=== PATIENT | female | born 1945 | race Caucasian/White ===

== ENCOUNTER 2019-09-05 14:03 | Outpatient (CLI) | payer MEDICARE, SELFPAY ==
--- NOTE | ~2019-09-05 | US_ITS ---
EXAMINATION: US arterial ankle brachial ind DATE: 09/05/2019 14:42 INDICATION: Peripheral vascular disease, unspecified. TECHNIQUE: Segmental pressures and plethysmographic and Doppler waveforms of the brachial and lower e xtremity arteries were obtained. COMPARISON: None. FINDINGS: Right and left brachial artery pressures of 113 mm Hg and 112 mm Hg, respectively, are concordant (no rmal difference <= 30 mmHg). The right ankle-brachial index (ZUHAIR) is 1.28 (normal >= 0.9-1.0). The right great toe-brachial index (TBI) is 0.96 (normal >= 0.65). Arterial Doppler waveforms are biphasic in posterior tibial artery an d at least triphasic in dorsalis pedis. The left ZUHAIR is 1.32. The left TBI is 1.03. Arterial Doppler waveforms are biphasic in posterior tibi al artery and triphasic in dorsalis pedis. IMPRESSION: 1. No significant arterial occlusive disease. Reviewed, dictated and finalized at location A. H MACHINE OPERATOR
== END 2019-09-05 14:04 | disposition home or self-care (01) ==
PROVIDERS: PCP Family Medicine; Visit Provider Physician Assistant
DX: I73.9 Peripheral vascular disease, unspecified (principal); M79.604 Pain in right leg; M79.605 Pain in left leg
CPT/HCPCS: 93922

== ENCOUNTER → 2020-02-15 15:14 | Outpatient (CLI) | payer MEDICARE, SELFPAY ==
--- NOTE | ~2020-02-15 | MM_ITS ---
EXAMINATION: MM screening eliza BI w conrad HISTORY: Screening TECHNIQUE: Craniocaudal and mediolateral oblique 3-D tomosynthesis images were obtained and synthetic 2-D images were generated. CAD analysis was submitted and interpreted. COMPARISON: Comparison to multiple prior studies sequentially, with oldest reviewed study dated 07/2015. BREAST PARENCHYMAL COMPOSITION: There are scattered areas of fibroglandular density. FINDINGS: There are enlarging masses in the medial aspect of the left breast, best seen on CC view. T he right breast is stable without evidence for malignancy. IMPRESSION: 1. Enlarging left breast masses medially, best seen on CC view. 2. Additional mammographic views and possible breast ultrasound are recommended. BI-RADS Category 0: Incomplete: Needs additional imaging evaluation. Reviewed, dictated and finalized at location A. IMPRESSION: 1. Enlarging left breast masses medially, best seen on CC view. 2. Additional mammographic views and possible breast ultrasound are recommended . BI-RADS Category 0: Incomplete: Needs additional imaging evaluation.
== END ==
PROVIDERS: PCP Family Medicine; Visit Provider Family Medicine
DX: Z12.31 Encounter for screening mammogram for malignant neoplasm of breast (principal); R92.8 Other abnormal and inconclusive findings on diagnostic imaging of breast
CPT/HCPCS: 77063; 77067

== ENCOUNTER → 2020-02-29 08:30 | Outpatient (CLI) | payer MEDICARE, SELFPAY ==
--- NOTE | ~2020-02-29 | MMUS_ITS ---
EXAMINATION: MM diagnostic mammo unilat LT, US breast LT limited HISTORY: Left breast masses on screening mammogram TECHNIQUE: Additional 3-D tomosynthesis images of the left breast were performed and synthetic 2-D im ages were generated. CAD analysis was submitted and interpreted. High resolution limited left breast ultrasound was performed. COMPARISON: 02/15/2020, 11/05/2018, 10/01/2017, 09/14/2016 FINDINGS: MAMMOGRAPHIC FINDINGS: There is a 5 mm oval, obscured, equal density mass in the middle third of the upper inner breast at t he 10:00 location 5 cm from the nipple. A 5 mm mass with similar mammographic features is seen in the anterior third of the breast at the 10:00 location 2 cm deep to the nipple. With spot compression im ages, and compared to prior examinations, these masses appear to have a somewhat waxing and waning ap pearance. No suspicious architectural distortion or calcification are identified. ULTRASOUND: There is a 4 mm x 2 mm oval, circumscribed, parallel, hypoechoic mass with no posterior features or i nternal vascularity at the 10:00 location 3 cm from the nipple. There is a 5 mm oval cyst at the 11:0 0 location 4 cm from the 18 mm round cyst is seen at the 12:00 location 1 cm from the nipple. IMPRESSION: 1. Probably benign left breast masses. 2. Recommend 6 month follow-up left diagnostic mammogram and ultrasound. BI-RADS category 3, probably benign findings. Reviewed, dictated and finalized at location A. IMPRESSION: 1. Probably benign left breast masses. 2. Recommend 6 month follow-up left diagnostic mammogram and ultrasound. BI-RADS category 3, probably benign findings.
== END ==
PROVIDERS: PCP Family Medicine; Visit Provider Physician Assistant
DX: R92.8 Other abnormal and inconclusive findings on diagnostic imaging of breast (principal)
CPT/HCPCS: 76642; 77065

== ENCOUNTER 2020-03-20 11:01 | Outpatient (CLI) | payer MEDICARE, SELFPAY ==
--- NOTE | ~2020-03-20 | XR_ITS ---
XR shoulder RT min 2V 03/20/2020 11:36 Indication: Right shoulder pain Procedure: 5 views right shoulder Comparison: No prior studies for comparison. 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 Osteopenia. No acute frac ture or traumatic malalignment. No significant soft tissue abnormality. No foreign bodies. Impression: 1: Mild polyarticular osteoarthritis. Reviewed, dictated and finalized at location B. Impression: 1: Mild polyarticular osteoarthritis.
== END 2020-03-20 11:02 | disposition home or self-care (01) ==
LOC: ANHIMG 11:05
PROVIDERS: PCP Family Medicine; Visit Provider Physician Assistant
DX: M19.011 Primary osteoarthritis, right shoulder (principal)
CPT/HCPCS: 73030

== ENCOUNTER 2020-06-21 01:48 | Outpatient (CLI) | payer MEDICARE, SELFPAY ==
[2020-06-21 20:00] LABS: SARS-CoV-2 RNA PCR Negative
== END 2020-06-21 01:49 | disposition home or self-care (01) ==
LOC: ANHCOVIDDT 01:48
PROVIDERS: PCP Family Medicine; Visit Provider Internal Medicine Gastroenterology
DX: Z01.818 Encounter for other preprocedural examination (principal); Z20.828 Contact with and (suspected) exposure to other viral communicable diseases
CPT/HCPCS: 87635; C9803; U0003

== ENCOUNTER 2020-06-24 02:14 | Day surgery (SDC) | payer MEDICARE, SELFPAY ==
[2020-06-17 15:24] VITALS: BMI 21.9
--- NOTE | 2020-06-24 08:51 | WPDANESEPPF ---
Anes - Initial Pre Proc Eval Procedure: Operation Date: 06/24/20 11:00 Proposed Procedures p Screening Colonoscopy - Tico Jamil MD Date/Time: 06/24/20 08:51 Surgeon: Tico Jamil MD Pre Op Diagnosis: neoplasm screening Patient Data Age: 75 Gender: F Height: 1.52 m Weight: 51 kg Allergies Allergy/AdvReac Type Severity Reaction Status Date / Time No Known Allergies Allergy Verified 06/24/20 10:04 Home Medications Medication Instructions Recorded Confirmed Type aspirin 81 mg tablet,delayed 81 mg PO DAILY 07/10/19 06/17/20 History release cyclobenzaprine 5 mg tablet See Rx Instructions PO ONCE PRN 07/10/19 06/17/20 History tablet furosemide 80 mg tablet 240 mg PO BID tablet 07/10/19 06/17/20 History gentamicin 0.1 % topical cream 1 applic TOPICAL ONCE gm 07/10/19 05/08/20 History lisinopril 5 mg tablet 5 mg PO DAILY 07/10/19 06/17/20 History sevelamer carbonate 800 mg tablet 1,600 mg PO TID tablet 07/10/19 06/17/20 History atorvastatin 40 mg tablet 40 mg PO DAILY #90 tablet 07/11/19 05/08/20 Rx levothyroxine 50 mcg tablet 50 mcg PO DAILY #90 tablet 07/11/19 06/17/20 Rx epoetin krystle 2,000 unit/mL 1,000 unit SUB-Q .every 2 weeks ml 08/23/19 06/17/20 History injection solution ropinirole 0.25 mg tablet 0.5 mg PO DAILY tablet 08/23/19 06/17/20 History propranolol 10 mg tablet 10 mg PO Q12H #180 tablet 04/16/20 06/17/20 Rx amlodipine 2.5 mg tablet 2.5 mg PO DAILY #90 tablet 05/23/20 06/17/20 Rx sodium,potassium,mag sulfates 17.5 See Rx Instructions PO .COMPLEX 05/24/20 Rx gram-3.13 gram-1.6 gram oral soln #354 ml azithromycin 500 mg PO 3XW 06/17/20 06/17/20 History citalopram 20 mg tablet 20 mg PO DAILY #90 tablet 06/17/20 Rx ethambutol 400 mg PO 3XW 06/17/20 06/17/20 History rifampin 300 mg PO 3XW 06/17/20 06/17/20 History tramadol 37.5 mg-acetaminophen 325 1 tablet PO Q6H PRN #90 tablet 06/17/20 06/17/20 Rx mg tablet lorazepam 1 mg tablet 1 mg PO TID PRN #60 tablet 06/18/20 Rx Patient hx anesthesia problems: none Family hx anesthesia problems: none PMFSH Past Medical History Medical History (Updated 06/24/20 @ 08:52 by Cesar Jiménez MD) Acquired hypothyroidism Anemia in chronic kidney disease Anxiety Chronic kidney disease, stage IV (severe) Dialysis patient peritoneal ESRD (end stage renal disease) HLD (hyperlipidemia) PAD (peripheral artery disease) Primary osteoarthritis, unspecified site Secondary hyperparathyroidism (of renal origin) Family History Family History Mother Diabetes mellitus Cerebrovascular accident Father Family history of cardiovascular disease Social History Social History Social History: Smoking status: Never smoker Second hand tobacco smoke exposure: No Alcohol intake: never Substance use: never Substance use type: does not use Living arrangements: with family Gender identity (if verbalized by the patient): Female Spiritual care concerns: No Anes - Eval Final PreProcedure Day of Procedure 06/24/20 08:51 Patient weight: normal Heart: regular rate and rhythm Lungs: clear to auscultation and normal air movement Airway: Mallampati scale class II Neurological: alert and oriented Last oral intake: >/= 8 hours ASA classification: IV Emergent: no Anesthetic plan: proceed Anesthesia type and monitoring: general GIVS Informed Consent: The patient's anesthetic plan and its attendant risks and benefits were discussed with the patient/family/POA. Questions were solicited and answers provided to the satisfaction of the patient/family/POA.
[2020-06-24 10:08] VITALS: BP 153/84; PULSE 89; RESP 16; TEMP 36.6; O2SAT 98; BMI 21.5
[2020-06-24] MEDS: SODIUM CHLORIDE 0.9% IV 500 ML 10 ML IV CONT (10:48)
[2020-06-24 10:58] LABS: Potassium 4.2 mmol/L (3.4-5.0)
--- NOTE | 2020-06-24 11:12 | PM.HPGS ---
History of Present Illness History of Present Illness Consent: Risks, benefits, and alternatives have been discussed and questions answered. Patient agrees to proceed with procedure. Chief complaint: neoplasm screening Narrative: Jacquie Cano is a 75 year old female with last colonoscopy 8 years ago, recent positive FIT Review of Systems Constitutional: Constitutional: Denies headache(s) and Denies weakness Eyes: Eyes: Denies blurry vision ENT: Reports Normal hearing present, Denies headache(s) and Denies neck pain Cardiovascular: Cardiovascular: Denies chest pain and Denies dyspnea Respiratory: Respiratory: Denies dyspnea Gastrointestinal: Gastrointestinal: Reports no additional gastrointestinal complaints Genitourinary: Genitourinary: Denies dysuria Musculoskeletal: Musculoskeletal: Denies neck pain Integumentary/Breasts: Skin/Breast: Denies dry skin Neurologic: Reports Normal hearing present, Denies headache(s) and Denies weakness Psychiatric: Psychiatric: Denies anxiety Endocrine: Endocrine: Denies change in body appearance Hematologic/Lymphatic: Hematologic/Lymphatic: Denies easy bleeding Allergic/Immunologic: Allergic/Immunologic: Denies urticaria PMFSH Past Medical History Medical History (Updated 06/24/20 @ 11:13 by Tico Jamil MD) Acquired hypothyroidism Anemia in chronic kidney disease Anxiety Chronic kidney disease, stage IV (severe) Dialysis patient peritoneal ESRD (end stage renal disease) Fecal occult blood test positive HLD (hyperlipidemia) PAD (peripheral artery disease) Primary osteoarthritis, unspecified site Secondary hyperparathyroidism (of renal origin) Family History Family History Mother Diabetes mellitus Cerebrovascular accident Father Family history of cardiovascular disease Social History Social History Social History: Smoking status: Never smoker Second hand tobacco smoke exposure: No Alcohol intake: never Substance use: never Substance use type: does not use Living arrangements: with family Gender identity (if verbalized by the patient): Female Spiritual care concerns: No Meds Home Medications and Allergies Home Medications Medication Instructions Recorded Confirmed Type aspirin 81 mg tablet,delayed 81 mg PO DAILY 07/10/19 06/17/20 History release cyclobenzaprine 5 mg tablet See Rx Instructions PO ONCE PRN 07/10/19 06/17/20 History tablet furosemide 80 mg tablet 240 mg PO BID tablet 07/10/19 06/17/20 History gentamicin 0.1 % topical cream 1 applic TOPICAL ONCE gm 07/10/19 05/08/20 History lisinopril 5 mg tablet 5 mg PO DAILY 07/10/19 06/17/20 History sevelamer carbonate 800 mg tablet 1,600 mg PO TID tablet 07/10/19 06/17/20 History atorvastatin 40 mg tablet 40 mg PO DAILY #90 tablet 07/11/19 05/08/20 Rx levothyroxine 50 mcg tablet 50 mcg PO DAILY #90 tablet 07/11/19 06/17/20 Rx epoetin krystle 2,000 unit/mL 1,000 unit SUB-Q .every 2 weeks ml 08/23/19 06/17/20 History injection solution ropinirole 0.25 mg tablet 0.5 mg PO DAILY tablet 08/23/19 06/17/20 History propranolol 10 mg tablet 10 mg PO Q12H #180 tablet 04/16/20 06/17/20 Rx amlodipine 2.5 mg tablet 2.5 mg PO DAILY #90 tablet 05/23/20 06/17/20 Rx sodium,potassium,mag sulfates 17.5 See Rx Instructions PO .COMPLEX 05/24/20 Rx gram-3.13 gram-1.6 gram oral soln #354 ml azithromycin 500 mg PO 3XW 06/17/20 06/17/20 History citalopram 20 mg tablet 20 mg PO DAILY #90 tablet 06/17/20 Rx ethambutol 400 mg PO 3XW 06/17/20 06/17/20 History rifampin 300 mg PO 3XW 06/17/20 06/17/20 History tramadol 37.5 mg-acetaminophen 325 1 tablet PO Q6H PRN #90 tablet 06/17/20 06/17/20 Rx mg tablet lorazepam 1 mg tablet 1 mg PO TID PRN #60 tablet 06/18/20 Rx Allergies Allergy/AdvReac Type Severity Reaction Status Date / Time No Known Allergies All
[2020-06-24 11:47] VITALS: BP 114/66; PULSE 88; RESP 20; O2SAT 93
[2020-06-24 11:57] VITALS: BP 139/69; PULSE 83; RESP 20; O2SAT 98
[2020-06-24 12:07] VITALS: BP 132/82; PULSE 81; RESP 20; O2SAT 98
== END 2020-06-24 12:16 | disposition home or self-care (01) ==
PROVIDERS: Anesthesiology; PCP Family Medicine; Visit Provider Internal Medicine Gastroenterology
PROC: 0DJD8ZZ Inspection of Lower Intestinal Tract, Via Natural or Artificial Opening Endoscopic (ICD-10-PCS; CPT 45378; principal; 2020-06-24 11:00)
DX: Z12.11 Encounter for screening for malignant neoplasm of colon (principal); K57.30 Diverticulosis of large intestine without perforation or abscess without bleeding; K64.8 Other hemorrhoids; R19.5 Other fecal abnormalities; Z79.82 Long term (current) use of aspirin; E03.9 Hypothyroidism, unspecified; F41.9 Anxiety disorder, unspecified; D63.1 Anemia in chronic kidney disease; N18.6 End stage renal disease; Z99.2 Dependence on renal dialysis; E78.5 Hyperlipidemia, unspecified; I73.9 Peripheral vascular disease, unspecified; M19.90 Unspecified osteoarthritis, unspecified site; E21.3 Hyperparathyroidism, unspecified
CPT/HCPCS: G0121; 36415; 84132; J2704; J7040

== ENCOUNTER → 2020-10-18 08:03 | Outpatient (CLI) | payer MEDICARE, SELFPAY ==
--- NOTE | ~2020-10-18 | MMUS_ITS ---
EXAMINATION: MM diagnostic eliza BI w conrad, US breast LT limited HISTORY: Follow-up left breast masses TECHNIQUE: Additional 3-D tomosynthesis images of the breasts were performed and synthetic 2-D images were generated. CAD analysis was submitted and interpreted. High resolution Limited left breast ultr asound was performed. COMPARISON: Comparison to multiple prior studies sequentially, with oldest reviewed study dated 10/01/2017. BREAST PARENCHYMAL COMPOSITION: Breast composed of scattered areas of fibroglandular density. FINDINGS: MAMMOGRAPHIC FINDINGS: There are no new masses, calcifications or architectural distortion in either breast to suggest malingrid sorensen. ULTRASOUND: Limited left breast ultrasound: At 10:00, 3 cm from the nipple there is a stable 4 mm oval circumscri bed hypoechoic mass with parallel orientation, no posterior features. At 12:00, 3 cm from the nipple there is a 3 mm cyst. IMPRESSION: 1. No evidence for malignancy in either breast. Benign findings. 2. Routine yearly screening mammogram and regular clinical breast examination are recommended. BI-RADS Category 2: Benign finding(s). Reviewed, dictated and finalized at location A. IMPRESSION: 1. No evidence for malignancy in either breast. Benign findings. 2. Routine yearly screening mammogram and regular clinical breast examination a re recommended. BI-RADS Category 2: Benign finding(s).
== END ==
PROVIDERS: PCP Family Medicine; Visit Provider Physician Assistant
DX: R92.8 Other abnormal and inconclusive findings on diagnostic imaging of breast (principal)
CPT/HCPCS: 76642; 77062; 77066; G0279

== ENCOUNTER → 2020-10-31 10:42 | Outpatient (CLI) | payer MEDICARE, SELFPAY ==
--- NOTE | ~2020-10-31 | XR_ITS ---
XR lumbar spine 2-3V 10/31/2020 11:07 Indication: Low back pain Procedure: 3 views lumbar spine Comparison: No prior studies for comparison. Findings: There is dextroscoliosis of the lumbar spine centered at L3. There is severe multilevel lum bar spondylosis characterized by disc narrowing, endplate hypertrophy as well as facet hypertrophy. N o acute fractures identified. Pedicles intact. There is a peritoneal dialysis catheter overlying the pelvis. There is atherosclerosis of the aorta. Impression: 1: Severe lumbar spondylosis with dextroscoliosis. Reviewed, dictated and finalized at location B. Impression: 1: Severe lumbar spondylosis with dextroscoliosis.
== END ==
PROVIDERS: PCP Family Medicine; Visit Provider Physician Assistant
DX: M54.42 Lumbago with sciatica, left side (principal); G89.29 Other chronic pain; M47.896 Other spondylosis, lumbar region
CPT/HCPCS: 72100

== ENCOUNTER 2020-12-13 09:32 | Outpatient (RCR) | payer MEDICARE, SELFPAY ==
[2020-12-13] VITALS (10 sets, daily range): BP systolic 119–161; BP diastolic 60–88; PULSE 70–76; RESP 14–17; TEMP 36.1–36.3; O2SAT 97–100
[2020-12-13] MEDS: ACETAMINOPHEN 325 MG TABLET 650 MG PO (11:00)
[2020-12-13] MEDS: diphenhydrAMINE HCl CAP 25 MG CAPSULE PO (11:00)
[2020-12-13] MEDS: SODIUM CHLORIDE 0.9% IV 250 ML 30 ML IV CONT (11:45)
[2020-12-13] MEDS: FUROSEMIDE INJ 40 MG/4 ML VIAL 20 MG IV PUSH (14:30)
--- NOTE | 2020-12-13 17:51 | PC.NURSE ---
Infusion complete. RENÉ Slaughter went through discharge instructions. Patient verbalized understanding.
--- NOTE | 2020-12-13 18:06 | PC.NURSE ---
Kasandra MERRITT went through patient's discharge paperwork. Patient verbalized understanding. Patient escorted off the unit by wheelchair and by Jenn MERRITT.
== END 2021-03-12 23:59 | disposition home or self-care (01) ==
LOC: ANHCPCTRAN 09:32
PROVIDERS: PCP Family Medicine; Visit Provider Internal Medicine Nephrology
DX: N18.6 End stage renal disease (principal); D63.1 Anemia in chronic kidney disease
CPT/HCPCS: 36415; 36430; 85014; 85018; 86850; 86900; 86901; 86920; A9270; J1940; J7050; P9016

== ENCOUNTER 2021-01-27 14:26 | Outpatient (CLI) | payer MEDICARE, SELFPAY ==
[2021-01-27 15:30] LABS: Basophils Percent Auto 0.7 % (0.2-1.2); Eosinophils Absolute Auto 0.1 K/mm3 (0-0.3); Eosinophils Percent Auto 2.2 % (0-4.4); Hematocrit 38.4 % (37.0-47.0); Hemoglobin 12.5 g/dL (12.0-15.0); Immature Granulocyte Absolute 0.01 K/mm3 (0.00-0.031); Immature Granulocyte Percent A 0.2 % (0-0.5); Lymphocytes Absolute Auto 0.96 K/mm3 (0.9-3.2); Lymphocytes Percent Auto 20.9 % (18.3-44.2); Mean Corpuscular HGB Conc 32.6 g/dl (32-36); Mean Corpuscular Hemoglobin 36.3 pg (26-34); Mean Corpuscular Volume 111.6 fl (80-100); Mean Platelet Volume 9.6 fl (7.4-10.4); Monocytes Absolute Auto 0.5 K/mm3 (0.1-0.6); Monocytes Percent Auto 9.8 % (2.6-8.5); Neutrophils Absolute Auto 3.1 K/mm3 (1.3-6.7); Neutrophils Percent Auto 66.2 % (45.5-73.1); Nucleated Red Blood Cells Perc 0.7 % (0.0-0.2); Platelet Count Result 209 k/mm3 (150-375); Red Blood Count 3.44 M/mm3 (4.2-5.4); White Blood Count 4.6 K/mm3 (4.5-10.0)
[2021-01-27 16:04] LABS: Alanine Aminotransferase 24 U/L (4-35); Alkaline Phosphatase 74 U/L (38-126); Anion Gap 12 mmol/L (8-16); Aspartate Amino Transferase 35 U/L (14-36); Bilirubin,Total 0.6 mg/dL (0.2-1.3); Blood Urea Nitrogen 51 mg/dL (7-17); Calcium 9.2 mg/dL (8.4-10.2); Carbon Dioxide 25 mmol/L (22-30); Chloride 99 mmol/L (98-107); Estimated Glomerular Filt Rate 5; Glucose 83 mg/dL (65-110); Lactate Dehydrogenase 770 U/L (313-618); Potassium 4.4 mmol/L (3.4-5.0); Sodium 136 mmol/L (137-145)
[2021-01-27 17:09] LABS: Folic Acid > 20.0 ng/mL (2.76->20)
[2021-01-27 18:01] LABS: Iron 70 ug/dL (37-170)
[2021-01-27 18:11] LABS: Percent Iron Saturation 34 % (20-50)
[2021-01-30 11:46] LABS: Methylmalonic Acid 622 nmol/L (87-318)
[2021-01-30 17:36] LABS: Erythropoietin (EPO) 31.8 mIU/mL (2.6-18.5)
== END 2021-01-27 14:27 | disposition home or self-care (01) ==
LOC: ANHLAB 14:29
PROVIDERS: PCP Family Medicine; Visit Provider Internal Medicine Hematology & Oncology
DX: D64.9 Anemia, unspecified (principal)
CPT/HCPCS: 36415; 80053; 82607; 82668; 82728; 82746; 83540; 83550; 83615; 83921; 84443; 85025

== ENCOUNTER 2021-01-30 09:03 | Inpatient (IN) | payer MEDICARE, SELFPAY ==
[2021-01-30] VITALS (38 sets, daily range): BP systolic 163–213; BP diastolic 80–117; PULSE 73–94; RESP 15–28; TEMP 36–37.3; O2SAT 98–100; BMI 20.3
--- NOTE | ~2021-01-30 | XR_ITS ---
XR chest 1V portable 01/30/2021 09:41 Indication: Hypertension Procedure: AP portable chest Comparison: 10/11/2018 Findings: Large hiatal hernia. Heart size normal for technique. There is atherosclerosis of the aorta . No focal air space disease, pulmonary edema, pleural effusion or suspected pneumothorax. Impression: 1: Large hiatal hernia. Reviewed, dictated and finalized at location A. Impression: 1: Large hiatal hernia.
--- NOTE | ~2021-01-30 | CT_ITS ---
EXAMINATION: CT brain wo con DATE: 01/30/2021 10:02 INDICATION: Headache. Hypertension. TECHNIQUE: Computed tomography (CT) of the head was performed without intravenous contrast. Sagittal and coronal reconstructions were performed. The mA was adjusted according to patient size. Iterative reconstruction technique was employed. The dose-length product was 605.33 mGy-cm. COMPARISON: head CT dated 10/11/2018 and brain MR dated 10/12/2018 FINDINGS: No acute intracranial hemorrhage, acute infarction or abnormal extra axial fluid collection. There is mild scattered white matter hypoattenuation consistent with chronic small vessel ischemic disease. S ymmetric prominence of the sulci and subarachnoid spaces overlying the convexities consistent with mi ld age-appropriate diffuse cerebral volume loss. Ventricles are normal and symmetric. No mass/mass ef fect. Changes of bilateral intraocular lens replacement. The orbits, paranasal sinuses and mastoid ai r cells are normal. Intracranial calcified cerebral atherosclerosis is noted. IMPRESSION: 1. No acute intracranial process. 2. Age-related changes including mild diffuse volume loss and mild scattered white matter hypoattenua tion consistent with chronic small vessel ischemic disease. Reviewed, dictated and finalized at location A. IMPRESSION: 1. No acute intracranial process. 2. Age-related changes including mild diffuse volume loss and mild scattered wh ite matter hypoattenuation consistent with chronic small vessel ischemic diseas e.
--- NOTE | 2021-01-30 09:31 | ECG_ITS ---
Measurements Intervals [place] Rate: 85 P: 52 [place]: 159 QRS: 19 QRSD: 82 T: 67 QT: 374 QTc: 447 Interpretive Statements SINUS RHYTHM POSSIBLE LEFT ATRIAL ENLARGEMENT BASELINE ARTIFACT- I, II, AVR, AVL, V1-V2 BORDERLINE ECG Electronically Signed On 01-30-2021 11:59:31 CDT by Mason Mendez D.O.
--- NOTE | 2021-01-30 09:37 | ED.HA ---
HPI - Headache General Chief Complaint: Headache <Luiza Chopra PA-C - Last Filed: 01/30/21 13:13> Stated Complaint: MORGAN <SUE Velazquez Last Filed: 01/30/21 13:13> Time Seen by Provider: 01/30/21 09:18 <SUE Velazquez Last Filed: 01/30/21 13:13> Source: patient <SUE Velazquez Last Filed: 01/30/21 13:13> Mode of arrival: ambulatory <SUE Velazquez Last Filed: 01/30/21 13:13> Limitations: no limitations <SUE Velazquez Last Filed: 01/30/21 13:13> History of Present Illness HPI Narrative: This is a 75-year-old female that presents to the emergency department for headaches x2 weeks. Associated with nausea. Reports the headaches are pounding. She does have history of migraines. She has been taking tramadol with little relief. Reports she saw her kidney doctor who recently increased her blood pressure medicine. She has been taking these as prescribed. Her blood pressure has consistently been running in the 200s systolic. She does peritoneal dialysis nightly. Denies fever, stiff neck, chest pain, shortness of breath, vision changes, vomiting, numbness, weakness, or lower extremity edema. <Luiza Chopra PA-C - Last Filed: 01/30/21 13:13> Related Data Home Medications: Home Medications Medication Instructions Recorded Confirmed aspirin 81 mg tablet,delayed 81 mg PO DAILY 07/10/19 12/19/20 release furosemide 80 mg tablet 240 mg PO BID tablet 07/10/19 12/19/20 gentamicin 0.1 % topical cream 1 applic TOPICAL ONCE gm 07/10/19 12/19/20 sevelamer carbonate 800 mg tablet 1,600 mg PO TID tablet 07/10/19 12/19/20 epoetin krystle 2,000 unit/mL 1,000 unit SUB-Q .every 2 weeks ml 08/23/19 12/19/20 injection solution ropinirole 0.25 mg tablet 0.5 mg PO DAILY tablet 08/23/19 12/19/20 ethambutol 400 mg PO 3XW 06/17/20 12/19/20 rifampin 300 mg PO 3XW 06/17/20 12/19/20 <Luiza Chopra PA-C - Last Filed: 01/30/21 13:13> Allergies/Adverse Reactions: Allergies Allergy/AdvReac Type Severity Reaction Status Date / Time No Known Allergies Allergy Verified 12/19/20 11:00 <Luiza Chopra PA-C - Last Filed: 01/30/21 13:13> Review of Systems Review of Systems: CONSTITUTIONAL: Denies fever EYES: Denies visual changes CARDIOVASCULAR: Denies chest pain, or edema. RESPIRATORY: Denies dyspnea. GASTROINTESTINAL: Reports nausea. Denies vomiting NEUROLOGIC: Reports headache. Denies numbness, or weakness. <Luiza Chopra PA-C - Last Filed: 01/30/21 13:13> All systems reviewed & are unremarkable except as noted in HPI and below <Luiza Chopra PA-C - Last Filed: 01/30/21 13:13> [facility] Past Medical History Medical History: Medical History Acquired hypothyroidism Anemia in chronic kidney disease Anxiety Chronic kidney disease, stage IV (severe) Dialysis patient peritoneal ESRD (end stage renal disease) Fecal occult blood test positive HLD (hyperlipidemia) PAD (peripheral artery disease) Primary osteoarthritis, unspecified site Secondary hyperparathyroidism (of renal origin) <Luiza Chopra PA-C - Last Filed: 01/30/21 13:13> Family History Family History: Family History Mother Diabetes mellitus Cerebrovascular accident Father Family history of cardiovascular disease <Luiza Chopra PA-C - Last Filed: 01/30/21 13:13> Social History Social History: Social History Social History: Smoking status: Never smoker Second hand tobacco smoke exposure: No Alcohol intake: never Substance use: never Substance use type: does not use Gender identity (if verbalized by the patient): Female Spiritual care concerns: No <Luiza Chopra PA-C - Last Filed: 01/30/21 13:13> Exam Narrative: GENERA
[2021-01-30] MEDS: diphenhydrAMINE HCl INJ 50 MG/ML VIAL 25 MG IV PUSH (09:56)
[2021-01-30] MEDS: METOCLOPRAMIDE HCL INJ 10 MG/2 ML VIAL 5 MG IV PUSH (09:56)
--- NOTE | 2021-01-30 09:58 | PC.NURSE ---
pT TO CT
[2021-01-30 10:04] LABS: Basophils Percent Auto 0.8 % (0.2-1.2); Eosinophils Absolute Auto 0.1 K/mm3 (0-0.3); Eosinophils Percent Auto 1.1 % (0-4.4); Hematocrit 34.6 % (37.0-47.0); Hemoglobin 11.1 g/dL (12.0-15.0); Immature Granulocyte Absolute 0.02 K/mm3 (0.00-0.031); Immature Granulocyte Percent A 0.4 % (0-0.5); Lymphocytes Absolute Auto 1.07 K/mm3 (0.9-3.2); Lymphocytes Percent Auto 22.7 % (18.3-44.2); Mean Corpuscular HGB Conc 32.1 g/dl (32-36); Mean Corpuscular Volume 112.3 fl (80-100); Mean Platelet Volume 10.2 fl (7.4-10.4); Monocytes Absolute Auto 0.4 K/mm3 (0.1-0.6); Monocytes Percent Auto 8.5 % (2.6-8.5); Neutrophils Absolute Auto 3.1 K/mm3 (1.3-6.7); Neutrophils Percent Auto 66.5 % (45.5-73.1); Platelet Count Result 172 k/mm3 (150-375); Red Blood Count 3.08 M/mm3 (4.2-5.4); White Blood Count 4.7 K/mm3 (4.5-10.0)
[2021-01-30 10:32] LABS: INR 0.8
[2021-01-30 10:33] LABS: Partial Thromboplastin Time 26.4 SECONDS (22.3-36.8)
[2021-01-30] MEDS: LABETALOL HCL INJ 100 MG/20 ML VIAL 20 MG IV PUSH ×2 (11:05→12:10)
[2021-01-30 11:08] LABS: Anion Gap 12 mmol/L (8-16); Blood Urea Nitrogen 49 mg/dL (7-17); Calcium 8.8 mg/dL (8.4-10.2); Carbon Dioxide 24 mmol/L (22-30); Chloride 100 mmol/L (98-107); Estimated CRCL calculation 5 ml/min; Estimated Glomerular Filt Rate 5; Glucose 98 mg/dL (65-110); Sodium 136 mmol/L (137-145)
[2021-01-30] MEDS: NIFEdipine 30 MG TAB.ER.24 PO (13:35)
--- NOTE | 2021-01-30 14:03 | PM.IMHP ---
H&P: HPI History of Present Illness Date/Time: 01/30/21 14:03 Jacquie Cano is a 75 year old lady with a past medical history significant for HTN, ESRD (on PD), PAD, HLD and migraines who has been admitted after presenting to the ED with a chief complaint of headache for the past two weeks. She reports associated nausea but no vomiting. She tells me she took ibuprofen and tramadol with no relief. She notes that her blood pressure had been elevated systolically in the 200s. She has experienced similar symptoms in the past and was noted with elevated blood pressure about 2 years ago prior to starting PD. She is followed by a fern cutter, Dr. Sprague, who recently increased doses on two of her antihypertensives because her BP was elevated. She reports taking her medication as ordered without any skipped doses. She denies any vision changes, numbness, tingling, or weakness in the extremities, SOB, CP, vomiting, or abdominal pain. ED evaluation included and revealed: BP elevated 210s/110s; BUN/Cr 49/7.6; H/H 11.1/34.6. CT of head showed no acute process; ECG NSR. CXR showed a large hiatal hernia. She was treated with labetalol and her blood pressure improved to DrSandrita Sprague was consulted by the ED and recommended increasing lisinopril to 20 mg daily. She was also given a dose of nifedipine in the ED per Dr. Blake. Her headache improved after treatment with Tylenol, Reglan and Benadryl. The patient has been admitted for further evaluation and treatment. Chief Complaint: headache Review of Systems Review of Systems: All systems reviewed & are unremarkable except as noted in HPI and below PMFSH Past Medical History Medical History Acquired hypothyroidism Anemia in chronic kidney disease Anxiety Chronic kidney disease, stage IV (severe) Dialysis patient peritoneal ESRD (end stage renal disease) Fecal occult blood test positive HLD (hyperlipidemia) PAD (peripheral artery disease) Primary osteoarthritis, unspecified site Secondary hyperparathyroidism (of renal origin) Family History Family History Mother Diabetes mellitus Cerebrovascular accident Father Family history of cardiovascular disease Social History Social History Social History: Smoking status: Never smoker Second hand tobacco smoke exposure: No Alcohol intake: never Substance use: never Substance use type: does not use Gender identity (if verbalized by the patient): Female Spiritual care concerns: No Meds Home Medications and Allergies Home Medications Medication Instructions Recorded Confirmed Type aspirin 81 mg tablet,delayed 81 mg PO DAILY 07/10/19 01/30/21 History release furosemide 80 mg tablet 320 mg PO DAILY tablet 07/10/19 01/30/21 History gentamicin 0.1 % topical cream 1 applic TOPICAL DAILY gm 07/10/19 01/30/21 History sevelamer carbonate 800 mg tablet 4,500 mg PO DAILY tablet 07/10/19 01/30/21 History epoetin krystle 2,000 unit/mL 1,000 unit SUB-Q MONTHLY ml 08/23/19 01/30/21 History injection solution ropinirole 0.25 mg tablet 0.5 mg PO DAILY tablet 08/23/19 01/30/21 History ethambutol 800 mg PO DAILY 06/17/20 01/30/21 History levothyroxine 50 mcg tablet 50 mcg PO DAILY #90 tablet 07/18/20 01/30/21 Rx buspirone 7.5 mg tablet 7.5 mg PO BID #180 tablet 09/19/20 01/30/21 Rx gabapentin 100 mg capsule 100 mg PO QHS #90 cap 10/09/20 01/30/21 Rx tramadol 37.5 mg-acetaminophen 325 1 tablet PO Q6H PRN #360 tablet 12/10/20 01/30/21 Rx mg tablet propranolol 10 mg tablet 10 mg PO Q12H #180 tablet 12/19/20 01/30/21 Rx amlodipine 5 mg tablet 5 mg PO DAILY #90 tablet 12/24/20 01/30/21 Rx lorazepam 1 mg tablet 1 mg PO TID PRN #60 tablet 01/07/21 01/30/21 Rx lisinopril 10 mg PO DAILY 01/30/21 01/30/21 History rifampin 300 mg BID 01/30/21 01/30/21 History
--- NOTE | 2021-01-30 14:40 | ADMGEN ---
This patient, Jacquie Cano, was admitted to Medical Room 347-. Patient/family oriented to hospital policies and general routines including ID bracelet, bed and alarms, visiting hours, pain management, procedures, bathroom and other care routines, personal items, smoking policy, room service/diet, and visiting hours. Information on how to activate the Rapid Response Team has been discussed. Patient/Family are encouraged to report perceived risks to care and to ask questions if they do not understand what they are told or what they should do.
[2021-01-30] MEDS: traMADol/ACETAMINOPHEN (*CRX) (ULTRACET) 37.5/325 MG TABLET 1 TAB PO ×2 (16:11→22:37)
[2021-01-30] MEDS: SEVELAMER CARBONATE 800 MG TABLET 1600 MG PO (16:12)
[2021-01-30] MEDS: busPIRone HCL 2.5 MG TABLET 7.5 MG PO (16:12)
[2021-01-30 18:14] LABS: Basophils Percent Auto 0.6 % (0.2-1.2); Eosinophils Absolute Auto 0.1 K/mm3 (0-0.3); Eosinophils Percent Auto 1.5 % (0-4.4); Hematocrit 32.8 % (37.0-47.0); Hemoglobin 10.6 g/dL (12.0-15.0); Immature Granulocyte Absolute 0.02 K/mm3 (0.00-0.031); Immature Granulocyte Percent A 0.4 % (0-0.5); Lymphocytes Absolute Auto 1.13 K/mm3 (0.9-3.2); Lymphocytes Percent Auto 21.3 % (18.3-44.2); Mean Corpuscular HGB Conc 32.3 g/dl (32-36); Mean Corpuscular Hemoglobin 36.2 pg (26-34); Mean Corpuscular Volume 111.9 fl (80-100); Mean Platelet Volume 9.6 fl (7.4-10.4); Monocytes Absolute Auto 0.6 K/mm3 (0.1-0.6); Monocytes Percent Auto 10.6 % (2.6-8.5); Neutrophils Absolute Auto 3.5 K/mm3 (1.3-6.7); Neutrophils Percent Auto 65.6 % (45.5-73.1); Nucleated Red Blood Cells Perc 0.4 % (0.0-0.2); Platelet Count Result 161 k/mm3 (150-375); Red Blood Count 2.93 M/mm3 (4.2-5.4); Red Cell Distribution Width 18.7 % (11.5-14.5); White Blood Count 5.3 K/mm3 (4.5-10.0)
[2021-01-30 18:23] LABS: Anion Gap 10 mmol/L (8-16); Blood Urea Nitrogen 54 mg/dL (7-17); Calcium 8.2 mg/dL (8.4-10.2); Carbon Dioxide 25 mmol/L (22-30); Chloride 101 mmol/L (98-107); Estimated CRCL calculation 5 ml/min; Estimated Glomerular Filt Rate 5; Glucose 90 mg/dL (65-110); Potassium 4.2 mmol/L (3.4-5.0); Sodium 136 mmol/L (137-145)
[2021-01-30] MEDS: GABAPENTIN 100 MG CAPSULE PO (20:39)
[2021-01-30] MEDS: PROPRANOLOL HCL 10 MG TABLET PO (20:39)
[2021-01-30] MEDS: HEPARIN SODIUM 5,000 UNITS/ML VIAL 5000 UNITS SUB-Q (20:39)
[2021-01-30] MEDS: LORazepam (*CRX) 1 MG TABLET PO (20:40)
[2021-01-30] MEDS: ACETAMINOPHEN 325 MG TABLET 650 MG PO (20:40)
[2021-01-30 21:20] LABS: Hepatitis B Surface Antigen Negative (Negative)
[2021-01-30 21:40] LABS: Hepatitis B Surface Anti Res Positive
[2021-01-30] MEDS: hydrALAZINE HCL 20 MG/ML VIAL 10 MG IV PUSH (22:37)
[2021-01-30] MEDS: CYCLOBENZAPRINE HCL 5 MG TABLET PO (22:37)
[2021-01-31] VITALS (13 sets, daily range): BP systolic 120–192; BP diastolic 65–97; PULSE 85–121; RESP 18–20; TEMP 35.9–36.7; O2SAT 98–99
--- NOTE | 2021-01-31 | ECHO_ITS ---
Patient Info Name: aJcquie Cnao Age: 75 years : 1945 Gender: Female Ht: 65 in Wt: 122 lbs BSA: 1.59 m2 HR: 98 bpm BP: 142 / 80 mmHg Heart Rhythm: Sinus Rhythm Technical Quality: Poor Exam Date: 01/31/2021 11:36 AM Exam Location: [facility] Patient Status: Inpatient Admit Date: 01/30/2021 Staff Ordering Physician: Isaac Azar [employer] Usher: Kayleigh Villatoro RDCS Attending Provider: Tonya Blake MD Referring Physician: Doe GANDHI; Exam Type: CA echo doppler color flow Study Info Indications R00.2 - Palpitations Complete two-dimensional, color flow and Doppler transthoracic echocardiogram is performed. Reason for Poor Study: poor echocardiographic windows Summary 1. Complete two-dimensional, color flow and Doppler transthoracic echocardiogram is performed. 2. There is mild concentric increased left ventricular wall thickness. 3. Left ventricular systolic function is normal, estimated at 60-65%. 4. The left ventricular diastolic function is grade II diastolic dysfunction. 5. Left atrial chamber dimension is normal. 6. There is mild aortic valve sclerosis. 7. The mitral valve has normal leaflets. Left Ventricle Left ventricular chamber dimension is normal. Left ventricular systolic function is normal, estimated at 60-65%. There is mild concentric increased left ventricular wall thickness. The left ventricular diastolic function is grade II diastolic dysfunction. Right Ventricle Right ventricular chamber dimension is normal. Left Atria Left atrial chamber dimension is normal. Right Atria Right atrial chamber dimension is normal. Aortic Valve The aortic valve is trileaflet. There is mild aortic valve sclerosis. Pulmonic Valve The pulmonic valve is not well visualized. Mitral Valve The mitral valve has normal leaflets. Tricuspid Valve The tricuspid valve leaflets are normal. Pericardium/Pleural The pericardium appears normal. Aorta The aortic root size at the sinus of Valsalva is normal. Left Ventricular Outflow Tract Name Value Normal LVOT 2D LVOT Diameter 1.9 cm LVOT Doppler LVOT Peak Gradient 3 mmHg LVOT Mean Gradient 2 mmHg LVOT VTI 17 cm LVOT VTI/AV VTI Ratio 0.8 LVOT Stroke Volume 47 ml LVOT CO 4.2 l/min LVOT CI 2.6 l/min/m2 Pulmonic Valve Name Value Normal RVOT Doppler RVOT Peak Gradient 4 mmHg PV Doppler PV Peak Gradient 5 mmHg Mitral Valve Name
[2021-01-31] MEDS: LEVOTHYROXINE SODIUM 50 MCG TABLET PO (06:30)
[2021-01-31] MEDS: hydrALAZINE HCL 20 MG/ML VIAL 10 MG IV PUSH (06:30)
[2021-01-31] MEDS: traMADol/ACETAMINOPHEN (*CRX) (ULTRACET) 37.5/325 MG TABLET 1 TAB PO (06:30)
[2021-01-31] MEDS: LORazepam (*CRX) 1 MG TABLET PO ×2 (08:05→13:52)
[2021-01-31] MEDS: busPIRone HCL 2.5 MG TABLET 7.5 MG PO ×2 (08:06→21:21)
[2021-01-31] MEDS: ASPIRIN 81 MG ENTERIC TABLET PO (08:07)
[2021-01-31] MEDS: FUROSEMIDE 80 MG TABLET 320 MG PO (08:07)
[2021-01-31] MEDS: ATORVASTATIN 40 MG TABLET PO (08:07)
[2021-01-31] MEDS: lisinopriL 20 MG TABLET PO ×2 (08:08→17:52)
[2021-01-31] MEDS: PROPRANOLOL HCL 10 MG TABLET PO ×3 (08:08→21:22)
[2021-01-31] MEDS: rOPINIRole HCL 0.5 MG TABLET PO (08:09)
[2021-01-31] MEDS: SEVELAMER CARBONATE 800 MG TABLET 1600 MG PO ×3 (08:09→17:52)
[2021-01-31] MEDS: HEPARIN SODIUM 5,000 UNITS/ML VIAL 5000 UNITS SUB-Q ×2 (08:13→21:23)
[2021-01-31] MEDS: ACETAMINOPHEN 325 MG TABLET 650 MG PO ×2 (08:16→13:52)
[2021-01-31] MEDS: amLODIPine BESYLATE 5 MG TABLET 10 MG PO (09:22)
--- NOTE | 2021-01-31 10:38 | P.PNIM_ITS ---
Progress Note: A&P Assessment and Plan (1) Hypertensive urgency: Code(s): I16.0 - Hypertensive urgency Status: Acute Assessment and Plan: * BP Currently 142/80 * Lisinopril increased [address] Sprague recommendation * Amlodipine increased to 10 mg daily * propranolol continued and increased to 20 mg b.i.d. * Hydralazine prn * Tele monitoring * trend blood pressures * adjust medications as needed * headache noted with blurred vision per patient (2) Heart palpitations: Code(s): R00.2 - Palpitations Status: Acute Assessment and Plan: * heart rate noted to be 130s with activity * tele monitor shows sinus tach with PACs and possible AFib * patient complains of chest pressure including palpitations, nausea, shortness of breath * patient had a cardiac catheterization in [place] about a year ago * EKG showed sinus rhythm in the 60s to 80s * troponin I ordered x2 * echo ordered and pending * will consider cardiology consult depending on the results of these test (3) ESRD (end stage renal disease) on dialysis: Code(s): N18.6 - End stage renal disease; Z99.2 - Dependence on renal dialysis Status: Acute Assessment and Plan: * BUN/Cr 54/7.9 * PD nightly * Nephrology consulted thank very recommendations * Avoid nephrotoxins * Renally dose all meds * trend BUN and creatinine * labs in the a.m. (4) PAD (peripheral artery disease): Code(s): I73.9 - Peripheral vascular disease, unspecified Status: Acute Assessment and Plan: * resume home aspirin 81 mg daily * education about rest cycles (5) HLD (hyperlipidemia): Code(s): E78.5 - Hyperlipidemia, unspecified Status: Acute Assessment and Plan: * patient not on any hyperlipidemia medications at home * atorvastatin 40 mg p.o. daily has been started * will get lipid panel in the a.m. * education about low-fat diet. (6) Anemia in chronic kidney disease: Code(s): N18.9 - Chronic kidney disease, unspecified; D63.1 - Anemia in chronic kidney disease Status: Acute Assessment and Plan: * history of anemia and hemoglobin of 6 back in December of 2020 * Hgb 10.6 * Transfuse if <7 * trend hemoglobin and hematocrit * labs in morning Time Spent With Patient Time with patient: 25 - 35 minutes Subjective Date/time seen: 01/31/21 09:55 Interval history: miss Cano is a 75-year-old female with a past medical history of hypertension end-stage renal disease, P 80, hyperlipidemia who presents to the ED on 01/30/2021 for headache that she has had for the last 2 weeks. Patient also stated that her blood pressure has been high for the last 2 weeks along with that headache. Patient also stated that when she gets up out of bed her heart rate gets really fast and she feels palpitations which is accompanied with nausea and numbness and tingling in her fingers. On the monitor she is in sinus rhythm sinus tach however when she does get up she does get her heart rate into the 130s. She states that when she does have these episodes of tachycardia she stated that her chest feels like an elephant is sitting on it and she has lots of pressure and can feel the palpitations. Patient also had an episode this morning where she was very short of breath however it was noted that she was gurgly. She stated when she disconnected herself from the PD machine that she felt like it was a little bit
--- NOTE | 2021-01-31 10:38 | PM.IMPN ---
Progress Note: A&P Assessment and Plan (1) Hypertensive urgency: Code(s): I16.0 - Hypertensive urgency Status: Acute Assessment and Plan: BP Currently 142/80 Lisinopril increased [address] Sprague recommendation Amlodipine increased to 10 mg daily propranolol continued and increased to 20 mg b.i.d. Hydralazine prn Tele monitoring trend blood pressures adjust medications as needed headache noted with blurred vision per patient (2) Heart palpitations: Code(s): R00.2 - Palpitations Status: Acute Assessment and Plan: heart rate noted to be 130s with activity tele monitor shows sinus tach with PACs and possible AFib patient complains of chest pressure including palpitations, nausea, shortness of breath patient had a cardiac catheterization in [place] about a year ago EKG showed sinus rhythm in the 60s to 80s troponin I ordered x2 echo ordered and pending will consider cardiology consult depending on the results of these test (3) ESRD (end stage renal disease) on dialysis: Code(s): N18.6 - End stage renal disease; Z99.2 - Dependence on renal dialysis Status: Acute Assessment and Plan: BUN/Cr 54/7.9 PD nightly Nephrology consulted thank very recommendations Avoid nephrotoxins Renally dose all meds trend BUN and creatinine labs in the a.m. (4) PAD (peripheral artery disease): Code(s): I73.9 - Peripheral vascular disease, unspecified Status: Acute Assessment and Plan: resume home aspirin 81 mg daily education about rest cycles (5) HLD (hyperlipidemia): Code(s): E78.5 - Hyperlipidemia, unspecified Status: Acute Assessment and Plan: patient not on any hyperlipidemia medications at home atorvastatin 40 mg p.o. daily has been started will get lipid panel in the a.m. education about low-fat diet. (6) Anemia in chronic kidney disease: Code(s): N18.9 - Chronic kidney disease, unspecified; D63.1 - Anemia in chronic kidney disease Status: Acute Assessment and Plan: history of anemia and hemoglobin of 6 back in December of 2020 Hgb 10.6 Transfuse if <7 trend hemoglobin and hematocrit labs in morning Time Spent With Patient Time with patient: 25 - 35 minutes Subjective Date/time seen: 01/31/21 09:55 Interval history: miss Cano is a 75-year-old female with a past medical history of hypertension end-stage renal disease, P 80, hyperlipidemia who presents to the ED on 01/30/2021 for headache that she has had for the last 2 weeks. Patient also stated that her blood pressure has been high for the last 2 weeks along with that headache. Patient also stated that when she gets up out of bed her heart rate gets really fast and she feels palpitations which is accompanied with nausea and numbness and tingling in her fingers. On the monitor she is in sinus rhythm sinus tach however when she does get up she does get her heart rate into the 130s. She states that when she does have these episodes of tachycardia she stated that her chest feels like an elephant is sitting on it and she has lots of pressure and can feel the palpitations. Patient also had an episode this morning where she was very short of breath however it was noted that she was gurgly. She stated when she disconnected herself from the PD machine that she felt like it was a little bit more edematous under the catheter than she is used to. Patient was good been Ativan which did seem to help. Patient stated that she does have this happened her at home as well which she gets up and usually just paces. Patient also talks about having a consistent headache. This headache is accompanied with blurred vision, nausea, and near syncopal episodes. Patient currently does have a headache which is behind the left eye and she rates it a 4/10. She stated that the acetami
--- NOTE | 2021-01-31 10:53 | PC.NURSE ---
On 01/31/21, the student, [Geovanna Dominique], provided care and [facility]. I have reviewed the student's documentation and agree with the findings.
[2021-01-31 12:33] LABS: Troponin I 0.057 ng/mL (0.000-0.034)
--- NOTE | 2021-01-31 12:37 | PM.CNNEP ---
Assessment and Plan Assessment and plan (1) ESRD (end stage renal disease) on dialysis: Code(s): N18.6 - End stage renal disease; Z99.2 - Dependence on renal dialysis Status: Acute Assessment and Plan: end-stage renal disease hypertensive renal disease presenting with hypertensive urgency with symptoms tachycardia anemia chronic kidney disease secondary hyperparathyroidism mild hyponatremia Recent severe anemia requiring blood transfusion hiatal hernia plan: - Because of tachycardia and clear. Not sure if aspirating get a hiatal hernia with attendant shortness of breath at night over the last couple of nights. - May need a GI evaluation - had echocardiogram this morning. Pending. Troponin-I bit high which may be related to renal failure but do recommend that we have residential insurance inspector see - fluid status is good and the patient is not in congestive heart failure though there was a gallop on auscultation - maintain peritoneal dialysis - recent anemia and that would be another reason to consider a GI workup - follow History of Present Illness Reason for Consult Consult date: 01/31/21 Chief Complaint Chief complaint: hypetrensive urgency History of Present Illness Narrative: 75-year-old female with ESRD and is on peritoneal dialysis. She was seen about a week ago. Blood pressure been on the higher side. I had increase the dose of amlodipine. ESRD presented to the emergency room with hypertensive emergency. She had symptoms associated of headache and not feeling well. Admitted for further management. He was on a small dose of lisinopril yesterday. Does increase in the blood pressure is better. 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 She has a history of hypertension. She had a biopsy many years ago which showed nonspecific changes. She has a family history of renal failure and dialysis in other family members admitted last night for further management. Blood pressure is better today. She reports that she has had hypertension for the last couple weeks at least. Associated headaches for the last 2 weeks or so. She states this continues. As throbbing bilateral temporal. Also some occipital area. Associated blurriness of vision this morning. Get nauseated but no vomiting. Has some chest pressure over the last night in the hospital and feels a bit short of breath when lying flat. She has woken up short of breath a couple of occasions. Her reports that she has been dizzy on a few occasions when ambulating. CT of the head: 1. No acute intracranial process. 2. Age-related changes including mild diffuse volume loss and mild scattered white matter hypoattenuation consistent with chronic small vessel ischemic disease. Chest x-ray shows:Large hiatal hernia TSH done on January 27 was just above the upper limits of normal Review of Systems Review of Systems: All systems reviewed & are unremarkable except as noted in HPI and below ( History of presenting illness) [facility] Past Medical History Medical History Acquired hypothyroidism Anemia in chronic kidney disease Anxiety Chronic kidney disease, stage IV (severe) Dialysis patient peritoneal ESRD (end stage renal disease) Fecal occult blood test positive HLD (hyperlipidemia) PAD (peripheral artery disease) Primary osteoarthritis, unspecified site Secondary hyperparathyroidism (of renal origin) Family History Family History Mother Diabetes mellitus Cerebrovascular accident Father Family history of cardiovascular disease Social History Social History Social History: Smoking status: Never smoker Second hand tobacco smoke exposure: No Alcohol intake: never Substan
[2021-01-31] MEDS: PROPRANOLOL HCL 20 MG TABLET PO (21:22)
[2021-01-31] MEDS: GABAPENTIN 100 MG CAPSULE PO (21:23)
[2021-02-01] VITALS: PULSE 80
[2021-02-01 04:06] VITALS: PULSE 78
[2021-02-01 05:17] LABS: Hematocrit 36.7 % (37.0-47.0); Hemoglobin 11.7 g/dL (12.0-15.0); Mean Corpuscular HGB Conc 31.9 g/dl (32-36); Mean Corpuscular Hemoglobin 36.3 pg (26-34); Mean Platelet Volume 10.8 fl (7.4-10.4); Platelet Count Result 179 k/mm3 (150-375); Red Blood Count 3.22 M/mm3 (4.2-5.4); White Blood Count 4.8 K/mm3 (4.5-10.0)
[2021-02-01 05:33] LABS: Alanine Aminotransferase 22 U/L (4-35); Albumin Level 3.1 g/dL (3.5-5.1); Alkaline Phosphatase 49 U/L (38-126); Anion Gap 10 mmol/L (8-16); Aspartate Amino Transferase 31 U/L (14-36); Bilirubin,Total 0.3 mg/dL (0.2-1.3); Blood Urea Nitrogen 56 mg/dL (7-17); Calcium 9.3 mg/dL (8.4-10.2); Carbon Dioxide 25 mmol/L (22-30); Chloride 103 mmol/L (98-107); Estimated CRCL calculation 5 ml/min; Estimated Glomerular Filt Rate 5; Glucose 88 mg/dL (65-110); Magnesium 3.2 mg/dL (1.6-2.3); Potassium 4.3 mmol/L (3.4-5.0); Sodium 138 mmol/L (137-145)
[2021-02-01 05:50] VITALS: BP 140/73; PULSE 81; RESP 16; TEMP 35.8; O2SAT 99
[2021-02-01] MEDS: LEVOTHYROXINE SODIUM 50 MCG TABLET PO (06:41)
[2021-02-01 07:15] VITALS: BP 140/73; PULSE 81; RESP 16; TEMP 35.8
[2021-02-01 08:00] VITALS: PULSE 97
[2021-02-01] MEDS: SEVELAMER CARBONATE 800 MG TABLET 1600 MG PO ×2 (08:33→11:51)
[2021-02-01] MEDS: FUROSEMIDE 80 MG TABLET 320 MG PO (08:33)
[2021-02-01] MEDS: busPIRone HCL 2.5 MG TABLET 7.5 MG PO (08:33)
[2021-02-01 08:34] VITALS: PULSE 78
[2021-02-01] MEDS: lisinopriL 20 MG TABLET PO (08:34)
[2021-02-01] MEDS: rOPINIRole HCL 0.5 MG TABLET PO (08:34)
[2021-02-01] MEDS: ASPIRIN 81 MG ENTERIC TABLET PO (08:34)
[2021-02-01] MEDS: amLODIPine BESYLATE 5 MG TABLET 10 MG PO (08:34)
[2021-02-01] MEDS: PROPRANOLOL HCL 10 MG TABLET PO (08:34)
[2021-02-01] MEDS: PROPRANOLOL HCL 20 MG TABLET PO (08:34)
[2021-02-01] MEDS: HEPARIN SODIUM 5,000 UNITS/ML VIAL 5000 UNITS SUB-Q (08:35)
--- NOTE | 2021-02-01 10:39 | PM.PNNEP ---
Progress Note: A&P Assessment and Plan (1) ESRD (end stage renal disease) on dialysis: Code(s): N18.6 - End stage renal disease; Z99.2 - Dependence on renal dialysis Status: Acute Assessment and Plan: the patient is on peritoneal dialysis. Flows are good and fluid is clear. Volume status looks okay. Electrolytes are in order (2) Hypertensive urgency: Code(s): I16.0 - Hypertensive urgency Status: Acute Assessment and Plan: blood pressure was very high yesterday. Given meds in the blood pressure is much better now On amlodipine, lisinopril, and Propranolol. (3) Headache: Code(s): R51.9 - Headache, unspecified Status: Acute Assessment and Plan: Patient's headache is much better. Probably brought on by the hypertension. (4) Heart palpitations: Code(s): R00.2 - Palpitations Status: Acute Assessment and Plan: No more palpitations today. Pulses good now it is 78. (5) Anemia in chronic kidney disease: Code(s): N18.9 - Chronic kidney disease, unspecified; D63.1 - Anemia in chronic kidney disease Status: Acute Assessment and Plan: Hemoglobin is 11.7. No need for EPO right now. Subjective Date/time seen: 02/01/21 10:39 Interval history: patient is feeling better. Headache is much improved. Blood pressures down. 140 this morning. On peritoneal dialysis. Flows are good. Fluid is clear. Seen at 10:20a.m. Review of Systems Cardiovascular: Cardiovascular: Reports no additional cardiovascular complaints Respiratory: Respiratory: Reports no additional respiratory complaints Gastrointestinal: Gastrointestinal: Reports no additional gastrointestinal complaints Genitourinary: Genitourinary: Reports no additional female genitourinary complaints Exam Narrative: WDWN in NAD skin no rash head ncat lungs clear cor reg no rub abd BS+ nontender and soft ext no edema. Objective Data Vital Signs Vital Signs: Vital Signs - 24 hr 01/31/21 12:00 01/31/21 12:51 01/31/21 14:00 Temperature 36.1 C L Pulse Rate 95 108 H 91 Respiratory Rate 18 Blood Pressure 166/89 H Pulse Oximetry 98 01/31/21 16:00 01/31/21 19:34 01/31/21 20:00 Temperature 36.2 C L Pulse Rate 101 H 99 98 Respiratory Rate 18 Blood Pressure 120/65 Pulse Oximetry 98 01/31/21 21:22 02/01/21 00:00 02/01/21 04:06 Temperature Pulse Rate 102 H 80 78 Respiratory Rate Blood Pressure Pulse Oximetry 02/01/21 05:50 02/01/21 07:15 02/01/21 08:00 Temperature 35.8 C L 35.8 C L Pulse Rate 81 81 97 Respiratory Rate 16 16 Blood Pressure 140/73 140/73 Pulse Oximetry 99 02/01/21 08:34 Temperature Pulse Rate 78 Respiratory Rate Blood Pressure Pulse Oximetry Intake/Output Intake/Output: Intake & Output 01/29/21 01/30/21 01/31/21 02/01/21 23:59 23:59 23:59 23:59 Intake Total 850 2570 630 Output Total 200 1400 4508 Balance 650 8502 -0862 Meds/Results Medications: Active Medications Generic Name Dose Route Start Last Admin Trade Name Freq PRN Reason Stop Dose Admin Acetaminophen 650 mg 01/30/21 16:00 01/31/21 13:52 Acetaminophen 325 Mg Tablet PO 650 mg Q4H PRN Administration Mild Pain (1-3) or Fever Amlodipine Besylate 10 mg 01/31/21 09:00 02/01/21 08:34 Amlodipine Besylate 5 Mg Tablet PO 10 mg DAILY LETI Administration Aspirin 81 mg 01/31/21 09:00 02/01/21 08:34 Aspirin 81 Mg Enteric Tablet PO 81 mg DAILY LETI Administration Atorvastatin Calcium 40 mg 01/31/21 09:00 02/01/21 08:44 Atorvastatin 40 Mg Tablet PO Not Given DAILY LETI Buspirone HCl 7.5 mg 01/30/21 17:00 02/01/21 08:33 Buspirone Hcl 2.5 Mg Tablet PO 03/01/21 17:01 7.5 mg BID LETI Administration Cyclobenzaprine HCl 5 mg 01/30/21 13:56 01/30/21 22:37 Cyclobenzaprine Hcl 5 Mg Tablet PO 5 mg BID PRN Administration [place]
--- NOTE | 2021-02-01 11:11 | P.DS_ITS ---
DS: Admitting Diagnosis Admitting Diagnosis hypertensive urgency DS: Discharge Diagnosis Discharge Diagnosis (1) Hypertensive urgency: Code(s): I16.0 - Hypertensive urgency Status: Acute Assessment and Plan: * BP Currently 140/73 * Lisinopril increased [address] Sprague recommendation * Amlodipine increased to 10 mg daily * propranolol continued and increased to 20 mg b.i.d. * Hydralazine prn * Tele monitoring * trend blood pressures * adjust medications as needed * headache is better today patient stated that it is a 3/10 however she also stated that she was stressed today which could contribute to this as well. (2) Heart palpitations: Code(s): R00.2 - Palpitations Status: Acute Assessment and Plan: * heart rate noted to be 130s with activity * tele monitor shows sinus tach with PACs and possible AFib * patient complains of chest pressure including palpitations, nausea, shortness of breath * patient had a cardiac catheterization in [place] about a year ago * EKG showed sinus rhythm in the 60s to 80s * troponin I ordered x2 * echo EF was 60-65% with no major abnormalities noted * will consider cardiology consult depending on the results of these test I will tell patient to follow-up with retail pos specialist if symptoms come back. Currently she does not have any symptoms and her troponins peaked at 0.070. this is probably related to the fluid overload in the dialysis in the renal insufficiency. EKG remained normal however she did have tachycardia. Currently on the tele monitor she is sinus rhythm in the is 70s. (3) ESRD (end stage renal disease) on dialysis: Code(s): N18.6 - End stage renal disease; Z99.2 - Dependence on renal dialysis Status: Acute Assessment and Plan: * BUN/Cr 56/8.00 * PD nightly * Nephrology consulted thank very recommendations * Avoid nephrotoxins * Renally dose all meds * trend BUN and creatinine * labs in the a.m. Patient performs PD dialysis every night (4) PAD (peripheral artery disease): Code(s): I73.9 - Peripheral vascular disease, unspecified Status: Acute Assessment and Plan: * resume home aspirin 81 mg daily * education about rest cycles (5) HLD (hyperlipidemia): Code(s): E78.5 - Hyperlipidemia, unspecified Status: Acute Assessment and Plan: * patient not on any hyperlipidemia medications at home * atorvastatin 40 mg p.o. daily has been started * will get lipid panel in the a.m. * education about low-fat diet. (6) Anemia in chronic kidney disease: Code(s): N18.9 - Chronic kidney disease, unspecified; D63.1 - Anemia in chronic kidney disease Status: Acute Assessment and Plan: * history of anemia and hemoglobin of 6 back in December of 2020 * Hgb 11.7 * Transfuse if <7 * trend hemoglobin and hematocrit * labs in morning DS: Summary Hospital Course Hospital Course: date of service 02/01/2021 at 8:25 a.m. Ms. dumont is a 75-year-old female with past medical history of hypertension, end- stage renal disease on dialysis, hyperlipidemia, who presented to the ED with a headache and a blood pressure of 210/117. Patient stated that all started about 2 weeks ago and she did contact Dr. Sprague who did increase her medications however it was not is sufficient. Patient was treated with medication adjustments. Patient's lisinopril was increased to 20 mg p.o. b.i.d., amlodipi
--- NOTE | 2021-02-01 11:11 | PM.DS ---
DS: Admitting Diagnosis Admitting Diagnosis hypertensive urgency DS: Discharge Diagnosis Discharge Diagnosis (1) Hypertensive urgency: Code(s): I16.0 - Hypertensive urgency Status: Acute Assessment and Plan: BP Currently 140/73 Lisinopril increased [address] Sprague recommendation Amlodipine increased to 10 mg daily propranolol continued and increased to 20 mg b.i.d. Hydralazine prn Tele monitoring trend blood pressures adjust medications as needed headache is better today patient stated that it is a 3/10 however she also stated that she was stressed today which could contribute to this as well. (2) Heart palpitations: Code(s): R00.2 - Palpitations Status: Acute Assessment and Plan: heart rate noted to be 130s with activity tele monitor shows sinus tach with PACs and possible AFib patient complains of chest pressure including palpitations, nausea, shortness of breath patient had a cardiac catheterization in [place] about a year ago EKG showed sinus rhythm in the 60s to 80s troponin I ordered x2 echo EF was 60-65% with no major abnormalities noted will consider cardiology consult depending on the results of these test I will tell patient to follow-up with brazing machine operator helper if symptoms come back. Currently she does not have any symptoms and her troponins peaked at 0.070. this is probably related to the fluid overload in the dialysis in the renal insufficiency. EKG remained normal however she did have tachycardia. Currently on the tele monitor she is sinus rhythm in the is 70s. (3) ESRD (end stage renal disease) on dialysis: Code(s): N18.6 - End stage renal disease; Z99.2 - Dependence on renal dialysis Status: Acute Assessment and Plan: BUN/Cr 56/8.00 PD nightly Nephrology consulted thank very recommendations Avoid nephrotoxins Renally dose all meds trend BUN and creatinine labs in the a.m. Patient performs PD dialysis every night (4) PAD (peripheral artery disease): Code(s): I73.9 - Peripheral vascular disease, unspecified Status: Acute Assessment and Plan: resume home aspirin 81 mg daily education about rest cycles (5) HLD (hyperlipidemia): Code(s): E78.5 - Hyperlipidemia, unspecified Status: Acute Assessment and Plan: patient not on any hyperlipidemia medications at home atorvastatin 40 mg p.o. daily has been started will get lipid panel in the a.m. education about low-fat diet. (6) Anemia in chronic kidney disease: Code(s): N18.9 - Chronic kidney disease, unspecified; D63.1 - Anemia in chronic kidney disease Status: Acute Assessment and Plan: history of anemia and hemoglobin of 6 back in December of 2020 Hgb 11.7 Transfuse if <7 trend hemoglobin and hematocrit labs in morning DS: Summary Hospital Course Hospital Course: date of service 02/01/2021 at 8:25 a.m. Ms. dumont is a 75-year-old female with past medical history of hypertension, end-stage renal disease on dialysis, hyperlipidemia, who presented to the ED with a headache and a blood pressure of 210/117. Patient stated that all started about 2 weeks ago and she did contact Dr. Sprague who did increase her medications however it was not is sufficient. Patient was treated with medication adjustments. Patient's lisinopril was increased to 20 mg p.o. b.i.d., amlodipine was increased to 10 mg daily, and propranolol was increased to 20 mg p.o. b.i.d. those medication changes and adjustments have stabilized her blood pressure and is currently at 140/73. Patient was also on telemetry which did show her at times having some tachycardia with heart rate in the 100s. troponin was trended and peaked at 0.070 echo was also performed which showed an EF of 60-65% with grade 2 diastolic dysfunction. Hemoglobin hematocrit Was 12.5/38.4 on arrival and has de
[2021-02-01] MEDS: ACETAMINOPHEN 325 MG TABLET 650 MG PO (11:49)
[2021-02-02 19:45] LABS: Hepatitis B Core Ab Total Nonreactive (Nonreactive)
== END 2021-02-01 12:54 | disposition home or self-care (01) | DRG 304 ==
LOC: ANHED 13:04 → ANH3MED 15:21
PROVIDERS: Internal Medicine Nephrology; Nurse Practitioner Adult Health; Physician Assistant; Admitting Provider Hospitalist; Emergency Provider General Practice; PCP Family Medicine; Visit Provider Nurse Practitioner
DX: I16.0 Hypertensive urgency (principal); N18.6 End stage renal disease; I12.0 Hypertensive chronic kidney disease with stage 5 chronic kidney disease or end stage renal disease; D63.1 Anemia in chronic kidney disease; E78.5 Hyperlipidemia, unspecified
CPT/HCPCS: 36415; 70450; 71045; 80048; 80053; 83735; 84484; 85025; 85027; 85610; 85730; 86704; 86706; 87040; 87340; 90945; 93005; 93306; 96374; 96375; 96376; 99285; A9270; G0378; J0131; J0360; J1200; J1644; J2765

== ENCOUNTER 2021-04-10 14:26 | Outpatient (CLI) | payer MEDICARE, SELFPAY ==
[2021-04-10 15:24] LABS: Hematocrit 19.3 % (37.0-47.0)
== END 2021-04-10 14:27 | disposition home or self-care (01) ==
PROVIDERS: PCP Family Medicine
DX: D64.9 Anemia, unspecified (principal); N18.6 End stage renal disease
CPT/HCPCS: 36415; 85014; 85018; 86850; 86900; 86901; 86920

== ENCOUNTER 2021-04-11 07:17 | Outpatient (RCR) | payer MEDICARE, SELFPAY ==
[2021-04-11] VITALS (10 sets, daily range): BP systolic 126–174; BP diastolic 64–87; PULSE 72–82; RESP 16; TEMP 36.1–36.8; O2SAT 98–100
[2021-04-11] MEDS: diphenhydrAMINE HCl CAP 25 MG CAPSULE PO (08:54)
[2021-04-11] MEDS: ACETAMINOPHEN 325 MG TABLET 650 MG PO (08:54)
[2021-04-11] MEDS: SODIUM CHLORIDE 0.9% IV 250 ML 30 ML IV CONT (09:00)
[2021-04-11] MEDS: FUROSEMIDE INJ 40 MG/4 ML VIAL 20 MG IV PUSH (11:55)
== END 2021-07-09 23:59 | disposition home or self-care (01) ==
LOC: ANHCPCTRAN 07:17
PROVIDERS: PCP Family Medicine; Visit Provider Internal Medicine Nephrology
DX: N18.6 End stage renal disease (principal); D63.1 Anemia in chronic kidney disease
CPT/HCPCS: 36415; 36430; 86920; 96374; A9270; J1940; J7050; P9016

== ENCOUNTER 2021-07-15 11:18 | Outpatient (CLI) | payer MEDICARE, SELFPAY ==
--- NOTE | ~2021-07-15 | XR_ITS ---
EXAMINATION: XR hip BI 2V w AP pelvis EXAM DATE: 07/15/2021 11:55 INDICATION: M54.50 - Low back pain. TECHNIQUE: Each hip imaged independently (separate right and also left hip) 'frog leg' and frontal p rojections for interpretation. Frontal projection pelvis. There is no prior study for comparison. FINDINGS: No radiographic evidence of hip avascular necrosis. There is moderate right, mild to moder ate left hip primary osteoarthritis. There are no acute fractures or dislocations identified. There is no subcutaneous gas. The soft tissue is unremarkable. Peritoneal dialysis catheter. Advanced lo wer lumbar spondylosis. IMPRESSION: Moderate right, mild to moderate left hip osteoarthritis. Reviewed, dictated and finalized at location A. RAFT LIFE SUPPORT FITTER
--- NOTE | ~2021-07-15 | XR_ITS ---
EXAMINATION: XR lumbar spine min 4V EXAM DATE: 07/15/2021 11:55 INDICATION: M54.50 - Low back pain And [place] Hip Pain, Chronic, No Injury . TECHNIQUE: Lumber spine frontal, lateral, bilateral oblique projections. Coned down frontal and lat eral L5-S1 lumbar projections for interpretation. Comparison is made to prior examination from 021. FINDINGS: Partially fused L2-3 vertebral bodies, with wedging, decreased left-sided height causing mo derate dextroscoliosis, about 29 degrees. There is severe disc disease L-1-2, L3-4, L4-5 and L5-S1. T here is severe lumbar facet arthropathy. Moderate aortic arterial sclerosis. Lumbar kyphosis. Periton eal dialysis catheter. Difficult appreciate any significant interval change. IMPRESSION: 1. Severe lumbar spondylosis. 2. Moderate mid lumbar dextroscoliosis. Reviewed, dictated and finalized at location A. IAL AGENT SECRET SERVICE
== END 2021-07-15 11:19 | disposition home or self-care (01) ==
PROVIDERS: PCP Family Medicine; Visit Provider Physician Assistant
DX: M16.0 Bilateral primary osteoarthritis of hip (principal); M47.817 Spondylosis without myelopathy or radiculopathy, lumbosacral region; I70.0 Atherosclerosis of aorta
CPT/HCPCS: 72110; 73521

== ENCOUNTER 2021-07-21 09:50 | Inpatient (IN) | payer MEDICARE, SELFPAY ==
[2021-07-21] VITALS (16 sets, daily range): BP systolic 188–233; BP diastolic 87–124; PULSE 81–96; RESP 14–20; TEMP 36.5; O2SAT 95–100
--- NOTE | ~2021-07-21 | CT_ITS ---
EXAMINATION: CT abdomen pelvis w con EXAM DATE: 07/21/2021 13:22 INDICATION: left sided abdominal pain. TECHNIQUE: Spiral CT of the abdomen and pelvis was performed following intravenous injection of 100 m L Omnipaque 350. Axial, coronal and sagittal images of the abdomen and pelvis were reviewed. The do se-length product (DLP) for this examination was 507.33 mGy-cm. The exposure was tailored according to patient size (auto mA exposure control), and iterative reconstruction (ASIR) was used as additiona l dose reduction technique. There is no prior study for comparison. FINDINGS: Intrathoracic stomach. There is peritoneal dialysis catheter with small to moderate amount of dialysate/ascites. Small bilateral pleural effusions. Mild cardiomegaly. Liver, gallbladder, splee n, adrenal glands and pancreas are unremarkable. Renal cysts and atrophy, no hydronephrosis. Hysterec jose. Moderate colonic diverticulosis with sensitivity for acute diverticulitis decreased from the ab dominal fluid. No suspicion of appendicitis. No retroperitoneal lymphadenopathy. There is moderate th oracic dextroscoliosis. No small bowel obstruction. Expected amount of colonic stool. There are no ac adriel fractures identified. IMPRESSION: 1. Intrathoracic stomach. 2. Moderate colonic diverticulosis. 3. Sensitivity for acute intra-abdominal processes decreased from peritoneal dialysate. Reviewed, dictated and finalized at location G. MBLY RIVETER IMPRESSION: 1. Intrathoracic stomach. 2. Moderate colonic diverticulosis. 3. Sensitivity for acute intra-abdominal processes decreased from peritoneal d ialysate.
--- NOTE | ~2021-07-21 | MR_ITS ---
EXAMINATION: MR brain/brain stem wo con EXAM DATE: 07/22/2021 12:59 INDICATION: vision loss TECHNIQUE: Magnetic resonance imaging (MRI) of the brain/brain stem obtained without contrast. Nubia al T1, axial diffusion, gradient echo (T2*), T1, T2, FLAIR sequences obtained. Comparison is made to prior examination from 10/12/2018. FINDINGS: There is edema within the subcortical white matter of left parietal lobe, and occipital lob es bilaterally more on the right. This correlates to the head CT low density regions described. There is no restricted diffusion in these locations to suggest that these are infarctions. There was no un derlying enhancing lesion identified on CTA which was performed yesterday to suggest underlying metas tatic disease. Recommend considering possibility of reversible posterior encephalopathy syndrome (RPL S aka PRES), cerebritis or encephalopathy from other nonspecific infectious or inflammatory etiology. Any history of elevated blood pressure recently? There is region of susceptibility in the left cerebellar hemisphere inferiorly without any acute hemo rrhage on yesterday's CT, appearance unchanged. There is no surrounding vasogenic edema. This is most likely an incidental cavernoma. There was associated developmental venous anomaly seen on CTA perfor med yesterday, not visualized on this noncontrast study. These are not likely clinically significant findings. There are no areas of restricted diffusion to suggest acute infarction. There is mild periventricula r and subcortical T2/FLAIR signal hyperintensity, nonspecific but probably related to small vessel is chemic disease (microangiopathy). There is mild prominence of the sulci and ventricles related to ce rebral atrophy. There are no extra-axial collections. Flow voids are seen in the cerebral arteries o n the T2-weighted sequences consistent with their expected patency. The orbits are unremarkable. So ft tissue is unremarkable. IMPRESSION: 1. Left parietal, bilateral occipital subcortical edema. Consider RPLS, cerebritis from other infect ious or inflammatory etiology. No acute infarction. 2. Chronic findings as above. Reviewed, dictated and finalized at location G. RVISOR PUTTY AND CALUKING IMPRESSION: 1. Left parietal, bilateral occipital subcortical edema. Consider RPLS, cerebr itis from other infectious or inflammatory etiology. No acute infarction. 2. Chronic findings as above.
--- NOTE | ~2021-07-21 | MR_ITS ---
EXAMINATION: MRA brain wo con EXAM DATE: 07/24/2021 10:17 INDICATION: Abnormal brain MRI. TECHNIQUE: 3-D [id number] MRA of the intracranial arteries was performed without contrast. Correl ation is made to brain MR from 07/22/2021. FINDINGS: There is normal flow related signal seen within the vertebral, basilar and internal carotid arteries. There is no proximal stenosis. There are no aneurysms identified. Both A1 and P1 segments are pat ent. Flow in the cerebral arteries is symmetric but with scattered regions of narrowing, mild athero sclerotic disease. Small region of susceptibility left cerebellum, likely cavernoma. IMPRESSION: Mild scattered cerebral atherosclerotic disease. Reviewed, dictated and finalized at location B. ATIONAL PARAPROFESSIONAL
--- NOTE | ~2021-07-21 | CT_ITS ---
EXAMINATION: CTA brain carotid EXAM DATE: 07/21/2021 14:25 INDICATION: Diplopia. Abnormal head CT, small bilateral cortical abnormalities, possible strokes. TECHNIQUE: Spiral CTA of the carotid arteries was performed with intravenous injection 100 cc of Om nipaque 350. Axial, coronal, sagittal reformatted images reviewed. Additional reformatted images cre ated on dedicated 3-D workstation. NASCET comparable standard used to assess the degree of arterial stenosis. Spiral CT angiogram cerebral arteries performed with the same intravenous injection of con trast. Source images of the brain CTA transferred to dedicated workstation for 3-D rotational image c reation. Coronal, sagittal maximum intensity pixel images became available at 2:50 p.m for interpret ation. The dose-length product (DLP) for this examination was 1135.73 mGy-cm. The exposure was claus lored according to patient size, and iterative reconstruction (ASIR) was used as additional dose redu ction technique. There is no prior study for comparison. FINDINGS: There is mild to moderate left, mild right carotid bulb arteriosclerosis, with 0% carotid s tenosis bilaterally. Tortuous internal carotid arteries. The vertebral arteries are codominant. Mild bilateral carotid siphon arterial sclerosis without stenosis. There is no carotid or vertebral basila r arterial dissection or fibromuscular dysplasia. There are no cerebral artery aneurysms. There is sy mmetric cerebral artery arborization. The sagittal, transverse and sigmoid sinuses enhance normally, no venous sinus thrombosis. Internal cerebral veins also enhance normally. Mildly dilated right super ior orbital vein at 4 mm. Incidental left cerebellar developmental venous anomaly, not a clinically significant finding. Suspec jay cavernoma in this location on prior brain MR not well visualized, but these 2 lesions commonly ar e found together. Small regions right occipital lobe and left parietal lobe low density better apprec iated on head CT performed earlier. Incidental Findings: Some diffuse esophageal edema suspected, could indicate esophagitis. Small pleur al effusions. Severe cervical and thoracic spondylosis. IMPRESSION: 1. Bilateral carotid bulb 0% stenosis. No truncated cerebral arteries identified. 2. Small left parietal, right occipital lobe hypodensities better visualized on prior head CT. Possi ble small acute infarctions. No evidence of underlying enhancing brain lesion. 3. Incidental left cerebellar DVA. Probable associated cavernoma not well-visualized. Reviewed, dictated and finalized at location G. NA EXPERT IMPRESSION: 1. Bilateral carotid bulb 0% stenosis. No truncated cerebral arteries identifi ed. 2. Small left parietal, right occipital lobe hypodensities better visualized o n prior head CT. Possible small acute infarctions. No evidence of underlying en hancing brain lesion. 3. Incidental left cerebellar DVA. Probable associated cavernoma not well-visu alized.
--- NOTE | ~2021-07-21 | CT_ITS ---
EXAMINATION: CT brain wo con EXAM DATE: 07/21/2021 13:21 INDICATION: Blurred vision. TECHNIQUE: Spiral CT of the head was performed without contrast. Axial, coronal and sagittal images were reviewed. The dose-length product (DLP) for this examination was 605.33 mGy-cm. The exposure w as tailored according to patient size, and iterative reconstruction (ASIR) was used as additional dos e reduction technique. Comparison is made to prior examination from 01/30/2021. FINDINGS: Development of region of decreased attenuation involving right occipital cortex, subcortica l white matter. There is no other newly developed small region left parietal decreased attenuation. T hese could be acute infarctions. Vasogenic edema from underlying mass lesions not excludable. Follow -up brain MRI without and with contrast recommended. No acute intracranial hemorrhage, extra-axial collections or obstructive hydrocephalus. There is mild microangiopathy. Moderate cerebral atrophy. Bilateral cataract surgery. IMPRESSION: Small regions of right occipital, left parietal lobe decreased cortical attenuation, dif ferential diagnosis including acute infarctions, vasogenic edema; follow-up brain MR without and with contrast. Reviewed, dictated and finalized at location G. LER DRIVER IMPRESSION: Small regions of right occipital, left parietal lobe decreased cor tical attenuation, differential diagnosis including acute infarctions, vasogeni c edema; follow-up brain MR without and with contrast.
--- NOTE | ~2021-07-21 | XR_ITS ---
EXAMINATION: XR chest 2V EXAM DATE: 07/21/2021 11:25 INDICATION: cp, left side chest pressure . TECHNIQUE: Frontal and lateral projections of the chest obtained and reviewed. Comparison is made to prior examination from 01/30/21. FINDINGS: There is large gastroesophageal hiatal hernia. There is mild cardiomegaly. Small amount of basilar atelectasis or pneumonia. No pneumothorax. No sizable pleural effusion. There is aortic alli riosclerosis. There are mild bony degenerative changes. IMPRESSION: 1. Small amount of bibasilar atelectasis or pneumonia. 2. Large gastroesophageal hiatal hernia. Reviewed, dictated and finalized at location G. ON REPAIRER
--- NOTE | ~2021-07-21 | MR_ITS ---
EXAMINATION: MR brain/brain stem wo con EXAM DATE: 07/24/2021 17:44 INDICATION: recheck from 07/22 TECHNIQUE: Magnetic resonance imaging (MRI) of the brain/brain stem obtained without contrast. Nubia al T1, axial diffusion, gradient echo (T2*), T1, T2, FLAIR sequences obtained. Comparison is made to prior examination from 07/22/2021. FINDINGS: There is mild improvement in the bilateral occipital lobe, left parietal lobe subcortical w roxanna matter T2/FLAIR edema. 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 Left cerebellar susceptibility probably small cavernoma with associated developmental venous anomaly (low flow lesion) identified on prior contrast-enhanced study. Incidental and not clinically signific ant findings. There is mild microangiopathy. No acute infarction, obstructive hydrocephalus, extra-axial collection or acute intracranial hemorrha ge. Flow voids are seen in the cerebral arteries and sagittal sinus on the T2 weighted sequences cons istent with their expected patency. Bilateral cataract surgery. IMPRESSION: 1. Bilateral occipital, left parietal subcortical white matter edema with mild improvement, appearan ce most consistent with RPLS. 2. Left cerebellar cavernoma and DVA. 3. Mild microangiopathy. 4. No acute infarction. Reviewed, dictated and finalized at location B. TRIC METER REPAIRER APPRENTICE IMPRESSION: 1. Bilateral occipital, left parietal subcortical white matter edema with mild improvement, appearance most consistent with RPLS. 2. Left cerebellar cavernoma and DVA. 3. Mild microangiopathy. 4. No acute infarction.
--- NOTE | 2021-07-21 10:00 | PC.NURSE ---
RN requesting BP medication states due to pt. possible CVA it is not recommended to tx. elevated BP at this time. No further orders from ERP
--- NOTE | 2021-07-21 10:46 | ECG_ITS ---
Measurements Intervals [place] Rate: 80 P: 21 [place]: 155 QRS: 29 QRSD: 82 T: 57 QT: 357 QTc: 413 Interpretive Statements SINUS RHYTHM BORDERLINE T WAVE ABNORMALITY- ANTERIOR LEADS BASELINE ARTIFACT- I, II, III, AVR, AVL, AVF, V1-V2 BORDERLINE ECG Electronically Signed On 07-21-2021 11:53:46 MEMBERSHIP SALES ADVISOR by Mason Mendez D.O.
[2021-07-21 11:09] LABS: Basophils Percent Auto 0.4 % (0.2-1.2); Eosinophils Absolute Auto 0.1 K/mm3 (0-0.3); Eosinophils Percent Auto 1.8 % (0-4.4); Hematocrit 27.9 % (37.0-47.0); Hemoglobin 8.6 g/dL (12.0-15.0); Immature Granulocyte Absolute 0.04 K/mm3 (0.00-0.031); Immature Granulocyte Percent A 0.5 % (0-0.5); Lymphocytes Absolute Auto 1.23 K/mm3 (0.9-3.2); Lymphocytes Percent Auto 15.8 % (18.3-44.2); Mean Corpuscular HGB Conc 30.8 g/dl (32-36); Mean Corpuscular Hemoglobin 34.3 pg (26-34); Mean Corpuscular Volume 111.2 fl (80-100); Mean Platelet Volume 9.6 fl (7.4-10.4); Monocytes Absolute Auto 0.6 K/mm3 (0.1-0.6); Monocytes Percent Auto 7.6 % (2.6-8.5); Neutrophils Absolute Auto 5.8 K/mm3 (1.3-6.7); Neutrophils Percent Auto 73.9 % (45.5-73.1); Nucleated Red Blood Cells Perc 0.3 % (0.0-0.2); Platelet Count Result 278 k/mm3 (150-375); Red Blood Count 2.51 M/mm3 (4.2-5.4); Red Cell Distribution Width 15.3 % (11.5-14.5); White Blood Count 7.8 K/mm3 (4.5-10.0)
--- NOTE | 2021-07-21 11:14 | ED.GENADULT ---
HPI - General Adult General Chief complaint: Recheck/Abnormal Lab/Rx <Jonny Woods PA-C - Last Filed: 07/21/21 21:12> Stated complaint: high blood pressure/poor vision <Jonny Woods PA-C - Last Filed: 07/21/21 21:12> Time Seen by Provider: 07/21/21 10:34 <Jonny Woods PA-C - Last Filed: 07/21/21 21:12> History of Present Illness HPI narrative: Patient is a 76-year-old female history of end-stage renal disease on peritoneal dialysis, hypertension, hypothyroidism who comes to the ED today with several complaints. Her main complaint is that she has had blurry vision since this morning since she woke up. Last known well was when she went to bed last night around 8 p.m. There is no blind spots in her vision. She had a brief episode of diplopia earlier today which has since resolved. Wears reading glasses at baseline, otherwise does not wear any contacts or had a lenses. Admits to previous history of similar symptoms about 1 to 2 years ago that required hospitalization but she does not know the cause and resolved on their own apparently. Patient notes blood pressure has been significantly elevated this morning. She did take all of her home blood pressure medicines as directed. No focal neurodeficits otherwise. She is having left-sided chest pain and left-sided abdominal pain for the last 3 days. This pain has been constant. Has been taking [id number] Tylenol and her tramadol at home which have not been helping. She admits to shortness of breath but says this has been present for several months. Tends to get worse in the evenings when it is time for her peritoneal dialysis, having some occasional orthopnea. No lower extremity edema. Program Production Specialist is Dr. Portillo. Baby aspirin this morning. <Jonny Woods PA-C - Last Filed: 07/21/21 21:12> Related Data Home medications: Home Medications Medication Instructions Recorded Confirmed aspirin 81 mg tablet,delayed 81 mg PO DAILY 07/10/19 07/21/21 release furosemide 80 mg tablet 320 mg PO DAILY tablet 07/10/19 07/21/21 gentamicin 0.1 % topical cream 1 applic TOPICAL DAILY gm 07/10/19 07/21/21 sevelamer carbonate 800 mg tablet 4,500 mg PO DAILY tablet 07/10/19 07/21/21 epoetin krystle 2,000 unit/mL 1,000 unit SUB-Q MONTHLY ml 08/23/19 07/21/21 injection solution ropinirole 0.25 mg tablet 0.5 mg PO DAILY tablet 08/23/19 07/21/21 ethambutol 800 mg PO DAILY 06/17/20 07/21/21 rifampin 300 mg BID 01/30/21 07/21/21 hydralazine 50 mg tablet 50 mg PO BID tablet 02/13/21 07/21/21 amlodipine [Norvasc] 10 mg PO DAILY 07/21/21 07/21/21 azithromycin [Zithromax] 25 mg PO DAILY 07/21/21 07/21/21 calcium acetate(phosphat bind) 667 mg PO AC 07/21/21 07/21/21 <Jonny Woods PA-C - Last Filed: 07/21/21 21:12> Allergies/adverse reactions: Allergies Allergy/AdvReac Type Severity Reaction Status Date / Time No Known Allergies Allergy Verified 03/27/21 10:08 <SUE Roe Last Filed: 07/21/21 21:12> Review of Systems Constitutional: Constitutional: Reports as per HPI, Denies fever(s), Denies night sweats and Denies weakness <SUE Roe Last Filed: 07/21/21 21:12> Eyes: Eyes: Reports as per HPI and Reports change in vision <SUE Roe Last Filed: 07/21/21 21:12> Cardiovascular: Cardiovascular: Reports chest pain, Denies edema, Denies leg edema, Denies dyspnea and Denies orthopnea <SUE Roe Last Filed: 07/21/21 21:12> Respiratory: Respiratory: Denies cough and Denies dyspnea <SUE Roe Last Filed: 07/21/21 21:12> Gastrointestinal: Gastrointestinal: Reports as per HPI, Reports abdominal pain, Denies constipation, Denies diarrhea, Denies nausea and Denies vomiting <Jonny Woods PA-C - Last Filed: 07/21/21 21:12> Musculoskeletal: Musculoskeletal: Denies abnormal gait, Denies back pain, Denies numbness and Denies tingling <S
[2021-07-21 11:33] LABS: INR 0.9; Prothrombin Time 12.3 Seconds (11.1-14.7)
[2021-07-21 11:34] LABS: Partial Thromboplastin Time 28.5 SECONDS (22.3-36.8)
[2021-07-21] MEDS: HYDROcodone/acetaminophen (*CRX) 5-325 MG TABLET 1 TAB PO (12:03)
[2021-07-21 12:36] LABS: Add Urine Microscopic? YES; Appearance Urine Clear (Clear); Bilirubin Urine Negative (Negative); Blood Urine Negative (Negative); Color Urine Straw (Yellow); Glucose Urine UA Negative (Negative); Ketones Urine Negative (Negative); Leukocyte Esterase Ur Negative LEU/UL (Negative); Nitrate Urine Negative (Negative); Protein Urine 3+ mg/dL (Negative); Squamous Epithelial Cell Urine Rare /hpf (Few); Urobilinogen Urine Negative mg/dL (<2.0); WBC Urine 0-3 /hpf
--- NOTE | 2021-07-21 12:40 | PC.NURSE ---
Pt. requesting to take prescribed ativan. per ERP it is okay for pt. to take prescribed medications.
[2021-07-21 12:52] LABS: Alanine Aminotransferase 20 U/L (4-35); Albumin Level 3.8 g/dL (3.5-5.1); Anion Gap 15 mmol/L (8-16); Bilirubin,Total 0.7 mg/dL (0.2-1.3); Blood Urea Nitrogen 80 mg/dL (7-17); Calcium 11.3 mg/dL (8.4-10.2); Carbon Dioxide 23 mmol/L (22-30); Chloride 97 mmol/L (98-107); Estimated CRCL calculation 3 ml/min; Estimated Glomerular Filt Rate 3; Glucose 91 mg/dL (65-110); Lipase 295 U/L (23-300); Sodium 135 mmol/L (137-145)
[2021-07-21 12:56] LABS: Alkaline Phosphatase 72 U/L (38-126); Aspartate Amino Transferase 52 U/L (14-36); Potassium 5.9 mmol/L (3.4-5.0)
--- NOTE | 2021-07-21 13:17 | PC.NURSE ---
Called lab and spoke to Tara to add on K
--- NOTE | 2021-07-21 13:19 | PC.NURSE ---
pt. to CT
--- NOTE | 2021-07-21 13:25 | PC.NURSE ---
CT. removed pt. earrings. pt. placed them in pt. purse
[2021-07-21] MEDS: ASPIRIN 81 MG CHEWABLE TABLET 263 MG PO (14:15)
[2021-07-21 15:50] LABS: Troponin I 0.016 ng/mL (0.000-0.034)
[2021-07-21 15:57] LABS: Potassium 5.8 mmol/L (3.4-5.0)
--- NOTE | 2021-07-21 17:17 | PC.NURSE ---
office secretary brought room tray to pt. pt is sitting up eating at this time
[2021-07-21] MEDS: amLODIPine BESYLATE 2.5 MG TABLET 10 MG PO (20:35)
[2021-07-21] MEDS: LORazepam (*CRX) 1 MG TABLET PO (20:35)
[2021-07-21] MEDS: GABAPENTIN 100 MG CAPSULE PO (20:35)
[2021-07-21] MEDS: busPIRone HCL 2.5 MG, busPIRone HCL 5 MG 7.5 MG PO (20:35)
[2021-07-21] MEDS: rOPINIRole HCL 0.5 MG TABLET PO (20:36)
[2021-07-21] MEDS: hydrALAZINE HCL 50 MG TABLET PO (23:02)
[2021-07-22] VITALS (11 sets, daily range): BP systolic 156–201; BP diastolic 72–103; PULSE 81–99; RESP 13–22; TEMP 36.3–36.9; O2SAT 94–99; BMI 24.0
[2021-07-22] MEDS: HYDROcodone/acetaminophen (*CRX) 5-325 MG TABLET 1 TAB PO (00:13)
[2021-07-22] MEDS: SODIUM POLYSTYRENE SULFONONATE 15 GM/60 ML BTL 30 GM PO (00:13)
--- NOTE | 2021-07-22 02:44 | ADMGEN ---
This patient, Jacquie Cano, was admitted to IMU Room 205-02. Patient/family oriented to hospital policies and general routines including ID bracelet, bed and alarms, visiting hours, pain management, procedures, bathroom and other care routines, personal items, smoking policy, room service/diet, and visiting hours. Information on how to activate the Rapid Response Team has been discussed. Patient/Family are encouraged to report perceived risks to care and to ask questions if they do not understand what they are told or what they should do.
[2021-07-22] MEDS: traMADol/ACETAMINOPHEN (*CRX) (ULTRACET) 37.5/325 MG TABLET 1 TAB PO ×3 (04:42→18:34)
[2021-07-22 04:53] LABS: Hematocrit 25.7 % (37.0-47.0); Mean Corpuscular HGB Conc 31.1 g/dl (32-36); Mean Corpuscular Hemoglobin 34.3 pg (26-34); Mean Corpuscular Volume 110.3 fl (80-100); Mean Platelet Volume 9.7 fl (7.4-10.4); Platelet Count Result 220 k/mm3 (150-375); Red Blood Count 2.33 M/mm3 (4.2-5.4); Red Cell Distribution Width 15.4 % (11.5-14.5); White Blood Count 10.3 K/mm3 (4.5-10.0)
[2021-07-22 04:59] LABS: Potassium 5.1 mmol/L (3.4-5.0)
[2021-07-22 05:02] LABS: Anion Gap 17 mmol/L (8-16); Blood Urea Nitrogen 85 mg/dL (7-17); Calcium 10.4 mg/dL (8.4-10.2); Carbon Dioxide 19 mmol/L (22-30); Chloride 96 mmol/L (98-107); Estimated CRCL calculation 3 ml/min; Estimated Glomerular Filt Rate 3; Glucose 97 mg/dL (65-110); Potassium 5.1 mmol/L (3.4-5.0); Sodium 132 mmol/L (137-145)
[2021-07-22] MEDS: CALCIUM ACETATE 667 MG TABLET PO ×2 (06:45→18:20)
[2021-07-22] MEDS: LEVOTHYROXINE SODIUM 75 MCG TABLET PO (06:45)
--- NOTE | 2021-07-22 07:18 | PM.IMHP ---
H&P: HPI History of Present Illness Date/Time: 07/22/21 07:18 Chief Complaint: Chest pain and elevated blood pressures Narrative: 76-year-old female with a past medical history of mycobacterium avium complex, chronic anemia, end-stage renal disease on peritoneal dialysis who presented to the ER with elevated blood pressure and chest pain. The patient reported that she has been having chest pain is worse with certain movements. The pain is associated with some abdominal pain that is in the left lower pelvis in the area of the anterior superior iliac spine. The chest pain is reproducible to palpation and is point tender. She reports that she was recently putting away her [place] decorations and taking or limits off the tree. She has been taking Tylenol and tramadol which she reported did not really seem to help. However at the time of my evaluation she reports the pain is better and was only made worse after I palpated her lateral ribcage at the level of the 7th 8th rib at the anterior mid axillary line. She has been having some shortness of breath the shortness of breath is unchanged from her baseline and is been present for months. She has not been having any cough or congestion. Her shortness of breath does get worse just before she is due for her peritoneal dialysis. The patient did not receive her peritoneal dialysis on the night of the could she was in the ER and she chose not to do her peritoneal dialysis on the night of the due to her chest discomfort. She does have occasional orthopnea but is lying flat currently and is not having orthopnea. She denies any lower extremity swelling. Also the patient has been having blurred vision that started on the morning of the . Her last known well was when she went to bed around 8:00 p.m.. She denies any blind spots in her vision. She did have episode of diplopia prior to coming to the ER. Her diplopia had resolved by time she got to the ER. She wears reading glasses but does not have prescription glasses. She did go to her chemist enzymes/year. The patient felt she needed eyeglass is but her chemist enzymes did not agree. The patient has had bilateral cataract extraction with lens implants. The patient's blood pressures were significantly elevated when she woke up on the and have remained so for most the day. Her last blood pressure in the ER was more consistent with her normal blood pressures at home. However her next repeat blood pressure was again elevated into the 200 systolic. She she reports that she thinks she took all of her home antihypertensives on the morning of the . She is unsure but she does not think she missed any of her antihypertensives the day before either. In the ER the patient was noted have some mild hyperkalemia. Before she was admitted to the intermediate unit she did receive 1 dose of Kayexalate. Patient has CT scan in the ER which demonstrated small region of right occipital, and left parietal lobe decreased cortical attenuation differential including infarctions or vasogenic edema. Neurology services were not available over the weekend at this hospital. [facility] were not accepting calls for transfers. [facility] accepted the patient in transfer for neurology evaluation however it would be 2 or 3 days prior to patient receiving a bed on transfer. On exam patient has decreased visual acuity. The patient's or scale was 1. The patient reported that she fell prior to coming to the hospital. She felt as if her leg gave out. She cannot remember which leg gave out on her. She evidently started going to physical therapy about a week ago for what sounds like gait instability. Her says that she walks leaning to 1 side. When she went to physical therapy they told her that she needed to start walking with a walker instead of just with her cane. Review of Systems Review of Systems: 12 systems were reviewed with pertinent po
[2021-07-22] MEDS: amLODIPine BESYLATE 5 MG TABLET 10 MG PO (09:41)
[2021-07-22] MEDS: busPIRone HCL 2.5 MG TABLET PO ×2 (09:42→20:49)
[2021-07-22] MEDS: busPIRone HCL 5 MG TABLET PO ×2 (09:42→20:49)
[2021-07-22] MEDS: ETHAMBUTOL HCL 400 MG TABLET 800 MG PO (09:43)
[2021-07-22] MEDS: rifAMPin 300 MG CAPSULE PO ×2 (09:44→18:20)
[2021-07-22] MEDS: hydrALAZINE HCL 50 MG TABLET PO ×2 (09:44→18:20)
[2021-07-22] MEDS: rOPINIRole HCL 0.5 MG TABLET PO (09:44)
[2021-07-22 09:57] LABS: Glucose Point of Care 210 mg/dl (65-105)
[2021-07-22] MEDS: FUROSEMIDE 80 MG TABLET 240 MG PO (10:11)
[2021-07-22] MEDS: AZITHROMYCIN 250 MG TABLET PO (10:12)
[2021-07-22] MEDS: PROPRANOLOL HCL 20 MG TABLET PO ×2 (11:30→20:49)
[2021-07-22] MEDS: LORazepam (*CRX) 1 MG TABLET PO ×3 (12:10→22:46)
--- NOTE | 2021-07-22 14:51 | WPDNEURCNPN ---
Assessment and Plan Additional Plan 1. Early stroke rule out the possibility of early 2 will repeat the MRI at a later date 2. Continue the aspirin as such 3. Other medical care as such Consult date: 07/22/21 HPI: Jacquie Cano is a 76 year old female Admitted to the hospital for the complaints of hypertension and chest pain, in addition to the ongoing history of 1. Mycobacterium avium complex 2. Chronic anemia 3. End-stage renal disease for which patient is on peritoneal dialysis, CT scan in the emergency room demonstrated small region of right occipital left parietal lobe decreased cortical attenuation raising the possibility of infarction versus vasogenic edema patient was not transferred to be GC years slow because of the meds not available she also mention she felt as if her legs gave out she has started going to physical therapy about a week ago, she has never smoked, current alcohol intake, and her outpatient medications include aspirin, ropinirole, BuSpar, propanolol, hydralazine, gabapentin, and lorazepam, in addition to other medication, evaluation up until now revealed her to be anemic with hemoglobin of 8 MCV of 1 10.3 platelet count of only 220 and chemistry with sodium of 132 potassium 5.1 blood sugar of 210 calcium 10.4 BUN 85, neurology positive for hep B antibody negative have B antigen and have B core antigen, MRI of the brain documented left parietal bilateral occipital subcortical edema raising the possibility of cerebritis or inflammatory etiology and head neck CTA documented possible small acute infarction but no evidence of underlying enhancing brain lesion with incidental left cerebellar DVA Review of Systems Review of Systems: All systems reviewed & are unremarkable except as noted in HPI and below PMFSH Past Medical History Medical History Acquired hypothyroidism Anemia in chronic kidney disease Anxiety Chronic kidney disease, stage V On the transplant list Dialysis patient peritoneal ESRD (end stage renal disease) Fecal occult blood test positive Headache Hemorrhage following tonsillectomy and adenoidectomy HLD (hyperlipidemia) Large hiatal hernia Mycobacterium avium complex PAD (peripheral artery disease) Primary osteoarthritis, unspecified site Secondary hyperparathyroidism (of renal origin) Surgical History Surgical History History of appendectomy History of tubal ligation Presence of peritoneal dialysis catheter Family History Family History Mother Diabetes mellitus Cerebrovascular accident Father Family history of cardiovascular disease Social History Social History Social History: Smoking status: Never smoker Second hand tobacco smoke exposure: No Alcohol intake: current Substance use: never Substance use type: does not use Gender identity (if verbalized by the patient): Female Sexual Orientation (if Verbalized by the Patient): Straight or Heterosexual Spiritual care concerns: No Meds Home Medications and Allergies Home Medications Medication Instructions Recorded Confirmed Type aspirin 81 mg tablet,delayed 81 mg PO DAILY 07/10/19 07/21/21 History release furosemide 80 mg tablet 240 mg PO DAILY tablet 07/10/19 07/22/21 History gentamicin 0.1 % topical cream 1 applic TOPICAL DAILY gm 07/10/19 07/21/21 History epoetin krystle 2,000 unit/mL 1,000 unit SUB-Q MONTHLY ml 08/23/19 07/21/21 History injection solution ropinirole 0.25 mg tablet 0.5 mg PO DAILY tablet 08/23/19 07/21/21 History ethambutol 800 mg PO DAILY 06/17/20 07/21/21 History buspirone 7.5 mg tablet 7.5 mg PO BID #180 tablet 09/19/20 07/21/21 Rx rifampin 300 mg BID 01/30/21 07/21/21 History lisinopril 20 mg PO BID #90 tablet 02/01/21 07/21/21 Rx propranolol 20 mg PO Q12H #90 tablet 01/04
--- NOTE | 2021-07-22 15:11 | PM.IMPN ---
Progress Note: A&P Assessment and Plan (1) Visual disturbance: Code(s): H53.9 - Unspecified visual disturbance Status: Acute Assessment and Plan: 07/22/2021 Interval history: patient is 76-year-old female with history of peritoneal dialysis, hypertension and hypothyroid presented with visual disturbance and extremely elevated blood pressure, CT scan of the head showed possible a small acute infarct and right occipital lobe, to further evaluate patient had MRI and it showed left parietal bilateral occipital subcortical edema radiologist suggested consider RPLS, cerebritis from other infection or inflammation discussed with neurologist recommended to give the patient aspirin and repeat MRI in 2 days to further evaluate, patient remains clinically stable will have PT OT evaluate the patient and further recommendation to follow. (2) CVA (cerebral vascular accident): Qualifiers: CVA mechanism: unspecified Qualified Code(s): I63.9 - Cerebral infarction, unspecified Code(s): I63.9 - Cerebral infarction, unspecified Status: Acute (3) ESRD (end stage renal disease) on dialysis: Code(s): N18.6 - End stage renal disease; Z99.2 - Dependence on renal dialysis Status: Acute (4) Musculoskeletal chest pain: Code(s): R07.89 - Other chest pain Status: Acute Additional Plan The patient is having visual disturbance and uncontrolled hypertension. Concerning for possible CVA given imaging findings. Also could be due to posterior leukoencephalopathy from hypertensive emergency but somewhat less likely. Will continue to allow for permissive hypertension in the setting of possible acute stroke. Her requests that aspirin be added to the patient's regimen. Subsequently received 3 baby aspirin to complete her total daily aspirin of 325. Will place patient on full-dose aspirin. Will consult neurology for further recommendations. MRI of the brain and brainstem has been ordered without contrast. Will monitor the patient on telemetry will monitor neuro checks. Elevated blood pressures will continue patient's home antihypertensive medications. Will avoid over-correction of hypertension in the left for permissive hypertension the patient was possible acute CVA. Incision seen on peritoneal dialysis. Patient has missed 2 nights of peritoneal dialysis. She received Kayexalate in the ER due to hyperkalemia with improvement in hyperkalemia. Patient been placed on a renal dialysis diet. Nephrology has been consulted for management of peritoneal dialysis. Patient has been admitted as observation status. Subjective Date/time seen: 07/22/21 15:11 07/22/2021 Interval history: patient is 76-year-old female with history of peritoneal dialysis, hypertension and hypothyroid presented with visual disturbance and extremely elevated blood pressure, CT scan of the head showed possible a small acute infarct and right occipital lobe, to further evaluate patient had MRI and it showed left parietal bilateral occipital subcortical edema radiologist suggested consider RPLS, cerebritis from other infection or inflammation discussed with neurologist recommended to give the patient aspirin and repeat MRI in 2 days to further evaluate, patient remains clinically stable will have PT OT evaluate the patient and further recommendation to follow. Review of Systems Review of Systems: All systems reviewed & are unremarkable except as noted in HPI and below Exam Narrative: Patient is comfortable, NAD HEENT: eyes are clear and none icteric LUNGS: normal respiratory effort ABD: not distended Lower extremities: no edema SKIN: nonjaundiced Neuro: grossly intact. Objective Data Vital Signs Vital Signs: Vital Signs - 24 hr 07/21/21 15:31 07/21/21 15:38 07/21/21 16:00 Temperature Pulse Rate 89 88 90 Respiratory Rate 19 20 14 Blood Pressure 188/100 H 211/124 H Pulse Oximetry 97 100 07/21/21 17:00 07/21
[2021-07-22] MEDS: GENTAMICIN SULFATE 0.1% CR 15 GM TUBE 1 APPLIC TOPICAL (16:45)
--- NOTE | 2021-07-22 18:49 | PC.NURSE ---
This patient, Jacquie Cano, was transferred to [facility] on 07/22/21 at 1849. Personal belongings sent with patient. Report given to Doug MERRITT. Appropriate documentation sent with patient.
--- NOTE | 2021-07-22 18:56 | PC.NURSE ---
This patient, Jacquie Cano, was received from IMU on 07/22/21 at 1856. Received report from RENÉ Higuera. Patient/family oriented to unit policies and routines
[2021-07-22] MEDS: GABAPENTIN 100 MG CAPSULE 200 MG PO (20:49)
[2021-07-22] MEDS: ACETAMINOPHEN 325 MG TABLET 650 MG PO (22:46)
[2021-07-23] VITALS (8 sets, daily range): BP systolic 142–174; BP diastolic 60–79; PULSE 76–102; RESP 18–20; TEMP 36.2–36.6; O2SAT 92–100
--- NOTE | 2021-07-23 01:43 | PC.NURSE ---
0020 CALLED DIALYSIS TO SEE IF THEY WERE COMING TO HOOK PATIENT UP FOR PERITONEAL DIALYSIS. INFO GIVEN TO JR. SYSTEMS ADMINISTRATOR
[2021-07-23] MEDS: LEVOTHYROXINE SODIUM 75 MCG TABLET PO (07:14)
[2021-07-23] MEDS: CALCIUM ACETATE 667 MG TABLET PO ×3 (07:14→17:07)
[2021-07-23] MEDS: rOPINIRole HCL 0.5 MG TABLET PO (09:00)
[2021-07-23] MEDS: busPIRone HCL 2.5 MG TABLET PO ×2 (09:00→22:18)
[2021-07-23] MEDS: busPIRone HCL 5 MG TABLET PO ×2 (09:01→22:19)
[2021-07-23] MEDS: PROPRANOLOL HCL 20 MG TABLET PO ×2 (09:01→22:19)
[2021-07-23] MEDS: rifAMPin 300 MG CAPSULE PO ×2 (09:01→17:07)
[2021-07-23] MEDS: ASPIRIN 81 MG ENTERIC TABLET PO (09:01)
[2021-07-23] MEDS: amLODIPine BESYLATE 5 MG TABLET 10 MG PO (09:02)
[2021-07-23] MEDS: hydrALAZINE HCL 50 MG TABLET PO ×2 (09:02→17:08)
[2021-07-23] MEDS: FUROSEMIDE 80 MG TABLET 240 MG PO (09:02)
[2021-07-23] MEDS: AZITHROMYCIN 250 MG TABLET PO (09:03)
[2021-07-23] MEDS: GENTAMICIN SULFATE 0.1% CR 15 GM TUBE 1 APPLIC TOPICAL (09:05)
[2021-07-23] MEDS: LIDOCAINE 5% PATCH 1 PATCH TRANSDERM ×2 (09:05)
[2021-07-23] MEDS: ETHAMBUTOL HCL 400 MG TABLET 800 MG PO (09:06)
[2021-07-23 09:36] LABS: Hematocrit 24.8 % (37.0-47.0); Mean Corpuscular HGB Conc 32.3 g/dl (32-36); Mean Corpuscular Hemoglobin 34.3 pg (26-34); Mean Corpuscular Volume 106.4 fl (80-100); Mean Platelet Volume 10.2 fl (7.4-10.4); Platelet Count Result 189 k/mm3 (150-375); Red Blood Count 2.33 M/mm3 (4.2-5.4); Red Cell Distribution Width 15.8 % (11.5-14.5); White Blood Count 17.6 K/mm3 (4.5-10.0)
[2021-07-23 09:59] LABS: Anion Gap 22 mmol/L (8-16); Blood Urea Nitrogen 98 mg/dL (7-17); Calcium 9.3 mg/dL (8.4-10.2); Carbon Dioxide 19 mmol/L (22-30); Chloride 91 mmol/L (98-107); Estimated CRCL calculation 3 ml/min; Estimated Glomerular Filt Rate 3; Glucose 123 mg/dL (65-110); Magnesium 3.3 mg/dL (1.6-2.3); Potassium 4.3 mmol/L (3.4-5.0); Sodium 132 mmol/L (137-145)
[2021-07-23] MEDS: LORazepam (*CRX) 1 MG TABLET PO ×2 (10:05→22:18)
[2021-07-23] MEDS: ACETAMINOPHEN 325 MG TABLET 650 MG PO (11:03)
--- NOTE | 2021-07-23 12:26 | WPDNEUROPN ---
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 will repeat MRI in 48 to 72 hours again at this time will be continued as such Subjective Date/time seen: 07/23/21 12:26 76 years old lady with complaints of hypertension along with multiple other problems but particularly end-stage renal disease for which she is she is on peritoneal dialysis initial CT scan of the head was abnormal with decreased cortical attenuation in the right-sided occipital and left parietal lobe raising the possibility of the posterior circulation insufficiency, brain MRI has been done which has raised the possibility left parietal bilateral occipital subcortical edema raising the possibility of the infections or inflammatory etiology but no acute infarct, the CTA of the brain revealed the small left parietal right occipital hypodensities with bilateral carotid bulb 0% stenosis and 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 Objective Data Vital Signs Vital Signs: Vital Signs - 24 hr 07/22/21 15:47 07/22/21 20:42 07/22/21 20:49 Temperature 36.4 C 36.7 C Pulse Rate 81 99 99 Respiratory Rate 16 18 Blood Pressure 167/77 H 180/87 H Pulse Oximetry 96 94 07/23/21 00:00 07/23/21 04:14 07/23/21 08:00 Temperature 36.4 C 36.6 C 36.5 C Pulse Rate 76 94 93 Respiratory Rate 18 20 20 Blood Pressure 145/68 H 157/75 H 142/70 H Pulse Oximetry 92 100 100 07/23/21 09:01 Temperature Pulse Rate 94 Respiratory Rate Blood Pressure Pulse Oximetry Intake/Output Intake/Output: Intake & Output 07/20/21 07/21/21 07/22/21 07/23/21 23:59 23:59 23:59 23:59 Intake Total 1200 430 Output Total 0 Balance 1200 430 Meds/Results Medications: Active Medications Generic Name Dose Route Start Last Admin Trade Name Freq PRN Reason Stop Dose Admin Acetaminophen 650 mg 07/21/21 21:47 07/23/21 11:03 Acetaminophen 325 Mg Tablet PO 650 mg Q4H PRN Administration Mild Pain (1-3) or Fever Amlodipine Besylate 10 mg 07/22/21 09:00 07/23/21 09:02 Amlodipine Besylate 5 Mg Tablet PO 10 mg DAILY LETI Administration Aspirin 81 mg 07/23/21 09:00 07/23/21 09:01 Aspirin 81 Mg Enteric Tablet PO 81 mg QAM LETI Administration Azithromycin 250 mg 07/22/21 09:00 07/23/21 09:03 Azithromycin 250 Mg Tablet PO 250 mg DAILY LETI Administration Buspirone HCl 5 mg 07/22/21 09:00 07/23/21 09:01 Buspirone Hcl 5 Mg Tablet PO 5 mg Q12HR LETI Administration Buspirone HCl 2.5 mg 07/22/21 09:00 07/23/21 09:00 Buspirone Hcl 2.5 Mg Tablet PO 2.5 mg Q12HR LETI Administration Calcium Acetate 667 mg 07/22/21 06:30 07/23/21 11:52 Calcium Acetate 667 Mg Tablet PO 667 mg AC LETI Administration Ethambutol HCl 800 mg 07/22/21 09:00 07/23/21 09:06 Ethambutol Hcl 400 Mg Tablet PO 08/21/21 08:59 800 mg DAILY LETI Administration Furosemide 240 mg 07/22/21 09:00 07/23/21 09:02 Furosemide 80 Mg Tablet PO 240 mg DAILY LETI Administration Gabapentin 200 mg 07/22/21 21:00 07/22/21 20:49 Gabapentin 100 Mg Capsule PO 200 mg HS LETI Administration Gentamicin Sulfate 1 applic 07/22/21 09:00 07/23/21 09:05 Gentamicin Sulfate 0.1% Cr 15 Gm Tube TOPICAL 1 applic DAILY LETI Administration Hydralazine HCl 50 mg 07/22/21 09:00 07/23/21 09:02 Hydralazine Hcl 50 Mg Tablet PO 50 mg BID LETI Administration Levothyroxine Sodium 75 mcg 07/22/21 06:30 07/23/21 07:14 Levothyroxine Sodium 75 Mcg Tablet PO 75 mcg DAILY@0630 LETI Administration Lidocaine 1 patch 07/22/21 09:00 07/23/21 09:05 Lidocaine 5% Patch TRANSDERM 1 patch DAILY LETI Administration Lidocaine 1 patch 07/22/21 09:00 07/23/21 09:05 Lidocaine 5%
[2021-07-23 13:19] LABS: Hepatitis B Surface Antigen Negative (Negative)
[2021-07-23 13:39] LABS: Hepatitis B Surface Anti Res Positive
--- NOTE | 2021-07-23 14:12 | PM.IMPN ---
Progress Note: A&P Assessment and Plan (1) Visual disturbance: Code(s): H53.9 - Unspecified visual disturbance Status: Acute Assessment and Plan: 07/22/2021 Interval history: patient is 76-year-old female with history of peritoneal dialysis, hypertension and hypothyroid presented with visual disturbance and extremely elevated blood pressure, CT scan of the head showed possible a small acute infarct and right occipital lobe, to further evaluate patient had MRI and it showed left parietal bilateral occipital subcortical edema radiologist suggested consider RPLS, cerebritis from other infection or inflammation discussed with neurologist recommended to give the patient aspirin and repeat MRI in 2 days to further evaluate, patient remains clinically stable will have PT OT evaluate the patient and further recommendation to follow. 07/23/2021 Interval history: Patient remains somnolent unable to provide any review of symptom however clinically stable, will repeat MRI tomorrow to further evaluate and further recommendation to follow. will continue PT OT and monitor. (2) CVA (cerebral vascular accident): Qualifiers: CVA mechanism: unspecified Qualified Code(s): I63.9 - Cerebral infarction, unspecified Code(s): I63.9 - Cerebral infarction, unspecified Status: Acute (3) ESRD (end stage renal disease) on dialysis: Code(s): N18.6 - End stage renal disease; Z99.2 - Dependence on renal dialysis Status: Acute (4) Musculoskeletal chest pain: Code(s): R07.89 - Other chest pain Status: Acute Subjective Date/time seen: 07/23/21 14:12 07/22/2021 Interval history: patient is 76-year-old female with history of peritoneal dialysis, hypertension and hypothyroid presented with visual disturbance and extremely elevated blood pressure, CT scan of the head showed possible a small acute infarct and right occipital lobe, to further evaluate patient had MRI and it showed left parietal bilateral occipital subcortical edema radiologist suggested consider RPLS, cerebritis from other infection or inflammation discussed with neurologist recommended to give the patient aspirin and repeat MRI in 2 days to further evaluate, patient remains clinically stable will have PT OT evaluate the patient and further recommendation to follow. 07/23/2021 Interval history: Patient remains somnolent unable to provide any review of symptom however clinically stable, will repeat MRI tomorrow to further evaluate and further recommendation to follow. will continue PT OT and monitor. Review of Systems Review of Systems: ROS unobtainable: Yes unobtainable due to medical condition Exam Narrative: Patient is comfortable, NAD HEENT: eyes are clear and none icteric LUNGS: normal respiratory effort ABD: not distended Lower extremities: no edema SKIN: nonjaundiced Neuro: grossly intact. Objective Data Vital Signs Vital Signs: Vital Signs - 24 hr 07/22/21 15:47 07/22/21 20:42 07/22/21 20:49 Temperature 97.6 F 98.1 F Pulse Rate 81 99 99 Respiratory Rate 16 18 Blood Pressure 167/77 H 180/87 H Pulse Oximetry 96 94 07/23/21 00:00 07/23/21 04:14 07/23/21 08:00 Temperature 97.6 F 97.9 F 97.7 F Pulse Rate 76 94 93 Respiratory Rate 18 20 20 Blood Pressure 145/68 H 157/75 H 142/70 H Pulse Oximetry 92 100 100 07/23/21 09:01 Temperature Pulse Rate 94 Respiratory Rate Blood Pressure Pulse Oximetry Intake/Output Intake/Output: Intake & Output 07/20/21 07/21/21 07/22/21 07/23/21 23:59 23:59 23:59 23:59 Intake Total 1200 430 Output Total 0 Balance 1200 430 Meds/Results Medications: Active Medications Generic Name Dose Route Start Last Admin Trade Name Freq PRN Reason Stop Dose Admin Acetaminophen 650 mg 07/21/21 21:47 07/23/21 11:03 Acetaminophen 325 Mg Tablet PO 650 mg Q4H PRN Administration Mild Pain (1-3) or Fever Amlodipine Besylate 10 mg 07/22/21 09:
--- NOTE | 2021-07-23 19:03 | PC.NURSE ---
Configuration Management Analyst notified Dr. Gurrola office his morning about need for dialysis orders. I spoke with [facility] and the RN was sitting with Dr Sprague and said orders would be put in. Spoke with Dr Meehan at 1900 about patient not getting dialysis yesterday and that Dr. Sprague and [facility] was notified. I spoke with a dialysis nurse with [facility] who said that Dr Sprague would put in orders for PD for this evening. Patient was placed on dialysis per Dr Harding orders. Dr Meehan is going to cancel his orders but the teacher aide will confirm orders with Dr. Sprague and patient can continue current PD.
--- NOTE | 2021-07-23 21:45 | ECG_ITS ---
Measurements Intervals [place] Rate: 97 P: 44 NH: 131 QRS: 24 QRSD: 107 T: 70 QT: 328 QTc: 418 Interpretive Statements SINUS RHYTHM BASELINE ARTIFACT- I, II, III, AVR, AVL, AVF, V1, V3-V6 NORMAL ECG Electronically Signed On 07-24-2021 6:08:23 COUNTER CONTROL OPERATOR by Mason Mendez D.O.
[2021-07-23] MEDS: NITROGLYCERIN SL 0.4 MG TABLET SUBLINGUAL (21:52)
--- NOTE | 2021-07-23 22:01 | PC.NURSE ---
Pt c/o severe chest pressure and SOB after using bedside commode and returning to bed. Pt said the pressure did not improve while she was sitting in bed. Dr Hernandez notified and ordered STAT EKG, Troponin x3, and Nitro SL. Nitro given at 2152 and pt states chest pain and SOB improved by 2200.
[2021-07-23] MEDS: GABAPENTIN 100 MG CAPSULE 200 MG PO (22:19)
[2021-07-23 22:53] LABS: Troponin I 0.046 ng/mL (0.000-0.034)
[2021-07-24] VITALS (7 sets, daily range): BP systolic 154–189; BP diastolic 70–89; PULSE 74–108; RESP 16–21; TEMP 36.3–37; O2SAT 96–100
[2021-07-24] MEDS: rOPINIRole HCL 0.5 MG TABLET PO ×2 (00:22→20:35)
[2021-07-24 04:53] LABS: Hematocrit 22.2 % (37.0-47.0); Mean Corpuscular HGB Conc 31.5 g/dl (32-36); Mean Corpuscular Hemoglobin 33.7 pg (26-34); Mean Corpuscular Volume 106.7 fl (80-100); Mean Platelet Volume 10.6 fl (7.4-10.4); Platelet Count Result 172 k/mm3 (150-375); Red Blood Count 2.08 M/mm3 (4.2-5.4); Red Cell Distribution Width 15.4 % (11.5-14.5); White Blood Count 12.6 K/mm3 (4.5-10.0)
[2021-07-24 05:18] LABS: Anion Gap 14 mmol/L (8-16); Blood Urea Nitrogen 86 mg/dL (7-17); Calcium 9.2 mg/dL (8.4-10.2); Carbon Dioxide 25 mmol/L (22-30); Chloride 92 mmol/L (98-107); Estimated CRCL calculation 3 ml/min; Estimated Glomerular Filt Rate 4; Glucose 168 mg/dL (65-110); Potassium 3.8 mmol/L (3.4-5.0); Sodium 131 mmol/L (137-145)
[2021-07-24 05:23] LABS: Troponin I 0.048 ng/mL (0.000-0.034)
[2021-07-24] MEDS: CALCIUM ACETATE 667 MG TABLET PO ×3 (06:37→16:53)
[2021-07-24] MEDS: LEVOTHYROXINE SODIUM 75 MCG TABLET PO (06:37)
--- NOTE | 2021-07-24 07:22 | PC.NURSE ---
Dr Sprague notified pt hemoglobin 7.0, provider will address this when he comes to see the patient today.
[2021-07-24] MEDS: ASPIRIN 81 MG ENTERIC TABLET PO (08:05)
[2021-07-24] MEDS: amLODIPine BESYLATE 5 MG TABLET 10 MG PO (08:05)
[2021-07-24] MEDS: GENTAMICIN SULFATE 0.1% CR 15 GM TUBE 1 APPLIC TOPICAL (08:06)
[2021-07-24] MEDS: hydrALAZINE HCL 50 MG TABLET PO ×2 (08:06→16:55)
[2021-07-24] MEDS: busPIRone HCL 5 MG TABLET PO ×2 (08:06→20:32)
[2021-07-24] MEDS: FUROSEMIDE 80 MG TABLET 240 MG PO (08:06)
[2021-07-24] MEDS: ETHAMBUTOL HCL 400 MG TABLET 800 MG PO (08:06)
[2021-07-24] MEDS: AZITHROMYCIN 250 MG TABLET PO (08:06)
[2021-07-24] MEDS: busPIRone HCL 2.5 MG TABLET PO ×2 (08:06→20:32)
[2021-07-24] MEDS: PROPRANOLOL HCL 20 MG TABLET PO ×2 (08:07→20:34)
[2021-07-24] MEDS: LIDOCAINE 5% PATCH 1 PATCH TRANSDERM ×4 (08:07→12:11)
[2021-07-24] MEDS: rifAMPin 300 MG CAPSULE PO ×2 (08:07→16:54)
[2021-07-24] MEDS: LORazepam (*CRX) 1 MG TABLET PO ×2 (08:16→20:31)
--- NOTE | 2021-07-24 09:38 | PC.NURSE ---
Called the constitutional law professor [facility] Dialysis nurse to unhook patient from peritoneal dialysis machine from overnight. Spoke with Shayla from [facility] and they do not have a nurse coming to the hospital today. Shayla at [facility] said the patient unhooks herself at home and can unhook herself from her machine in their absence this morning. [facility] nurse Shayla said everything that the patient needs to unhook is in a white basket in the room. The following procedure took place with the patient able to give this nurse verbal directions on how to unhook her PD catheter. Machine tubes were clamped x3, connection site was cleaned thoroughly, patient side of connection was closed, site was disconnected and a cap was placed, patients side of the tubing was taped up onto the patient for comfort per the patient. The following volumes were also recorded; I-drain 70mL and total volume 625mL, patient was disconnected at 0930 to go for MRI.
--- NOTE | 2021-07-24 09:55 | PCOTNOTE ---
Attempted to see patient twice this am, however patient unavailable. First attempt, patient having peritoneal dialysis. Second attempt, patient off floor.
--- NOTE | 2021-07-24 11:52 | WPDNEUROPN ---
Progress Note: A&P Additional Plan 1. improving mental status 2. Improving visual difficulties 3 MRA revealed normal flow in the vertebral basilar internal carotid arteries with no aneurysm except mild scattered cerebral atherosclerotic disease 4. Will order the EEG Time Spent With Patient Time with patient: 15 - 25 minutes Subjective Date/time seen: 07/24/21 11:52 76 years old lady with ongoing history of 1. Hypertension 2. End-stage renal disease for which she is on the peritoneal dialysis and 3. 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 is improving gradually Review of Systems Review of Systems: All systems reviewed & are unremarkable except as noted in HPI and below Exam Const: General: cooperative, comfortable and no acute distress Nutritional Appearance: average body habitus Orientation/consciousness: oriented to person and oriented to place HENMT: Head: normal to inspection Ears: hearing grossly normal bilaterally General nose exam: Normal external nose present Face and sinus: normal facial exam Mouth: Yes Normal oral and palatal mucosa present Eyes: General: appearance normal, both eyes and all related structures Neck: Neck: full ROM and no lymphadenopathy Resp: Effort & Inspection: normal respiratory effort and able to speak in complete sentences Auscultation: clear to auscultation bilaterally Neuro: General: oriented to person and oriented to place Cranial nerves: Yes Bilaterally intact EOM present, Yes Nystagmus not present, Yes Normal facial strength present, Yes facial symmetry, Yes Midline tongue present, Yes Normal hearing present, Yes Ability to bilaterally rotate head present and Yes Ability to bilaterally elevate shoulders present Cognition (Neuro): normal cognition Speech: normal speech Gait exam (Neuro): Antalgic gait present Motor exam (neuro): Pronator motor function not present and No tremor noted Sensory Exam: normal sensation Psych: Appearance: well kempt Speech and movement: Normal speech and movement present Affect: normal affect Attitude: cooperative Thought process: Normal thought process present Thought content: Yes Normal thought content present Insight: Fair insight present (Psych) Judgement: Fair judgement present (Psych) Objective Data Vital Signs Vital Signs: Vital Signs - 24 hr 07/23/21 16:00 07/23/21 21:30 07/23/21 21:59 Temperature 36.4 C L 36.6 C 36.2 C L Pulse Rate 86 99 102 H Respiratory Rate 18 18 18 Blood Pressure 144/60 H 174/74 H 162/79 H Pulse Oximetry 96 96 96 07/23/21 22:19 07/24/21 06:00 07/24/21 08:00 Temperature 36.3 C L 37.0 C Pulse Rate 97 74 102 H Respiratory Rate 21 H 16 Blood Pressure 181/89 H 189/82 H Pulse Oximetry 100 96 07/24/21 08:07 Temperature Pulse Rate 102 H Respiratory Rate Blood Pressure Pulse Oximetry Intake/Output Intake/Output: Intake & Output 07/21/21 07/22/21 07/23/21 07/24/21 23:59 23:59 23:59 23:59 Intake Total 1200 1320 670 Output Total 0 400 Balance 1200 1320 270 Meds/Results Medications: Active Medications Generic Name Dose Route Start Last Admin Trade Name Freq PRN Reason Stop Dose Admin Acetaminophen 650 mg 07/21/21 21:47 07/23/21 11:03 Acetaminophen 325 Mg Tablet PO 650 mg Q4H PRN Administration Mild Pain (1-3) or Fever Amlodipine Besylate 10 mg 07/22/21 09:00 07/24/21 08:05 Amlodipine Besylate 5 Mg Tablet PO 10 mg DAILY LETI Administration Aspirin 81 mg 07/23/21 09:00 07/24/21 08:05 Aspirin 81 Mg Enteric Tablet PO 81 mg QAM LETI Administration Azithromycin 250 mg 07/22/21 09:00 07/24/21 08:06 Azithromycin 250 Mg Tablet PO 250 mg DAILY LETI Administration Buspirone HCl 5 mg 07/22/21 09:00 07/24/21 08:06 Buspirone Hcl 5 Mg Tablet PO 5 mg Q12HR LETI Administration Buspirone HCl 2.5 mg 07/22/21 09:00 07/24/21 08:06 Buspirone Hcl 2.5 Mg Tabl
[2021-07-24] MEDS: traMADol/ACETAMINOPHEN (*CRX) (ULTRACET) 37.5/325 MG TABLET 1 TAB PO ×2 (12:26→20:29)
--- NOTE | 2021-07-24 13:49 | PM.IMPN ---
Progress Note: A&P Assessment and Plan (1) Visual disturbance: Code(s): H53.9 - Unspecified visual disturbance Status: Acute Assessment and Plan: 07/22/2021 Interval history: patient is 76-year-old female with history of peritoneal dialysis, hypertension and hypothyroid presented with visual disturbance and extremely elevated blood pressure, CT scan of the head showed possible a small acute infarct and right occipital lobe, to further evaluate patient had MRI and it showed left parietal bilateral occipital subcortical edema radiologist suggested consider RPLS, cerebritis from other infection or inflammation discussed with neurologist recommended to give the patient aspirin and repeat MRI in 2 days to further evaluate, patient remains clinically stable will have PT OT evaluate the patient and further recommendation to follow. 07/23/2021 Interval history: Patient remains somnolent unable to provide any review of symptom however clinically stable, will repeat MRI tomorrow to further evaluate and further recommendation to follow. will continue PT OT and monitor. 07/24/2021 Interval history: today patient is much more alert and oriented sitting in the chair denies any complaint, today patient had a MRA of the brain did not show any stenosis cerebral vessels, repeat MRIs pending will follow-up, will continue PT OT and further recommendation to follow. (2) CVA (cerebral vascular accident): Qualifiers: CVA mechanism: unspecified Qualified Code(s): I63.9 - Cerebral infarction, unspecified Code(s): I63.9 - Cerebral infarction, unspecified Status: Acute (3) ESRD (end stage renal disease) on dialysis: Code(s): N18.6 - End stage renal disease; Z99.2 - Dependence on renal dialysis Status: Acute (4) Musculoskeletal chest pain: Code(s): R07.89 - Other chest pain Status: Acute Additional Plan The patient is having visual disturbance and uncontrolled hypertension. Concerning for possible CVA given imaging findings. Also could be due to posterior leukoencephalopathy from hypertensive emergency but somewhat less likely. Will continue to allow for permissive hypertension in the setting of possible acute stroke. Her requests that aspirin be added to the patient's regimen. Subsequently received 3 baby aspirin to complete her total daily aspirin of 325. Will place patient on full-dose aspirin. Will consult neurology for further recommendations. MRI of the brain and brainstem has been ordered without contrast. Will monitor the patient on telemetry will monitor neuro checks. Elevated blood pressures will continue patient's home antihypertensive medications. Will avoid over-correction of hypertension in the left for permissive hypertension the patient was possible acute CVA. Incision seen on peritoneal dialysis. Patient has missed 2 nights of peritoneal dialysis. She received Kayexalate in the ER due to hyperkalemia with improvement in hyperkalemia. Patient been placed on a renal dialysis diet. Nephrology has been consulted for management of peritoneal dialysis. Patient has been admitted as observation status. Subjective Date/time seen: 07/24/21 13:49 07/22/2021 Interval history: patient is 76-year-old female with history of peritoneal dialysis, hypertension and hypothyroid presented with visual disturbance and extremely elevated blood pressure, CT scan of the head showed possible a small acute infarct and right occipital lobe, to further evaluate patient had MRI and it showed left parietal bilateral occipital subcortical edema radiologist suggested consider RPLS, cerebritis from other infection or inflammation discussed with neurologist recommended to give the patient aspirin and repeat MRI in 2 days to further evaluate, patient remains clinically stable will have PT OT evaluate the patient and further recommendation to follow. 07/23/2021 Interval history: Patient remains somnolent unable
--- NOTE | 2021-07-24 15:51 | PC.NURSE ---
On 07/24/21, the student, [Triny Rodriguez], provided care and completed [facility] documentation on this patient. I have reviewed the student's documentation and agree with the findings.
[2021-07-24] MEDS: GABAPENTIN 100 MG CAPSULE 200 MG PO (20:32)
[2021-07-25] VITALS (11 sets, daily range): BP systolic 151–181; BP diastolic 73–85; PULSE 94–108; RESP 16–20; TEMP 36.4–37; O2SAT 97–100
[2021-07-25] MEDS: ACETAMINOPHEN 325 MG TABLET 650 MG PO (00:10)
[2021-07-25] MEDS: LORazepam (*CRX) 1 MG TABLET PO ×3 (01:43→20:46)
[2021-07-25 05:30] LABS: Mean Corpuscular HGB Conc 31.8 g/dl (32-36); Mean Corpuscular Hemoglobin 34.3 pg (26-34); Mean Corpuscular Volume 107.8 fl (80-100); Mean Platelet Volume 10.6 fl (7.4-10.4); Platelet Count Result 181 k/mm3 (150-375); Red Blood Count 2.04 M/mm3 (4.2-5.4); Red Cell Distribution Width 15.3 % (11.5-14.5); White Blood Count 7.8 K/mm3 (4.5-10.0)
[2021-07-25 06:05] LABS: Anion Gap 10 mmol/L (8-16); Blood Urea Nitrogen 71 mg/dL (7-17); Calcium 9.2 mg/dL (8.4-10.2); Carbon Dioxide 26 mmol/L (22-30); Chloride 93 mmol/L (98-107); Estimated CRCL calculation 5 ml/min; Estimated Glomerular Filt Rate 5; Glucose 188 mg/dL (65-110); Potassium 3.2 mmol/L (3.4-5.0); Sodium 129 mmol/L (137-145)
[2021-07-25] MEDS: CALCIUM ACETATE 667 MG TABLET PO ×3 (06:49→17:41)
[2021-07-25] MEDS: LEVOTHYROXINE SODIUM 75 MCG TABLET PO (06:49)
[2021-07-25] MEDS: PROPRANOLOL HCL 20 MG TABLET PO ×2 (08:02→20:40)
[2021-07-25] MEDS: FUROSEMIDE 80 MG TABLET 240 MG PO (08:02)
[2021-07-25] MEDS: busPIRone HCL 2.5 MG TABLET PO ×2 (08:02→20:40)
[2021-07-25] MEDS: busPIRone HCL 5 MG TABLET PO ×2 (08:02→20:40)
[2021-07-25] MEDS: amLODIPine BESYLATE 5 MG TABLET 10 MG PO (08:02)
[2021-07-25] MEDS: ETHAMBUTOL HCL 400 MG TABLET 800 MG PO (08:02)
[2021-07-25] MEDS: hydrALAZINE HCL 50 MG TABLET PO ×2 (08:02→17:41)
[2021-07-25] MEDS: ASPIRIN 81 MG ENTERIC TABLET PO (08:02)
[2021-07-25] MEDS: AZITHROMYCIN 250 MG TABLET PO (08:02)
[2021-07-25] MEDS: rifAMPin 300 MG CAPSULE PO ×2 (08:03→17:41)
[2021-07-25] MEDS: GENTAMICIN SULFATE 0.1% CR 15 GM TUBE 1 APPLIC TOPICAL (08:03)
[2021-07-25] MEDS: traMADol/ACETAMINOPHEN (*CRX) (ULTRACET) 37.5/325 MG TABLET 1 TAB PO ×2 (08:15→17:47)
[2021-07-25] MEDS: SODIUM CHLORIDE 0.9% IV 250 ML 30 ML IV CONT (10:32)
--- NOTE | 2021-07-25 12:43 | PM.CNNEP ---
Assessment and Plan Assessment and plan (1) ESRD (end stage renal disease): Code(s): N18.6 - End stage renal disease Status: Acute Additional Plan End-stage renal disease Cerebritis suspect Fluid retention Hypertension Anemia chronic kidney disease Secondary hyperparathyroid Plan: -climate change analyst 1.5% Dianeal to 2.5% Dianeal and 4.25% Dianeal today -watch the fluid retention -anemia, observe, but she may be transferred to [facility], may need transfusion, awaiting a bed -mantian renal f/u and watch labs - History of Present Illness Reason for Consult Consult date: 07/24/21 Reason for consult: end stage renal disease Chief Complaint Chief complaint: Stroke Symptoms,Uncontrolled HTN,Hyperkalemia,CKD History of Present Illness Narrative: 76-year-old white female who has a history of ESRD on peritoneal dialysis. She has presented with what appears to be cerebritis. She is awaiting transfer to [facility]. When seen yesterday the patient is feeling better. This is a delayed note. She has been initiated on dialysis and see absorbed a L plus of fluid yesterday using 1 bag of 1.5% and 2nd bag to 2.5% Dianeal. Some swelling observed. No shortness of breath\. She feels that her problems may be related to the medications he is receiving for mycobacterium infection. Follow for ESRD and related needs. No fevers or chills. No nausea vomiting. No headache. Vision is better. Review of Systems Review of Systems: All systems reviewed & are unremarkable except as noted in HPI and below PMFSH Past Medical History Medical History Acquired hypothyroidism Anemia in chronic kidney disease Anxiety Chronic kidney disease, stage V On the transplant list Dialysis patient peritoneal ESRD (end stage renal disease) Fecal occult blood test positive Headache Hemorrhage following tonsillectomy and adenoidectomy HLD (hyperlipidemia) Large hiatal hernia Mycobacterium avium complex PAD (peripheral artery disease) Primary osteoarthritis, unspecified site Secondary hyperparathyroidism (of renal origin) Surgical History Surgical History History of appendectomy History of tubal ligation Presence of peritoneal dialysis catheter Family History Family History Mother Diabetes mellitus Cerebrovascular accident Father Family history of cardiovascular disease Social History Social History Social History: Smoking status: Never smoker Second hand tobacco smoke exposure: No Alcohol intake: current Substance use: never Substance use type: does not use Gender identity (if verbalized by the patient): Female Sexual Orientation (if Verbalized by the Patient): Straight or Heterosexual Spiritual care concerns: No Meds Home Medications and Allergies Home Medications Medication Instructions Recorded Confirmed Type aspirin 81 mg tablet,delayed 81 mg PO DAILY 07/10/19 07/21/21 History release furosemide 80 mg tablet 240 mg PO DAILY tablet 07/10/19 07/22/21 History gentamicin 0.1 % topical cream 1 applic TOPICAL DAILY gm 07/10/19 07/21/21 History epoetin krystle 2,000 unit/mL 1,000 unit SUB-Q MONTHLY ml 08/23/19 07/21/21 History injection solution ropinirole 0.25 mg tablet 0.5 mg PO DAILY tablet 08/23/19 07/21/21 History ethambutol 800 mg PO DAILY 06/17/20 07/21/21 History buspirone 7.5 mg tablet 7.5 mg PO BID #180 tablet 09/19/20 07/21/21 Rx rifampin 300 mg BID 01/30/21 07/21/21 History lisinopril 20 mg PO BID #90 tablet 02/01/21 07/21/21 Rx propranolol 20 mg PO Q12H #90 tablet 02/01/21 07/21/21 Rx hydralazine 50 mg tablet 50 mg PO BID tablet 02/13/21 07/21/21 History gabapentin 100 mg capsule 200 mg PO QHS #180 cap 03/27/21 07/21/21 Rx tr
--- NOTE | 2021-07-25 12:49 | PM.PNNEP ---
Progress Note: A&P Assessment and Plan (1) ESRD (end stage renal disease): Code(s): N18.6 - End stage renal disease Status: Acute Additional Plan End-stage renal disease Cerebritis suspect Fluid retention Hypertension Anemia chronic kidney disease Secondary hyperparathyroid Plan: -change analyst 1.5% Dianeal to 2.5% Dianeal and 4.25% Dianeal today -watch the fluid retention -she may be transferred to [facility], may need transfusion, awaiting a bed -maintain renal f/u and watch labs -transfuse 1 unit of blood today for continued anemia -lasix for fluid retention, will give pre to avoid SOB Subjective Date/time seen: 07/25/21 12:49 Follow-up of ESRD Retained some fluid -25 mils Some swelling, was short of breath at night, he used oxygen. No chest pain. Exam Narrative: Well overload well-nourished, awake and alert, sitting up in a chair, JVD negative, regular rate rhythm, no gallop, no rub, a good result was soft nontender abdomen, edema plus, some puffiness of face, no tremors Objective Data Vital Signs Vital Signs: Vital Signs - 24 hr 07/24/21 14:00 07/24/21 16:00 07/24/21 20:34 Temperature 36.7 C 36.8 C Pulse Rate 88 78 92 Respiratory Rate 16 16 Blood Pressure 158/73 H 154/70 H Pulse Oximetry 99 98 07/24/21 22:00 07/25/21 06:00 07/25/21 08:00 Temperature 36.3 C L 36.4 C Pulse Rate 108 H 94 Respiratory Rate 20 20 Blood Pressure 156/89 H 156/81 H Pulse Oximetry 98 99 100 07/25/21 08:02 07/25/21 08:03 Temperature 36.8 C Pulse Rate 102 H 102 H Respiratory Rate 18 Blood Pressure 151/80 H Pulse Oximetry 100 Intake/Output Intake/Output: Intake & Output 07/22/21 07/23/21 07/24/21 07/25/21 23:59 23:59 23:59 23:59 Intake Total 1200 1320 1700 520 Output Total 0 400 Balance 1200 1320 1300 520 Meds/Results Medications: Active Medications Generic Name Dose Route Start Last Admin Trade Name Theronq PRN Reason Stop Dose Admin Acetaminophen 650 mg 07/21/21 21:47 07/25/21 00:10 Acetaminophen 325 Mg Tablet PO 650 mg Q4H PRN Administration Mild Pain (1-3) or Fever Amlodipine Besylate 10 mg 07/22/21 09:00 07/25/21 08:02 Amlodipine Besylate 5 Mg Tablet PO 10 mg DAILY LETI Administration Aspirin 81 mg 07/23/21 09:00 07/25/21 08:02 Aspirin 81 Mg Enteric Tablet PO 81 mg QAM LETI Administration Azithromycin 250 mg 07/22/21 09:00 07/25/21 08:02 Azithromycin 250 Mg Tablet PO 250 mg DAILY LETI Administration Buspirone HCl 5 mg 07/22/21 09:00 07/25/21 08:02 Buspirone Hcl 5 Mg Tablet PO 5 mg Q12HR LETI Administration Buspirone HCl 2.5 mg 07/22/21 09:00 07/25/21 08:02 Buspirone Hcl 2.5 Mg Tablet PO 2.5 mg Q12HR LETI Administration Calcium Acetate 667 mg 07/22/21 06:30 07/25/21 11:32 Calcium Acetate 667 Mg Tablet PO 667 mg AC LETI Administration Ethambutol HCl 800 mg 07/22/21 09:00 07/25/21 08:02 Ethambutol Hcl 400 Mg Tablet PO 08/21/21 08:59 800 mg DAILY LETI Administration Furosemide 240 mg 07/22/21 09:00 07/25/21 08:02 Furosemide 80 Mg Tablet PO 240 mg DAILY LETI Administration Furosemide 80 mg 07/25/21 12:41 Furosemide Inj 100 Mg/10 Ml Vial IV PUSH 07/25/21 12:42 ONCE ONE Gabapentin 200 mg 07/22/21 21:00 07/24/21 20:32 Gabapentin 100 Mg Capsule PO 200 mg HS LETI Administration Gentamicin Sulfate 1 applic 07/22/21 09:00 07/25/21 08:03 Gentamicin Sulfate 0.1% Cr 15 Gm Tube TOPICAL 1 applic DAILY LETI Administration Hydralazine HCl 50 mg 07/22/21 09:00 07/25/21 08:02 Hydralazine Hcl 50 Mg Tablet PO 50 mg BID LETI Administration Sodium Chloride 250 mls @ 30 mls/hr 07/25/21 08:16 07/25/21 10:32 Normal Saline Iv IV CONT 07/25/21 16:35 30 mls/hr .Q8H20M STA Administration Sodium Chloride 250 mls @ 30 mls/hr 07/25/21 12:32 Normal Saline Iv IV CONT 07/25/21 20:51 .Q8H20M STA
--- NOTE | 2021-07-25 13:05 | WPDNEUROPN ---
Progress Note: A&P Additional Plan 1.PRE 2. Chronic renal failure on dialysis 3. Hypertension and the plan is to continue the treatment as such Time Spent With Patient Time with patient: 15 - 25 minutes Subjective Date/time seen: 07/25/21 13:05 76 years old with ongoing history of 1. Hypertension 2. End-stage renal disease for which she is on dialysis 3. Posterior reversible ischemic encephalopathy with initial visual difficulties, abnormal MRI but significant clinical improvement the visual difficulties since she has been dialyzed with repeat MRI documenting bilateral occipital left parietal subcortical white matter edema with mild improvement but no acute infarction and at present BUN is 71 with creatinine 7.80 definitely down subsequent to dialysis Review of Systems Review of Systems: All systems reviewed & are unremarkable except as noted in HPI and below Exam Const: General: cooperative, comfortable, no acute distress, alert and awake Orientation/consciousness: oriented to person and oriented to place Limitations: no limitations HENMT: Head: normal to inspection and normocephalic Ears: hearing grossly normal bilaterally General nose exam: Normal external nose present Face and sinus: normal facial exam Mouth: Yes Normal oral and palatal mucosa present Eyes: General: appearance normal, both eyes and all related structures Alignment and Position: alignment normal Periorbital: periorbital findings normal Eyelids: eyelids normal Conjunctivae: conjunctivae normal Sclera: sclerae normal Cornea: corneas normal Pupils: Equal, round and reactive pupils present EOM: EOMs intact bilaterally Neck: Neck: full ROM and no lymphadenopathy Carotids: normal carotid upstroke Lymphatic: no lymphadenopathy noted Resp: Effort & Inspection: normal respiratory effort and able to speak in complete sentences Auscultation: clear to auscultation bilaterally Cardio: Rate: regular rate Rhythm: regular rhythm Neuro: General: oriented to person and oriented to place Cranial nerves: Yes CN's II-XII intact bilaterally Cognition (Neuro): normal cognition Speech: normal speech Motor exam (neuro): Pronator motor function not present, No tremor noted and Motor abnormalities not present Sensory Exam: Sensory deficit (Neuro) Psych: Appearance: grossly normal Mental Status: mental status grossly normal Speech and movement: Normal speech and movement present Affect: normal affect Attitude: cooperative Thought process: Normal thought process present Thought content: Yes Normal thought content present Insight: Good insight present (Psych) Judgement: Good judgement present (Psych) Objective Data Vital Signs Vital Signs: Vital Signs - 24 hr 07/24/21 14:00 07/24/21 16:00 07/24/21 20:34 Temperature 36.7 C 36.8 C Pulse Rate 88 78 92 Respiratory Rate 16 16 Blood Pressure 158/73 H 154/70 H Pulse Oximetry 99 98 07/24/21 22:00 07/25/21 06:00 07/25/21 08:00 Temperature 36.3 C L 36.4 C Pulse Rate 108 H 94 Respiratory Rate 20 20 Blood Pressure 156/89 H 156/81 H Pulse Oximetry 98 99 100 07/25/21 08:02 07/25/21 08:03 Temperature 36.8 C Pulse Rate 102 H 102 H Respiratory Rate 18 Blood Pressure 151/80 H Pulse Oximetry 100 Intake/Output Intake/Output: Intake & Output 07/22/21 07/23/21 07/24/21 07/25/21 23:59 23:59 23:59 23:59 Intake Total 1200 1320 1700 520 Output Total 0 400 Balance 1200 1320 1300 520 Meds/Results Medications: Active Medications Generic Name Dose Route Start Last Admin Trade Name Marcus PRN Reason Stop Dose Admin Acetaminophen 650 mg 07/21/21 21:47 07/25/21 00:10 Acetaminophen 325 Mg Tablet PO 650 mg Q4H PRN Administration Mild Pain (1-3) or Fever Amlodipine Besylate 10 mg 07/22/21 09:00 07/25/21 08:02 Amlodipine Besylate 5 Mg Tablet PO 10 mg DAILY LETI Administration Aspirin 81 mg 07/23/21 09:00 07/25/21 08:02 Aspirin 81 Mg Enteric Tablet PO 81 mg Q
[2021-07-25 13:41] LABS: Iron 22 ug/dL (37-170)
[2021-07-25] MEDS: FUROSEMIDE INJ 100 MG/10 ML VIAL 80 MG IV PUSH (13:42)
[2021-07-25 13:50] LABS: Percent Iron Saturation 15 % (20-50)
--- NOTE | 2021-07-25 15:17 | PM.IMPN ---
Progress Note: A&P Assessment and Plan (1) Visual disturbance: Code(s): H53.9 - Unspecified visual disturbance Status: Acute Assessment and Plan: 07/22/2021 Interval history: patient is 76-year-old female with history of peritoneal dialysis, hypertension and hypothyroid presented with visual disturbance and extremely elevated blood pressure, CT scan of the head showed possible a small acute infarct and right occipital lobe, to further evaluate patient had MRI and it showed left parietal bilateral occipital subcortical edema radiologist suggested consider RPLS, cerebritis from other infection or inflammation discussed with neurologist recommended to give the patient aspirin and repeat MRI in 2 days to further evaluate, patient remains clinically stable will have PT OT evaluate the patient and further recommendation to follow. 07/23/2021 Interval history: Patient remains somnolent unable to provide any review of symptom however clinically stable, will repeat MRI tomorrow to further evaluate and further recommendation to follow. will continue PT OT and monitor. 07/24/2021 Interval history: today patient is much more alert and oriented sitting in the chair denies any complaint, today patient had a MRA of the brain did not show any stenosis cerebral vessels, repeat MRIs pending will follow-up, will continue PT OT and further recommendation to follow. 07/25/2021 Interval history: today patient is much more alert and oriented laying in the bed talking on phone, denies any complaint, on 07/24 patient had a MRA of the brain did not show any stenosis cerebral vessels, repeat MRIs showed, left parietal bilateral occipital subcortical edema is improving reversible posterior encephalopathy syndrome (RPLS), patient clinical symptoms are also improved will continue to monitor, will continue PT OT and further recommendation to follow. (2) CVA (cerebral vascular accident): Qualifiers: CVA mechanism: unspecified Qualified Code(s): I63.9 - Cerebral infarction, unspecified Code(s): I63.9 - Cerebral infarction, unspecified Status: Acute (3) ESRD (end stage renal disease) on dialysis: Code(s): N18.6 - End stage renal disease; Z99.2 - Dependence on renal dialysis Status: Acute (4) Musculoskeletal chest pain: Code(s): R07.89 - Other chest pain Status: Acute Additional Plan The patient is having visual disturbance and uncontrolled hypertension. Concerning for possible CVA given imaging findings. Also could be due to posterior leukoencephalopathy from hypertensive emergency but somewhat less likely. Will continue to allow for permissive hypertension in the setting of possible acute stroke. Her requests that aspirin be added to the patient's regimen. Subsequently received 3 baby aspirin to complete her total daily aspirin of 325. Will place patient on full-dose aspirin. Will consult neurology for further recommendations. MRI of the brain and brainstem has been ordered without contrast. Will monitor the patient on telemetry will monitor neuro checks. Elevated blood pressures will continue patient's home antihypertensive medications. Will avoid over-correction of hypertension in the left for permissive hypertension the patient was possible acute CVA. Incision seen on peritoneal dialysis. Patient has missed 2 nights of peritoneal dialysis. She received Kayexalate in the ER due to hyperkalemia with improvement in hyperkalemia. Patient been placed on a renal dialysis diet. Nephrology has been consulted for management of peritoneal dialysis. Patient has been admitted as observation status. Subjective Date/time seen: 07/25/21 15:17 07/22/2021 Interval history: patient is 76-year-old female with history of peritoneal dialysis, hypertension and hypothyroid presented with visual disturbance and extremely elevated blood pressure, CT scan of the head showed possible a small acute infarct and rig
[2021-07-25 19:16] LABS: Hematocrit 27.1 % (37.0-47.0); Hemoglobin 8.8 g/dL (12.0-15.0)
[2021-07-25] MEDS: GABAPENTIN 100 MG CAPSULE 200 MG PO (20:40)
[2021-07-25] MEDS: rOPINIRole HCL 0.5 MG TABLET PO (20:41)
[2021-07-26] VITALS (9 sets, daily range): BP systolic 114–169; BP diastolic 57–74; PULSE 89–109; RESP 14–18; TEMP 36.4–36.8; O2SAT 96–98
[2021-07-26] MEDS: traMADol/ACETAMINOPHEN (*CRX) (ULTRACET) 37.5/325 MG TABLET 1 TAB PO ×3 (04:12→20:12)
[2021-07-26 05:44] LABS: Hematocrit 25.3 % (37.0-47.0); Mean Corpuscular HGB Conc 31.6 g/dl (32-36); Mean Corpuscular Hemoglobin 33.1 pg (26-34); Mean Corpuscular Volume 104.5 fl (80-100); Mean Platelet Volume 10.5 fl (7.4-10.4); Platelet Count Result 223 k/mm3 (150-375); Red Blood Count 2.42 M/mm3 (4.2-5.4); Red Cell Distribution Width 17.1 % (11.5-14.5); White Blood Count 6.8 K/mm3 (4.5-10.0)
[2021-07-26 05:50] LABS: Anion Gap 10 mmol/L (8-16); Blood Urea Nitrogen 71 mg/dL (7-17); Calcium 9.2 mg/dL (8.4-10.2); Carbon Dioxide 28 mmol/L (22-30); Chloride 93 mmol/L (98-107); Estimated CRCL calculation 5 ml/min; Estimated Glomerular Filt Rate 5; Glucose 90 mg/dL (65-110); Potassium 3.4 mmol/L (3.4-5.0); Sodium 131 mmol/L (137-145)
[2021-07-26] MEDS: CALCIUM ACETATE 667 MG TABLET PO ×3 (06:07→16:51)
[2021-07-26] MEDS: LEVOTHYROXINE SODIUM 75 MCG TABLET PO (06:07)
[2021-07-26] MEDS: LORazepam (*CRX) 1 MG TABLET PO ×2 (06:08→20:25)
[2021-07-26 06:19] LABS: Hepatitis B Core Ab Total Nonreactive (Nonreactive)
[2021-07-26 08:14] LABS: IFOB Positive Control Positive; Immunochemical Fecal Occult Bl Positive (N)
[2021-07-26] MEDS: rifAMPin 300 MG CAPSULE PO ×2 (09:17→16:51)
[2021-07-26] MEDS: ETHAMBUTOL HCL 400 MG TABLET 800 MG PO (09:17)
[2021-07-26] MEDS: POTASSIUM CHLORIDE 20 MEQ TABLET PO (09:17)
[2021-07-26] MEDS: amLODIPine BESYLATE 5 MG TABLET 10 MG PO (09:18)
[2021-07-26] MEDS: ASPIRIN 81 MG ENTERIC TABLET PO (09:18)
[2021-07-26] MEDS: AZITHROMYCIN 250 MG TABLET PO (09:18)
[2021-07-26] MEDS: PROPRANOLOL HCL 20 MG TABLET PO ×2 (09:18→20:20)
[2021-07-26] MEDS: FUROSEMIDE 80 MG TABLET 240 MG PO (09:18)
[2021-07-26] MEDS: busPIRone HCL 5 MG TABLET PO ×2 (09:18→20:19)
[2021-07-26] MEDS: busPIRone HCL 2.5 MG TABLET PO ×2 (09:18→20:19)
[2021-07-26] MEDS: GENTAMICIN SULFATE 0.1% CR 15 GM TUBE 1 APPLIC TOPICAL (09:19)
[2021-07-26] MEDS: LIDOCAINE 5% PATCH 1 PATCH TRANSDERM ×2 (09:19)
[2021-07-26] MEDS: hydrALAZINE HCL 50 MG TABLET PO ×2 (09:21→16:51)
--- NOTE | 2021-07-26 12:58 | PM.IMPN ---
Progress Note: A&P Assessment and Plan (1) Visual disturbance: Code(s): H53.9 - Unspecified visual disturbance Status: Acute Assessment and Plan: 07/22/2021 Interval history: patient is 76-year-old female with history of peritoneal dialysis, hypertension and hypothyroid presented with visual disturbance and extremely elevated blood pressure, CT scan of the head showed possible a small acute infarct and right occipital lobe, to further evaluate patient had MRI and it showed left parietal bilateral occipital subcortical edema radiologist suggested consider RPLS, cerebritis from other infection or inflammation discussed with neurologist recommended to give the patient aspirin and repeat MRI in 2 days to further evaluate, patient remains clinically stable will have PT OT evaluate the patient and further recommendation to follow. 07/23/2021 Interval history: Patient remains somnolent unable to provide any review of symptom however clinically stable, will repeat MRI tomorrow to further evaluate and further recommendation to follow. will continue PT OT and monitor. 07/24/2021 Interval history: today patient is much more alert and oriented sitting in the chair denies any complaint, today patient had a MRA of the brain did not show any stenosis cerebral vessels, repeat MRIs pending will follow-up, will continue PT OT and further recommendation to follow. 07/25/2021 Interval history: today patient is much more alert and oriented laying in the bed talking on phone, denies any complaint, on 07/24 patient had a MRA of the brain did not show any stenosis cerebral vessels, repeat MRIs showed, left parietal bilateral occipital subcortical edema is improving reversible posterior encephalopathy syndrome (RPLS), patient clinical symptoms are also improved will continue to monitor, will continue PT OT and further recommendation to follow. 07/26/2021 Interval history: today patient is much more alert and oriented sitting in the bed talking on phone, denies any complaint, on 07/24 patient had a MRA of the brain did not show any stenosis cerebral vessels, repeat MRIs showed, left parietal bilateral occipital subcortical edema is improving reversible posterior encephalopathy syndrome (RPLS), patient clinical symptoms are also improving however patient is anemia and today her stool Hemoccult is positive will consult GI for further recommendation, will continue to monitor, will continue PT OT and further recommendation to follow. (2) CVA (cerebral vascular accident): Qualifiers: CVA mechanism: unspecified Qualified Code(s): I63.9 - Cerebral infarction, unspecified Code(s): I63.9 - Cerebral infarction, unspecified Status: Acute (3) ESRD (end stage renal disease) on dialysis: Code(s): N18.6 - End stage renal disease; Z99.2 - Dependence on renal dialysis Status: Acute (4) Musculoskeletal chest pain: Code(s): R07.89 - Other chest pain Status: Acute Additional Plan The patient is having visual disturbance and uncontrolled hypertension. Concerning for possible CVA given imaging findings. Also could be due to posterior leukoencephalopathy from hypertensive emergency but somewhat less likely. Will continue to allow for permissive hypertension in the setting of possible acute stroke. Her requests that aspirin be added to the patient's regimen. Subsequently received 3 baby aspirin to complete her total daily aspirin of 325. Will place patient on full-dose aspirin. Will consult neurology for further recommendations. MRI of the brain and brainstem has been ordered without contrast. Will monitor the patient on telemetry will monitor neuro checks. Elevated blood pressures will continue patient's home antihypertensive medications. Will avoid over-correction of hypertension in the left for permissive hypertension the patient was possible acute CVA. Incision seen on peritoneal dialysis. Patient has missed 2 ni
[2021-07-26] MEDS: GABAPENTIN 100 MG CAPSULE 200 MG PO (20:19)
[2021-07-26] MEDS: rOPINIRole HCL 0.5 MG TABLET PO (20:20)
[2021-07-27] MEDS: traMADol/ACETAMINOPHEN (*CRX) (ULTRACET) 37.5/325 MG TABLET 1 TAB PO (01:54)
[2021-07-27] MEDS: LORazepam (*CRX) 1 MG TABLET PO ×2 (01:56→08:05)
[2021-07-27] MEDS: LEVOTHYROXINE SODIUM 75 MCG TABLET PO (05:59)
[2021-07-27] MEDS: CALCIUM ACETATE 667 MG TABLET PO ×2 (05:59→12:08)
[2021-07-27 06:17] LABS: Hematocrit 25.4 % (37.0-47.0); Hemoglobin 8.2 g/dL (12.0-15.0); Mean Corpuscular HGB Conc 32.3 g/dl (32-36); Mean Corpuscular Hemoglobin 33.7 pg (26-34); Mean Corpuscular Volume 104.5 fl (80-100); Mean Platelet Volume 10.3 fl (7.4-10.4); Platelet Count Result 287 k/mm3 (150-375); Red Blood Count 2.43 M/mm3 (4.2-5.4); Red Cell Distribution Width 16.1 % (11.5-14.5)
[2021-07-27 06:31] LABS: Anion Gap 9 mmol/L (8-16); Blood Urea Nitrogen 73 mg/dL (7-17); Calcium 9.5 mg/dL (8.4-10.2); Carbon Dioxide 29 mmol/L (22-30); Chloride 94 mmol/L (98-107); Estimated CRCL calculation 5 ml/min; Estimated Glomerular Filt Rate 6; Glucose 94 mg/dL (65-110); Sodium 132 mmol/L (137-145)
[2021-07-27 06:57] VITALS: BP 102/46; PULSE 101; RESP 17; TEMP 36.6; O2SAT 100
[2021-07-27 08:00] VITALS: PULSE 101; RESP 17; O2SAT 100
[2021-07-27] MEDS: ASPIRIN 81 MG ENTERIC TABLET PO (08:04)
[2021-07-27] MEDS: AZITHROMYCIN 250 MG TABLET PO (08:04)
[2021-07-27] MEDS: FUROSEMIDE 80 MG TABLET 240 MG PO (08:04)
[2021-07-27] MEDS: amLODIPine BESYLATE 5 MG TABLET 10 MG PO (08:04)
[2021-07-27 08:05] VITALS: PULSE 101
[2021-07-27] MEDS: ETHAMBUTOL HCL 400 MG TABLET 800 MG PO (08:05)
[2021-07-27] MEDS: rifAMPin 300 MG CAPSULE PO (08:05)
[2021-07-27] MEDS: hydrALAZINE HCL 50 MG TABLET PO (08:05)
[2021-07-27] MEDS: PROPRANOLOL HCL 20 MG TABLET PO (08:05)
[2021-07-27] MEDS: busPIRone HCL 5 MG TABLET PO (08:05)
[2021-07-27] MEDS: ACETAMINOPHEN 325 MG TABLET 650 MG PO (08:05)
[2021-07-27] MEDS: GENTAMICIN SULFATE 0.1% CR 15 GM TUBE 1 APPLIC TOPICAL (08:07)
[2021-07-27] MEDS: LIDOCAINE 5% PATCH 1 PATCH TRANSDERM ×2 (08:07)
[2021-07-27] MEDS: busPIRone HCL 2.5 MG TABLET PO (09:00)
--- NOTE | 2021-07-27 10:50 | WPDGICN ---
Assessment and Plan Assessment and plan (1) Fecal occult blood test positive: Code(s): R19.5 - Other fecal abnormalities Status: Acute Assessment and Plan: about 1 year ago she had colonoscopy for same indication, only had diverticulosis and small hemorrhoids, no signs of bleeding (probably perianal source) hb low but remained stable no need of gi work up unless obvious bleeding will follow peripherally, call if questions (2) Acute on chronic anemia: Code(s): D64.9 - Anemia, unspecified Status: Acute Assessment and Plan: probably from non GI conditions (esrd, chronic medical condition, etc) she has seen hematology (3) ESRD (end stage renal disease) on dialysis: Code(s): N18.6 - End stage renal disease; Z99.2 - Dependence on renal dialysis Status: Acute Assessment and Plan: on PD dialysis (4) Hypertensive urgency: Code(s): I16.0 - Hypertensive urgency Status: Acute Assessment and Plan: on admission, also had neurological symptoms but resolved now neurology on board (5) Reversible posterior leukoencephalopathy: Code(s): G93.6 - Cerebral edema Status: Acute Assessment and Plan: improvement of MRI findings, better (6) Visual disturbance: Code(s): H53.9 - Unspecified visual disturbance Status: Acute (7) Chest pain: Code(s): R07.9 - Chest pain, unspecified Status: Acute GI Consult Note Consult date/time: 07/27/21 10:50 Reason for consult: occult blood stool, chronic anemia HPI: Jacquie Cano is a 76 year old female with ESRD on peritoneal dialysis, mycobacterium avium complex, chronic anemia for which she has seen hematology few months ago on epogen treatment, end-stage renal disease who came to the ER 5 days ago with uncontrolled blood pressure and chest pain, she was symptomatic with decrease vision, further work up revealed that she had abnormal MRI brain (reviewed) c/w reversible posterior encephalopathy syndrome (RPLS)- she had improvement of neurological symptoms since admission and slowly doing better. Hb 7-8, primary ordered occult blood in stool that was positive. Patient denies overt gib, she has not seen blood in stools. She had colonoscopy 2011 and then I performed one in06/2020 as outpatient, only had diverticulosis and hemorrhoids (indication was also occult blood in stools)- presumably perianal source. Review of Systems Constitutional: Constitutional: Denies chills Eyes: Eyes: Reports blurry vision ENT: Reports Normal hearing present Cardiovascular: Cardiovascular: Reports chest pain Respiratory: Respiratory: Denies cough Gastrointestinal: Gastrointestinal: Denies abdominal pain and Denies vomiting Genitourinary: Comments: on dialysis Musculoskeletal: Musculoskeletal: Reports no additional musculoskeletal complaints Integumentary/Breasts: Skin/Breast: Denies dry skin Neurologic: Reports headache(s) Psychiatric: Psychiatric: Reports no additional psychiatric complaints PMF Past Medical History Medical History (Updated 07/27/21 @ 10:58 by Tico Jamil MD) Acquired hypothyroidism Acute on chronic anemia Anemia in chronic kidney disease Anxiety Chronic kidney disease, stage V On the transplant list Dialysis patient peritoneal ESRD (end stage renal disease) Fecal occult blood test positive Headache Hemorrhage following tonsillectomy and adenoidectomy HLD (hyperlipidemia) Large hiatal hernia Mycobacterium avium complex PAD (peripheral artery disease) Primary osteoarthritis, unspecified site Reversible posterior leukoencephalopathy Secondary hyperparathyroidism (of renal origin) Surgical History Surgical History History of appendectomy History of tubal ligation Presence of peritoneal dialysis catheter Family History Family History Mother Diabet
--- NOTE | 2021-07-27 11:55 | PM.DS ---
DS: Admitting Diagnosis Discharge Date 07/27/2021 Admitting Diagnosis Chest pain and elevated blood pressures DS: Discharge Diagnosis Discharge Diagnosis (1) Visual disturbance: Code(s): H53.9 - Unspecified visual disturbance Status: Acute Assessment and Plan: 07/22/2021 Interval history: patient is 76-year-old female with history of peritoneal dialysis, hypertension and hypothyroid presented with visual disturbance and extremely elevated blood pressure, CT scan of the head showed possible a small acute infarct and right occipital lobe, to further evaluate patient had MRI and it showed left parietal bilateral occipital subcortical edema radiologist suggested consider RPLS, cerebritis from other infection or inflammation discussed with neurologist recommended to give the patient aspirin and repeat MRI in 2 days to further evaluate, patient remains clinically stable will have PT OT evaluate the patient and further recommendation to follow. 07/23/2021 Interval history: Patient remains somnolent unable to provide any review of symptom however clinically stable, will repeat MRI tomorrow to further evaluate and further recommendation to follow. will continue PT OT and monitor. 07/24/2021 Interval history: today patient is much more alert and oriented sitting in the chair denies any complaint, today patient had a MRA of the brain did not show any stenosis cerebral vessels, repeat MRIs pending will follow-up, will continue PT OT and further recommendation to follow. 07/25/2021 Interval history: today patient is much more alert and oriented laying in the bed talking on phone, denies any complaint, on 07/24 patient had a MRA of the brain did not show any stenosis cerebral vessels, repeat MRIs showed, left parietal bilateral occipital subcortical edema is improving reversible posterior encephalopathy syndrome (RPLS), patient clinical symptoms are also improved will continue to monitor, will continue PT OT and further recommendation to follow. 07/26/2021 Interval history: today patient is much more alert and oriented sitting in the bed talking on phone, denies any complaint, on 07/24 patient had a MRA of the brain did not show any stenosis cerebral vessels, repeat MRIs showed, left parietal bilateral occipital subcortical edema is improving reversible posterior encephalopathy syndrome (RPLS), patient clinical symptoms are also improving however patient is anemia and today her stool Hemoccult is positive will consult GI for further recommendation, will continue to monitor, will continue PT OT and further recommendation to follow. (2) CVA (cerebral vascular accident): Qualifiers: CVA mechanism: unspecified Qualified Code(s): I63.9 - Cerebral infarction, unspecified Code(s): I63.9 - Cerebral infarction, unspecified Status: Acute (3) ESRD (end stage renal disease) on dialysis: Code(s): N18.6 - End stage renal disease; Z99.2 - Dependence on renal dialysis Status: Acute (4) Musculoskeletal chest pain: Code(s): R07.89 - Other chest pain Status: Acute DS: Summary Hospital Course Reason for hospitalization: Chief Complaint: Chest pain and elevated blood pressures Narrative: 76-year-old female with a past medical history of mycobacterium avium complex, chronic anemia, end-stage renal disease on peritoneal dialysis who presented to the ER with elevated blood pressure and chest pain. The patient reported that she has been having chest pain is worse with certain movements. The pain is associated with some abdominal pain that is in the left lower pelvis in the area of the anterior superior iliac spine. The chest pain is reproducible to palpation and is point tender. She reports that she was recently putting away her [place] decorations and taking or limits off the tree. She has been taking Tylenol and tramadol which she reported did not really seem to help. However at the time of my evaluat
--- NOTE | 2021-07-29 10:40 | WPDNEUROLOGY ---
Neurology EEG Report General Information Date of Study: 07/24/21 TEST eeg DIAGNOSIS Mental status changes CONDITION OF RECORDING awake and drowsy EEG NUMBER [id number] CLINICAL HISTORY patient reported she has been having bleeding on her brain from her blood pressure being too high EEG DESCRIPTION background rhythm consists of low to medium voltage 5 to 7 hertz per 2nd theta activity admixed with low-voltage beta activity. Bilateral symmetrical sleep activity seen with delta and theta activity. Hyperventilation not done. Photic stimulation not done. Non paroxysmal. Nonfocal. Nonlateralizing. IMPRESSION Abnormal record due to the absence of the normal background rhythm and the presence of bihemispheric theta activity, these abnormalities are suggestive of organic or metabolic encephalopathy or else neuro degenerative process .clinical correlation recommended
== END 2021-07-27 12:50 | disposition home health service (06) | DRG 80 ==
LOC: ANHED 21:55 → ANHIMU 07-22 01:37 → ANH2MED 07-22 18:51
PROVIDERS: Internal Medicine; Internal Medicine Nephrology; Physician Assistant Medical; Admitting Provider Internal Medicine; Emergency Provider Emergency Medicine; PCP Family Medicine; Visit Provider Family Medicine
DX: G93.6 Cerebral edema (principal); N18.6 End stage renal disease; I12.0 Hypertensive chronic kidney disease with stage 5 chronic kidney disease or end stage renal disease; N25.81 Secondary hyperparathyroidism of renal origin; G93.49 Other encephalopathy; H53.9 Unspecified visual disturbance; R07.89 Other chest pain; D63.1 Anemia in chronic kidney disease; M19.91 Primary osteoarthritis, unspecified site; E78.5 Hyperlipidemia, unspecified; F41.9 Anxiety disorder, unspecified; E03.9 Hypothyroidism, unspecified; E87.5 Hyperkalemia; R19.5 Other fecal abnormalities; K57.90 Diverticulosis of intestine, part unspecified, without perforation or abscess without bleeding; K44.9 Diaphragmatic hernia without obstruction or gangrene; Z99.2 Dependence on renal dialysis; Z90.49 Acquired absence of other specified parts of digestive tract; Z79.82 Long term (current) use of aspirin; Z98.42 Cataract extraction status, left eye; Z98.41 Cataract extraction status, right eye; Z96.1 Presence of intraocular lens
CPT/HCPCS: 36415; 36430; 70450; 70496; 70498; 70544; 70551; 71046; 74177; 80048; 80053; 81001; 82274; 82728; 82948; 83540; 83550; 83690; 83735; 84132; 84484; 85014; 85018; 85025; 85027; 85610; 85730; 86704; 86706; 86850; 86900; 86901; 86920; 87040; 87340; 90945; 93005; 95816; 97110; 97116; 97161; 97165; 97530; 97535; 99285; A9270; G0378; J1940; J7050; P9016; Q9967

== ENCOUNTER 2021-09-25 13:37 | Outpatient (CLI) | payer MEDICARE, SELFPAY ==
[2021-09-25 14:36] LABS: Alanine Aminotransferase 14 U/L (4-35); Albumin Level 3.2 g/dL (3.5-5.1); Alkaline Phosphatase 76 U/L (38-126); Anion Gap 11 mmol/L (8-16); Aspartate Amino Transferase 32 U/L (14-36); Bilirubin,Total 0.6 mg/dL (0.2-1.3); Blood Urea Nitrogen 66 mg/dL (7-17); Carbon Dioxide 26 mmol/L (22-30); Chloride 99 mmol/L (98-107); Estimated Glomerular Filt Rate 3; Glucose 84 mg/dL (65-110); Potassium 4.3 mmol/L (3.4-5.0); Sodium 136 mmol/L (137-145)
== END 2021-09-25 13:38 | disposition home or self-care (01) ==
LOC: ANHLAB 13:41
PROVIDERS: PCP Family Medicine; Visit Provider Physician Assistant
DX: N18.4 Chronic kidney disease, stage 4 (severe) (principal); D63.1 Anemia in chronic kidney disease; E03.9 Hypothyroidism, unspecified; E78.5 Hyperlipidemia, unspecified
CPT/HCPCS: 36415; 80053; 84443

== ENCOUNTER → 2021-10-27 12:26 | Outpatient (CLI) | payer MEDICARE, SELFPAY ==
--- NOTE | ~2021-10-27 | MM_ITS ---
EXAMINATION: MM screening eliza BI w conrad HISTORY: Screening TECHNIQUE: Craniocaudal and mediolateral oblique 3-D tomosynthesis images were obtained and synthetic 2-D images were generated. CAD analysis was submitted and interpreted. COMPARISON: Comparison to multiple prior studies sequentially, with oldest reviewed study dated 10/01. BREAST PARENCHYMAL COMPOSITION: Breast composed of scattered areas of fibroglandular density FINDINGS: There is no evidence of suspicious mass, calcification, or architectural distortion to sugg est malignancy in either breast. There has been no suspicious interval change. IMPRESSION: 1. No mammographic evidence of malignancy. 2. Recommend routine screening mammography in one year. BI-RADS Category 1: Negative Reviewed, dictated and finalized at location A.
== END ==
PROVIDERS: PCP Family Medicine; Visit Provider Family Medicine
DX: Z12.31 Encounter for screening mammogram for malignant neoplasm of breast (principal)
CPT/HCPCS: 77063; 77067

== ENCOUNTER 2021-11-13 13:10 | Outpatient (CLI) | payer MEDICARE, SELFPAY | END 2021-11-13 13:11 | disposition home or self-care (01) | PROVIDERS: PCP Family Medicine; Visit Provider Physician Assistant | DX: E03.9 Hypothyroidism, unspecified (principal) | CPT/HCPCS: 36415; 84443 ==

== ENCOUNTER 2021-12-19 07:30 | Outpatient (RCR) | payer MEDICARE, SELFPAY ==
[2021-12-06 07:55] LABS: Hematocrit 21.9 % (37.0-47.0)
[2021-12-06 08:21] LABS: Hemoglobin 6.5 g/dL (12.0-15.0)
[2021-12-08 08:40] LABS: Hematocrit 22.3 % (37.0-47.0)
[2021-12-08 08:44] VITALS: TEMP 36.1
[2021-12-08] MEDS: diphenhydrAMINE HCl CAP 25 MG CAPSULE PO (08:44)
[2021-12-08] MEDS: ACETAMINOPHEN 325 MG TABLET 650 MG PO (08:44)
[2021-12-08 08:47] LABS: Hemoglobin 6.4 g/dL (12.0-15.0)
--- NOTE | 2021-12-08 08:57 | PC.NURSE ---
Received call from Holly in lab for critical lab result at approx 0847 regarding critical hemoglobin result of 6.4. Her hemoglobin lab from 12/06 was 6.5. Notified primary RN Carmella of test results at 0848. She will page MD Dr. Sprague to notify him of critical test result and to confirm to just give 1 unit PRBC per order based on critical lab results.
[2021-12-08 09:20] VITALS: BP 129/66; PULSE 72; RESP 18; TEMP 35.9; O2SAT 96
[2021-12-08 09:35] VITALS: BP 135/71; PULSE 67; RESP 16; TEMP 36.1; O2SAT 97
[2021-12-08 10:35] VITALS: BP 151/74; PULSE 74; RESP 16; TEMP 36.1; O2SAT 96
[2021-12-08 11:35] VITALS: BP 196/93; PULSE 80; RESP 16; TEMP 36.1; O2SAT 98
[2021-12-08 12:20] VITALS: BP 190/90; PULSE 80; RESP 18; TEMP 36.2; O2SAT 98
[2021-12-18 15:31] LABS: Hematocrit 27.9 % (37.0-47.0); Hemoglobin 8.1 g/dL (12.0-15.0)
[2021-12-19 09:05] VITALS: BP 128/63; PULSE 69; RESP 16; TEMP 36.5; O2SAT 98
[2021-12-19 09:20] VITALS: BP 100/50; PULSE 79; RESP 14; TEMP 36.3; O2SAT 99
[2021-12-19 10:20] VITALS: BP 118/54; PULSE 73; RESP 14; TEMP 36.3; O2SAT 94
[2021-12-19 11:20] VITALS: BP 169/72; PULSE 80; RESP 20; TEMP 36.5; O2SAT 97
[2021-12-19 12:04] VITALS: BP 174/88; PULSE 79; RESP 14; TEMP 36.4; O2SAT 99
== END 2022-03-06 23:59 | disposition home or self-care (01) ==
LOC: ANHCPCTRAN 07:30
PROVIDERS: PCP Family Medicine; Visit Provider Internal Medicine Nephrology
DX: N18.6 End stage renal disease (principal); D63.1 Anemia in chronic kidney disease
CPT/HCPCS: 36415; 36430; 85014; 85018; 86850; 86900; 86901; 86920; A9270; P9016

== ENCOUNTER 2021-12-25 13:09 | Outpatient (CLI) | payer MEDICARE, SELFPAY | END 2021-12-25 13:10 | disposition home or self-care (01) | LOC: ANHLAB 13:13 | PROVIDERS: PCP Family Medicine; Visit Provider Physician Assistant | DX: E03.9 Hypothyroidism, unspecified (principal) | CPT/HCPCS: 36415; 84443 ==

== ENCOUNTER 2021-12-25 15:18 | Outpatient (CLI) | payer MEDICARE, SELFPAY ==
--- NOTE | ~2021-12-25 | CT_ITS ---
EXAMINATION: CT brain wo con DATE: 12/25/2021 15:37 INDICATION: Injury with fall, bruising and left facial swelling. TECHNIQUE: Computed tomography (CT) of the head was performed without intravenous contrast. Sagittal and coronal reconstructions were performed. The mA was adjusted according to patient size. Iterative reconstruction technique was employed. The dose-length product was 605.33 mGy-cm. COMPARISON: head CT dated 07/21/2021) MR dated 07/24/2021 FINDINGS: Supraorbital scalp hematoma. No fracture. No acute intracranial hemorrhage, acute infarction or abnor mal extra axial fluid collection. Symmetric prominence of the sulci and and subarachnoid spaces overl harsha the convexities consistent with mild age-appropriate diffuse cerebral volume loss. Ventricles a re normal and symmetric. No mass/mass effect. Changes of bilateral intraocular lens replacement. The orbits, paranasal sinuses and mastoid air cells are normal. IMPRESSION: 1. No fracture or acute intracranial process. Reviewed, dictated and finalized at location B.
--- NOTE | ~2021-12-25 | XR_ITS ---
EXAMINATION: XR ribs BI 3V w CXR 2V INDICATION: Chest pain after fall TECHNIQUE: PA and lateral views of the chest and 3 views of the bilateral ribs were obtained. COMPARISON: 07/21/2021 FINDINGS: The lungs are free of acute opacities. No pleural effusion or pneumothorax. The heart size is normal. There is a large hiatal hernia. There is severe thoracic spondylosis. There are changes in the shoulders suggest chronic rotator cuff tears. No displaced rib fracture is identified. IMPRESSION: 1. No acute cardiopulmonary abnormality or evidence of displaced rib fracture. Reviewed, dictated and finalized at location F.
== END 2021-12-25 15:19 | disposition home or self-care (01) ==
PROVIDERS: PCP Family Medicine; Visit Provider Physician Assistant
DX: S09.90XA Unspecified injury of head, initial encounter (principal); S29.9XXA Unspecified injury of thorax, initial encounter; X58.XXXA Exposure to other specified factors, initial encounter; Z86.73 Personal history of transient ischemic attack (TIA), and cerebral infarction without residual deficits; R47.81 Slurred speech
CPT/HCPCS: 36415; 70450; 71046; 71110; 84443

== ENCOUNTER 2022-01-01 10:45 | Outpatient (CLI) | payer MEDICARE, SELFPAY ==
--- NOTE | ~2022-01-01 | XR_ITS ---
XR lumbar spine 2-3V DATE: 01/01/2022 11:07 INDICATION: Low back pain. No known injury. TECHNIQUE: AP, lateral and coned lateral lumbosacral views COMPARISON: 07/15/2019 2 number spine FINDINGS: There is prominent rotatory dextroscoliosis of the lumbar spine, measuring 30 degrees from L1 to L4. There is very severe degenerative disc disease throughout the lumbar and lumbosacral spine. There is intervertebral disc spaces fusion at L2-3. There appears to be interval fracture deformity of T12 since 07/15/2021. Consider CT or MR evaluation 2 included T12. There is osteopenia. The sacroiliac joints are intact. Probable dialysis catheter overlying the pelvis. IMPRESSION: Suggestion of interval fracture of T12 since 07/15/2021 30 degrees rotatory dextro scoliosis of the lumbar spine Severe degenerative disc disease throughout the lumbar spine Fusion at L2-3 intervertebral disc space Reviewed, dictated and finalized at location B.
== END 2022-01-01 10:46 | disposition home or self-care (01) ==
PROVIDERS: PCP Family Medicine; Visit Provider Nurse Practitioner Family
DX: M51.36 Other intervertebral disc degeneration, lumbar region (principal); Z98.1 Arthrodesis status
CPT/HCPCS: 72100

== ENCOUNTER 2022-01-17 08:13 | Outpatient (CLI) | payer MEDICARE, SELFPAY ==
--- NOTE | ~2022-01-17 | MR_ITS ---
EXAMINATION: MR lumbar spine wo con DATE: 01/17/2022 09:51 INDICATION: Lumbago. Left-sided sciatica. TECHNIQUE: Magnetic resonance imaging (MRI) of the lumbar spine was performed without intravenous con trast. Sequences included sagittal T2-weighted FSE, sagittal T2-weighted FS FSE, sagittal T1-weighted FSE, and axial T2-weighted FSE. COMPARISON: Lumbar spine radiograph 01/01/2022, CT abdomen and pelvis 07/21/21 FINDINGS: There is 27 degrees dextroscoliosis of lumbar spine. There is kyphosis of upper lumbar spin e. There is a compression fracture of T12 with 2/5 loss of height and edema-like marrow signal intens ity, stable from 01/01/22. There is 4 mm anterolisthesis of T11 on T12 and T12 on L1. There is 4 mm re trolisthesis of L3 on L4, 8 mm retrolisthesis of C4 on L5, and 5 mm retrolisthesis of L5 on S1. There is moderate decreased disc height at T12-L1 and severely decreased disc height from L1-L2 through L5 -S1 with endplate remodeling. There is interbody fusion at L2-L3. The distal spinal cord signal inten sity is normal. The conus medullaris is at L1. The following disc levels are specifically discussed: L1-L2: The disc is bulging and has an annular fissure. There is severe bilateral facet joint osteoart hritis. There is mild bilateral neural foraminal stenosis. There is mild central canal stenosis. L2-L3: There is mild bilateral facet joint hypertrophy. There is mild left neural foraminal stenosis. There is no central canal stenosis. L3-L4: The disc is bulging with superimposed left central and subarticular zone extrusion with 15 mm inferior extension and mass effect on left L4 nerve root in left lateral recess. There is severe bila teral facet joint osteoarthritis. There is mild bilateral neural foraminal stenosis. There is mild ce ntral canal stenosis at the midline. There is severe stenosis of left lateral recess. L4-L5: The disc is bulging with superimposed central extrusion. There is moderate bilateral facet faisal nt osteoarthritis. There is severe right and moderate left neural foraminal stenosis. There is mild c entral canal stenosis at the midline. There is severe stenosis of right lateral recess. L5-S1: The disc is bulging with superimposed central extrusion. There is moderate right and mild left facet joint osteoarthritis. There is moderate bilateral neural foraminal stenosis. There is mild vinh tral canal stenosis. IMPRESSION: 1. Subacute T12 compression fracture, stable from 01/01/2022. 2. Severe lumbar spondylosis. Of note, an extrusion at L3-L4 exerts mass effect on left L4 nerve root . 3. Lumbar dextroscoliosis. Reviewed, dictated and finalized at location A. IMPRESSION: 1. Subacute T12 compression fracture, stable from 01/01/2022. 2. Severe lumbar spondylosis. Of note, an extrusion at L3-L4 exerts mass effect on left L4 nerve root. 3. Lumbar dextroscoliosis.
== END 2022-01-17 08:14 | disposition home or self-care (01) ==
PROVIDERS: PCP Family Medicine; Visit Provider Physician Assistant
DX: G89.29 Other chronic pain (principal); M54.42 Lumbago with sciatica, left side; M48.54XA Collapsed vertebra, not elsewhere classified, thoracic region, initial encounter for fracture; M47.816 Spondylosis without myelopathy or radiculopathy, lumbar region; M41.86 Other forms of scoliosis, lumbar region
CPT/HCPCS: 72148

== ENCOUNTER 2022-03-26 13:49 | Outpatient (CLI) | payer MEDICARE, SELFPAY ==
--- NOTE | ~2022-03-26 | XR_ITS ---
XR lumbar spine 2-3V DATE: 03/26/2022 14:45 INDICATION: Back pain TECHNIQUE: AP, lateral and coned lateral lumbosacral views COMPARISON: None FINDINGS: Diffuse osteopenia. There is anterolisthesis at T11-12. Vertebroplasty and mild compression fracture deformity at T12. There is approximately 33 degrees rotatory dextroscoliosis of the lumbar spine. There is severe degenerative disc disease throughout the lumbar spine. There is approximately 5 mm re trolisthesis at L4-5. No apparent lumbar spine fracture or bone destruction is noted. The sacroiliac joints are intact. A catheter overlies the right pelvic area. There is extensive abdominal aortic calcification, without apparent aneurysm. IMPRESSION: Approximately 33 degrees rotatory dextroscoliosis and severe degenerative disc disease of the lumbar spine Status post vertebroplasty at T12 Reviewed, dictated and finalized at location B. IMPRESSION: Approximately 33 degrees rotatory dextroscoliosis and severe degene rative disc disease of the lumbar spine Status post vertebroplasty at T12
--- NOTE | ~2022-03-26 | XR_ITS ---
XR hip BI 2V w AP pelvis 03/26/2022 14:46 Indication: Pelvic pain after fall Procedure: AP pelvis and 2 views each hip Comparison: 07/15/2021 Findings: There is moderate bilateral osteoarthritis of the hips. There is a peritoneal dialysis cath eter in the pelvis. There is mixed sclerosis and lucency in the right femoral head, suspicious for av ascular necrosis. There is severe lower lumbar spondylosis. No significant soft tissue abnormality. N o acute fracture or traumatic malalignment. 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 Reviewed, dictated and finalized at location A. 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
--- NOTE | ~2022-03-26 | XR_ITS ---
XR shoulder RT min 2V 03/26/2022 14:46 Indication: Right shoulder pain Procedure: 4 views right shoulder Comparison: 03/20/2020 Findings: There is moderate polyarticular osteoarthritis of the right shoulder. Osteopenia. There are calcified granulomas in the right upper lung. No acute fracture or traumatic malalignment. Impression: 1: Moderate polyarticular osteoarthritis of the right shoulder. Reviewed, dictated and finalized at location A. Impression: 1: Moderate polyarticular osteoarthritis of the right shoulder.
--- NOTE | ~2022-03-26 | XR_ITS ---
XR thoracic spine 3V DATE: 03/26/2022 14:46 INDICATION: Fall. Back pain. TECHNIQUE: AP, lateral, swimmer views COMPARISON: None FINDINGS: There is severe degenerative disc disease at L5, C5-6, C6-7 with very prominent anterior sp ur formation. There is mild levoscoliosis of the thoracic spine and prominent rotatory dextroscoliosis of the lumba r spine. Prominent degenerative disease of the lumbar spine. There is approximately 7.4 mm anterolisthesis at T11-12. There is mild loss of height and anterior wedging at T11. Status post vertebroplasty at T12. No other fracture is evident. The thoracic pedicles appear intact. No paraspinal soft tissue thickeni ng is noted. IMPRESSION: Severe degenerative disc disease of mid and lower cervical spine with very prominent ante rior spurring Osteopenia Scoliosis of the thoracic spine. Prominent rotatory dextroscoliosis and degenerative disc disease of the lumbar spine Status post vertebroplasty at T12 Mild compression fracture deformity at T11 Approximately 7.4 mm anterolisthesis at T11-12 Reviewed, dictated and finalized at location B. IMPRESSION: Severe degenerative disc disease of mid and lower cervical spine wi th very prominent anterior spurring Osteopenia Scoliosis of the thoracic spine. Prominent rotatory dextroscoliosis and degener ative disc disease of the lumbar spine Status post vertebroplasty at T12 Mild compression fracture deformity at T11 Approximately 7.4 mm anterolisthesis at T11-12
== END 2022-03-26 13:50 | disposition home or self-care (01) ==
LOC: ANHIMG 13:55
PROVIDERS: PCP Family Medicine; Visit Provider Physician Assistant
DX: M25.411 Effusion, right shoulder (principal); S39.92XA Unspecified injury of lower back, initial encounter; S79.911A Unspecified injury of right hip, initial encounter; X58.XXXA Exposure to other specified factors, initial encounter; M16.0 Bilateral primary osteoarthritis of hip; M19.011 Primary osteoarthritis, right shoulder; M51.36 Other intervertebral disc degeneration, lumbar region; M50.30 Other cervical disc degeneration, unspecified cervical region; M85.88 Other specified disorders of bone density and structure, other site; M41.9 Scoliosis, unspecified
CPT/HCPCS: 72072; 72100; 73030; 73521

== ENCOUNTER 2022-04-09 11:57 | Outpatient (CLI) | payer MEDICARE, SELFPAY ==
--- NOTE | ~2022-04-09 | MMUS_ITS ---
EXAMINATION: MM diagnostic eliza LT w conrad, US breast LT limited HISTORY: Patient with a palpable lump in the upper outer quadrant of the left breast first noticed af ter left breast injury three weeks ago. TECHNIQUE: Craniocaudal, mediolateral, and mediolateral oblique 3-D tomosynthesis images of the left breast were performed and synthetic 2-D images were generated. CAD analysis was submitted and interpr eted. High resolution limited left breast ultrasound was performed. COMPARISON: 10/27/2021, 10/18/2020, 02/29/2020 BREAST PARENCHYMAL COMPOSITION: There are scattered areas of fibroglandular density. FINDINGS: MAMMOGRAPHIC FINDINGS: No suspicious mass, calcification, or architectural distortion are identified to suggest malignancy. There has been no suspicious interval change. No mammographic correlate is identified for the reporte d palpable abnormality of the left breast. ULTRASOUND: There is a 9 mm x 3 mm oval, circumscribed, predominantly cystic mass with no posterior features or i nternal vascularity at the 12:00 location 3 cm from the nipple corresponding to the palpable abnormal ity of concern. Additional small adjacent hypoechoic areas are noted at the same location. IMPRESSION: 1. Combination of findings suggestive of resolving hematoma of the left breast corresponding to the p alpable abnormality of concern. 2. Follow-up targeted left breast ultrasound in one month is recommended. If findings persist, consid er ultrasound-guided biopsy. BI-RADS category 4, suspicious findings. Reviewed, dictated and finalized at location B. IMPRESSION: 1. Combination of findings suggestive of resolving hematoma of the left breast corresponding to the palpable abnormality of concern. 2. Follow-up targeted left breast ultrasound in one month is recommended. If fi ndings persist, consider ultrasound-guided biopsy. BI-RADS category 4, suspicious findings.
== END 2022-04-09 11:58 | disposition home or self-care (01) ==
PROVIDERS: PCP Family Medicine; Visit Provider Physician Assistant
DX: N63.20 Unspecified lump in the left breast, unspecified quadrant (principal); R92.8 Other abnormal and inconclusive findings on diagnostic imaging of breast
CPT/HCPCS: 76642; 77061; 77065; G0279

== ENCOUNTER 2022-04-16 15:51 | Outpatient (CLI) | payer MEDICARE, SELFPAY ==
--- NOTE | ~2022-04-16 | MR_ITS ---
EXAMINATION: MR hip RT wo con DATE: 04/16/2022 16:45 INDICATION: Avascular necrosis TECHNIQUE: Magnetic resonance imaging (MRI) of the right hip was performed without intravenous contr ast. Sequences included full-field axial PD-weighted FS FSE and T1-weighted FSE, coronal of the pelvi s with PD-weighted FS FSE, T2-weighted FSE and T1-weighted FSE, small field of view of the right hip with axial PD-weighted FS FSE, sagittal PD-weighted FS FSE, coronal PD-weighted FS FSE and coronal T2 weighted FSE. Additional radial T1-weighted FGR oriented orthogonal to the acetabular rim were obt ained for evaluation of the labrum. COMPARISON: CT abdomen and pelvis dated 07/21/2021 and pelvis and hip radiographs dated 03/26/2022 FINDINGS: Evaluation mildly limited by motion artifact or blurring to some degree on multiple sequences. Bones/labrum/cartilage: No fracture or pathologic marrow replacing process. Severe osteoarthritis at the right hip with exten sive full and near full-thickness cartilage loss resulting in essentially [id number] apposition at the anterosuperior and superomedial aspect of the joint space. Small marginal osteophytes about the r ight femoral head and acetabulum. There is diffuse degenerative tearing of the right acetabular labru m with thickened macerated appearance at the posterior superior to posterior labrum and with diminuti ve anterior to anterosuperior labrum. Subarticular sclerosis and cystic changes most prominent at the superior aspect of the right femoral head and some reticular stenosis and edema-like signal change a long the superior acetabulum. No osteonecrosis. Less severe mild to moderate osteoarthritis at the co ntralateral left hip which is not diagnostically evaluated on the larger field of view images. Severe spondylosis in the visualized mid to lower lumbar spine with anterior fusion at L5-S1. Partially vis ualized mild lumbar dextroscoliosis with some right lateral listhesis of L3 on L4 and L4 on L5. Fluid: Small to moderate-sized right hip joint effusion. Physiologic amount fluid in the left hip joint spac e. Small amount of ascites in the visualized lower abdomen and pelvis with peritoneal dialysis cathet er coiled in the right side of the deep pelvis. Soft tissues: Diffuse mild soft tissue edema throughout the pelvis and proximal thighs. No asymmetric muscular atro phy in the pelvis and visualized proximal thighs. Mild tendinopathy without discrete tears at the isc hial tuberosity origins of the the bilateral proximal hamstring tendons. Additional mild tendinopathy without tear at the bilateral iliopsoas tendons. Mild tendinopathy of the bilateral gluteus medius m edius and minimus tendons. There are partial thickness tears at the greater trochanteric insertions o f the right gluteus medius and bilateral gluteus minimus tendons. Marked diverticulosis along the sig moid colon. Prominent decreased signal of the liver which suggests hemachromatosis. No pathologically enlarged pelvic/inguinal lymphadenopathy. IMPRESSION: 1. Severe right hip osteoarthritis with diffuse tearing of the right acetabular labrum likely reactiv e moderate sized right hip joint effusion. 2. Mild tendinopathy of the bilateral gluteus medius medius and minimus tendons with partial-thicknes s tears at the greater trochanteric insertions of the distal right gluteus medius and bilateral glute us minimus tendons. 3. Mild tendinopathy without discrete tears at the bilateral iliopsoas and proximal hamstring tendons . 4. Mild lumbar dextroscoliosis with severe spondylosis. 5. Small amount of ascites likely related to peritoneal dialysis with catheter coiled in the deep pel vis. 6. Prominent diffuse decreased hepatic signal intensity suggesting hemachromatosis. Reviewed, dictated and finalized at location B. Electronically signed by Brenda
== END 2022-04-16 15:52 | disposition home or self-care (01) ==
PROVIDERS: PCP Family Medicine; Visit Provider Physician Assistant
DX: M87.059 Idiopathic aseptic necrosis of unspecified femur (principal); M16.11 Unilateral primary osteoarthritis, right hip
CPT/HCPCS: 73721

== ENCOUNTER 2022-04-30 15:46 | Outpatient (CLI) | payer MEDICARE, SELFPAY ==
--- NOTE | ~2022-04-30 | CT_ITS ---
EXAMINATION: CT abdomen pelvis wo con DATE: 04/30/2022 16:23 INDICATION: Acute left lower quadrant abdominal pain TECHNIQUE: Computed tomography (CT) of the abdomen and pelvis was performed without intravenous contr ast. The dose-length product was 184.97 mGy-cm. Automated exposure control and iterative reconstructi on technique were employed. COMPARISON: CT dated 07/21/2021 FINDINGS: There are patchy areas of consolidation in the lower lungs, suspicious for pneumonia. Small pleural effusions. Cardiomegaly. Large hiatal hernia. There is atherosclerosis of the aorta and leeann nary arteries. There are atrophic kidneys. There is a peritoneal dialysis catheter. There is moderate ascites. Colonic diverticulosis. The liver, spleen, pancreas, adrenal glands are unremarkable. Gallb ladder is present. Sensitivity for acute intra-abdominal process is limited by ascites. Moderate athe rosclerosis of the aorta without aneurysm. There is mild diffuse subcutaneous edema. Status post hyst erectomy. There is severe lumbar spondylosis with scoliosis. No acute fracture. There is severe dextr oscoliosis. Severe osteoarthritis of the hips. IMPRESSION: 1. Patchy areas of consolidation in the lower lungs, suspicious for pneumonia. 2: Small pleural effusions. 3: Large hiatal hernia with intrathoracic stomach. 4: Sensitivity for acute abnormalities limited by ascites. Reviewed, dictated and finalized at location B.
[2022-04-30 16:57] LABS: Basophils Percent Auto 0.2 % (0.2-1.2); Eosinophils Percent Auto 0.3 % (0-4.4); Hematocrit 34.4 % (37.0-47.0); Hemoglobin 10.3 g/dL (12.0-15.0); Immature Granulocyte Absolute 0.06 K/mm3 (0.00-0.031); Immature Granulocyte Percent A 0.4 % (0-0.5); Lymphocytes Absolute Auto 0.77 K/mm3 (0.9-3.2); Lymphocytes Percent Auto 5.4 % (18.3-44.2); Mean Corpuscular HGB Conc 29.9 g/dl (32-36); Mean Corpuscular Hemoglobin 29.3 pg (26-34); Mean Platelet Volume 8.9 fl (7.4-10.4); Monocytes Absolute Auto 0.4 K/mm3 (0.1-0.6); Monocytes Percent Auto 2.8 % (2.6-8.5); Neutrophils Percent Auto 90.9 % (45.5-73.1); Platelet Count Result 335 k/mm3 (150-375); Red Blood Count 3.51 M/mm3 (4.2-5.4); Red Cell Distribution Width 17.3 % (11.5-14.5); White Blood Count 14.3 K/mm3 (4.5-10.0)
[2022-04-30 17:08] LABS: Add Urine Microscopic? YES; Appearance Urine Cloudy (Clear); Bacteria Urine Trace /hpf; Bilirubin Urine Negative (Negative); Blood Urine Negative (Negative); Color Urine Yellow (Yellow); Glucose Urine UA 1+ mg/dL (Negative); Ketones Urine Negative (Negative); Leukocyte Esterase Ur Trace LEU/UL (NEGATIVE); Mucus Urine Rare /lpf; Nitrate Urine Negative (Negative); Protein Urine 2+ mg/dL (Negative); RBC Urine 0-2 /hpf (0-2); Specific Grav Ur 1.012 (1.001-1.035); Squamous Epithelial Cell Urine Moderate /hpf (Few); Urobilinogen Urine Negative mg/dL (<2.0)
[2022-04-30 17:09] LABS: Alanine Aminotransferase 14 U/L (6-35); Albumin Level 3.3 g/dL (3.5-5.1); Alkaline Phosphatase 68 U/L (38-126); Amylase 55 U/L (30-110); Anion Gap 16 mmol/L (8-16); Aspartate Amino Transferase 27 U/L (14-36); Bilirubin,Total 0.6 mg/dL (0.2-1.3); Blood Urea Nitrogen 102 mg/dL (7-17); Calcium 8.9 mg/dL (8.4-10.2); Carbon Dioxide 26 mmol/L (22-30); Chloride 91 mmol/L (98-107); Estimated Glomerular Filt Rate 4; Glucose 95 mg/dL (65-110); Lipase 106 U/L (23-300); Potassium 4.2 mmol/L (3.4-5.0); Sodium 133 mmol/L (137-145)
[2022-04-30 17:21] LABS: Hypochromasia 1+ (NORMAL); Platelet Estimate Adequate (Adequate)
[2022-04-30 17:23] LABS: Poikilocytosis 1+ (NORMAL)
[2022-04-30 17:24] LABS: Schistocytes None Seen (NORMAL)
== END 2022-04-30 15:47 | disposition home or self-care (01) ==
LOC: ANHIMG 15:52
PROVIDERS: PCP Family Medicine; Visit Provider Physician Assistant
DX: R10.32 Left lower quadrant pain (principal); K57.92 Diverticulitis of intestine, part unspecified, without perforation or abscess without bleeding; D63.1 Anemia in chronic kidney disease; D64.9 Anemia, unspecified; E83.119 Hemochromatosis, unspecified; N18.6 End stage renal disease; R10.9 Unspecified abdominal pain; E03.9 Hypothyroidism, unspecified; Z99.2 Dependence on renal dialysis; J90 Pleural effusion, not elsewhere classified; K44.9 Diaphragmatic hernia without obstruction or gangrene
CPT/HCPCS: 36415; 74176; 80053; 81001; 81256; 82150; 83690; 84443; 85025; 87086; 87088

== ENCOUNTER 2022-05-08 12:30 | Outpatient (RCR) | payer MEDICARE, SELFPAY ==
--- NOTE | 2022-04-07 15:06 | PTOPEVAL1 ---
Assessment and note entered by Samra Charlton, PT Evaluation Information Assessment Status Evaluation Diagnosis repeated falls Onset 6 months ago Subjective Information has fallen 7x in the past 6 months: stumbled over L foot;bend forward; tripped over cane; assists her up from the floor;---demo to them on correct technique for transfer from floor and use of gait belt; Reported Pain Level Pain Score Self Report Additional Pain Score Comments intermittent pain in R shoulder, B knees and back, 0-6/10 at worst Assessment PT Clinical Summary Lona has the diagnosis of repeated falls. She also has chronic pain in B knees, hips, back and R shoulder. She reports 7 falls in the past 6 months. She has HTN and is doing nightly home dialysis. With the evaluation, she has weakness and pain in both legs, R more than L; TUG with increased time Tinetti balance/gait score is 19/28,which is high risk for falls; 2 minute walking distance is 275' with the wheeled walker. Skilled PT services are indicated for therapeutic exercises and activities to increase strength of her legs, gait and balance, to decrease risk for falls and improve mobility skills. Plan of Care Interventions Gait Training,Neuro Re-education,Therapeutic Activities,Therapeutic Exercise PT Services Indicated Yes Treatment Frequency and 2x/wk for 4 weeks Duration These treatments will address the objective and functional deficits as defined above. The patient will be advanced safely and appropriately in order for the patient to progress towards his/her prior level of function. Additional exercises will be introduced and as well as a comprehensive home exercise program upon discharge, if needed, ?to ensure carryover of functional gains achieved in the clinic. This treatment plan has been reviewed and agreement upon by the patient.
--- NOTE | 2022-04-29 12:38 | PCPTNOTE ---
Patient called & cancelled scheduled appointment this date due to not feeling well.
--- NOTE | 2022-05-11 16:16 | PCPTNOTE ---
PHYSICAL THERAPY DISCHARGE 05-11-22 Attending Provider: Mariajose Hand PA-C Patient:Jacquie Cano Date of :1945 Lona called today and canceled her PT reevaluation, stated she had another appointment, was doing better and did not feel that she need any more PT. I talked with her and discussed continuing her home exercise program and working on her walking balance. She stated she would continue with them. She has received 5 PT sessions, from April 07 to May 09. The goals were not addressed. Discharge PT services. Thank you for referring this patient to [facility].
== END 2022-05-12 08:00 | disposition home or self-care (01) ==
LOC: ANHPT 12:30
PROVIDERS: PCP Family Medicine; Visit Provider Physician Assistant
DX: R29.6 Repeated falls (principal)
CPT/HCPCS: 97110; 97112; 97162; 97530

== ENCOUNTER 2022-06-04 13:37 | Outpatient (CLI) | payer MEDICARE, SELFPAY ==
--- NOTE | ~2022-06-04 | DEXA_ITS ---
Bone Density Report Name: MARION SOLIS Age: 77 Sex: Female Ethnicity: White Date of : 1945 Indication: postmenopausal; screening for osteoporosis; height loss; prior fracture; end stage renal disease; hysterectomy; Referring Provider: RICA LAGUNAS Study: Bone densitometry was performed. Exam Date: June 04, 2022 Accession number: [id number] Bone Density: Region BMD T-score Z-score Classification AP Spine(L2, L3, L4) 1.535 4.1 6.7 Normal Femoral Neck (Left) 0.730 -1.1 1.1 Osteopenia Total Hip (Left) 0.811 -1.1 0.8 Osteopenia Femoral Neck (Right) 0.769 -0.7 1.4 Normal Total Hip (Right) 0.859 -0.7 1.2 Normal Total Hip Mean 0.835 -0.9 1.0 Normal World Health Organization criteria for BMD impression classify patients as: Normal (T-score at or above -1.0), Osteopenia (T-score between -1.0 and -2.5), or Osteoporosis (T-score at or below -2.5). 10-year Fracture Risk: FRAX not reported because: Prior hip or vertebral fracture Clinical Information Provided by Patient: Have had a previous hip or vertebral fracture Has had a low trauma fracture Has used the following medications: Calcium Has the following medical conditions: End stage renal disease, Hysterectomy Patient maximum height was 64 Menopause Age: 44 No regular weight bearing exercise Does not regularly consume dairy products Drinks caffeinated beverages Onset of menses at age 12 Number of children 1 Impression: The patient has low bone mass, based on the Left Total Hip T-score. The patient has risk factors, including: previous fracture. Discussion: INCREASED RISK OF FRACTURE DUE TO HISTORY OF FRACTURE. The patient's previous fracture puts the patient at high risk of a future fracture. In untreated patients, the risk of osteoporotic fracture increases approximately two-fold for each 1.0 SD decrease in T-score. Low bone density is not the only risk factor for fracture; also consider factors such as patient's age, frailty or poor health, risk of falling, risk of injury, previous osteoporotic fracture, family history of osteoporosis, cigarette smoking, low body weight, etc. Not everyone with a low trauma fracture has osteoporosis; osteomalacia and other metabolic bone disorders should also be considered. Patients who have osteoporosis should be evaluated for specific diseases and conditions (secondary causes) that may cause or contribute to bone loss and fracture risk. National Osteoporosis Foundation (NOF) recommends pharmacologic intervention for patients with a prior hip or vertebral fracture regardless of BMD T-score. The patient should follow a healthful lifestyle (good nutrition with adequate calcium and vitamin D, and appropriate weight-bearing exercise). Follow-Up: Consider a repeat BMD and Vertebral Fracture Assessmen
== END 2022-06-04 13:38 | disposition home or self-care (01) ==
PROVIDERS: PCP Family Medicine; Visit Provider Physician Assistant
DX: M85.852 Other specified disorders of bone density and structure, left thigh (principal)
CPT/HCPCS: 77080

== ENCOUNTER → 2022-06-25 08:16 | Outpatient (CLI) | payer MEDICARE, SELFPAY ==
--- NOTE | ~2022-06-25 | US_ITS ---
US breast LT limited INDICATION: Follow-up cystic mass of the left breast TECHNIQUE: Dedicated left Limited breast ultrasound COMPARISON: Ultrasound dated 04/09/2022 FINDINGS: The left breast is composed of normal heterogeneous echotexture without focal solid or cyst ic mass. Interval resolution of mass at 12:00, 3 cm from the nipple. IMPRESSION: 1: Normal limited left breast ultrasound. BI-RADS CATEGORY 1 - NEGATIVE Reviewed, dictated and finalized at location A. ER OPERATOR
== END ==
PROVIDERS: PCP Family Medicine; Visit Provider Family Medicine
DX: R92.8 Other abnormal and inconclusive findings on diagnostic imaging of breast (principal)
CPT/HCPCS: 76642

== ENCOUNTER 2022-07-14 09:35 | Outpatient (CLI) | payer MEDICARE, SELFPAY ==
[2022-07-14 10:21] LABS: Alanine Aminotransferase 18 U/L (6-35); Albumin Level 3.3 g/dL (3.5-5.1); Alkaline Phosphatase 52 U/L (38-126); Anion Gap 9 mmol/L (8-16); Aspartate Amino Transferase 28 U/L (14-36); Bilirubin,Total 0.5 mg/dL (0.2-1.3); Blood Urea Nitrogen 83 mg/dL (7-17); Calcium 9.2 mg/dL (8.4-10.2); Carbon Dioxide 29 mmol/L (22-30); Chloride 93 mmol/L (98-107); Estimated Glomerular Filt Rate 4; Glucose 105 mg/dL (65-110); Potassium 4.2 mmol/L (3.4-5.0); Sodium 131 mmol/L (137-145)
== END 2022-07-14 09:36 | disposition home or self-care (01) ==
LOC: ANHLAB 09:39
PROVIDERS: PCP Family Medicine; Visit Provider Physician Assistant
DX: N18.6 End stage renal disease (principal); Z99.2 Dependence on renal dialysis; E03.9 Hypothyroidism, unspecified
CPT/HCPCS: 36415; 80053; 84443

== ENCOUNTER → 2022-09-30 15:20 | Outpatient (CLI) | payer MEDICARE, SELFPAY ==
--- NOTE | ~2022-09-30 | XR_ITS ---
EXAMINATION: XR knee RT min 4V DATE: 09/30/2022 16:25 INDICATION: Right knee pain TECHNIQUE: Four views of the right knee were obtained. COMPARISON: None. FINDINGS: Alignment is normal. No fracture or osteochondral lesion. There is mild tricompartmental os teoarthritis characterized by tiny marginal osteophytes. No joint effusion/synovitis. There appear t o be skin or soft tissue calcifications of the leg. IMPRESSION: 1. No acute osseous abnormality. Reviewed, dictated and finalized at location F.
--- NOTE | ~2022-09-30 | XR_ITS ---
EXAMINATION: XR lumbar spine 6V w bending DATE: 09/30/2022 16:25 INDICATION: Lumbar radiculopathy TECHNIQUE: Anteroposterior, lateral in neutral, flexion and extension, and bilateral oblique views of the lumbar spine, and cone-down lateral view of the lumbosacral junction were obtained. COMPARISON: 03/26/2022 FINDINGS: There are 30 degrees of lumbar dextroscoliosis. There is vertebroplasty change within a T12 compression fracture. There are 7 mm of retrolisthesis of L4 on L5 and 5 mm of retrolisthesis of L5 on S1. No hypermobility is observed with flexion or extension. There is severe loss of intervertebral disc space height throughout the lumbar spine. The lumbar vertebral body heights are maintained. No fracture is identified. There is moderate to severe multilevel facet joint osteoarthritis. Calcified atherosclerosis is noted. There is advanced osteoarthritis of the right hip. There is a large hiatal hernia. IMPRESSION: 1. Dextroscoliosis and severe lumbar spondylosis without acute findings or significant interval hankins e. Reviewed, dictated and finalized at location F. IMPRESSION: 1. Dextroscoliosis and severe lumbar spondylosis without acute findings or sign ificant interval change.
== END ==
PROVIDERS: PCP Family Medicine; Visit Provider Nurse Practitioner Family
DX: M47.26 Other spondylosis with radiculopathy, lumbar region (principal)
CPT/HCPCS: 72114; 73564

== ENCOUNTER 2022-10-30 17:15 | Observation (INO) | payer MEDICARE, SELFPAY ==
[2022-10-30] VITALS (8 sets, daily range): BP systolic 152–185; BP diastolic 65–90; PULSE 91–103; RESP 16–20; TEMP 36.3–37.2; O2SAT 96–100
[2022-10-30 17:43] LABS: Basophils Absolute Auto 0.1 K/mm3 (0.0-0.1); Basophils Percent Auto 0.4 % (0.2-1.2); Eosinophils Absolute Auto 0.4 K/mm3 (0-0.3); Eosinophils Percent Auto 3.1 % (0-4.4); Hematocrit 22.1 % (37.0-47.0); Immature Granulocyte Absolute 0.21 K/mm3 (0.00-0.031); Immature Granulocyte Percent A 1.8 % (0-0.5); Lymphocytes Absolute Auto 1.45 K/mm3 (0.9-3.2); Lymphocytes Percent Auto 12.7 % (18.3-44.2); Mean Corpuscular HGB Conc 30.8 g/dl (32-36); Mean Corpuscular Hemoglobin 34.5 pg (26-34); Mean Corpuscular Volume 112.2 fl (80-100); Monocytes Absolute Auto 0.8 K/mm3 (0.1-0.6); Monocytes Percent Auto 7.2 % (2.6-8.5); Neutrophils Absolute Auto 8.6 K/mm3 (1.3-6.7); Neutrophils Percent Auto 74.8 % (45.5-73.1); Nucleated Red Blood Cells Absolute Auto 0.1 K/mm3 (0.0-0.012); Nucleated Red Blood Cells Perc 0.4 % (0.0-0.2); Platelet Count Result 330 k/mm3 (150-375); Red Blood Count 1.97 M/mm3 (4.2-5.4); Red Cell Distribution Width 17.4 % (11.5-14.5); White Blood Count 11.5 K/mm3 (4.5-10.0)
[2022-10-30 17:52] LABS: Hemoglobin 6.8 g/dL (12.0-15.0)
[2022-10-30 17:53] LABS: Anisocytosis 1+ (NORMAL); Macrocytosis 1+ (NORMAL); Platelet Estimate Adequate (Adequate); Schistocytes None Seen (NORMAL)
[2022-10-30 17:56] LABS: INR 0.9; Prothrombin Time 12.7 Seconds (11.1-14.7)
[2022-10-30 17:57] LABS: Partial Thromboplastin Time 27.9 SECONDS (22.3-36.8)
[2022-10-30 17:58] LABS: Alanine Aminotransferase 17 U/L (6-35); Albumin Level 3.1 g/dL (3.5-5.1); Alkaline Phosphatase 54 U/L (38-126); Anion Gap 9 mmol/L (8-16); Aspartate Amino Transferase 31 U/L (14-36); Bilirubin,Total 0.5 mg/dL (0.2-1.3); Blood Urea Nitrogen 105 mg/dL (7-17); Calcium 9.2 mg/dL (8.4-10.2); Carbon Dioxide 29 mmol/L (22-30); Chloride 96 mmol/L (98-107); Estimated CRCL calculation 4 ml/min; Estimated Glomerular Filt Rate 5; Glucose 92 mg/dL (65-110); Potassium 6.4 mmol/L (3.4-5.0); Sodium 134 mmol/L (137-145)
--- NOTE | 2022-10-30 18:19 | PC.NURSE ---
Patient performs peritoneal dialysis. Last dialysis was yesterday
[2022-10-30] MEDS: CALCIUM GLUCONATE 1,000 MG/10 ML VIAL 1000 MG IV PUSH (18:53)
[2022-10-30] MEDS: DEXTROSE 50% 25 GM/50 ML SYRINGE IV PUSH (18:53)
[2022-10-30] MEDS: INSULIN HUMAN REGULAR (*BKC) 100 UNITS/ML IV PUSH (18:54)
--- NOTE | 2022-10-30 19:07 | PC.NURSE ---
Per verbal order from Dr Hsu, do not push calcium gluconate. Patient received 2mL of calcium gluconate. Patient began having swelling and pain to her forearm.
--- NOTE | 2022-10-30 19:46 | ED.GENADULT ---
HPI - General Adult General Chief complaint: Recheck/Abnormal Lab/Rx Stated complaint: low hemoglobin Time Seen by Provider: 10/30/22 18:13 History of Present Illness HPI narrative: Patient is a 77-year-old female who presents ER with low hemoglobin. Patient was called by her dialysis nurse because she had an abnormal outpatient lab. Patient reports today she began having some dizziness. She reports she received a half dose of her Procrit this month. She wishes now she did receive a full dose. Denies any rectal bleeding. No fevers chills or sweats. No chest pain or chest pressure. Patient gets peritoneal dialysis. Patient reports she takes daily potassium pills. Related Data Home Medications Medication Instructions Recorded Confirmed aspirin 81 mg tablet,delayed 81 mg PO DAILY 07/10/19 07/23/22 release (Adult Aspirin Regimen) gentamicin 0.1 % topical cream 1 applic topical DAILY 07/10/19 07/23/22 epoetin krystle 2,000 unit/mL 1,000 unit subcut MONTHLY 08/23/19 07/23/22 injection solution (Epogen) ropinirole 0.25 mg tablet 0.5 mg PO DAILY 08/23/19 07/23/22 ethambutol 800 mg PO DAILY 06/17/20 07/23/22 calcium acetate(phosphat bind) 667 667 mg PO AC 07/21/21 07/23/22 mg tablet furosemide 80 mg tablet (Lasix) 80 mg PO TID 06/02/22 07/23/22 Allergies Allergy/AdvReac Type Severity Reaction Status Date / Time No Known Allergies Allergy Verified 10/30/22 20:01 Review of Systems Review of Systems: All systems reviewed & are unremarkable except as noted in HPI and below Constitutional: Constitutional: Denies chills, Reports fatigue and Denies fever(s) ENT: Denies nasal congestion and Denies sore throat Cardiovascular: Cardiovascular: Denies chest pain, Denies rapid heart rate and Denies radiating jaw, neck or arm pain Respiratory: Respiratory: Denies cough and Denies dyspnea Gastrointestinal: Gastrointestinal: Denies abdominal pain, Denies nausea and Denies vomiting Integumentary/Breasts: Skin/Breast: Denies erythema and Denies rash PMFSH Past Medical History Medical History Acquired hypothyroidism Acute on chronic anemia Anemia in chronic kidney disease Anxiety Chronic kidney disease, stage V On the transplant list Dialysis patient peritoneal ESRD (end stage renal disease) Fecal occult blood test positive Headache Hemorrhage following tonsillectomy and adenoidectomy HLD (hyperlipidemia) Large hiatal hernia Mycobacterium avium complex PAD (peripheral artery disease) Primary osteoarthritis, unspecified site Reversible posterior leukoencephalopathy Secondary hyperparathyroidism (of renal origin) Surgical History Surgical History History of appendectomy History of tubal ligation Presence of peritoneal dialysis catheter Family History Family History Mother Diabetes mellitus Cerebrovascular accident Father Family history of cardiovascular disease Social History Social History Social History: Smoking status: Never smoker Second hand tobacco smoke exposure: No Alcohol intake: current Substance use: never Substance use type: does not use Living arrangements: with family Occupation/Education: retired Gender identity (if verbalized by the patient): Female Sexual Orientation (if Verbalized by the Patient): Straight or Heterosexual Spiritual care concerns: No Exam Narrative: GENERAL: Chronically ill-appearing, well-nourished, and in no acute distress. HEAD: Normocephalic, atraumatic. EYES: PERRL and EOMI. ENT: Mucous membranes moist. CHEST: Clear to auscultation. No respiratory distress. HEART: Regular rate and rhythm. Normal peripheral pulses. ABDOMEN: Soft, nontender, nondistended. EXTREMITIES: Normal range of motion. No edema. SKIN: Warm
--- NOTE | 2022-10-30 19:48 | ECG_ITS ---
Measurements Intervals [place] Rate: 102 P: 58 [place]: 144 QRS: -9 QRSD: 84 T: 56 QT: 310 QTc: 405 Interpretive Statements SINUS TACHYCARDIA ABNORMAL RHYTHM ECG COMPARED TO ECG 07/23/2021 22:21:06 SINUS TACHYCARDIA NOW PRESENT Electronically Signed On 10-31-2022 12:08:44 CDT by Mica Newton M.D.
[2022-10-30] MEDS: TUBING, BLOOD PLUM PUMP TUBING 1 EACH XX ×2 (20:02→23:32)
[2022-10-30] MEDS: SODIUM CHLORIDE 0.9% IV 250 ML 30 ML IV CONT (20:02)
[2022-10-30 20:08] LABS: Glucose Point of Care 80 mg/dl (65-105)
[2022-10-30 20:40] LABS: Glucose Point of Care 72 mg/dl (65-105)
[2022-10-30] MEDS: SODIUM ZIRCONIUM CYCLOSILICATE 10 GM POWD.PACK PO (20:41)
--- NOTE | 2022-10-30 21:05 | PC.NURSE ---
Patient given juice for BS of 73
--- NOTE | 2022-10-30 21:30 | PC.NURSE ---
Attempted to call floor for questions and RN states she will call me back due to being with another patient at this time.
[2022-10-30] MEDS: HYDROcodone/acetaminophen (*CRX) 5-325 MG TABLET 1 TAB PO (23:30)
[2022-10-31] VITALS (13 sets, daily range): BP systolic 132–195; BP diastolic 66–97; PULSE 86–103; RESP 14–18; TEMP 36.1–37.1; O2SAT 94–100
[2022-10-31] MEDS: hydrALAZINE HCL 50 MG TABLET PO ×3 (01:43→17:22)
[2022-10-31] MEDS: LEVOTHYROXINE SODIUM 125 MCG TABLET PO (05:57)
[2022-10-31] MEDS: CALCIUM ACETATE 667 MG TABLET PO ×3 (05:57→20:14)
[2022-10-31 09:28] LABS: Hematocrit 31.7 % (37.0-47.0); Hemoglobin 10.3 g/dL (12.0-15.0); Mean Corpuscular HGB Conc 32.5 g/dl (32-36); Mean Corpuscular Hemoglobin 32.9 pg (26-34); Mean Corpuscular Volume 101.3 fl (80-100); Mean Platelet Volume 9.5 fl (7.4-10.4); Platelet Count Result 303 k/mm3 (150-375); Red Blood Count 3.13 M/mm3 (4.2-5.4); Red Cell Distribution Width 19.5 % (11.5-14.5); White Blood Count 8.5 K/mm3 (4.5-10.0)
[2022-10-31 09:37] LABS: Iron 51 ug/dL (37-170)
[2022-10-31] MEDS: HYDROcodone/acetaminophen (*CRX) 5-325 MG TABLET 1 TAB PO ×3 (09:37→18:26)
[2022-10-31] MEDS: LORazepam (*CRX) 1 MG TABLET PO ×2 (09:40→18:26)
[2022-10-31] MEDS: busPIRone HCL 5 MG TABLET PO ×2 (09:41→20:14)
[2022-10-31] MEDS: ASPIRIN 81 MG ENTERIC TABLET PO (09:41)
[2022-10-31] MEDS: busPIRone HCL 2.5 MG TABLET PO ×2 (09:41→20:14)
[2022-10-31] MEDS: FUROSEMIDE 80 MG TABLET PO ×2 (09:41→18:26)
[2022-10-31 09:42] LABS: Albumin Level 2.9 g/dL (3.5-5.1); Anion Gap 12 mmol/L (8-16); Blood Urea Nitrogen 109 mg/dL (7-17); Calcium 8.7 mg/dL (8.4-10.2); Carbon Dioxide 25 mmol/L (22-30); Chloride 95 mmol/L (98-107); Estimated CRCL calculation 4 ml/min; Estimated Glomerular Filt Rate 4; Glucose 135 mg/dL (65-110); Magnesium 2.6 mg/dL (1.6-2.3); Phosphorus 5.7 mg/dL (2.5-4.5); Potassium 6.5 mmol/L (3.4-5.0); Sodium 132 mmol/L (137-145)
[2022-10-31] MEDS: PROPRANOLOL HCL 20 MG TABLET PO ×2 (09:42→20:14)
[2022-10-31] MEDS: LIDOCAINE 5% PATCH 1 PATCH TRANSDERM (09:43)
[2022-10-31 09:47] LABS: Percent Iron Saturation 24 % (20-50)
[2022-10-31 10:26] LABS: Glucose Point of Care 150 mg/dl (65-105)
[2022-10-31 10:40] LABS: Folic Acid 14.9 ng/mL (2.76->20)
[2022-10-31] MEDS: SODIUM ZIRCONIUM CYCLOSILICATE 10 GM POWD.PACK PO (10:54)
--- NOTE | 2022-10-31 11:32 | PC.NURSE ---
Spoke with Dr. Francois about the patient's Potssium and Peritoneal dialysis per Dr Jay request. notified that patient has received [address] Francois ordered a one time dose of IV furosemide, 80 mg, this afternoon and hold to oral dose. He then said she can resume the evening dose at 1700.
--- NOTE | 2022-10-31 12:35 | PM.CNNEP ---
Assessment and Plan Assessment and plan (1) ESRD (end stage renal disease): Code(s): N18.6 - End stage renal disease Status: Chronic Assessment and Plan: resume CCPD tonight follow electrolytes, volume status, and clearance (2) Hyperkalemia: Code(s): E87.5 - Hyperkalemia Status: Acute Assessment and Plan: etiology? elevated on presentation/admission may have acute worsened due to PRBC transfusion and ongoing outpatient K+ supplementation s/p medical therapy with lokelma and calcium gluconate follow repeat testing (3) Anemia: Code(s): D64.9 - Anemia, unspecified Status: Chronic Assessment and Plan: long standing issue partly due to ESRD however, has fluctuated to extremes from outpatient records had seen Hematology for evaluation of this but work-up has been negative possible hemolysis(?) which could partly explain #2; rule out GI loss on Mircera as an outpatient adequate iron stores by anemia studies (but these were drawn post transfusion) unable to tolerated Epogen (as use resulted in hypertensive urgency) follow trend of H/H (4) Hypertension: Code(s): I10 - Essential (primary) hypertension Status: Chronic Assessment and Plan: better control at this time on home medications + hydralazine follow trend of hemodynamics I will continue to follow patient with you while she remains hospitalized and make further recommendations during her hospital course. Thank you for allowing me to participate in care of this patient. History of Present Illness Reason for Consult Consult date: 10/31/22 Reason for consult: end stage renal disease Chief Complaint Chief complaint: anemia, hyperkalemia History of Present Illness Narrative: The patient is a 77-year-old female with a past medical history as outlined below who presented to [facility] Emergency room for further evaluation of abnormal outpatient labs. Apparently yesterday, her outpatient dialysis nurse called her to report that her hemoglobin and hematocrit were quite low. On further questioning by the dialysis nurse, the patient reported that she being feeling dizzy and lightheaded and this seemed to be progressively getting worse. She gave no other acute symptoms with regard to chest pain, chest pressure, fevers, chills, diaphoresis, hematochezia, melena, or palpitations. Given the a for mention finding of her significant anemia in conjunction with her symptoms, she presented to [facility] ER for further assessment Workup and evaluation emergency room demonstrated the patient be hemodynamically stable (if not hypertensive) along with her symptoms of not feeling well. Repeat testing demonstrated anemia with a hemoglobin of 6.8. More concerning was the fact that her chemistry showed a elevated potassium level as well as an elevated BUN and creatinine consistent with her known history of end-stage renal disease. She received medical management for her hyperkalemia and received 2 units of packed red blood cells overnight with subsequent admission to the hospital for further evaluation therapy of her symptoms and significant anemia. Repeat labs this morning show improvement in her hemoglobin hematocrit but her potassium level still quite elevated. It should be noted that she was unable to receive peritoneal dialysis overnight due to the late in his of her admission unavailability of a dialysis nurse to initiate her peritoneal dialysis treatment. Renal consultation was requested due to her end-stage renal disease and hyperkalemia. The patient normally does peritoneal dialysis every evening under the care of Dr. goodman she had a lot all through [facility]. as already mentioned, she did not receive her dialysis treatment last night due to her ER visit subsequent late admission to the hospital but she did receive dialysis the evening before. She is on supp
[2022-10-31] MEDS: DEXTROSE 50% 25 GM/50 ML SYRINGE IV PUSH (12:44)
[2022-10-31] MEDS: INSULIN ASPART (*BKC) 100 UNITS/ML SUB-Q (12:45)
[2022-10-31] MEDS: FUROSEMIDE INJ 100 MG/10 ML VIAL 80 MG IV PUSH (12:46)
[2022-10-31] MEDS: CALCIUM GLUCONATE 1,000 MG/10 ML VIAL 1000 MG IV PUSH (13:20)
--- NOTE | 2022-10-31 13:36 | PM.IMHP ---
H&P: HPI History of Present Illness Date/Time: 10/31/22 13:36 Chief Complaint: low hemoglobin Narrative: ED-HPI narrative: Patient is a 77-year-old female who presents ER with low hemoglobin.? Patient was called by her dialysis nurse because she had an abnormal outpatient lab.? Patient reports today she began having some dizziness.? She reports she received a half dose of her Procrit this month.? She wishes now she did receive a full dose.? Denies any rectal bleeding.? No fevers chills or sweats.? No chest pain or chest pressure.? Patient gets peritoneal dialysis.? Patient reports she takes daily potassium pills. Patient denies any abdominal pain nausea or vomiting any bleeding, most likely her anemia stemming from chronic kidney disease and patient has end-stage renal disease on peritoneal dialysis. Patient was patient was given pack RBC her hemoglobin is trending up and is also found to have hyperkalemia most likely secondary to missed peritoneal dialysis patient was given dextrose insulin Lokelma, as well as Lasix 80 mg t.i.d. and secretary to the vice president has given her IV Lasix 80 mg. Patient be seen by her secretary to the vice president and further recommendation to follow. Patient admitted as observation status Review of Systems Review of Systems: All systems reviewed & are unremarkable except as noted in HPI and below PMFSH Past Medical History Medical History Acquired hypothyroidism Acute on chronic anemia Anemia in chronic kidney disease Anxiety Chronic kidney disease, stage V On the transplant list Dialysis patient peritoneal ESRD (end stage renal disease) Fecal occult blood test positive Headache Hemorrhage following tonsillectomy and adenoidectomy HLD (hyperlipidemia) Large hiatal hernia Mycobacterium avium complex PAD (peripheral artery disease) Primary osteoarthritis, unspecified site Reversible posterior leukoencephalopathy Secondary hyperparathyroidism (of renal origin) Surgical History Surgical History History of appendectomy History of tubal ligation Presence of peritoneal dialysis catheter Family History Family History Mother Diabetes mellitus Cerebrovascular accident Father Family history of cardiovascular disease Social History Social History Social History: Smoking status: Never smoker Second hand tobacco smoke exposure: No Alcohol intake: never Substance use: never Substance use type: does not use Lack of Transportation: No Lack of Food: Never True Current Housing: I Have Housing Concerned About Future Housing: No Difficulty Paying Gas/Electric Bills: No Difficulty Paying for Meds: No Currently Unemployed: No Education: High School Diploma/GED Difficulty w/ Childcare or Family Care: No Living arrangements: with family Occupation/Education: retired Gender identity (if verbalized by the patient): Female Sexual Orientation (if Verbalized by the Patient): Straight or Heterosexual Spiritual care concerns: No Meds Home Medications and Allergies Home Medications Medication Instructions Recorded Confirmed Type aspirin 81 mg tablet,delayed 81 mg PO DAILY 07/10/19 10/30/22 History release (Adult Aspirin Regimen) gentamicin 0.1 % topical cream 1 applic topical DAILY 07/10/19 10/30/22 History epoetin krystle 2,000 unit/mL 1,000 unit subcut MONTHLY 08/23/19 10/30/22 History injection solution (Epogen) ropinirole 0.25 mg tablet 0.5 mg PO DAILY 08/23/19 10/30/22 History propranolol 10 mg tablet 20 mg PO Q12H #90 tabs 02/01/21 10/30/22 Rx calcium acetate(phosphat bind) 667 667 mg PO AC 07/21/21 10/30/22 History mg tablet lidocaine 5 % topical patch 1 patch transdermal DAILY #5 ea 07/27/21 10/30/22 Rx (Lidoderm) lidocaine 5 % topical patch 1 [facility]
[2022-10-31 16:18] LABS: Potassium 6.1 mmol/L (3.4-5.0)
[2022-10-31 16:45] LABS: Hepatitis B Surface Antigen Negative (Negative)
[2022-10-31 16:51] LABS: HAV RESULT Negative (Negative); Hepatitis B Core IgM Result Negative (Negative)
[2022-10-31 17:06] LABS: Hepatitis B Surface Anti Res Positive; Hepatitis C Virus Antibody Negative (Negative)
[2022-10-31] MEDS: GABAPENTIN 100 MG CAPSULE 200 MG PO (20:14)
[2022-10-31] MEDS: rOPINIRole HCL 0.5 MG TABLET PO (20:14)
[2022-10-31] MEDS: HEPARIN SODIUM 5,000 UNITS/ML VIAL 5000 UNITS SUB-Q (20:15)
[2022-11-01] VITALS (7 sets, daily range): BP systolic 188; BP diastolic 90; PULSE 84–91; RESP 16; TEMP 36.4; O2SAT 97
[2022-11-01 05:41] LABS: Hematocrit 30.4 % (37.0-47.0); Hemoglobin 9.4 g/dL (12.0-15.0); Mean Corpuscular HGB Conc 30.9 g/dl (32-36); Mean Corpuscular Hemoglobin 32.2 pg (26-34); Mean Corpuscular Volume 104.1 fl (80-100); Mean Platelet Volume 9.3 fl (7.4-10.4); Platelet Count Result 272 k/mm3 (150-375); Red Blood Count 2.92 M/mm3 (4.2-5.4); Red Cell Distribution Width 18.7 % (11.5-14.5); White Blood Count 7.2 K/mm3 (4.5-10.0)
[2022-11-01] MEDS: hydrALAZINE HCL 50 MG TABLET PO (05:45)
[2022-11-01] MEDS: LEVOTHYROXINE SODIUM 125 MCG TABLET PO (05:45)
[2022-11-01] MEDS: CALCIUM ACETATE 667 MG TABLET PO ×2 (05:45→13:14)
[2022-11-01 05:52] LABS: Albumin Level 2.6 g/dL (3.5-5.1); Anion Gap 10 mmol/L (8-16); Blood Urea Nitrogen 104 mg/dL (7-17); Calcium 9.2 mg/dL (8.4-10.2); Carbon Dioxide 25 mmol/L (22-30); Chloride 98 mmol/L (98-107); Estimated CRCL calculation 4 ml/min; Estimated Glomerular Filt Rate 4; Glucose 92 mg/dL (65-110); Magnesium 2.7 mg/dL (1.6-2.3); Phosphorus 7.6 mg/dL (2.5-4.5); Potassium 5.4 mmol/L (3.4-5.0); Sodium 133 mmol/L (137-145)
[2022-11-01 06:25] LABS: Alanine Aminotransferase 13 U/L (6-35); Albumin Level 2.7 g/dL (3.5-5.1); Alkaline Phosphatase 48 U/L (38-126); Aspartate Amino Transferase 26 U/L (14-36); Bilirubin,Total 0.4 mg/dL (0.2-1.3); Lactate Dehydrogenase 182 U/L (120-246)
[2022-11-01] MEDS: HYDROcodone/acetaminophen (*CRX) 5-325 MG TABLET 1 TAB PO (08:17)
[2022-11-01] MEDS: ASPIRIN 81 MG ENTERIC TABLET PO (08:17)
[2022-11-01] MEDS: busPIRone HCL 2.5 MG TABLET PO (08:18)
[2022-11-01] MEDS: busPIRone HCL 5 MG TABLET PO (08:19)
[2022-11-01] MEDS: FUROSEMIDE 80 MG TABLET PO ×2 (08:19→13:14)
[2022-11-01] MEDS: cloNIDine 0.1 MG/24 HR PATCH 1 PATCH TRANSDERM (08:19)
[2022-11-01] MEDS: HEPARIN SODIUM 5,000 UNITS/ML VIAL 5000 UNITS SUB-Q (08:20)
[2022-11-01] MEDS: PROPRANOLOL HCL 20 MG TABLET PO (08:22)
[2022-11-01] MEDS: LIDOCAINE 5% PATCH 1 PATCH TRANSDERM (08:52)
--- NOTE | 2022-11-01 10:17 | PM.PNNEP ---
Progress Note: A&P Assessment and Plan (1) ESRD (end stage renal disease): Code(s): N18.6 - End stage renal disease Status: Chronic Assessment and Plan: continue nightly CCPD treatments while hospitalized follow electrolytes, volume status, and clearance (2) Hyperkalemia: Code(s): E87.5 - Hyperkalemia Status: Acute Assessment and Plan: better elevated on presentation/admission (despite hx of hypokalemia) was on K+ supplements also was on a high K+ diet may have acute worsened due to PRBC transfusion as well s/p medical therapy hold K+ supplements and watch dietary K+ intake for now follow repeat testing (3) Anemia: Code(s): D64.9 - Anemia, unspecified Status: Chronic Assessment and Plan: long standing issue partly due to ESRD however, has fluctuated to extremes from outpatient records had seen Hematology for evaluation of this but work-up has been negative (from what she tells me) on Mircera as an outpatient adequate iron stores by anemia studies (but these were drawn post transfusion) unable to tolerated Epogen (as use resulted in hypertensive urgency) follow trend of H/H (4) Hypertension: Code(s): I10 - Essential (primary) hypertension Status: Chronic Assessment and Plan: high this AM before BP medications administration on home medications + hydralazine will add amlodipine follow trend of hemodynamics Not opposed to discharge from renal perspective if otherwise medically stable -- she can follow-up with her PD nurse for repeat labs to assess her H/H and potassium level. Will continue to follow. Subjective Date/time seen: 11/01/22 10:17 Interval history: Follow-up for end stage renal disease on peritoneal dialysis, hyperkalemia, and anemia. Tolerated peritoneal dialysis treatment overnight without any issues or problems; H/H remains relatively stable following PRBC transfusion; no apparent distress voiced at the time of my visit; otherwise, feels pretty good -- asking about possible discharge today. Exam Narrative: General: elderly but WD/WN female in NAD Heart: normal S1 and S2; no rub Lungs: clear to auscultation Abdomen: soft, nontender, nondistended, positive bowel sounds Extremities: no cyanosis or clubbing; no edema Skin: warm and dry Objective Data Vital Signs Vital Signs: Vital Signs Temp Pulse Resp BP Pulse Ox O2 Del Method 11/01/22 10:00 90 11/01/22 08:14 Room Air 11/01/22 08:00 91 11/01/22 08:22 84 11/01/22 07:27 97.6 F 84 16 188/90 H 11/01/22 05:33 97.6 F 84 16 188/90 H 97 11/01/22 04:00 87 11/01/22 00:00 87 10/31/22 20:00 103 H 10/31/22 21:37 98 F 100 16 161/70 H 95 10/31/22 20:00 Room Air 10/31/22 18:35 97.0 F L 95 18 139/66 97 Room Air 10/31/22 18:30 97 F L 95 16 139/66 96 10/31/22 14:00 98.3 F 86 16 132/74 98 Intake/Output Intake/Output: Intake & Output 10/29/22 10/30/22 10/31/22 11/01/22 23:59 23:59 23:59 23:59 Intake Total 350 2684 580 Output Total 1505 Balance 350 2684 -925 Meds/Results Medications: Active Medications Generic Name Dose Route Start Last Admin Trade Name Freq PRN Reason Stop Dose Admin Acetaminophen 650 mg 10/30/22 20:32 Acetaminophen 325 Mg Tablet PO Q4H PRN Mild Pain (1-3) or Fever Hydrocodone Bitart/Acetaminophen 1 tab 10/30/22 20:32 11/01/22 08:17 Hydrocodone/Acetaminophen (*Crx) 5-325 Mg Tablet PO 1 tab Q4H PRN Administration Pain Rated 7-10 Amlodipine Besylate 5 mg 11/01/22 09:40 11/01/22 10:30 Amlodipine Besylate 5 Mg Tablet PO 5 mg QAM LETI Administration Aspirin 81 mg 10/31/22 09:00 11/01/22 08:17 Aspirin 81 Mg Enteric Tablet PO 81 mg DAILY LETI Administration Buspirone HCl 5 mg 10/31/22 09:00 11/01/22 08:19 Buspirone Hcl 5 Mg Tablet PO
--- NOTE | 2022-11-01 10:17 | P.PNNP_ITS ---
Progress Note: A&P Assessment and Plan (1) ESRD (end stage renal disease): Code(s): N18.6 - End stage renal disease Status: Chronic Assessment and Plan: * continue nightly CCPD treatments while hospitalized * follow electrolytes, volume status, and clearance (2) Hyperkalemia: Code(s): E87.5 - Hyperkalemia Status: Acute Assessment and Plan: * better * elevated on presentation/admission (despite hx of hypokalemia) * was on K+ supplements * also was on a high K+ diet * may have acute worsened due to PRBC transfusion as well * s/p medical therapy * hold K+ supplements and watch dietary K+ intake for now * follow repeat testing (3) Anemia: Code(s): D64.9 - Anemia, unspecified Status: Chronic Assessment and Plan: * long standing issue * partly due to ESRD * however, has fluctuated to extremes from outpatient records * had seen Hematology for evaluation of this but work-up has been negative (from what she tells me) * on Mircera as an outpatient * adequate iron stores by anemia studies (but these were drawn post transfusion) * unable to tolerated Epogen (as use resulted in hypertensive urgency) * follow trend of H/H (4) Hypertension: Code(s): I10 - Essential (primary) hypertension Status: Chronic Assessment and Plan: * high this AM before BP medications administration * on home medications + hydralazine * will add amlodipine * follow trend of hemodynamics Not opposed to discharge from renal perspective if otherwise medically stable -- she can follow-up with her PD nurse for repeat labs to assess her H/H and potassium level. Will continue to follow. Subjective Date/time seen: 11/01/22 10:17 Interval history: Follow-up for end stage renal disease on peritoneal dialysis, hyperkalemia, and anemia. Tolerated peritoneal dialysis treatment overnight without any issues or problems; H/H remains relatively stable following PRBC transfusion; no apparent distress voiced at the time of my visit; otherwise, feels pretty good -- asking about possible discharge today. Exam Narrative: General: elderly but WD/WN female in NAD Heart: normal S1 and S2; no rub Lungs: clear to auscultation Abdomen: soft, nontender, nondistended, positive bowel sounds Extremities: no cyanosis or clubbing; no edema Skin: warm and dry Objective Data Vital Signs Vital Signs: Vital Signs Temp Pulse Resp BP Pulse Ox O2 Del Method 11/01/22 10:00 90 11/01/22 08:14 Room Air 11/01/22 08:00 91 11/01/22 08:22 84 11/01/22 07:27 97.6 F 84 16 188/90 H 11/01/22 05:33 97.6 F 84 16 188/90 H 97 11/01/22 04:00 87 11/01/22 00:00 87 10/31/22 20:00 103 H 10/31/22 21:37 98 F 100 16 161/70 H 95 10/31/22 20:00 Room Air 10/31/22 18:35 97.0 F L 95 18 139/66 97 Room Air 10/31/22 18:30 97 F L 95 16 139/66 96 10/31/22 14:00 98.3 F 86 16 132/74 98 Intake/Output Intake/Output: Intake & Output 10/29/22 10/30/22 10/31/22 11/01/22 23:59 23:59 23:59 23:59 Intake Total 350 2684 580 Output Total 1505 Balance 350 2684 -925 Meds/Results
[2022-11-01] MEDS: amLODIPine BESYLATE 5 MG TABLET PO (10:30)
--- NOTE | 2022-11-01 12:56 | PM.DS ---
DS: Admitting Diagnosis Discharge Date 11/01/2022 Admitting Diagnosis Anemia, hyperkalemia DS: Discharge Diagnosis Discharge Diagnosis (1) Anemia: Code(s): D64.9 - Anemia, unspecified Status: Chronic Assessment and Plan: ED-HPI narrative: Patient is a 77-year-old female who presents ER with low hemoglobin.? Patient was called by her dialysis nurse because she had an abnormal outpatient lab.? Patient reports today she began having some dizziness.? She reports she received a half dose of her Procrit this month.? She wishes now she did receive a full dose.? Denies any rectal bleeding.? No fevers chills or sweats.? No chest pain or chest pressure.? Patient gets peritoneal dialysis.? Patient reports she takes daily potassium pills. Patient denies any abdominal pain nausea or vomiting any bleeding, most likely her anemia stemming from chronic kidney disease and patient has end-stage renal disease on peritoneal dialysis. Patient was patient was given pack RBC her hemoglobin is trending up and is also found to have hyperkalemia most likely secondary to missed peritoneal dialysis patient was given dextrose insulin Lokelma, as well as Lasix 80 mg t.i.d. and v/stol landing signal officer has given her IV Lasix 80 mg. Patient be seen by her v/stol landing signal officer and further recommendation to follow. Patient admitted as observation status (2) Acute hyperkalemia: Code(s): E87.5 - Hyperkalemia Status: Acute Assessment and Plan: Patient with history of end-stage renal disease on peritoneal dialysis most likely see hyperkalemia secondary to missed [place] dialysis patient is seen by Nephrology, and dialysis resume will continue to monitor (3) ESRD (end stage renal disease) on dialysis: Code(s): N18.6 - End stage renal disease; Z99.2 - Dependence on renal dialysis Status: Acute Assessment and Plan: Patient will have scheduled dialysis per v/stol landing signal officer DS: Summary Hospital Course Reason for hospitalization: ED-HPI narrative: Patient is a 77-year-old female who presents ER with low hemoglobin.? Patient was called by her dialysis nurse because she had an abnormal outpatient lab.? Patient reports today she began having some dizziness.? She reports she received a half dose of her Procrit this month.? She wishes now she did receive a full dose.? Denies any rectal bleeding.? No fevers chills or sweats.? No chest pain or chest pressure.? Patient gets peritoneal dialysis.? Patient reports she takes daily potassium pills. Patient denies any abdominal pain nausea or vomiting any bleeding, most likely her anemia stemming from chronic kidney disease and patient has end-stage renal disease on peritoneal dialysis.? Patient was patient was given pack RBC her hemoglobin is trending up and is also found to have hyperkalemia most likely secondary to missed peritoneal dialysis patient was given dextrose insulin Lokelma, as well as Lasix 80 mg t.i.d. and v/stol landing signal officer has given her IV Lasix 80 mg.? Patient be seen by her v/stol landing signal officer and further recommendation to follow. Hospital Course: Patient denies any abdominal pain nausea or vomiting any bleeding, most likely her anemia stemming from chronic kidney disease and patient has end-stage renal disease on peritoneal dialysis.patient was given pack RBC and her hemoglobin was trending up and is also found to have hyperkalemia most likely secondary to missed peritoneal dialysis patient was given dextrose insulin Lokelma, as well as Lasix 80 mg t.i.d. and v/stol landing signal officer has given her IV Lasix 80 mg.? Patient received peritoneal dialysis last night, her potassium close to normal today and patient is clinically stable patient instructed not to take supplemental potassium until seen by her v/stol landing signal officer, patient is clinically stable will discharge the patient today Patient to follow-up with her v/stol landing signal officer and patient to call her dialysis nurse to repeat renal function on Wednesday. Patient is instructed not to take an
[2022-11-07 20:07] LABS: Haptoglobin 269 mg/dL (43-212)
== END 2022-11-01 13:35 | disposition home or self-care (01) ==
LOC: ANHED 21:03 → ANH3MEDSUR 11-01 13:04
PROVIDERS: Internal Medicine; Internal Medicine Nephrology; Admitting Provider Family Medicine; Emergency Provider Emergency Medicine; PCP Family Medicine; Visit Provider Family Medicine
DX: D63.1 Anemia in chronic kidney disease (principal); N18.6 End stage renal disease; Z99.2 Dependence on renal dialysis; R79.9 Abnormal finding of blood chemistry, unspecified; R42 Dizziness and giddiness; E03.8 Other specified hypothyroidism; K44.9 Diaphragmatic hernia without obstruction or gangrene; E78.2 Mixed hyperlipidemia; I73.9 Peripheral vascular disease, unspecified; E87.5 Hyperkalemia; M79.89 Other specified soft tissue disorders; F41.9 Anxiety disorder, unspecified; J44.9 Chronic obstructive pulmonary disease, unspecified; R94.31 Abnormal electrocardiogram [ECG] [EKG]; F10.90 Alcohol use, unspecified, uncomplicated; Z79.82 Long term (current) use of aspirin; Z79.891 Long term (current) use of opiate analgesic; Z79.899 Other long term (current) drug therapy
CPT/HCPCS: 36415; 36430; 80053; 80069; 80074; 80076; 82607; 82728; 82746; 82948; 83010; 83540; 83550; 83615; 83735; 84132; 85025; 85027; 85610; 85730; 86706; 86850; 86900; 86901; 86923; 87340; 90945; 93005; 96374; 96375; 99285; A9270; G0378; J0612; J1644; J1815; J1940; J7050; P9016

== ENCOUNTER 2022-11-19 11:04 | Outpatient (CLI) | payer MEDICARE, SELFPAY ==
[2022-11-19 11:39] LABS: Basophils Percent Auto 0.4 % (0.2-1.2); Eosinophils Absolute Auto 0.1 K/mm3 (0-0.3); Hematocrit 35.6 % (37.0-47.0); Hemoglobin 11.2 g/dL (12.0-15.0); Immature Granulocyte Absolute 0.04 K/mm3 (0.00-0.031); Immature Granulocyte Percent A 0.6 % (0-0.5); Lymphocytes Absolute Auto 0.87 K/mm3 (0.9-3.2); Lymphocytes Percent Auto 12.7 % (18.3-44.2); Mean Corpuscular HGB Conc 31.5 g/dl (32-36); Mean Corpuscular Hemoglobin 33.4 pg (26-34); Mean Corpuscular Volume 106.3 fl (80-100); Mean Platelet Volume 9.1 fl (7.4-10.4); Monocytes Absolute Auto 0.7 K/mm3 (0.1-0.6); Monocytes Percent Auto 9.6 % (2.6-8.5); Neutrophils Absolute Auto 5.1 K/mm3 (1.3-6.7); Neutrophils Percent Auto 74.7 % (45.5-73.1); Platelet Count Result 290 k/mm3 (150-375); Red Blood Count 3.35 M/mm3 (4.2-5.4); White Blood Count 6.8 K/mm3 (4.5-10.0)
[2022-11-19 11:54] LABS: Alanine Aminotransferase 14 U/L (6-35); Albumin Level 3.2 g/dL (3.5-5.1); Alkaline Phosphatase 49 U/L (38-126); Anion Gap 13 mmol/L (8-16); Aspartate Amino Transferase 30 U/L (14-36); Bilirubin,Total 0.8 mg/dL (0.2-1.3); Blood Urea Nitrogen 100 mg/dL (7-17); Calcium 8.9 mg/dL (8.4-10.2); Carbon Dioxide 27 mmol/L (22-30); Chloride 92 mmol/L (98-107); Estimated Glomerular Filt Rate 4; Glucose 83 mg/dL (65-110); Potassium 4.4 mmol/L (3.4-5.0); Sodium 132 mmol/L (137-145)
[2022-11-19 12:18] LABS: Anisocytosis 1+ (NORMAL); Macrocytosis 1+ (NORMAL); Platelet Estimate Adequate (Adequate); Schistocytes None Seen (NORMAL)
[2022-11-19 14:16] LABS: Hemoglobin A1C 4.2 % (<5.7)
== END 2022-11-19 11:05 | disposition home or self-care (01) ==
PROVIDERS: PCP Family Medicine; Visit Provider Physician Assistant
DX: E03.9 Hypothyroidism, unspecified (principal); D63.1 Anemia in chronic kidney disease; Z99.2 Dependence on renal dialysis; I12.0 Hypertensive chronic kidney disease with stage 5 chronic kidney disease or end stage renal disease; N18.6 End stage renal disease
CPT/HCPCS: 36415; 80053; 83036; 84443; 85025

== ENCOUNTER 2023-03-24 13:40 | Outpatient (CLI) | payer MEDICARE, SELFPAY | END 2023-03-24 13:41 | disposition home or self-care (01) | PROVIDERS: PCP Family Medicine; Visit Provider Physician Assistant | DX: E03.9 Hypothyroidism, unspecified (principal) | CPT/HCPCS: 36415; 84443 ==

== ENCOUNTER → 2023-04-28 10:01 | Outpatient (CLI) | payer MEDICARE, SELFPAY ==
--- NOTE | ~2023-04-28 | XR_ITS ---
AP view of the pelvis and AP and lateral views of the right hip Clinical history: Pain COMPARISON: 03/26/2022 Findings: No acute fracture or dislocation is seen. There is severe right hip joint osteoarthritis, w ith marked joint space narrowing, subchondral cystic change at the femoral head, and mild remodeling of the femoral head. There is minimal left hip joint degenerative change. Pelvic catheter is again pr esent. Soft tissues are unremarkable. Impression: Severe right hip joint osteoarthritis, significant progressed since prior exam. This could reflect ra pidly progressive osteoarthritis given the degree of worsening. Minimal left hip joint degenerative change. Reviewed, dictated and finalized at location M. Impression: Severe right hip joint osteoarthritis, significant progressed since prior exam. This could reflect rapidly progressive osteoarthritis given the degree of wors ening. Minimal left hip joint degenerative change.
== END ==
PROVIDERS: PCP Family Medicine; Visit Provider Nurse Practitioner Family
DX: M16.11 Unilateral primary osteoarthritis, right hip (principal)
CPT/HCPCS: 73502

== ENCOUNTER 2023-07-02 11:41 | Emergency (ER) | payer MEDICARE, SELFPAY ==
--- NOTE | ~2023-07-02 | XR_ITS ---
EXAMINATION: XR chest 2V DATE: 07/02/2023 12:23 INDICATION: Midsternal chest pain TECHNIQUE: Frontal and lateral views of the chest are obtained COMPARISON: 12/25/2021 FINDINGS: The lungs are free of acute opacities. No pleural effusion or pneumothorax. The heart size is normal. There is a large hiatal hernia. There is severe thoracic spondylosis. There our changes in the shoulders consistent with chronic rotator cuff tears. Vertebroplasty change is noted. IMPRESSION: 1. No acute cardiopulmonary abnormality. Large hiatal hernia. Reviewed, dictated and finalized at location B. L ASSISTANT MANAGER
[2023-07-02 11:43] VITALS: BP 165/91; PULSE 76; RESP 20; TEMP 36.5; O2SAT 98
--- NOTE | 2023-07-02 11:43 | ECG_ITS ---
Measurements Intervals [place] Rate: 75 P: 27 HI: 155 QRS: 1 QRSD: 85 T: 57 QT: 390 QTc: 436 Interpretive Statements SINUS RHYTHM COMPARED TO ECG 10/30/2022 19:58:04 SINUS RHYTHM NOW PRESENT Electronically Signed On 07-02-2023 16:38:19 COUTURE ALTERATIONS DRESSMAKER by Mica Newton M.D.
[2023-07-02 12:04] LABS: Basophils Percent Auto 0.5 % (0.2-1.2); Eosinophils Absolute Auto 0.1 K/mm3 (0-0.3); Hematocrit 28.8 % (37.0-47.0); Hemoglobin 8.7 g/dL (12.0-15.0); Immature Granulocyte Absolute 0.02 K/mm3 (0.00-0.031); Immature Granulocyte Percent A 0.4 % (0-0.5); Lymphocytes Absolute Auto 0.65 K/mm3 (0.9-3.2); Lymphocytes Percent Auto 11.6 % (18.3-44.2); Mean Corpuscular HGB Conc 30.2 g/dl (32-36); Mean Corpuscular Hemoglobin 31.4 pg (26-34); Mean Platelet Volume 9.1 fl (7.4-10.4); Monocytes Absolute Auto 0.5 K/mm3 (0.1-0.6); Monocytes Percent Auto 8.2 % (2.6-8.5); Neutrophils Absolute Auto 4.3 K/mm3 (1.3-6.7); Neutrophils Percent Auto 77.3 % (45.5-73.1); Platelet Count Result 316 k/mm3 (150-375); Red Blood Count 2.77 M/mm3 (4.2-5.4); Red Cell Distribution Width 14.4 % (11.5-14.5); White Blood Count 5.6 K/mm3 (4.5-10.0)
[2023-07-02 12:14] LABS: Alanine Aminotransferase 13 U/L (6-35); Albumin Level 3.3 g/dL (3.5-5.1); Alkaline Phosphatase 80 U/L (38-126); Anion Gap 14 mmol/L (8-16); Aspartate Amino Transferase 24 U/L (14-36); Bilirubin,Total 0.7 mg/dL (0.2-1.3); Blood Urea Nitrogen 76 mg/dL (7-17); Calcium 9.3 mg/dL (8.4-10.2); Carbon Dioxide 22 mmol/L (22-30); Chloride 94 mmol/L (98-107); Estimated CRCL calculation 4 ml/min; Estimated Glomerular Filt Rate 5; Glucose 92 mg/dL (65-110); Lipase 210 U/L (23-300); Potassium 5.4 mmol/L (3.4-5.0); Sodium 130 mmol/L (137-145)
[2023-07-02 12:26] LABS: Troponin I < 0.012 ng/mL (0.000-0.034)
[2023-07-02 12:32] LABS: INR 0.9; Prothrombin Time 12.7 Seconds (11.1-14.7)
[2023-07-02 12:33] LABS: Partial Thromboplastin Time 34.2 SECONDS (22.3-36.8)
[2023-07-02 12:46] VITALS: PULSE 74
--- NOTE | 2023-07-02 13:25 | ED.CHESTPAIN ---
HPI - Chest Pain General Chief Complaint: Chest Pain Stated Complaint: chest pain X2 days Time Seen by Provider: 07/02/23 13:11 History of Present Illness HPI narrative: Patient is a 78-year-old female history of hypertension, ESRD on peritoneal dialysis here with chest pain. She states that over the last 2-3 days she has been experiencing intermittent right-sided chest pain. She notes it is sharp and squeezing and nonradiating. No associated shortness of breath, diaphoresis, nausea. No prior history of coronary artery disease. She did see a medical device sales consultant in the past, believes she had a normal stress test last year. She does note that she has had a mild cough over the same period of time, nonproductive in nature. Denies any fever chills. Denies any known sick contacts although she did see multiple family members over the holidays. She does not remember any changes in activity or specific activities that could have strained her chest wall other than cooking a large meal on . She notes that the pain does seem to worsen a bit with a deep breath and with certain movements. No active chest pain since arriving to the emergency department. She did initially present to an urgent care who referred her into the emergency department for further evaluation. Related Data Home Medications Medication Instructions Recorded Confirmed aspirin 81 mg tablet,delayed 81 mg PO DAILY 07/10/19 03/25/23 release (Adult Aspirin Regimen) gentamicin 0.1 % topical cream 1 applic topical DAILY 07/10/19 03/25/23 epoetin krystle 2,000 unit/mL 1,000 unit subcut MONTHLY 08/23/19 03/25/23 injection solution (Epogen) ropinirole 0.25 mg tablet 0.5 mg PO DAILY 08/23/19 03/25/23 calcium acetate(phosphat bind) 667 667 mg PO AC 07/21/21 03/25/23 mg tablet furosemide 80 mg tablet (Lasix) 80 mg PO TID 06/02/22 03/25/23 Allergies Allergy/AdvReac Type Severity Reaction Status Date / Time No Known Allergies Allergy Verified 07/02/23 11:42 Review of Systems Review of Systems: All systems reviewed & are unremarkable except as noted in HPI and below PMFSH Past Medical History Medical History Acquired hypothyroidism Acute on chronic anemia Anemia in chronic kidney disease Anxiety Chronic kidney disease, stage V On the transplant list Dialysis patient peritoneal ESRD (end stage renal disease) Fecal occult blood test positive Headache Hemorrhage following tonsillectomy and adenoidectomy HLD (hyperlipidemia) Large hiatal hernia Mycobacterium avium complex PAD (peripheral artery disease) Primary osteoarthritis, unspecified site Reversible posterior leukoencephalopathy Secondary hyperparathyroidism (of renal origin) Surgical History Surgical History History of appendectomy History of tubal ligation Presence of peritoneal dialysis catheter Family History Family History Mother Diabetes mellitus Cerebrovascular accident Father Family history of cardiovascular disease Social History Social History Social History: Smoking status: Never smoker Second hand tobacco smoke exposure: No Alcohol intake: never Substance use: never Substance use type: does not use Lack of Transportation: No Lack of Food: Never True Current Housing: I Have Housing Concerned About Future Housing: No Difficulty Paying Gas/Electric Bills: No Difficulty Paying for Meds: No Currently Unemployed: No Education: High School Diploma/GED Difficulty w/ Childcare or Family Care: No Living arrangements: with family Occupation/Education: retired Gender identity (if verbalized by the patient): Female Sexual Orientation (if Verbalized by the Patient): Straight or Heterosexual Spiritual care concerns: No Exa
[2023-07-02 14:13] VITALS: BP 164/88; PULSE 78; RESP 16; O2SAT 97
--- NOTE | 2023-07-02 14:30 | ECG_ITS ---
Measurements Intervals [place] Rate: 80 P: 15 IA: 148 QRS: -7 QRSD: 85 T: 44 QT: 375 QTc: 435 Interpretive Statements SINUS RHYTHM COMPARED TO ECG 07/02/2023 11:52:15 NO SIGNIFICANT CHANGES Electronically Signed On 07-02-2023 16:42:42 RECOATING MACHINE OPERATOR by Mica Newton M.D.
[2023-07-02 14:52] LABS: Influenza A QL RT-PCR Negative (Negative); Influenza B QL RT-PCR Negative (Negative); RSV RNA, RT-PCR Negative (Negative); SARS-CoV-2 RNA PCR Negative (Negative)
[2023-07-02 15:55] LABS: Troponin I < 0.012 ng/mL (0.000-0.034)
== END 2023-07-02 16:42 | disposition home or self-care (01) ==
PROVIDERS: Emergency Medicine; Emergency Provider Student in an Organized Health Care Education/Training Program; PCP Family Medicine
DX: R07.89 Other chest pain (principal); Z20.822 Contact with and (suspected) exposure to COVID-19; I12.0 Hypertensive chronic kidney disease with stage 5 chronic kidney disease or end stage renal disease; N18.6 End stage renal disease; D63.1 Anemia in chronic kidney disease; N25.81 Secondary hyperparathyroidism of renal origin; I67.83 Posterior reversible encephalopathy syndrome; E78.5 Hyperlipidemia, unspecified; K44.9 Diaphragmatic hernia without obstruction or gangrene; I73.9 Peripheral vascular disease, unspecified; M19.90 Unspecified osteoarthritis, unspecified site; F41.9 Anxiety disorder, unspecified; Z99.2 Dependence on renal dialysis; Z79.82 Long term (current) use of aspirin
CPT/HCPCS: 36415; 71046; 80053; 83690; 84484; 85025; 85610; 85730; 87637; 93005; 99284

== ENCOUNTER 2023-07-29 18:11 | Inpatient (IN) | payer MEDICARE, SELFPAY ==
[2023-07-29] VITALS (28 sets, daily range): BP systolic 135–209; BP diastolic 72–113; PULSE 77–90; RESP 15–20; TEMP 36.4–36.7; O2SAT 94–100; BMI 18.4
--- NOTE | ~2023-07-29 | MR_ITS ---
MRI of the brain Clinical History: Headache Technique: Axial and sagittal T1-weighted images were acquired. These were followed by axial T2-weigh jay, diffusion weighted, gradient, and FLAIR images. COMPARISON: 07/24/2021 Findings: There is no acute infarct, acute intracranial hemorrhage, or mass lesion. There are moderat e to extensive chronic microvascular ischemic changes throughout the periventricular white matter gurmeet aterally. Ventricles and subarachnoid spaces are unremarkable. Orbits are unremarkable. Paranasal sinuses and m astoid air cells are clear. Major intracranial flow voids are intact. Sagittal midline structures are intact. There is probable advanced degenerative spondylosis of the vi sualized upper cervical spine. IMPRESSION: No acute intracranial abnormality. Moderate to advanced chronic microvascular ischemic change. Advanced degenerative spondylosis of the visualized upper cervical spine. Dedicated cervical spine MR can be considered for further evaluation, if clinically warranted. Reviewed, dictated and finalized at [facility]. STANT FAMILY TEACHER IMPRESSION: No acute intracranial abnormality. Moderate to advanced chronic microvascular ischemic change. Advanced degenerative spondylosis of the visualized upper cervical spine. Dedic ated cervical spine MR can be considered for further evaluation, if clinically warranted.
--- NOTE | ~2023-07-29 | XR_ITS ---
EXAMINATION: XR_[id number]_CR DATE: 08/02/2023 12:55 INDICATION: Neck pain. TECHNIQUE: 4 views of cervical spine on 5 radiographs were obtained. COMPARISON: Neck CTA 07/21/21 FINDINGS: There is 2 mm retrolisthesis of C3 on C4, C4 on C5, C5 on C6, and C6 on C7. There is kyphos is of upper cervical spine. There is 11 degrees dextroscoliosis of cervicothoracic spine. Vertebral b mitra heights are normal. There is severely decreased disc height from C3-C4 through C6-C7 and moderate ly decreased disc height at C7-T1. There is mild central canal stenosis at C3-C4, C4-C5, C5-C6, and C 6-C7. There is stable prevertebral soft tissue thickening secondary to retropharyngeal internal carot id arteries on the prior CTA. IMPRESSION: 1. Severe cervical spondylosis. 2. Cervicothoracic dextroscoliosis. Reviewed, dictated and finalized at location A. GER IN TRAINING
--- NOTE | ~2023-07-29 | US_ITS ---
EXAMINATION: US retroperitoneal duplex ltd DATE: 08/01/2023 06:45 WRAPPING MACHINE TENDER INDICATION: Accelerated hypertension. TECHNIQUE: Sonographic imaging of the kidneys was performed with a 3.5 MHz transducer. Retroperitone al duplex sonogram of the renal arteries also obtained. FINDINGS: No focal flow abnormalities are seen in the renal arteries on color Doppler. The peak syst olic velocity ranges of the right and left renal arteries and aorta are 123 cm per second, 42 cm per second, and 63 cm per second, respectively. The velocities and renal to aortic ratios are within norm al limits. IMPRESSION: 1. No Doppler evidence of renal artery stenosis. Reviewed, dictated and finalized at location A. PING MACHINE TENDER
--- NOTE | ~2023-07-29 | CT_ITS ---
EXAMINATION: CT brain wo con DATE: 07/29/2023 19:20 INDICATION: Headache. TECHNIQUE: Computed tomography (CT) of the head was performed without intravenous contrast. The mA wa s adjusted according to patient size. Iterative reconstruction technique was employed. The dose-lengt h product was 605.33 mGy-cm. COMPARISON: Head CT 12/25/2021 FINDINGS: There are scattered areas of low attenuation in the cerebral white matter. There is no intr acranial hemorrhage, acute infarction, or abnormal intracranial mass lesion. The ventricles are rad l in size. The paranasal sinuses are clear. There are likely changes of ocular lens replacement surge humberto. The mastoid air cells are normal. IMPRESSION: 1. Worsened moderate nonspecific cerebral white matter disease, which likely represents chronic small vessel ischemic disease. Reviewed, dictated and finalized at location E. LE ROOM SUPERVISOR IMPRESSION: 1. Worsened moderate nonspecific cerebral white matter disease, which likely re presents chronic small vessel ischemic disease.
--- NOTE | 2023-07-29 18:29 | ED.HEATRA ---
HPI - Head Injury General Chief complaint: Head Injury Stated complaint: headache Time Seen by Provider: 07/29/23 18:26 Source: patient and family () Limitations: no limitations History of Present Illness HPI Narrative: 78 yo female presents with complaint of a headache of 2 weeks duration. She has also been intermittently nauseated and seems to have nightly episodes of vomiting. She has a history of ESRD on daily peritoneal dialysis, performed at home nightly. States she has not been missing sessions, last performed last night. Gluten Settling Tender is Dr Perrin. No fevers. She is also experiencing bilateral lower extremity leg pain, though left more than right. No trauma/injury for head or leg. Deneis abdominal pain. Denies chest pain but is having difficulty breathing. Has been hypertensive but continues to take her home medications. Remains hungry, has an appetite. No report of unilateral/focal deficitis or slurred speech. She ambulates with a cane at baseline. Medications: aspirin, buspirone, cyclobenzaprine, furosemide, gabapentin, lanthanum, lorazepam, Renocaps, ropinerole, synthroid, tramadol Related Data Home Medications Medication Instructions Recorded Confirmed aspirin 81 mg tablet,delayed 81 mg PO DAILY 07/10/19 07/29/23 release (Adult Aspirin Regimen) ropinirole 0.25 mg tablet 0.5 mg PO HS 08/23/19 07/29/23 furosemide 80 mg tablet (Lasix) 80 mg PO TID 06/02/22 07/29/23 darbepoetin krystle-albumin 100 100 mcg [id number] 07/29/23 07/29/23 mcg/0.5 mL in albumin injection syringe potassium chloride 20 mEq 10 meq PO DAILY 07/29/23 07/29/23 tablet,extended release vitamin B complex and vitamin C 1 cap PO HS 07/29/23 07/29/23 no.20-folic acid 1 mg capsule (Maxwell Caps) cyclobenzaprine 5 mg tablet 5 mg PO HS 07/30/23 07/29/23 gabapentin 100 mg capsule 100 mg PO QHS 07/30/23 07/29/23 Allergies Allergy/AdvReac Type Severity Reaction Status Date / Time No Known Allergies Allergy Verified 07/29/23 18:33 [facility] Past Medical History Medical History Acquired hypothyroidism Acute on chronic anemia Anemia in chronic kidney disease Anxiety Chronic kidney disease, stage V On the transplant list Dialysis patient peritoneal ESRD (end stage renal disease) Fecal occult blood test positive Headache Hemorrhage following tonsillectomy and adenoidectomy HLD (hyperlipidemia) Large hiatal hernia Mycobacterium avium complex PAD (peripheral artery disease) Primary osteoarthritis, unspecified site Reversible posterior leukoencephalopathy Secondary hyperparathyroidism (of renal origin) Surgical History Surgical History History of appendectomy History of tubal ligation Presence of peritoneal dialysis catheter Family History Family History Mother Diabetes mellitus Cerebrovascular accident Father Family history of cardiovascular disease Social History Social History Social History: Smoking status: Never smoker Second hand tobacco smoke exposure: No Alcohol intake: never Substance use: never Substance use type: does not use Do You Feel Safe in your Home?: Yes Lack of Transportation: No Lack of Food: Never True Current Housing: I Have Housing Concerned About Future Housing: No Difficulty Paying Gas/Electric Bills: No Difficulty Paying for Meds: No Currently Unemployed: No Education: High School Diploma/GED Difficulty w/ Childcare or Family Care: No Living arrangements: with family Occupation/Education: retired Gender identity (if verbalized by the patient): Female Sexual Orientation (if Verbalized by the Patient): Straight or Heterosexual Spiritual care concerns: No Exam Narrative: GENERAL: lean; well-nourished; appears uncomfortable, restless
--- NOTE | 2023-07-29 18:38 | ECG_ITS ---
Measurements Intervals [place] Rate: 83 P: 24 NE: 139 QRS: 46 QRSD: 94 T: 56 QT: 388 QTc: 456 Interpretive Statements SINUS RHYTHM BORDERLINE ST-T WAVE ABNORMALITY- ANT/HIGH LAT LEADS BASELINE ARTIFACT- I, III, AVR, AVL, AVF, V1-V2 BORDERLINE ECG COMPARED TO ECG 07/02/2023 14:36:30 ST-T WAVE ABNORMALITY NOW PRESENT Electronically Signed On 07-29-2023 18:59:45 DRILL OPERATOR PNEUMATIC by Mason Menedz D.O.
[2023-07-29] MEDS: ACETAMINOPHEN 325 MG TABLET 650 MG PO (19:01)
[2023-07-29] MEDS: PROCHLORPERAZINE EDISYLATE 10 MG/2 ML VIAL IV PUSH (19:02)
[2023-07-29 19:03] LABS: Basophils Percent Auto 0.2 % (0.2-1.2); Eosinophils Absolute Auto 0.1 K/mm3 (0-0.3); Eosinophils Percent Auto 1.5 % (0-4.4); Hematocrit 29.4 % (37.0-47.0); Hemoglobin 9.3 g/dL (12.0-15.0); Immature Granulocyte Absolute 0.03 K/mm3 (0.00-0.031); Immature Granulocyte Percent A 0.5 % (0-0.5); Lymphocytes Absolute Auto 1.22 K/mm3 (0.9-3.2); Lymphocytes Percent Auto 22.2 % (18.3-44.2); Mean Corpuscular HGB Conc 31.6 g/dl (32-36); Mean Corpuscular Hemoglobin 31.4 pg (26-34); Mean Corpuscular Volume 99.3 fl (80-100); Mean Platelet Volume 8.9 fl (7.4-10.4); Monocytes Absolute Auto 0.6 K/mm3 (0.1-0.6); Monocytes Percent Auto 11.6 % (2.6-8.5); Neutrophils Absolute Auto 3.5 K/mm3 (1.3-6.7); Platelet Count Result 274 k/mm3 (150-375); Red Blood Count 2.96 M/mm3 (4.2-5.4); Red Cell Distribution Width 14.4 % (11.5-14.5); White Blood Count 5.5 K/mm3 (4.5-10.0)
--- NOTE | 2023-07-29 19:07 | PC.NURSE ---
Report given to Kelly MERRITT, all questions answered
[2023-07-29 19:13] LABS: Alanine Aminotransferase 15 U/L (6-35); Albumin Level 2.9 g/dL (3.5-5.1); Alkaline Phosphatase 68 U/L (38-126); Anion Gap 14 mmol/L (8-16); Aspartate Amino Transferase 28 U/L (14-36); Bilirubin,Total 0.8 mg/dL (0.2-1.3); Blood Urea Nitrogen 88 mg/dL (7-17); Calcium 8.8 mg/dL (8.4-10.2); Carbon Dioxide 25 mmol/L (22-30); Chloride 93 mmol/L (98-107); Creatine Kinase 69 U/L (30-135); Estimated CRCL calculation 4 ml/min; Estimated Glomerular Filt Rate 4; Glucose 82 mg/dL (65-110); Magnesium 2.6 mg/dL (1.6-2.3); Potassium 2.9 mmol/L (3.4-5.0); Sodium 132 mmol/L (137-145)
[2023-07-29 19:25] LABS: Troponin I 0.029 ng/mL (0.000-0.034)
[2023-07-29] MEDS: POTASSIUM CHLORIDE 20 MEQ PACKET (FOR LIQUID) 40 MEQ PO (19:59)
--- NOTE | 2023-07-29 20:24 | PM.IMHP ---
H&P: HPI History of Present Illness Date/Time: 07/29/23 20:24 Chief Complaint: Headache Narrative: Patient has history of end-stage renal disease on daily peritoneal dialysis at home, anxiety restless leg syndrome. She presented the ED today for evaluation of headache which she said has been going on for over 1 week, describes headache as sharp, 6 to 7/10 in severity, worsened by light, not the worst headache of her life, associated nausea, but no vomiting, next congestion but no sore throat fever or diarrhea, no neck stiffness, denied onset during exertion, no loss of consciousness, no weakness or numbness of extremities or face. She reported right hip/extremity pain which she stated started today. she was evaluated in the ER and found to have potassium level of 2.9, creatinine of 8.6 and BUN of 88. CT scan of the head showed worsened cerebral white matter disease that is nonspecific, x-ray of pelvis showed severe right osteoarthritis and chest x-ray came back negative for any acute findings. Patient was provided with prochlorperazine IV, however during my encounter with this patient, this has not seemed to have helped. She wanted light turned off and rated headache at 5/10. She also feels dry in her mouth. I was consulted to admit this patient for observation. Review of Systems Review of Systems: All systems reviewed & are unremarkable except as noted in HPI and below PMFSH Past Medical History Medical History Acquired hypothyroidism Acute on chronic anemia Anemia in chronic kidney disease Anxiety Chronic kidney disease, stage V On the transplant list Dialysis patient peritoneal ESRD (end stage renal disease) Fecal occult blood test positive Headache Hemorrhage following tonsillectomy and adenoidectomy HLD (hyperlipidemia) Large hiatal hernia Mycobacterium avium complex PAD (peripheral artery disease) Primary osteoarthritis, unspecified site Reversible posterior leukoencephalopathy Secondary hyperparathyroidism (of renal origin) Surgical History Surgical History History of appendectomy History of tubal ligation Presence of peritoneal dialysis catheter Family History Family History Mother Diabetes mellitus Cerebrovascular accident Father Family history of cardiovascular disease Social History Social History Social History: Smoking status: Never smoker Second hand tobacco smoke exposure: No Alcohol intake: never Substance use: never Substance use type: does not use Do You Feel Safe in your Home?: Yes Lack of Transportation: No Lack of Food: Never True Current Housing: I Have Housing Concerned About Future Housing: No Difficulty Paying Gas/Electric Bills: No Difficulty Paying for Meds: No Currently Unemployed: No Education: High School Diploma/GED Difficulty w/ Childcare or Family Care: No Living arrangements: with family Occupation/Education: retired Gender identity (if verbalized by the patient): Female Sexual Orientation (if Verbalized by the Patient): Straight or Heterosexual Spiritual care concerns: No Meds Home Medications and Allergies Home Medications Medication Instructions Recorded Confirmed Type aspirin 81 mg tablet,delayed 81 mg PO DAILY 07/10/19 07/29/23 History release (Adult Aspirin Regimen) ropinirole 0.25 mg tablet 0.5 mg PO HS 08/23/19 07/29/23 History propranolol 10 mg tablet 20 mg PO Q12H #90 tabs 02/01/21 07/30/23 Rx furosemide 80 mg tablet (Lasix) 80 mg PO TID 06/02/22 07/29/23 History buspirone 7.5 mg tablet 7.5 mg PO BID #180 tabs 12/14/22 07/29/23 Rx levothyroxine 137 mcg tablet See Rx Instructions .Route 04/16/23 07/29/23 Rx .COMPLEX #90 tabs lorazepam 1 mg tablet 1 mg PO TID PRN anxiety #60 tabs 07/06/23
[2023-07-29] MEDS: LORazepam INJ (*CRX) 2 MG/ML VIAL 0.5 MG IV PUSH (20:28)
[2023-07-29] MEDS: ONDANSETRON INJ 4 MG/2 ML VIAL IV PUSH (20:28)
[2023-07-29 20:49] LABS: Influenza A QL RT-PCR Negative (Negative); Influenza B QL RT-PCR Negative (Negative); RSV RNA, RT-PCR Negative (Negative); SARS-CoV-2 RNA PCR Negative (Negative)
--- NOTE | 2023-07-29 23:13 | PC.NURSE ---
Hospitalist at bedside orders Labetalol and Tramadol VORB.
[2023-07-29] MEDS: LABETALOL HCL INJ 100 MG/20 ML VIAL 20 MG IV PUSH (23:21)
--- NOTE | 2023-07-29 23:31 | ADMGEN ---
This patient, Jacquie Cano, was admitted to Medical Room 241-. Patient/family oriented to hospital policies and general routines including ID bracelet, bed and alarms, visiting hours, pain management, procedures, bathroom and other care routines, personal items, smoking policy, room service/diet, and visiting hours. Information on how to activate the Rapid Response Team has been discussed. Patient/Family are encouraged to report perceived risks to care and to ask questions if they do not understand what they are told or what they should do.
[2023-07-30] VITALS (15 sets, daily range): BP systolic 157–172; BP diastolic 82–92; PULSE 68–82; RESP 16–18; TEMP 36.6–36.9; O2SAT 98–100; BMI 18.4
[2023-07-30] MEDS: traMADol HCL (*CRX) 50 MG TABLET PO ×3 (05:36→22:09)
[2023-07-30 05:41] LABS: Basophils Percent Auto 0.4 % (0.2-1.2); Eosinophils Absolute Auto 0.1 K/mm3 (0-0.3); Eosinophils Percent Auto 2.8 % (0-4.4); Hematocrit 30.8 % (37.0-47.0); Hemoglobin 9.6 g/dL (12.0-15.0); Immature Granulocyte Absolute 0.03 K/mm3 (0.00-0.031); Immature Granulocyte Percent A 0.7 % (0-0.5); Lymphocytes Absolute Auto 0.96 K/mm3 (0.9-3.2); Lymphocytes Percent Auto 20.8 % (18.3-44.2); Mean Corpuscular HGB Conc 31.2 g/dl (32-36); Mean Corpuscular Hemoglobin 31.1 pg (26-34); Mean Corpuscular Volume 99.7 fl (80-100); Mean Platelet Volume 9.1 fl (7.4-10.4); Monocytes Absolute Auto 0.5 K/mm3 (0.1-0.6); Monocytes Percent Auto 10.6 % (2.6-8.5); Neutrophils Percent Auto 64.7 % (45.5-73.1); Platelet Count Result 280 k/mm3 (150-375); Red Blood Count 3.09 M/mm3 (4.2-5.4); Red Cell Distribution Width 14.3 % (11.5-14.5); White Blood Count 4.6 K/mm3 (4.5-10.0)
[2023-07-30 06:00] LABS: Anion Gap 12 mmol/L (8-16); Blood Urea Nitrogen 89 mg/dL (7-17); Calcium 8.6 mg/dL (8.4-10.2); Carbon Dioxide 26 mmol/L (22-30); Chloride 94 mmol/L (98-107); Estimated CRCL calculation 3 ml/min; Estimated Glomerular Filt Rate 4; Glucose 86 mg/dL (65-110); Potassium 3.1 mmol/L (3.4-5.0); Sodium 132 mmol/L (137-145)
--- NOTE | 2023-07-30 07:20 | P.PNIM_ITS ---
Progress Note: A&P Assessment and Plan (1) Headache: Code(s): R51.9 - Headache, unspecified Status: Acute Assessment and Plan: 07/30/23: * Reporting headache x1 week that has been constant, she has sensitivity to light and associated nausea * CT of the head showing worsening moderate nonspecific cerebral white matter disease, which likely represents chronic small vessel ischemic disease. * Patient was given Tylenol in ER, tramadol was ordered as well. 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 She was also noted to have small infarcts on some of her scans * MRI of brain showing no acute abnormality, moderate to advanced chronic microvascular ischemic change, advanced degenerative spondylosis of upper C- spine. * Neurology consulted (2) Hypertension: Code(s): I10 - Essential (primary) hypertension Status: Chronic Assessment and Plan: 07/30/23: * B/P ranging 168/89-209/99 * Labetalol given and ordered PRN * Patient restarted on Propranolol 20 mg BID (3) ESRD (end stage renal disease): Code(s): N18.6 - End stage renal disease Status: Chronic Assessment and Plan: 07/30/23: * Currently on peritoneal dialysis, she is followed by Dr. Sprague * She was on the transplant list however she was deemed not a candidate due to her age. * BUN 89/Creatinine 9.10, eGFR 4, creatinine clearance 3 * Nephrology consulted (4) Hypokalemia: Code(s): E87.6 - Hypokalemia Status: Acute Assessment and Plan: 07/30/23: * Initial K+ 2.9 * Patient was given 40 meq of KCL in ER * Today's lab showing 3.1 (5) Hyponatremia: Code(s): E87.1 - Hypo-osmolality and hyponatremia Status: Acute Assessment and Plan: 07/30/23: * Na+ level 132 (6) Acquired hypothyroidism: Code(s): E03.9 - Hypothyroidism, unspecified Status: Acute Assessment and Plan: 07/30/23: * Last TSH 1.070 on 03/24/23 * Will recheck this again today * Patient on synthroid, however will ask nursing to verify dosage (7) Anxiety: Code(s): F41.9 - Anxiety disorder, unspecified Status: Acute Assessment and Plan: 07/30/23: * Continued Buspar and Lorazepam (8) Depression: Code(s): F32.A - Depression, unspecified Status: Acute Assessment and Plan: 07/30/23: * Restarted Cymbalta Time Spent With Patient Time with patient: 25 - 35 minutes Subjective Date/time seen: 07/30/23 07:20 Interval history: This is a 78 year old female with a significant past medical history of end- stage renal disease on peritoneal dialysis who presented 07/29/23 with a headache that has been constant x1 week. Work up included CT of the head which shown worsened moderate nonspecific cerebral white matter disease, which likely represents chronic small vessel ischemic disease. EKG shows sinus rhythm with a rate of 83, prolonged QTC. Labs initially revealed WBC 5.5, hemoglobin 9.3, hematocrit 29.4, sodium 132, potassium 2.9, chloride 93, BUN 88, creatinine 8.6 EGFR is 4 magnesium was 2.6, liver enzymes normal protein 5.0 albumin 2.9. Respiratory panel was negative for influenza, RSV, COVID. Hepatitis be antigen was negative, hepatitis B antibody positive. Blood cultures were obtained and are pending. Her blood pressures have been elevated and ranging 168/89-209/99. She reports associated nausea and photosensitivity. She was given Labetalol, Prochlorperazine, Zofran, Lorazepam, Buspirone, and 40 meq of KCL. Nephrology was consulted.
--- NOTE | 2023-07-30 07:20 | PM.IMPN ---
Progress Note: A&P Assessment and Plan (1) Headache: Code(s): R51.9 - Headache, unspecified Status: Acute Assessment and Plan: 07/30/23: Reporting headache x1 week that has been constant, she has sensitivity to light and associated nausea CT of the head showing worsening moderate nonspecific cerebral white matter disease, which likely represents chronic small vessel ischemic disease. Patient was given Tylenol in ER, tramadol was ordered as well. 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 She was also noted to have small infarcts on some of her scans MRI of brain showing no acute abnormality, moderate to advanced chronic microvascular ischemic change, advanced degenerative spondylosis of upper C-spine. Neurology consulted (2) Hypertension: Code(s): I10 - Essential (primary) hypertension Status: Chronic Assessment and Plan: 07/30/23: B/P ranging 168/89-209/99 Labetalol given and ordered PRN Patient restarted on Propranolol 20 mg BID (3) ESRD (end stage renal disease): Code(s): N18.6 - End stage renal disease Status: Chronic Assessment and Plan: 07/30/23: Currently on peritoneal dialysis, she is followed by Dr. Sprague She was on the transplant list however she was deemed not a candidate due to her age. BUN 89/Creatinine 9.10, eGFR 4, creatinine clearance 3 Nephrology consulted (4) Hypokalemia: Code(s): E87.6 - Hypokalemia Status: Acute Assessment and Plan: 07/30/23: Initial K+ 2.9 Patient was given 40 meq of KCL in ER Today's lab showing 3.1 (5) Hyponatremia: Code(s): E87.1 - Hypo-osmolality and hyponatremia Status: Acute Assessment and Plan: 07/30/23: Na+ level 132 (6) Acquired hypothyroidism: Code(s): E03.9 - Hypothyroidism, unspecified Status: Acute Assessment and Plan: 07/30/23: Last TSH 1.070 on 03/24/23 Will recheck this again today Patient on synthroid, however will ask nursing to verify dosage (7) Anxiety: Code(s): F41.9 - Anxiety disorder, unspecified Status: Acute Assessment and Plan: 07/30/23: Continued Buspar and Lorazepam (8) Depression: Code(s): F32.A - Depression, unspecified Status: Acute Assessment and Plan: 07/30/23: Restarted Cymbalta Time Spent With Patient Time with patient: 25 - 35 minutes Subjective Date/time seen: 07/30/23 07:20 Interval history: This is a 78 year old female with a significant past medical history of end-stage renal disease on peritoneal dialysis who presented 07/29/23 with a headache that has been constant x1 week. Work up included CT of the head which shown worsened moderate nonspecific cerebral white matter disease, which likely represents chronic small vessel ischemic disease. EKG shows sinus rhythm with a rate of 83, prolonged QTC. Labs initially revealed WBC 5.5, hemoglobin 9.3, hematocrit 29.4, sodium 132, potassium 2.9, chloride 93, BUN 88, creatinine 8.6 EGFR is 4 magnesium was 2.6, liver enzymes normal protein 5.0 albumin 2.9. Respiratory panel was negative for influenza, RSV, COVID. Hepatitis be antigen was negative, hepatitis B antibody positive. Blood cultures were obtained and are pending. Her blood pressures have been elevated and ranging 168/89-209/99. She reports associated nausea and photosensitivity. She was given Labetalol, Prochlorperazine, Zofran, Lorazepam, Buspirone, and 40 meq of KCL. Nephrology was consulted. Of note patient had a similar presentation back in July 2021. They did an MRI at that time that raised concern for cerebritis as there was left parietal, bilateral occipital subcortical edema. At that time she had AMS with reversible posterior encephalopathy syndrome. She also had small regions of right occipital, left parietal lobe decreased cortical attenuation, infarcts on her scans. EEG was done on 07/24/21 which was a
[2023-07-30 07:32] LABS: Hepatitis B Surface Antigen Negative (Negative)
[2023-07-30 07:50] LABS: Hepatitis B Surface Anti Res Positive
--- NOTE | 2023-07-30 09:02 | PM.CNNEP ---
Assessment and Plan Assessment and plan (1) ESRD (end stage renal disease): Code(s): N18.6 - End stage renal disease Status: Chronic Assessment and Plan: resume CCPD tonight follow electrolytes, volume status, and clearance (2) Hypokalemia: Code(s): E87.6 - Hypokalemia Status: Acute Assessment and Plan: was on potassium supplements up until a few days ago possible precipitated by diuretics, dialysis, and diminished oral intake po supplementation for now follow trend of repeat K+ levels (3) Headache: Code(s): R51.9 - Headache, unspecified Status: Acute Assessment and Plan: etiology? BP playing a role -- has a history of PRES in the past migraine? Neurology consulted further imaging needed? headache has diminished since admission (4) Anemia: Code(s): D64.9 - Anemia, unspecified Status: Chronic Assessment and Plan: due in part to ESRD however, has fluctuated to extremes from outpatient records had seen Hematology for evaluation of this but work-up has been negative on [facility] as an outpatient unable to tolerate Epogen (as use resulted in hypertensive urgency) follow trend of H/H (5) Hypertension: Code(s): I10 - Essential (primary) hypertension Status: Chronic Assessment and Plan: better control at this time - elevated on admiswsion elevated BP may have secondary to pain/discomfort from headache back on home medications follow trend of hemodynamics I will continue to follow patient with you while she remains hospitalized and make further recommendations during her hospital course. Thank you for allowing me to participate in care of this patient. History of Present Illness Reason for Consult Consult date: 07/30/23 Reason for consult: end stage renal disease Chief Complaint Chief complaint: Hypokalemia,ESRD on Peritoneal Dialysis History of Present Illness Narrative: The patient is a 78-year-old female with a past medical history as outlined below who presented to [facility] for further evaluation of a persistent headache. The patient reports that this headache started over a week ago and has been fluctuating in terms of severity since its initiation. she described the severity of the headache as 6 to 7/10 and described as a sharp intense pain in association with nausea and nasal congestion. She denies any worsening by light or associated vomiting or for that matter sore throat, fever, chills, or neck stiffness. No reported loss of consciousness generalized weakness, numbness / tingling in the extremities or face. Given the persistence of this symptoms that have been going on for last week, she came to the emergency room for further assessment. Workup and evaluation emergency room demonstrated routine blood test that were significant for anemia of chronic disease in association with a chemistry panel consistent with her known history of end-stage renal disease although she was noted be hypokalemic with a potassium of 2.9. CT scan of the head showed worsened cerebral white matter disease that is nonspecific and her chest x-ray was negative. As she is also complaining of right hip pain, she had x-ray of the pelvis which just showed severe right osteoarthritis/degenerative joint disease. Given her symptoms on presentation to the ER, she was given a combination of IV Compazine and pain medications which did not really seem to help her symptoms. She was subsequently admitted to the hospital for further evaluation and therapy. Since her admission, her headache seems to have subsided. It was noted that on presentation to the ER her blood pressure was quite elevated but it is difficult to say if the blood pressure precipitate her headache or if the high blood pressure was secondary to the pain/discomfort associated with the headache. She receives supplemental potassium in the
--- NOTE | 2023-07-30 09:32 | WPDNEURCNPN ---
Assessment and Plan Assessment and plan (1) Headache: Code(s): R51.9 - Headache, unspecified Status: Acute (2) Migraine: Code(s): G43.909 - Migraine, unspecified, not intractable, without status migrainosus Status: Acute (3) ESRD (end stage renal disease) on dialysis: Code(s): N18.6 - End stage renal disease; Z99.2 - Dependence on renal dialysis Status: Acute Plan Ms. Cano is a 78 year old female with a history of PRES, hypothyroidism, ESRD, HLD, PAD presenting for evaluation of two week history of headaches. She has a prior history of migraines The quality of her current headaches seems migrainous, and patient reports that they are similar to her migraines in the past. She does not have a history of cerebritis as it was suggested in her chart, but does have a history of PRES. Her headaches have improved since admission. She has no fever, elevated WBC, neck stiffness or encephalopathy to suggest an infectious cause currently. Unfortunately due to renal disease cannot use NSAIDs, cannot give triptan given PAD. She has Tylenol which is appropriate as PRN. Can also supplement with Benadryl 25mg and Zofran 4mg at the same time Tylenol is given. If migraines worsen, can increase propranolol to 30mg BID. If quality of headaches changes or is different from her baseline migraines, obtain MRI/MRV brain +/- LP depending on results of imaging. Consult date: 07/30/23 Reason for consult: Headache HPI: Jacquie Cano is a 78 year old female with a history of ESRD on dialysis, anxiety, hypothyroidism, HLD, PAD, PRES, RLS presenting for headache in the past two weeks. Patient reports a sharp headache, 6-7/10 in severity associated with nausea and photophobia. She denies any fever, neck stiffness, no alteration in consciousness. She reports R hip and RLE pain which started on the day of admission. She presented to the ED yesterday at [facility] where her blood pressure ranged from the 140-160s systolic. EKG showed normal sinus rhythm. CT head was negative for any acute changes. Renal function appeared to be at baseline. Patient did not miss any dialysis sessions. WBC is within normal range. UA does not look concerning for UTI. In the ED, patient was given prochlorperazine IV, which did not help significantly. Patient reports that her headache is better today -- she rates it a 4/10. She has a history of migraines for which she takes propranolol 20mg BID. Her migraines have been well-controlled for a while until this admission. She reports that the headaches that she is having are very similar to her migraines in the past. Of note, there is no history of cerebritis that patient is aware of. Also there is no documentation of this diagnosis. She does have a history of PRES from 2021. Review of Systems Review of Systems: All systems reviewed & are unremarkable except as noted in HPI and below PMFSH Past Medical History Medical History Acquired hypothyroidism Acute on chronic anemia Anemia in chronic kidney disease Anxiety Chronic kidney disease, stage V On the transplant list Dialysis patient peritoneal ESRD (end stage renal disease) Fecal occult blood test positive Headache Hemorrhage following tonsillectomy and adenoidectomy HLD (hyperlipidemia) Large hiatal hernia Mycobacterium avium complex PAD (peripheral artery disease) Primary osteoarthritis, unspecified site Reversible posterior leukoencephalopathy Secondary hyperparathyroidism (of renal origin) Surgical History Surgical History History of appendectomy History of tubal ligation Presence of peritoneal dialysis catheter Family History Family History Mother Diabetes mellitus Cerebrovascular accident Father Family history of cardiovascular disease Social History Social History (Reviewed 0
--- NOTE | 2023-07-30 10:00 | PC.NURSE ---
Patient has PD catheter in left abdominal area. Dressing intact, no S/S of bleeding/infection
[2023-07-30] MEDS: FUROSEMIDE 80 MG TABLET PO ×3 (10:18→17:16)
[2023-07-30] MEDS: PROPRANOLOL HCL 20 MG TABLET PO ×2 (10:18→22:04)
[2023-07-30] MEDS: DULoxetine HCL 30 MG CAPSULE.DR PO (10:18)
[2023-07-30] MEDS: LORazepam (*CRX) 1 MG TABLET PO ×3 (10:19→22:09)
[2023-07-30] MEDS: busPIRone HCL 2.5 MG, busPIRone HCL 5 MG 7.5 MG PO ×2 (10:19→22:04)
[2023-07-30] MEDS: POTASSIUM CHLORIDE 20 MEQ ER TABLET 40 MEQ PO (13:21)
[2023-07-30] MEDS: LORATADINE/PSEUDOEPHEDRINE (*CRX) 10/240 MG TABLET ER 24 HR 1 TAB PO (13:28)
[2023-07-30] MEDS: rOPINIRole HCL 0.5 MG TABLET PO (22:04)
[2023-07-30] MEDS: CYCLOBENZAPRINE HCL 5 MG TABLET PO (22:04)
[2023-07-31] VITALS (16 sets, daily range): BP systolic 152–188; BP diastolic 84–96; PULSE 74–89; RESP 16–18; TEMP 36.5–36.9; O2SAT 99–100
[2023-07-31] MEDS: ACETAMINOPHEN 325 MG TABLET 650 MG PO (03:20)
[2023-07-31 05:01] LABS: Hematocrit 34.1 % (37.0-47.0); Hemoglobin 10.2 g/dL (12.0-15.0); Mean Corpuscular HGB Conc 29.9 g/dl (32-36); Mean Corpuscular Hemoglobin 30.5 pg (26-34); Mean Corpuscular Volume 102.1 fl (80-100); Mean Platelet Volume 9.2 fl (7.4-10.4); Platelet Count Result 297 k/mm3 (150-375); Red Blood Count 3.34 M/mm3 (4.2-5.4); Red Cell Distribution Width 14.1 % (11.5-14.5); White Blood Count 6.3 K/mm3 (4.5-10.0)
[2023-07-31 05:15] LABS: Alanine Aminotransferase 17 U/L (6-35); Albumin Level 3.3 g/dL (3.5-5.1); Alkaline Phosphatase 68 U/L (38-126); Anion Gap 14 mmol/L (8-16); Aspartate Amino Transferase 31 U/L (14-36); Bilirubin,Total 0.8 mg/dL (0.2-1.3); Blood Urea Nitrogen 86 mg/dL (7-17); Calcium 9.1 mg/dL (8.4-10.2); Carbon Dioxide 26 mmol/L (22-30); Chloride 94 mmol/L (98-107); Estimated CRCL calculation 4 ml/min; Estimated Glomerular Filt Rate 5; Glucose 100 mg/dL (65-110); Potassium 3.5 mmol/L (3.4-5.0); Sodium 134 mmol/L (137-145)
[2023-07-31] MEDS: busPIRone HCL 2.5 MG, busPIRone HCL 5 MG 7.5 MG PO ×2 (08:47→21:38)
[2023-07-31] MEDS: LORazepam (*CRX) 1 MG TABLET PO ×3 (08:47→21:37)
[2023-07-31] MEDS: PROPRANOLOL HCL 20 MG TABLET PO ×2 (08:47→21:39)
[2023-07-31] MEDS: LORATADINE/PSEUDOEPHEDRINE (*CRX) 10/240 MG TABLET ER 24 HR 1 TAB PO (08:47)
[2023-07-31] MEDS: FUROSEMIDE 80 MG TABLET PO ×3 (08:47→18:25)
[2023-07-31] MEDS: DULoxetine HCL 30 MG CAPSULE.DR PO (08:47)
[2023-07-31] MEDS: traMADol HCL (*CRX) 50 MG TABLET PO ×2 (08:48→19:19)
[2023-07-31] MEDS: LABETALOL HCL INJ 100 MG/20 ML VIAL 20 MG IV PUSH (09:25)
--- NOTE | 2023-07-31 14:40 | P.PNIM_ITS ---
Progress Note: A&P Assessment and Plan (1) Headache: Code(s): R51.9 - Headache, unspecified Status: Acute Assessment and Plan: 07/30/23: * Reporting headache x1 week that has been constant, she has sensitivity to light and associated nausea * CT of the head showing worsening moderate nonspecific cerebral white matter disease, which likely represents chronic small vessel ischemic disease. * Patient was given Tylenol in ER, tramadol was ordered as well. 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 She was also noted to have small infarcts on some of her scans * MRI of brain showing no acute abnormality, moderate to advanced chronic microvascular ischemic change, advanced degenerative spondylosis of upper C- spine. * Neurology consulted 07/31/23: * Still reporting a headache, reports neck pain * Continue pain medications as needed * Neurology following, recommending more blood pressure control (2) Hypertension: Code(s): I10 - Essential (primary) hypertension Status: Chronic Assessment and Plan: 07/30/23: * B/P ranging 168/89-209/99 * Labetalol given and ordered PRN * Patient restarted on Propranolol 20 mg BID 07/31/23: * B/P still quite elevated today * DC'd PRN Labetalol * Started Hydralazine 50 mg BID, patient states she takes this at home but the dosage was too high as she took 100 mg TID. * Continue Propranolol * Renal ultrasound ordered to check for renal artery stenosis (3) ESRD (end stage renal disease): Code(s): N18.6 - End stage renal disease Status: Chronic Assessment and Plan: 07/30/23: * Currently on peritoneal dialysis, she is followed by Dr. Sprague * She was on the transplant list however she was deemed not a candidate due to her age. * BUN 89/Creatinine 9.10, eGFR 4, creatinine clearance 3 * Nephrology consulted 07/31/23: * no change to current treatment plan (4) Hypokalemia: Code(s): E87.6 - Hypokalemia Status: Acute Assessment and Plan: 07/30/23: * Initial K+ 2.9 * Patient was given 40 meq of KCL in ER * Today's lab showing 3.1 07/31/23: * K+ 3.5, no further replacement needed at this time * Continue to trend lab (5) Hyponatremia: Code(s): E87.1 - Hypo-osmolality and hyponatremia Status: Acute Assessment and Plan: 07/30/23: * Na+ level 132 07/31/23: * Na+ 134 * Continue to trend (6) Acquired hypothyroidism: Code(s): E03.9 - Hypothyroidism, unspecified Status: Acute Assessment and Plan: 07/30/23: * Last TSH 1.070 on 03/24/23 * Will recheck this again today * Patient on synthroid, however will ask nursing to verify dosage 07/31/23: * No change to current treatment plan (7) Anxiety: Code(s): F41.9 - Anxiety disorder, unspecified Status: Acute Assessment and Plan: 07/30/23: * Continued Buspar and Lorazepam 07/31/23: * No change to current treatment plan (8) Depression: Code(s): F32.A - Depression, unspecified Status: Acute Assessment and Plan: 07/30/23: * Restarted Cymbalta 07/31/23: * No change to current treatment plan Time Spent With Patient Time with patient: 25 - 35 minutes Subjective Date/time seen: 07/31/23 14:40 Interval history: 07/30/23: This is a 78 year old female with a significant past medical history of end- stage renal disease on peritoneal dialysis who presented 07/29/23 with a hea
--- NOTE | 2023-07-31 14:40 | PM.IMPN ---
Progress Note: A&P Assessment and Plan (1) Headache: Code(s): R51.9 - Headache, unspecified Status: Acute Assessment and Plan: 07/30/23: Reporting headache x1 week that has been constant, she has sensitivity to light and associated nausea CT of the head showing worsening moderate nonspecific cerebral white matter disease, which likely represents chronic small vessel ischemic disease. Patient was given Tylenol in ER, tramadol was ordered as well. 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 She was also noted to have small infarcts on some of her scans MRI of brain showing no acute abnormality, moderate to advanced chronic microvascular ischemic change, advanced degenerative spondylosis of upper C-spine. Neurology consulted 07/31/23: Still reporting a headache, reports neck pain Continue pain medications as needed Neurology following, recommending more blood pressure control (2) Hypertension: Code(s): I10 - Essential (primary) hypertension Status: Chronic Assessment and Plan: 07/30/23: B/P ranging 168/89-209/99 Labetalol given and ordered PRN Patient restarted on Propranolol 20 mg BID 07/31/23: B/P still quite elevated today DC'd PRN Labetalol Started Hydralazine 50 mg BID, patient states she takes this at home but the dosage was too high as she took 100 mg TID. Continue Propranolol Renal ultrasound ordered to check for renal artery stenosis (3) ESRD (end stage renal disease): Code(s): N18.6 - End stage renal disease Status: Chronic Assessment and Plan: 07/30/23: Currently on peritoneal dialysis, she is followed by Dr. Sprague She was on the transplant list however she was deemed not a candidate due to her age. BUN 89/Creatinine 9.10, eGFR 4, creatinine clearance 3 Nephrology consulted 07/31/23: no change to current treatment plan (4) Hypokalemia: Code(s): E87.6 - Hypokalemia Status: Acute Assessment and Plan: 07/30/23: Initial K+ 2.9 Patient was given 40 meq of KCL in ER Today's lab showing 3.1 07/31/23: K+ 3.5, no further replacement needed at this time Continue to trend lab (5) Hyponatremia: Code(s): E87.1 - Hypo-osmolality and hyponatremia Status: Acute Assessment and Plan: 07/30/23: Na+ level 132 07/31/23: Na+ 134 Continue to trend (6) Acquired hypothyroidism: Code(s): E03.9 - Hypothyroidism, unspecified Status: Acute Assessment and Plan: 07/30/23: Last TSH 1.070 on 03/24/23 Will recheck this again today Patient on synthroid, however will ask nursing to verify dosage 07/31/23: No change to current treatment plan (7) Anxiety: Code(s): F41.9 - Anxiety disorder, unspecified Status: Acute Assessment and Plan: 07/30/23: Continued Buspar and Lorazepam 07/31/23: No change to current treatment plan (8) Depression: Code(s): F32.A - Depression, unspecified Status: Acute Assessment and Plan: 07/30/23: Restarted Cymbalta 07/31/23: No change to current treatment plan Time Spent With Patient Time with patient: 25 - 35 minutes Subjective Date/time seen: 07/31/23 14:40 Interval history: 07/30/23: This is a 78 year old female with a significant past medical history of end-stage renal disease on peritoneal dialysis who presented 07/29/23 with a headache that has been constant x1 week. Work up included CT of the head which shown worsened moderate nonspecific cerebral white matter disease, which likely represents chronic small vessel ischemic disease. EKG shows sinus rhythm with a rate of 83, prolonged QTC. Labs initially revealed WBC 5.5, hemoglobin 9.3, hematocrit 29.4, sodium 132, potassium 2.9, chloride 93, BUN 88, creatinine 8.6 EGFR is 4 magnesium was 2.6, liver enzymes normal protein 5.0 albumin 2.9. Respiratory panel was negative for influenza, RSV, COVID. Hepatitis
--- NOTE | 2023-07-31 15:50 | P.PNNP_ITS ---
Progress Note: A&P Assessment and Plan (1) ESRD (end stage renal disease): Code(s): N18.6 - End stage renal disease Status: Chronic Assessment and Plan: * On peritoneal dialysis and tolerating it well. * Fluid clear and flows good. * About 350cc was removed on dialysis yesterday. * Volume status looks okay * potassium is doing well also. (2) Hypokalemia: Code(s): E87.6 - Hypokalemia Status: Acute Assessment and Plan: * was on potassium supplements up until a few days ago * possible precipitated by diuretics, dialysis, and diminished oral intake * Potassium is good. Today she is not on any potassium supplement. * She does take Lasix 80 3 times a day. * Check another potassium tomorrow (3) Headache: Code(s): R51.9 - Headache, unspecified Status: Acute Assessment and Plan: * etiology? * BP playing a role -- has a history of PRES in the past * migraine? * Neurology consulted * further imaging needed? * headache has diminished since admission (4) Anemia: Code(s): D64.9 - Anemia, unspecified Status: Chronic Assessment and Plan: * due in part to ESRD * however, has fluctuated to extremes from outpatient records * had seen Hematology for evaluation of this but work-up has been negative * on Mircera as an outpatient * unable to tolerate Epogen (as use resulted in hypertensive urgency) * hemoglobin okay today at 10.2 (5) Hypertension: Code(s): I10 - Essential (primary) hypertension Status: Chronic Assessment and Plan: * blood pressure is doing pretty well at 140-150 Subjective Date/time seen: 07/31/23 15:50 Interval history: Jacquie is feeling okay. No chest pain or shortness of breath. Review of Systems Cardiovascular: Cardiovascular: Reports no additional cardiovascular complaints Respiratory: Respiratory: Reports no additional respiratory complaints Gastrointestinal: Gastrointestinal: Reports no additional gastrointestinal complaints Genitourinary: Genitourinary: Reports no additional female genitourinary complaints Exam Narrative: WDWN in NAD skin no rash head ncat lungs clear cor reg no rub abd BS+ nontender and soft ext no edema. Objective Data Vital Signs Vital Signs: Vital Signs - 24 hr 07/30/23 16:00 07/30/23 17:12 07/30/23 18:13 Temperature Pulse Rate 77 Respiratory Rate Blood Pressure 172/84 H 166/92 H Pulse Oximetry Oxygen Delivery 07/30/23 20:13 07/30/23 20:40 07/30/23 22:04 Temperature 98.2 F 98.2 F Pulse Rate 82 82 73 Respiratory Rate 18 18 Blood Pressure 157/84 H 157/84 H Pulse Oximetry 98 98 Oxygen Delivery Room Air 07/30/23 20:00 07/30/23 20:00 07/31/23 00:00 Temperature Pulse Rate 80 73 76 Respiratory Rate 18 Blood Pressure Pulse Oximetry 98 Oxygen Delivery Room Air 07/31/23 04:00 07/31/23 06:00 07/31/23 08:37 Temperature 97.7 F Pulse Rate 74 75 80 Respiratory Rate 18 16 Blood Pressure 188/91 H 180/96 H Pulse Oximetry 100 100 Oxygen Delivery
--- NOTE | 2023-07-31 15:50 | PM.PNNEP ---
Progress Note: A&P Assessment and Plan (1) ESRD (end stage renal disease): Code(s): N18.6 - End stage renal disease Status: Chronic Assessment and Plan: On peritoneal dialysis and tolerating it well. Fluid clear and flows good. About 350cc was removed on dialysis yesterday. Volume status looks okay potassium is doing well also. (2) Hypokalemia: Code(s): E87.6 - Hypokalemia Status: Acute Assessment and Plan: was on potassium supplements up until a few days ago possible precipitated by diuretics, dialysis, and diminished oral intake Potassium is good. Today she is not on any potassium supplement. She does take Lasix 80 3 times a day. Check another potassium tomorrow (3) Headache: Code(s): R51.9 - Headache, unspecified Status: Acute Assessment and Plan: etiology? BP playing a role -- has a history of PRES in the past migraine? Neurology consulted further imaging needed? headache has diminished since admission (4) Anemia: Code(s): D64.9 - Anemia, unspecified Status: Chronic Assessment and Plan: due in part to ESRD however, has fluctuated to extremes from outpatient records had seen Hematology for evaluation of this but work-up has been [facility] unable to tolerate Epogen (as use resulted in hypertensive urgency) hemoglobin okay today at 10.2 (5) Hypertension: Code(s): I10 - Essential (primary) hypertension Status: Chronic Assessment and Plan: blood pressure is doing pretty well at 140-150 Subjective Date/time seen: 07/31/23 15:50 Interval history: Jacquie is feeling okay. No chest pain or shortness of breath. Review of Systems Cardiovascular: Cardiovascular: Reports no additional cardiovascular complaints Respiratory: Respiratory: Reports no additional respiratory complaints Gastrointestinal: Gastrointestinal: Reports no additional gastrointestinal complaints Genitourinary: Genitourinary: Reports no additional female genitourinary complaints Exam Narrative: WDWN in NAD skin no rash head ncat lungs clear cor reg no rub abd BS+ nontender and soft ext no edema. Objective Data Vital Signs Vital Signs: Vital Signs - 24 hr 07/30/23 16:00 07/30/23 17:12 07/30/23 18:13 Temperature Pulse Rate 77 Respiratory Rate Blood Pressure 172/84 H 166/92 H Pulse Oximetry Oxygen Delivery 07/30/23 20:13 07/30/23 20:40 07/30/23 22:04 Temperature 98.2 F 98.2 F Pulse Rate 82 82 73 Respiratory Rate 18 18 Blood Pressure 157/84 H 157/84 H Pulse Oximetry 98 98 Oxygen Delivery Room Air 07/30/23 20:00 07/30/23 20:00 07/31/23 00:00 Temperature Pulse Rate 80 73 76 Respiratory Rate 18 Blood Pressure Pulse Oximetry 98 Oxygen Delivery Room Air 07/31/23 04:00 07/31/23 06:00 07/31/23 08:37 Temperature 97.7 F Pulse Rate 74 75 80 Respiratory Rate 18 16 Blood Pressure 188/91 H 180/96 H Pulse Oximetry 100 100 Oxygen Delivery 07/31/23 08:47 07/31/23 09:24 07/31/23 09:25 Temperature Pulse Rate 76 84 Respiratory Rate Blood Pressure 180/86 H Pulse Oximetry Oxygen Delivery 07/31/23 10:50 07/31/23 14:58 07/31/23 08:00 Temperature 98.4 F Pulse Rate 80 83 Respiratory Rate 16 Blood Pressure 152/84 H Pulse Oximetry 99 Oxygen Delivery 07/31/23 12:00 07/31/23 08:45 Temperature Pulse Rate 78 Respiratory Rate Blood Pressure Pulse Oximetry Oxygen Delivery Room Air Intake/Output Intake/Output: Intake & Output 07/28/23 07/29/23 07/30/23 07/31/23 23:59 23:59 23:59 23:59 Intake Total 840 480 Output Total 100 Balance 740 480 Meds/Results Medications: Active Medications Generic Name Dose Route Start Last Admin Trade Name Marcus PRN Reason Stop Dose Admin Acetaminophen 650 mg 07/29/23 20:19 07/31/23 03:20 A
[2023-07-31] MEDS: hydrALAZINE HCL 50 MG TABLET PO (18:26)
[2023-07-31] MEDS: rOPINIRole HCL 0.5 MG TABLET PO (21:37)
[2023-07-31] MEDS: CYCLOBENZAPRINE HCL 5 MG TABLET PO (21:37)
[2023-08-01] VITALS (13 sets, daily range): BP systolic 118–207; BP diastolic 58–99; PULSE 76–96; RESP 16–18; TEMP 36.4–36.7; O2SAT 97–100
[2023-08-01] MEDS: traMADol HCL (*CRX) 50 MG TABLET PO ×4 (00:45→20:45)
[2023-08-01 05:49] LABS: Basophils Percent Auto 0.2 % (0.2-1.2); Eosinophils Absolute Auto 0.1 K/mm3 (0-0.3); Eosinophils Percent Auto 2.2 % (0-4.4); Hematocrit 30.6 % (37.0-47.0); Hemoglobin 9.4 g/dL (12.0-15.0); Immature Granulocyte Absolute 0.02 K/mm3 (0.00-0.031); Immature Granulocyte Percent A 0.3 % (0-0.5); Lymphocytes Percent Auto 13.6 % (18.3-44.2); Mean Corpuscular HGB Conc 30.7 g/dl (32-36); Mean Platelet Volume 9.4 fl (7.4-10.4); Monocytes Absolute Auto 0.7 K/mm3 (0.1-0.6); Monocytes Percent Auto 11.7 % (2.6-8.5); Neutrophils Absolute Auto 4.2 K/mm3 (1.3-6.7); Platelet Count Result 249 k/mm3 (150-375); Red Blood Count 3.03 M/mm3 (4.2-5.4); Red Cell Distribution Width 14.2 % (11.5-14.5); White Blood Count 5.9 K/mm3 (4.5-10.0)
[2023-08-01 06:02] LABS: Alanine Aminotransferase 15 U/L (6-35); Albumin Level 2.7 g/dL (3.5-5.1); Alkaline Phosphatase 64 U/L (38-126); Anion Gap 10 mmol/L (8-16); Aspartate Amino Transferase 27 U/L (14-36); Bilirubin,Total 0.7 mg/dL (0.2-1.3); Blood Urea Nitrogen 75 mg/dL (7-17); Calcium 8.8 mg/dL (8.4-10.2); Carbon Dioxide 26 mmol/L (22-30); Chloride 95 mmol/L (98-107); Estimated CRCL calculation 4 ml/min; Estimated Glomerular Filt Rate 5; Glucose 87 mg/dL (65-110); Phosphorus 5.8 mg/dL (2.5-4.5); Potassium 3.7 mmol/L (3.4-5.0); Sodium 131 mmol/L (137-145)
--- NOTE | 2023-08-01 07:41 | P.PNIM_ITS ---
Progress Note: A&P Assessment and Plan (1) Headache: Code(s): R51.9 - Headache, unspecified Status: Acute Assessment and Plan: 07/30/23: * Reporting headache x1 week that has been constant, she has sensitivity to light and associated nausea * CT of the head showing worsening moderate nonspecific cerebral white matter disease, which likely represents chronic small vessel ischemic disease. * Patient was given Tylenol in ER, tramadol was ordered as well. 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 She was also noted to have small infarcts on some of her scans * MRI of brain showing no acute abnormality, moderate to advanced chronic microvascular ischemic change, advanced degenerative spondylosis of upper C- spine. * Neurology consulted 07/31/23: * Still reporting a headache, reports neck pain * Continue pain medications as needed * Neurology following, recommending more blood pressure control 08/01/23: * Patient complaining headache which is 6/10, she also reports neck pain which is chronic * Continue pain meds need (2) Hypertension: Code(s): I10 - Essential (primary) hypertension Status: Chronic Assessment and Plan: 07/30/23: * B/P ranging 168/89-209/99 * Labetalol given and ordered PRN * Patient restarted on Propranolol 20 mg BID 07/31/23: * B/P still quite elevated today * DC'd PRN Labetalol * Started Hydralazine 50 mg BID, patient states she takes this at home but the dosage was too high as she took 100 mg TID. * Continue Propranolol * Renal ultrasound ordered to check for renal artery stenosis 08/01/23: * B/P with systolic's running 168-207 * Will increase hydralazine to 100 mg BID * Spoke with Cardiology who agrees to continue the hydralazine 100 mg b.i.d. and then follow-up with them in a few weeks post discharge. * Continue propranolol * Renal US was negative for any renal artery stenosis (3) ESRD (end stage renal disease): Code(s): N18.6 - End stage renal disease Status: Chronic Assessment and Plan: 07/30/23: * Currently on peritoneal dialysis, she is followed by Dr. Sprague * She was on the transplant list however she was deemed not a candidate due to her age. * BUN 89/Creatinine 9.10, eGFR 4, creatinine clearance 3 * Nephrology consulted 07/31/23: * no change to current treatment plan (4) Hyponatremia: Code(s): E87.1 - Hypo-osmolality and hyponatremia Status: Acute Assessment and Plan: 07/30/23: * Na+ level 132 07/31/23: * Na+ 134 * Continue to trend 08/01/23: * Na+ 131 * No change to current treatment plan (5) Acquired hypothyroidism: Code(s): E03.9 - Hypothyroidism, unspecified Status: Acute Assessment and Plan: 07/30/23: * Last TSH 1.070 on 03/24/23 * Will recheck this again today * Patient on synthroid, however will ask nursing to verify dosage 07/31/23: * No change to current treatment plan (6) Anxiety: Code(s): F41.9 - Anxiety disorder, unspecified Status: Acute Assessment and Plan: 07/30/23: * Continued Buspar and Lorazepam 07/31/23: * No change to current treatment plan (7) Depression: Code(s): F32.A - Depression, unspecified Status: Acute Assessment and Plan: 07/30/23: * Restarted Cymbalta 07/31/23: * No change to current treatment plan Time Spent With Patient Time with patient: Greater than 35 minutes Subjective Date
--- NOTE | 2023-08-01 07:41 | PM.IMPN ---
Progress Note: A&P Assessment and Plan (1) Headache: Code(s): R51.9 - Headache, unspecified Status: Acute Assessment and Plan: 07/30/23: Reporting headache x1 week that has been constant, she has sensitivity to light and associated nausea CT of the head showing worsening moderate nonspecific cerebral white matter disease, which likely represents chronic small vessel ischemic disease. Patient was given Tylenol in ER, tramadol was ordered as well. 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 She was also noted to have small infarcts on some of her scans MRI of brain showing no acute abnormality, moderate to advanced chronic microvascular ischemic change, advanced degenerative spondylosis of upper C-spine. Neurology consulted 07/31/23: Still reporting a headache, reports neck pain Continue pain medications as needed Neurology following, recommending more blood pressure control 08/01/23: Patient complaining headache which is 6/10, she also reports neck pain which is chronic Continue pain meds need (2) Hypertension: Code(s): I10 - Essential (primary) hypertension Status: Chronic Assessment and Plan: 07/30/23: B/P ranging 168/89-209/99 Labetalol given and ordered PRN Patient restarted on Propranolol 20 mg BID 07/31/23: B/P still quite elevated today DC'd PRN Labetalol Started Hydralazine 50 mg BID, patient states she takes this at home but the dosage was too high as she took 100 mg TID. Continue Propranolol Renal ultrasound ordered to check for renal artery stenosis 08/01/23: B/P with systolic's running 168-207 Will increase hydralazine to 100 mg BID Spoke with Cardiology who agrees to continue the hydralazine 100 mg b.i.d. and then follow-up with them in a few weeks post discharge. Continue propranolol Renal US was negative for any renal artery stenosis (3) ESRD (end stage renal disease): Code(s): N18.6 - End stage renal disease Status: Chronic Assessment and Plan: 07/30/23: Currently on peritoneal dialysis, she is followed by Dr. Sprague She was on the transplant list however she was deemed not a candidate due to her age. BUN 89/Creatinine 9.10, eGFR 4, creatinine clearance 3 Nephrology consulted 07/31/23: no change to current treatment plan (4) Hyponatremia: Code(s): E87.1 - Hypo-osmolality and hyponatremia Status: Acute Assessment and Plan: 07/30/23: Na+ level 132 07/31/23: Na+ 134 Continue to trend 08/01/23: Na+ 131 No change to current treatment plan (5) Acquired hypothyroidism: Code(s): E03.9 - Hypothyroidism, unspecified Status: Acute Assessment and Plan: 07/30/23: Last TSH 1.070 on 03/24/23 Will recheck this again today Patient on synthroid, however will ask nursing to verify dosage 07/31/23: No change to current treatment plan (6) Anxiety: Code(s): F41.9 - Anxiety disorder, unspecified Status: Acute Assessment and Plan: 07/30/23: Continued Buspar and Lorazepam 07/31/23: No change to current treatment plan (7) Depression: Code(s): F32.A - Depression, unspecified Status: Acute Assessment and Plan: 07/30/23: Restarted Cymbalta 07/31/23: No change to current treatment plan Time Spent With Patient Time with patient: Greater than 35 minutes Subjective Date/time seen: 08/01/23 07:41 Interval history: 07/30/23: This is a 78 year old female with a significant past medical history of end-stage renal disease on peritoneal dialysis who presented 07/29/23 with a headache that has been constant x1 week. Work up included CT of the head which shown worsened moderate nonspecific cerebral white matter disease, which likely represents chronic small vessel ischemic disease. EKG shows sinus rhythm with a rate of 83, prolonged QTC. Labs initially revealed WBC 5.5, hemoglobin 9.3, hematocrit 2
[2023-08-01] MEDS: hydrALAZINE HCL 50 MG TABLET 100 MG PO ×2 (08:27→18:26)
[2023-08-01] MEDS: DULoxetine HCL 30 MG CAPSULE.DR PO (08:27)
[2023-08-01] MEDS: busPIRone HCL 2.5 MG, busPIRone HCL 5 MG 7.5 MG PO ×2 (08:27→20:45)
[2023-08-01] MEDS: PROPRANOLOL HCL 20 MG TABLET PO ×2 (08:27→20:45)
[2023-08-01] MEDS: LORazepam (*CRX) 1 MG TABLET PO ×3 (08:27→20:46)
[2023-08-01] MEDS: LORATADINE/PSEUDOEPHEDRINE (*CRX) 10/240 MG TABLET ER 24 HR 1 TAB PO (08:27)
[2023-08-01] MEDS: FUROSEMIDE 80 MG TABLET PO ×3 (08:27→18:26)
[2023-08-01] MEDS: ACETAMINOPHEN 325 MG TABLET 650 MG PO (08:32)
--- NOTE | 2023-08-01 12:07 | PM.CNCAR ---
History of Present Illness History of Present Illness Consult date/time: Date of service: 08/01/23 12:07 Requesting physician: Sara Herrera APRN Consult reason: hypertension Reason For Visit: Hypokalemia,ESRD on Peritoneal Dialysis Review of Systems Review of Systems: Remainder of the review of systems is otherwise negative aside from that noted in the HPI. All systems reviewed & are unremarkable except as noted in HPI and below Constitutional: Constitutional: Reports as per HPI and Reports no additional constitutional complaints Eyes: Eyes: Reports as per HPI and Reports no additional eye complaints ENT: Reports system reviewed and no additional complaints, except as documented and Reports as per HPI Cardiovascular: Cardiovascular: Reports as per HPI and Reports no additional cardiovascular complaints Respiratory: Respiratory: Reports as per HPI and Reports no additional respiratory complaints Gastrointestinal: Gastrointestinal: Reports as per HPI and Reports no additional gastrointestinal complaints Genitourinary: Genitourinary: Reports as per HPI Musculoskeletal: Musculoskeletal: Reports no additional musculoskeletal complaints and Reports as per HPI Integumentary/Breasts: Skin/Breast: Reports system reviewed and no additional complaints, except as docu and Reports as per HPI Neurologic: Reports system reviewed and no additional complaints, except as documented and Reports as per HPI Psychiatric: Psychiatric: Reports no additional psychiatric complaints and Reports as per HPI Endocrine: Endocrine: Reports no additional endocrine complaints and Reports as per HPI Hematologic/Lymphatic: Hematologic/Lymphatic: Reports no additional hematologic/lymphatic complaints and Reports as per HPI Allergic/Immunologic: Allergic/Immunologic: Reports no additional allergic/immunologic complaints and Reports as per HPI [facility] Past Medical History Medical History Acquired hypothyroidism Acute on chronic anemia Anemia in chronic kidney disease Anxiety Chronic kidney disease, stage V On the transplant list Dialysis patient peritoneal ESRD (end stage renal disease) Fecal occult blood test positive Headache Hemorrhage following tonsillectomy and adenoidectomy HLD (hyperlipidemia) Large hiatal hernia Mycobacterium avium complex PAD (peripheral artery disease) Primary osteoarthritis, unspecified site Reversible posterior leukoencephalopathy Secondary hyperparathyroidism (of renal origin) Surgical History Surgical History History of appendectomy History of tubal ligation Presence of peritoneal dialysis catheter Family History Family History Mother Diabetes mellitus Cerebrovascular accident Father Family history of cardiovascular disease Social History Social History Social History: Smoking status: Never smoker Second hand tobacco smoke exposure: No Alcohol intake: never Substance use: never Substance use type: does not use Do You Feel Safe in your Home?: Yes Lack of Transportation: No Lack of Food: Never True Current Housing: I Have Housing Concerned About Future Housing: No Difficulty Paying Gas/Electric Bills: No Difficulty Paying for Meds: No Currently Unemployed: No Education: High School Diploma/GED Difficulty w/ Childcare or Family Care: No Living arrangements: with family Occupation/Education: retired Gender identity (if verbalized by the patient): Female Sexual Orientation (if Verbalized by the Patient): Straight or Heterosexual Spiritual care concerns: No Meds Home Medications and Allergies Home Medications Medication Instructions Recorded Confirmed Type aspirin 81 mg tablet,delayed 81 mg PO DAILY 07/10/19 07/29/23
--- NOTE | 2023-08-01 13:29 | P.PNNP_ITS ---
Progress Note: A&P Assessment and Plan (1) ESRD (end stage renal disease): Code(s): N18.6 - End stage renal disease Status: Chronic Assessment and Plan: * On peritoneal dialysis and tolerating it well. * Fluid clear and flows good. * 565cc was removed on dialysis overnight * Volume status looks okay * potassium is doing well also. (2) Hypokalemia: Code(s): E87.6 - Hypokalemia Status: Acute Assessment and Plan: * potassium is okay today. * She gets dialysis plus furosemide. * Currently she is not getting any supplements * Will check another potassium tomorrow (3) Headache: Code(s): R51.9 - Headache, unspecified Status: Acute Assessment and Plan: * etiology? * BP playing a role -- has a history of PRES in the past * migraine? * Neurology consulted * further imaging needed? * headache is about the same now as it was yesterday. (4) Anemia: Code(s): D64.9 - Anemia, unspecified Status: Chronic Assessment and Plan: * due in part to ESRD * however, has fluctuated to extremes from outpatient records * had seen Hematology for evaluation of this but work-up has been negative * on Mircera as an outpatient * unable to tolerate Epogen (as use resulted in hypertensive urgency) * hemoglobin okay today at 9.4 (5) Hypertension: Code(s): I10 - Essential (primary) hypertension Status: Chronic Assessment and Plan: * blood pressure was doing pretty well at 140-150 Yesterday however yesterday afternoon and evening it was 160-207. * The patient is taking hydralazine, and propranolol. * Will add losartan. Subjective Date/time seen: 08/01/23 13:30 Interval history: The patient feels weak. No appetite. She feels the same now as she has the last day or 2. Exam Narrative: WDWN in NAD skin no rash head ncat lungs clear cor reg no rub abd BS+ nontender and soft ext no edema. Objective Data Vital Signs Vital Signs: Vital Signs - 24 hr 07/31/23 14:58 07/31/23 16:00 07/31/23 15:20 Temperature 98.4 F Pulse Rate 80 80 Respiratory Rate 16 Blood Pressure 172/88 H Pulse Oximetry 99 Oxygen Delivery 07/31/23 18:25 07/31/23 18:35 07/31/23 20:00 Temperature 97.7 F Pulse Rate 82 Respiratory Rate 18 Blood Pressure 168/94 H 172/85 H Pulse Oximetry 100 Oxygen Delivery Room Air 07/31/23 21:39 07/31/23 20:00 07/31/23 20:00 Temperature Pulse Rate 89 83 89 Respiratory Rate 18 Blood Pressure Pulse Oximetry 100 Oxygen Delivery Room Air 08/01/23 00:00 08/01/23 04:00 08/01/23 06:00 Temperature 97.6 F Pulse Rate 76 78 84 Respiratory Rate 18 Blood Pressure 207/91 H Pulse Oximetry 99 Oxygen Delivery 08/01/23 08:27 08/01/23 11:43 08/01/23 08:00 Temperature Pulse Rate 80 84 Respiratory Rate Blood Pressure 118/58 L Pulse Oximetry Oxygen Delivery 08/01/23 08:25 Temperature Pulse Rate Respir
--- NOTE | 2023-08-01 13:29 | PM.PNNEP ---
Progress Note: A&P Assessment and Plan (1) ESRD (end stage renal disease): Code(s): N18.6 - End stage renal disease Status: Chronic Assessment and Plan: On peritoneal dialysis and tolerating it well. Fluid clear and flows good. 565cc was removed on dialysis overnight Volume status looks okay potassium is doing well also. (2) Hypokalemia: Code(s): E87.6 - Hypokalemia Status: Acute Assessment and Plan: potassium is okay today. She gets dialysis plus furosemide. Currently she is not getting any supplements Will check another potassium tomorrow (3) Headache: Code(s): R51.9 - Headache, unspecified Status: Acute Assessment and Plan: etiology? BP playing a role -- has a history of PRES in the past migraine? Neurology consulted further imaging needed? headache is about the same now as it was yesterday. (4) Anemia: Code(s): D64.9 - Anemia, unspecified Status: Chronic Assessment and Plan: due in part to ESRD however, has fluctuated to extremes from outpatient records had seen Hematology for evaluation of this but work-up has been negative on [facility] as an outpatient unable to tolerate Epogen (as use resulted in hypertensive urgency) hemoglobin okay today at 9.4 (5) Hypertension: Code(s): I10 - Essential (primary) hypertension Status: Chronic Assessment and Plan: blood pressure was doing pretty well at 140-150 Yesterday however yesterday afternoon and evening it was 160-207. The patient is taking hydralazine, and propranolol. Will add losartan. Subjective Date/time seen: 08/01/23 13:30 Interval history: The patient feels weak. No appetite. She feels the same now as she has the last day or 2. Exam Narrative: WDWN in NAD skin no rash head ncat lungs clear cor reg no rub abd BS+ nontender and soft ext no edema. Objective Data Vital Signs Vital Signs: Vital Signs - 24 hr 07/31/23 14:58 07/31/23 16:00 07/31/23 15:20 Temperature 98.4 F Pulse Rate 80 80 Respiratory Rate 16 Blood Pressure 172/88 H Pulse Oximetry 99 Oxygen Delivery 07/31/23 18:25 07/31/23 18:35 07/31/23 20:00 Temperature 97.7 F Pulse Rate 82 Respiratory Rate 18 Blood Pressure 168/94 H 172/85 H Pulse Oximetry 100 Oxygen Delivery Room Air 07/31/23 21:39 07/31/23 20:00 07/31/23 20:00 Temperature Pulse Rate 89 83 89 Respiratory Rate 18 Blood Pressure Pulse Oximetry 100 Oxygen Delivery Room Air 08/01/23 00:00 08/01/23 04:00 08/01/23 06:00 Temperature 97.6 F Pulse Rate 76 78 84 Respiratory Rate 18 Blood Pressure 207/91 H Pulse Oximetry 99 Oxygen Delivery 08/01/23 08:27 08/01/23 11:43 08/01/23 08:00 Temperature Pulse Rate 80 84 Respiratory Rate Blood Pressure 118/58 L Pulse Oximetry Oxygen Delivery 08/01/23 08:25 Temperature Pulse Rate Respiratory Rate Blood Pressure Pulse Oximetry Oxygen Delivery Room Air Intake/Output Intake/Output: Intake & Output 07/29/23 07/30/23 07/31/23 08/01/23 23:59 23:59 23:59 23:59 Intake Total 840 910 480 Output Total 100 100 565 Balance 740 810 -85 Meds/Results Medications: Active Medications Generic Name Dose Route Start Last Admin Trade Name Freq PRN Reason Stop Dose Admin Acetaminophen 650 mg 07/29/23 20:19 08/01/23 08:32 Acetaminophen 325 Mg Tablet PO 650 mg Q4H PRN Administration Mild Pain (1-3) or Fever Buspirone HCl 2.5 mg/ 7.5 mg 07/30/23 09:00 08/01/23 08:27 Buspirone HCl 5 mg PO 7.5 mg Q12HR LETI Administration Cyclobenzaprine HCl 5 mg 07/30/23 21:00 07/31/23 21:37 Cyclobenzaprine Hcl 5 Mg Tablet PO 5 mg HS LETI Administration Duloxetine HCl 30 mg 07/30/23 09:00 08/01/23 08:27 Duloxetine Hcl 30 Mg Capsule.Dr PO 30 mg DAILY LETI Administration Furosemide 80 mg
[2023-08-01] MEDS: LOSARTAN POTASSIUM 50 MG TABLET PO (13:59)
--- NOTE | 2023-08-01 18:10 | PC.NURSE ---
1600 telemetry HR 84, 0.14, 0.06, Sinus Rhythm
[2023-08-01] MEDS: VITAMIN B CMPLX/VIT C/FOLIC AC 1 CAPSULE 1 CAP PO (20:44)
[2023-08-01] MEDS: CYCLOBENZAPRINE HCL 5 MG TABLET PO (20:45)
[2023-08-01] MEDS: GABAPENTIN 100 MG CAPSULE PO (20:45)
[2023-08-01] MEDS: rOPINIRole HCL 0.5 MG TABLET PO (20:46)
[2023-08-02] VITALS (12 sets, daily range): BP systolic 132–169; BP diastolic 66–89; PULSE 70–90; RESP 16–18; TEMP 36.4–36.8; O2SAT 96–98
[2023-08-02 06:15] LABS: Basophils Percent Auto 0.4 % (0.2-1.2); Eosinophils Absolute Auto 0.1 K/mm3 (0-0.3); Eosinophils Percent Auto 1.9 % (0-4.4); Hematocrit 33.6 % (37.0-47.0); Hemoglobin 10.3 g/dL (12.0-15.0); Immature Granulocyte Absolute 0.01 K/mm3 (0.00-0.031); Immature Granulocyte Percent A 0.2 % (0-0.5); Lymphocytes Absolute Auto 0.82 K/mm3 (0.9-3.2); Lymphocytes Percent Auto 14.4 % (18.3-44.2); Mean Corpuscular HGB Conc 30.7 g/dl (32-36); Mean Corpuscular Hemoglobin 31.1 pg (26-34); Mean Corpuscular Volume 101.5 fl (80-100); Mean Platelet Volume 9.6 fl (7.4-10.4); Monocytes Absolute Auto 0.6 K/mm3 (0.1-0.6); Monocytes Percent Auto 9.7 % (2.6-8.5); Neutrophils Absolute Auto 4.2 K/mm3 (1.3-6.7); Neutrophils Percent Auto 73.4 % (45.5-73.1); Platelet Count Result 278 k/mm3 (150-375); Red Blood Count 3.31 M/mm3 (4.2-5.4); Red Cell Distribution Width 14.1 % (11.5-14.5); White Blood Count 5.7 K/mm3 (4.5-10.0)
[2023-08-02 06:32] LABS: Alanine Aminotransferase 15 U/L (6-35); Alkaline Phosphatase 69 U/L (38-126); Anion Gap 13 mmol/L (8-16); Aspartate Amino Transferase 27 U/L (14-36); Bilirubin,Total 0.8 mg/dL (0.2-1.3); Blood Urea Nitrogen 66 mg/dL (7-17); Carbon Dioxide 24 mmol/L (22-30); Chloride 94 mmol/L (98-107); Estimated CRCL calculation 4 ml/min; Estimated Glomerular Filt Rate 5; Glucose 76 mg/dL (65-110); Phosphorus 6.9 mg/dL (2.5-4.5); Potassium 3.5 mmol/L (3.4-5.0); Sodium 131 mmol/L (137-145)
--- NOTE | 2023-08-02 07:17 | P.CDI_ITS ---
CDI Query Clarification Request BMI 18.4 Nutritional Diagnostic Statement Severe protein calorie malnutrition related to chronic end stage renal disease, loss of appetite and increased needs; as evidenced by weight loss 10%/6 months; inadequate intake <75% needs >1 month; NFPE findings of severe muscle wasting (temporal, clavicle,shoulder,interosseous) and fat loss (cheeks). Please refer to the comprehensive nutrition assessment for further information. Please clarify severity of protein calorie malnutrition if known : * Mild * Moderate * Severe * Other/Unspecified <Kelle Rivera RN - Last Filed: 08/02/23 07:22> Clarified Diagnosis Clarified Diagnosis: Severe protein-calorie malnutrition <Sara Herrera APRN - Last Filed: 08/02/23 10:31>
[2023-08-02] MEDS: busPIRone HCL 2.5 MG, busPIRone HCL 5 MG 7.5 MG PO ×2 (08:57→21:19)
[2023-08-02] MEDS: PROPRANOLOL HCL 20 MG TABLET PO ×2 (08:58→21:19)
[2023-08-02] MEDS: LORATADINE/PSEUDOEPHEDRINE (*CRX) 10/240 MG TABLET ER 24 HR 1 TAB PO (08:58)
[2023-08-02] MEDS: hydrALAZINE HCL 50 MG TABLET 100 MG PO ×3 (08:58→17:04)
[2023-08-02] MEDS: DULoxetine HCL 30 MG CAPSULE.DR PO (08:58)
[2023-08-02] MEDS: LOSARTAN POTASSIUM 50 MG TABLET PO (08:58)
[2023-08-02] MEDS: FUROSEMIDE 80 MG TABLET PO ×3 (08:59→17:04)
[2023-08-02] MEDS: traMADol HCL (*CRX) 50 MG TABLET PO ×2 (10:18→21:19)
--- NOTE | 2023-08-02 10:42 | P.PNIM_ITS ---
Progress Note: A&P Assessment and Plan (1) Headache: Code(s): R51.9 - Headache, unspecified Status: Acute Assessment and Plan: 07/30/23: * Reporting headache x1 week that has been constant, she has sensitivity to light and associated nausea * CT of the head showing worsening moderate nonspecific cerebral white matter disease, which likely represents chronic small vessel ischemic disease. * Patient was given Tylenol in ER, tramadol was ordered as well. 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 She was also noted to have small infarcts on some of her scans * MRI of brain showing no acute abnormality, moderate to advanced chronic microvascular ischemic change, advanced degenerative spondylosis of upper C- spine. * Neurology consulted 07/31/23: * Still reporting a headache, reports neck pain * Continue pain medications as needed * Neurology following, recommending more blood pressure control 08/01/23: * Patient complaining headache which is 6/10, she also reports neck pain which is chronic * Continue pain meds need 08/02/23: * Patient complaining of back of head and neck pain 04/13 today * Will get C spine x-ray today * Continue with pain meds (2) Hypertension: Code(s): I10 - Essential (primary) hypertension Status: Chronic Assessment and Plan: 07/30/23: * B/P ranging 168/89-209/99 * Labetalol given and ordered PRN * Patient restarted on Propranolol 20 mg BID 07/31/23: * B/P still quite elevated today * DC'd PRN Labetalol * Started Hydralazine 50 mg BID, patient states she takes this at home but the dosage was too high as she took 100 mg TID. * Continue Propranolol * Renal ultrasound ordered to check for renal artery stenosis 08/01/23: * B/P with systolic's running 168-207 * Will increase hydralazine to 100 mg BID * Spoke with Cardiology who agrees to continue the hydralazine 100 mg b.i.d. and then follow-up with them in a few weeks post discharge. * Continue propranolol * Renal US was negative for any renal artery stenosis 08/02/23: * B/P with systolic's running 157-174 * Will increase hydralazine to 100mg TID for better control (3) ESRD (end stage renal disease): Code(s): N18.6 - End stage renal disease Status: Chronic Assessment and Plan: 07/30/23: * Currently on peritoneal dialysis, she is followed by Dr. Sprague * She was on the transplant list however she was deemed not a candidate due to her age. * BUN 89/Creatinine 9.10, eGFR 4, creatinine clearance 3 * Nephrology consulted 07/31/23: * no change to current treatment plan (4) Hyponatremia: Code(s): E87.1 - Hypo-osmolality and hyponatremia Status: Acute Assessment and Plan: 07/30/23: * Na+ level 132 07/31/23: * Na+ 134 * Continue to trend 08/01/23: * Na+ 131 * No change to current treatment plan (5) Acquired hypothyroidism: Code(s): E03.9 - Hypothyroidism, unspecified Status: Acute Assessment and Plan: 07/30/23: * Last TSH 1.070 on 03/24/23 * Will recheck this again today * Patient on synthroid, however will ask nursing to verify dosage 07/31/23: * No change to current treatment plan (6) Anxiety: Code(s): F41.9 - Anxiety disorder, unspecified Status: Acute Assessment and Plan: 07/30/23: * Continued Buspar and Lorazepam 07/31/23: * No change to current treatment plan (7) Depression: Code(s): F32.A - Dep
--- NOTE | 2023-08-02 10:42 | PM.IMPN ---
Progress Note: A&P Assessment and Plan (1) Headache: Code(s): R51.9 - Headache, unspecified Status: Acute Assessment and Plan: 07/30/23: Reporting headache x1 week that has been constant, she has sensitivity to light and associated nausea CT of the head showing worsening moderate nonspecific cerebral white matter disease, which likely represents chronic small vessel ischemic disease. Patient was given Tylenol in ER, tramadol was ordered as well. 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 She was also noted to have small infarcts on some of her scans MRI of brain showing no acute abnormality, moderate to advanced chronic microvascular ischemic change, advanced degenerative spondylosis of upper C-spine. Neurology consulted 07/31/23: Still reporting a headache, reports neck pain Continue pain medications as needed Neurology following, recommending more blood pressure control 08/01/23: Patient complaining headache which is 6/10, she also reports neck pain which is chronic Continue pain meds need 08/02/23: Patient complaining of back of head and neck pain 10/10 today Will get C spine x-ray today Continue with pain meds (2) Hypertension: Code(s): I10 - Essential (primary) hypertension Status: Chronic Assessment and Plan: 07/30/23: B/P ranging 168/89-209/99 Labetalol given and ordered PRN Patient restarted on Propranolol 20 mg BID 07/31/23: B/P still quite elevated today DC'd PRN Labetalol Started Hydralazine 50 mg BID, patient states she takes this at home but the dosage was too high as she took 100 mg TID. Continue Propranolol Renal ultrasound ordered to check for renal artery stenosis 08/01/23: B/P with systolic's running 168-207 Will increase hydralazine to 100 mg BID Spoke with Cardiology who agrees to continue the hydralazine 100 mg b.i.d. and then follow-up with them in a few weeks post discharge. Continue propranolol Renal US was negative for any renal artery stenosis 08/02/23: B/P with systolic's running 157-174 Will increase hydralazine to 100mg TID for better control (3) ESRD (end stage renal disease): Code(s): N18.6 - End stage renal disease Status: Chronic Assessment and Plan: 07/30/23: Currently on peritoneal dialysis, she is followed by Dr. Sprague She was on the transplant list however she was deemed not a candidate due to her age. BUN 89/Creatinine 9.10, eGFR 4, creatinine clearance 3 Nephrology consulted 07/31/23: no change to current treatment plan (4) Hyponatremia: Code(s): E87.1 - Hypo-osmolality and hyponatremia Status: Acute Assessment and Plan: 07/30/23: Na+ level 132 07/31/23: Na+ 134 Continue to trend 08/01/23: Na+ 131 No change to current treatment plan (5) Acquired hypothyroidism: Code(s): E03.9 - Hypothyroidism, unspecified Status: Acute Assessment and Plan: 07/30/23: Last TSH 1.070 on 03/24/23 Will recheck this again today Patient on synthroid, however will ask nursing to verify dosage 07/31/23: No change to current treatment plan (6) Anxiety: Code(s): F41.9 - Anxiety disorder, unspecified Status: Acute Assessment and Plan: 07/30/23: Continued Buspar and Lorazepam 07/31/23: No change to current treatment plan (7) Depression: Code(s): F32.A - Depression, unspecified Status: Acute Assessment and Plan: 07/30/23: Restarted Cymbalta 07/31/23: No change to current treatment plan Time Spent With Patient Time with patient: 25 - 35 minutes Subjective Date/time seen: 08/02/23 10:42 Interval history: 07/30/23: This is a 78 year old female with a significant past medical history of end-stage renal disease on peritoneal dialysis who presented 07/29/23 with a headache that has been constant x1 week.? Work up included CT of the head which shown worsened
--- NOTE | 2023-08-02 11:35 | P.PNNP_ITS ---
Progress Note: A&P Assessment and Plan (1) ESRD (end stage renal disease): Code(s): N18.6 - End stage renal disease Status: Chronic Assessment and Plan: * continue nightly CCPD * follow electrolytes, volume status, and clearance (2) Hypokalemia: Code(s): E87.6 - Hypokalemia Status: Acute Assessment and Plan: * potassium stable * has been supplementation in the past * follow trend of K+ levels (3) Headache: Code(s): R51.9 - Headache, unspecified Status: Acute Assessment and Plan: * etiology? * BP playing a role -- has a history of PRES in the past * migraine? * Neurology recommendations (4) Anemia: Code(s): D64.9 - Anemia, unspecified Status: Chronic Assessment and Plan: * due in part to ESRD * however, has fluctuated to extremes from outpatient records * had seen Hematology for evaluation of this but work-up has been negative * on Mircera as an outpatient * unable to tolerate Epogen (as use resulted in hypertensive urgency) * follow H/H (5) Hypertension: Code(s): I10 - Essential (primary) hypertension Status: Chronic Assessment and Plan: * fluctuating * however, suspect pain maybe playing a role * just started on losartan * hydralazine adjusted * follow trend of hemodynamics Will continue to follow. Subjective Date/time seen: 08/02/23 11:35 Interval history: Follow-up for end stage renal disease on peritoneal dialysis. Tolerated CCPD treatment overnight without any issues or problems; complaining of pain in the back of head/neck area at the time of my visit; no other events overnight or earlier today; potassium has remained relatively stable. Exam Narrative: General: elderly but WD/WN female in NAD Heart: normal S1 and S2; no rub Lungs: clear to auscultation Abdomen: soft, nontender, nondistended, positive bowel sounds Extremities: no cyanosis or clubbing; no edema Skin: warm and dry Objective Data Vital Signs Vital Signs: Vital Signs Temp Pulse Resp BP Pulse Ox O2 Del Method 08/02/23 11:00 79 08/02/23 08:00 85 08/02/23 09:05 Room Air 08/02/23 08:58 90 08/02/23 06:50 98.2 F 87 18 169/89 H 08/02/23 06:00 98.2 F 87 18 169/89 H 98 08/02/23 04:00 83 08/02/23 00:48 157/77 H 08/02/23 00:00 70 08/01/23 20:00 82 18 99 Room Air 08/01/23 20:00 96 08/01/23 20:45 82 08/01/23 19:26 98.1 F 85 18 173/99 H 99 08/01/23 18:13 84 16 162/88 H 97 Intake/Output Intake/Output: Intake & Output 07/30/23 07/31/23 08/01/23 08/02/23 23:59 23:59 23:59 23:59 Intake Total 840 910 530 240 Output Total 100 100 565 874 Balance 748 513 -35 -428 Meds/Results Medications: Active Medications Generic Name Dose Route Start Last Admin Trade Name Freq PRN Reason Stop Dose Admin Acetaminophen 650 mg 07/29/23 20:19 08/01/23 08:32 Acetaminophen 325 Mg Tablet PO 650 mg Q4H PRN Administration Mild Pain (1-3) or Fever Buspirone HCl 2.5 mg/ 7.5 mg 07/30/23
--- NOTE | 2023-08-02 11:35 | PM.PNNEP ---
Progress Note: A&P Assessment and Plan (1) ESRD (end stage renal disease): Code(s): N18.6 - End stage renal disease Status: Chronic Assessment and Plan: continue nightly CCPD follow electrolytes, volume status, and clearance (2) Hypokalemia: Code(s): E87.6 - Hypokalemia Status: Acute Assessment and Plan: potassium stable has been supplementation in the past follow trend of K+ levels (3) Headache: Code(s): R51.9 - Headache, unspecified Status: Acute Assessment and Plan: etiology? BP playing a role -- has a history of PRES in the past migraine? Neurology recommendations (4) Anemia: Code(s): D64.9 - Anemia, unspecified Status: Chronic Assessment and Plan: due in part to ESRD however, has fluctuated to extremes from outpatient records had seen Hematology for evaluation of this but work-up has been negative on Mircera as an outpatient unable to tolerate Epogen (as use resulted in hypertensive urgency) follow H/H (5) Hypertension: Code(s): I10 - Essential (primary) hypertension Status: Chronic Assessment and Plan: fluctuating however, suspect pain maybe playing a role just started on losartan hydralazine adjusted follow trend of hemodynamics Will continue to follow. Subjective Date/time seen: 08/02/23 11:35 Interval history: Follow-up for end stage renal disease on peritoneal dialysis. Tolerated CCPD treatment overnight without any issues or problems; complaining of pain in the back of head/neck area at the time of my visit; no other events overnight or earlier today; potassium has remained relatively stable. Exam Narrative: General: elderly but WD/WN female in NAD Heart: normal S1 and S2; no rub Lungs: clear to auscultation Abdomen: soft, nontender, nondistended, positive bowel sounds Extremities: no cyanosis or clubbing; no edema Skin: warm and dry Objective Data Vital Signs Vital Signs: Vital Signs Temp Pulse Resp BP Pulse Ox O2 Del Method 08/02/23 11:00 79 08/02/23 08:00 85 08/02/23 09:05 Room Air 08/02/23 08:58 90 08/02/23 06:50 98.2 F 87 18 169/89 H 08/02/23 06:00 98.2 F 87 18 169/89 H 98 08/02/23 04:00 83 08/02/23 00:48 157/77 H 08/02/23 00:00 70 08/01/23 20:00 82 18 99 Room Air 08/01/23 20:00 96 08/01/23 20:45 82 08/01/23 19:26 98.1 F 85 18 173/99 H 99 08/01/23 18:13 84 16 162/88 H 97 Intake/Output Intake/Output: Intake & Output 07/30/23 07/31/23 08/01/23 08/02/23 23:59 23:59 23:59 23:59 Intake Total 840 910 530 240 Output Total 100 100 565 874 Balance 226 025 -68 -940 Meds/Results Medications: Active Medications Generic Name Dose Route Start Last Admin Trade Name Freq PRN Reason Stop Dose Admin Acetaminophen 650 mg 07/29/23 20:19 08/01/23 08:32 Acetaminophen 325 Mg Tablet PO 650 mg Q4H PRN Administration Mild Pain (1-3) or Fever Buspirone HCl 2.5 mg/ 7.5 mg 07/30/23 09:00 08/02/23 08:57 Buspirone HCl 5 mg PO 7.5 mg Q12HR LETI Administration Cyclobenzaprine HCl 5 mg 07/30/23 21:00 08/01/23 20:45 Cyclobenzaprine Hcl 5 Mg Tablet PO 5 mg HS LETI Administration Duloxetine HCl 30 mg 07/30/23 09:00 08/02/23 08:58 Duloxetine Hcl 30 Mg Capsule.Dr PO 30 mg DAILY LETI Administration Furosemide 80 mg 07/30/23 09:00 08/02/23 12:08 Furosemide 80 Mg Tablet PO 80 mg TID LETI Administration Gabapentin 100 mg 08/01/23 21:00 08/01/23 20:45 Gabapentin 100 Mg Capsule PO 100 mg QHS LETI Administration Hydralazine HCl 100 mg 08/02/23 09:00 08/02/23 12:08 Hydralazine Hcl 50 Mg Tablet PO 100 mg TID LETI Administration Labetalol HCl 20 mg 08/01/23 07:22 Labetalol Hcl Inj 100 Mg/20 Ml Vial IV PUSH Q6H PRN Hypertension Loratadine/Pseudoephedrine Sulfate
[2023-08-02] MEDS: ONDANSETRON INJ 4 MG/2 ML VIAL IV PUSH (20:21)
[2023-08-02] MEDS: LORazepam (*CRX) 1 MG TABLET PO (20:21)
[2023-08-02] MEDS: rOPINIRole HCL 0.5 MG TABLET PO (21:19)
[2023-08-02] MEDS: VITAMIN B CMPLX/VIT C/FOLIC AC 1 CAPSULE 1 CAP PO (21:19)
[2023-08-02] MEDS: GABAPENTIN 100 MG CAPSULE PO (21:19)
[2023-08-02] MEDS: CYCLOBENZAPRINE HCL 5 MG TABLET PO (21:19)
[2023-08-03 05:38] VITALS: BP 158/80; PULSE 80; RESP 16; TEMP 36.5; O2SAT 96
[2023-08-03 06:05] LABS: Basophils Percent Auto 0.5 % (0.2-1.2); Eosinophils Absolute Auto 0.1 K/mm3 (0-0.3); Eosinophils Percent Auto 1.1 % (0-4.4); Hemoglobin 10.1 g/dL (12.0-15.0); Immature Granulocyte Absolute 0.04 K/mm3 (0.00-0.031); Immature Granulocyte Percent A 0.7 % (0-0.5); Lymphocytes Absolute Auto 0.67 K/mm3 (0.9-3.2); Lymphocytes Percent Auto 11.8 % (18.3-44.2); Mean Corpuscular HGB Conc 30.6 g/dl (32-36); Mean Corpuscular Hemoglobin 30.9 pg (26-34); Mean Corpuscular Volume 100.9 fl (80-100); Mean Platelet Volume 9.6 fl (7.4-10.4); Monocytes Absolute Auto 0.6 K/mm3 (0.1-0.6); Monocytes Percent Auto 10.5 % (2.6-8.5); Neutrophils Absolute Auto 4.3 K/mm3 (1.3-6.7); Neutrophils Percent Auto 75.4 % (45.5-73.1); Platelet Count Result 274 k/mm3 (150-375); Red Blood Count 3.27 M/mm3 (4.2-5.4); White Blood Count 5.7 K/mm3 (4.5-10.0)
[2023-08-03 06:18] LABS: Alanine Aminotransferase 15 U/L (6-35); Albumin Level 2.8 g/dL (3.5-5.1); Alkaline Phosphatase 70 U/L (38-126); Anion Gap 11 mmol/L (8-16); Aspartate Amino Transferase 30 U/L (14-36); Bilirubin,Total 0.8 mg/dL (0.2-1.3); Blood Urea Nitrogen 67 mg/dL (7-17); Calcium 9.1 mg/dL (8.4-10.2); Carbon Dioxide 26 mmol/L (22-30); Chloride 92 mmol/L (98-107); Estimated CRCL calculation 5 ml/min; Estimated Glomerular Filt Rate 6; Glucose 83 mg/dL (65-110); Potassium 3.5 mmol/L (3.4-5.0); Sodium 129 mmol/L (137-145)
[2023-08-03 09:02] VITALS: BP 138/97
[2023-08-03 09:18] VITALS: PULSE 89; O2SAT 97
[2023-08-03] MEDS: traMADol HCL (*CRX) 50 MG TABLET PO ×2 (09:19→14:44)
[2023-08-03] MEDS: FUROSEMIDE 80 MG TABLET PO ×2 (09:19→12:27)
[2023-08-03] MEDS: DULoxetine HCL 30 MG CAPSULE.DR PO (09:21)
[2023-08-03] MEDS: LOSARTAN POTASSIUM 50 MG TABLET PO (09:21)
[2023-08-03] MEDS: LORATADINE/PSEUDOEPHEDRINE (*CRX) 10/240 MG TABLET ER 24 HR 1 TAB PO (09:21)
[2023-08-03 09:22] VITALS: PULSE 89
[2023-08-03] MEDS: hydrALAZINE HCL 50 MG TABLET 100 MG PO ×2 (09:22→12:28)
[2023-08-03] MEDS: LORazepam (*CRX) 1 MG TABLET PO ×2 (09:22→13:53)
[2023-08-03] MEDS: PROPRANOLOL HCL 20 MG TABLET PO (09:22)
[2023-08-03] MEDS: busPIRone HCL 2.5 MG, busPIRone HCL 5 MG 7.5 MG PO (09:22)
--- NOTE | 2023-08-03 10:46 | PM.PNNEP ---
Progress Note: A&P Assessment and Plan (1) ESRD (end stage renal disease): Code(s): N18.6 - End stage renal disease Status: Chronic Assessment and Plan: continue nightly CCPD follow electrolytes, volume status, and clearance (2) Hypokalemia: Code(s): E87.6 - Hypokalemia Status: Acute Assessment and Plan: potassium stable has been supplementation in the past follow trend of K+ levels (3) Headache: Code(s): R51.9 - Headache, unspecified Status: Acute Assessment and Plan: etiology? BP playing a role -- has a history of PRES in the past migraine? Neurology recommendations (4) Anemia: Code(s): D64.9 - Anemia, unspecified Status: Chronic Assessment and Plan: due in part to ESRD however, has fluctuated to extremes from outpatient records had seen Hematology for evaluation of this but work-up has been negative on Mircera as an outpatient unable to tolerate Epogen (as use resulted in hypertensive urgency) follow H/H (5) Hypertension: Code(s): I10 - Essential (primary) hypertension Status: Chronic Assessment and Plan: fluctuating however, suspect pain maybe playing a role just started on losartan hydralazine adjusted follow trend of hemodynamics Will continue to follow. Subjective Date/time seen: 08/03/23 10:46 Interval history: Follow-up for end stage renal disease on peritoneal dialysis. Tolerated CCPD treatment overnight without any issues or problems; headache appears better if not resolved with supportive therapy; still having neck pain and pain in the back of her head -- neck x-ray results noted; no apparent distress noted; no other events overnight or earlier this morning. Exam Narrative: General: elderly but WD/WN female in NAD Heart: normal S1 and S2; no rub Lungs: clear to auscultation Abdomen: soft, nontender, nondistended, positive bowel sounds Extremities: no cyanosis or clubbing; no edema Skin: warm and intact Objective Data Vital Signs Vital Signs: Vital Signs Temp Pulse Resp BP Pulse Ox O2 Del Method 08/03/23 10:23 89 116/62 08/03/23 09:20 Room Air 08/03/23 09:22 89 08/03/23 09:18 89 97 08/03/23 09:02 138/97 H 08/03/23 05:38 97.7 F 80 16 158/80 H 96 08/02/23 21:00 Room Air 08/02/23 21:19 90 08/02/23 21:08 97.6 F 90 16 156/83 H 97 08/02/23 18:00 97.9 F 72 16 132/66 98 Room Air Intake/Output Intake/Output: Intake & Output 07/31/23 08/01/23 08/02/23 08/03/23 23:59 23:59 23:59 23:59 Intake Total 910 530 590 490 Output Total 100 565 874 693 Balance 810 -35 -284 -203 Meds/Results Medications: Active Medications Generic Name Dose Route Start Last Admin Trade Name Freq PRN Reason Stop Dose Admin Acetaminophen 650 mg 07/29/23 20:19 08/01/23 08:32 Acetaminophen 325 Mg Tablet PO 650 mg Q4H PRN Administration Mild Pain (1-3) or Fever Buspirone HCl 2.5 mg/ 7.5 mg 07/30/23 09:00 08/03/23 09:22 Buspirone HCl 5 mg PO 7.5 mg Q12HR LETI Administration Cyclobenzaprine HCl 5 mg 07/30/23 21:00 08/02/23 21:19 Cyclobenzaprine Hcl 5 Mg Tablet PO 5 mg HS LETI Administration Duloxetine HCl 30 mg 07/30/23 09:00 08/03/23 09:21 Duloxetine Hcl 30 Mg Capsule.Dr PO 30 mg DAILY LETI Administration Furosemide 80 mg 07/30/23 09:00 08/03/23 12:27 Furosemide 80 Mg Tablet PO 80 mg TID LETI Administration Gabapentin 100 mg 08/01/23 21:00 08/02/23 21:19 Gabapentin 100 Mg Capsule PO 100 mg QHS LETI Administration Hydralazine HCl 100 mg 08/02/23 09:00 08/03/23 12:28 Hydralazine Hcl 50 Mg Tablet PO 100 mg TID LETI Administration Labetalol HCl 20 mg 08/01/23 07:22 Labetalol Hcl Inj 100 Mg/20 Ml Vial IV PUSH Q6H PRN Hypertension Loratadine/Pseudoephedrine Sulfate 1 tab 07/30/23 13:20 08/03/23
--- NOTE | 2023-08-03 10:46 | P.PNNP_ITS ---
Progress Note: A&P Assessment and Plan (1) ESRD (end stage renal disease): Code(s): N18.6 - End stage renal disease Status: Chronic Assessment and Plan: * continue nightly CCPD * follow electrolytes, volume status, and clearance (2) Hypokalemia: Code(s): E87.6 - Hypokalemia Status: Acute Assessment and Plan: * potassium stable * has been supplementation in the past * follow trend of K+ levels (3) Headache: Code(s): R51.9 - Headache, unspecified Status: Acute Assessment and Plan: * etiology? * BP playing a role -- has a history of PRES in the past * migraine? * Neurology recommendations (4) Anemia: Code(s): D64.9 - Anemia, unspecified Status: Chronic Assessment and Plan: * due in part to ESRD * however, has fluctuated to extremes from outpatient records * had seen Hematology for evaluation of this but work-up has been negative * on Mircera as an outpatient * unable to tolerate Epogen (as use resulted in hypertensive urgency) * follow H/H (5) Hypertension: Code(s): I10 - Essential (primary) hypertension Status: Chronic Assessment and Plan: * fluctuating * however, suspect pain maybe playing a role * just started on losartan * hydralazine adjusted * follow trend of hemodynamics Will continue to follow. Subjective Date/time seen: 08/03/23 10:46 Interval history: Follow-up for end stage renal disease on peritoneal dialysis. Tolerated CCPD treatment overnight without any issues or problems; headache appears better if not resolved with supportive therapy; still having neck pain and pain in the back of her head -- neck x-ray results noted; no apparent distress noted; no other events overnight or earlier this morning. Exam Narrative: General: elderly but WD/WN female in NAD Heart: normal S1 and S2; no rub Lungs: clear to auscultation Abdomen: soft, nontender, nondistended, positive bowel sounds Extremities: no cyanosis or clubbing; no edema Skin: warm and intact Objective Data Vital Signs Vital Signs: Vital Signs Temp Pulse Resp BP Pulse Ox O2 Del Method 08/03/23 10:23 89 116/62 08/03/23 09:20 Room Air 08/03/23 09:22 89 08/03/23 09:18 89 97 08/03/23 09:02 138/97 H 08/03/23 05:38 97.7 F 80 16 158/80 H 96 08/02/23 21:00 Room Air 08/02/23 21:19 90 08/02/23 21:08 97.6 F 90 16 156/83 H 97 08/02/23 18:00 97.9 F 72 16 132/66 98 Room Air Intake/Output Intake/Output: Intake & Output 07/31/23 08/01/23 08/02/23 08/03/23 23:59 23:59 23:59 23:59 Intake Total 910 530 590 490 Output Total 100 565 874 693 [facility] 810 -35 -284 -203 Meds/Results Medications: Active Medications Generic Name Dose Route Start Last Admin Trade Name Freq PRN Reason Stop Dose Admin Acetaminophen 650 mg 07/29/23 20:19 08/01/23 08:32 Acetaminophen 325 Mg Tablet PO 650 mg Q4H PRN Administration Mild Pain (1-3) or Fever Buspirone HCl 2.5 mg/ 7.5 mg 07/30/23 09:00 08/03/23 09:22 Buspirone HCl 5 mg PO 7.5 mg
[2023-08-03 12:23] VITALS: BP 116/62; PULSE 89
[2023-08-03] MEDS: ONDANSETRON INJ 4 MG/2 ML VIAL IV PUSH (13:53)
[2023-08-03 14:00] VITALS: BP 143/80; PULSE 92; RESP 12; TEMP 36.2; O2SAT 95
--- NOTE | 2023-08-03 15:12 | PM.DS ---
DS: Admitting Diagnosis Discharge Date 08/03/23 Admitting Diagnosis hypokalemia ESRD Headache DS: Discharge Diagnosis Discharge Diagnosis (1) Headache: Code(s): R51.9 - Headache, unspecified Status: Acute (2) Hypertension: Code(s): I10 - Essential (primary) hypertension Status: Chronic (3) ESRD (end stage renal disease): Code(s): N18.6 - End stage renal disease Status: Chronic (4) Hyponatremia: Code(s): E87.1 - Hypo-osmolality and hyponatremia Status: Acute (5) Acquired hypothyroidism: Code(s): E03.9 - Hypothyroidism, unspecified Status: Acute (6) Anxiety: Code(s): F41.9 - Anxiety disorder, unspecified Status: Acute (7) Depression: Code(s): F32.A - Depression, unspecified Status: Acute DS: Summary Hospital Course Reason for hospitalization: Headache hypokalemia Uncontrolled hypertension Hospital Course: This is a 78 year old female with a significant past medical history of end-stage renal disease on peritoneal dialysis who presented 07/29/23 with a headache that has been constant x1 week.? Work up included CT of the head which shown worsened moderate nonspecific cerebral white matter disease, which likely represents chronic small vessel ischemic disease.? EKG shows sinus rhythm with a rate of 83, prolonged QTC.? Labs initially revealed WBC 5.5, hemoglobin 9.3, hematocrit 29.4, sodium 132, potassium 2.9, chloride 93, BUN 88, creatinine 8.6 EGFR is 4 magnesium was 2.6, liver enzymes normal protein 5.0 albumin 2.9.? Respiratory panel was negative for influenza, RSV, COVID.? Hepatitis be antigen was negative, hepatitis B antibody positive.? Blood cultures were obtained and are pending.? Her blood pressures have been elevated and ranging 168/89-209/99. She reports associated nausea and photosensitivity. She was given Labetalol, Prochlorperazine, Zofran, Lorazepam, Buspirone, and 40 meq of KCL. Nephrology was consulted. Of note patient had a similar presentation back in July 2021. They did an MRI at that time that raised concern for cerebritis as there was left parietal, bilateral occipital subcortical edema. At that time she had AMS with reversible posterior encephalopathy syndrome. She also had small regions of right occipital, left parietal lobe decreased cortical attenuation, infarcts on her scans. EEG was done on 07/24/21 which was abnormal and suggestive of organic or metabolic encephalopathy.? Patient gradually improved during her hospital stay and was discharge with follow up appointments with neurology. Examination today patient is alert and oriented x3, lying in the bed. She reports a slight headache still today. She denies any fever, chills, recent sick contacts, lightheadedness, dizziness, vision changes, nausea, vomiting, diarrhea, abdominal pain, shortness of breath, or chest pain. She does state that she has some congestion and sinus pressure. Yesterday she did vomit which looked like mucous. She does not take anything for allergies or any decongestants.? Labs today revealed hemoglobin of 9.6, hematocrit 30.8, sodium 132, potassium 3.1, chloride 94, BUN 89 creatinine 9.1. MRI ordered and Neurology consulted considering the similarity of symptoms from previous admission. MRI showing no acute intracranial abnormality, moderate to advanced chronic microvascular ischemic change, and advanced degenerative spondylosis of the visualized upper cervical spine. 07/31/23: On examination today patient is alert and oriented x3, lying in the bed. She reports that the back of her head and neck is hurting, she still has a headache. Patient states she has chronic neck pain.? she denies any nausea, vomiting, diarrhea, abdominal pain, fever, chills, chest pain, shortness a breath.? Patient currently afebrile, she is on room air, she remains hypertensive with blood pressures ranging 152/84 to 180/86 even on her home medications.? Labs today reveal hemoglobin of 10.2,
== END 2023-08-03 16:50 | disposition home or self-care (01) | DRG 102 ==
LOC: ANHED 19:20 → ANH3MED 22:51 → ANH2MED 22:58
PROVIDERS: Internal Medicine Nephrology; Admitting Provider Student in an Organized Health Care Education/Training Program; Emergency Provider Student in an Organized Health Care Education/Training Program; PCP Family Medicine; Visit Provider Nurse Practitioner Acute Care
DX: G43.909 Migraine, unspecified, not intractable, without status migrainosus (principal); E43 Unspecified severe protein-calorie malnutrition; N18.6 End stage renal disease; I12.0 Hypertensive chronic kidney disease with stage 5 chronic kidney disease or end stage renal disease; N25.81 Secondary hyperparathyroidism of renal origin; E87.1 Hypo-osmolality and hyponatremia; Z68.1 Body mass index [BMI] 19.9 or less, adult; M47.812 Spondylosis without myelopathy or radiculopathy, cervical region; D63.1 Anemia in chronic kidney disease; E87.6 Hypokalemia; E03.9 Hypothyroidism, unspecified; E78.5 Hyperlipidemia, unspecified; I73.9 Peripheral vascular disease, unspecified; K44.9 Diaphragmatic hernia without obstruction or gangrene; M16.11 Unilateral primary osteoarthritis, right hip; G25.81 Restless legs syndrome; F32.A Depression, unspecified; F41.9 Anxiety disorder, unspecified; Z20.822 Contact with and (suspected) exposure to COVID-19; Z99.2 Dependence on renal dialysis; Z79.82 Long term (current) use of aspirin
CPT/HCPCS: 36415; 70450; 70551; 72040; 80048; 80053; 82550; 83735; 84100; 84484; 85025; 86706; 87040; 87340; 87637; 90945; 93005; 93976; 96374; 96375; 99285; A9270; G0378; J0780; J2060; J2405

== ENCOUNTER 2023-08-13 20:02 | Inpatient (IN) | payer MEDICARE, SELFPAY ==
[2023-08-13] VITALS (9 sets, daily range): BP systolic 91–162; BP diastolic 62–80; PULSE 83–90; RESP 20–31; TEMP 37.1; O2SAT 100
--- NOTE | ~2023-08-13 | XR_ITS ---
EXAMINATION: XR chest 1V portable DATE: 08/13/2023 23:25 INDICATION: Cough. TECHNIQUE: A single frontal view of the chest was obtained. COMPARISON: Chest 2 views 07/02/2023 FINDINGS: There is mild atelectasis in the lower lung zones. A calcified right lung nodule is consist ent with old granulomatous disease. No pleural effusion or pneumothorax. The heart size is normal. Th ere is a large hiatal hernia. There are changes of vertebroplasty in lower thoracic spine. IMPRESSION: 1. Mild atelectasis in the lower lung zones. 2. Large hiatal hernia. Reviewed, dictated and finalized at location E. ECTIVE CLOTHING ISSUER
--- NOTE | ~2023-08-13 | CT_ITS ---
EXAMINATION: CT abdomen pelvis wo con DATE: 08/13/2023 22:53 INDICATION: Low abdominal pain. Diarrhea. TECHNIQUE: Computed tomography (CT) of the abdomen and pelvis was performed without intravenous contr ast. Automated exposure control and iterative reconstruction technique were employed. The dose-length product was 241.47 mGy-cm. COMPARISON: CT abdomen and pelvis 04/30/2022 FINDINGS: The visualized portions of the lung bases demonstrate centrilobular nodules and small airsp shantell opacities in the lower lobes, consistent with pneumonia. There is mild bronchiectasis bilaterally . No pleural effusion. The heart size is normal. There are coronary artery calcifications. No pericar dial effusion. There is a large sliding hiatal hernia. The liver is normal. The gallbladder is normal in size. The spleen, pancreas, and adrenal glands are normal. There is moderate atrophy of the kidne ys. There are cysts in left kidney measuring up to 10 mm. The rectosigmoid is distended. There is liq uid stool in the colon correlating with the symptom of diarrhea. The appendix is not visualized. Ther e is a small volume of ascites. There is calcified atherosclerosis of the aorta and many of the other arteries. There are no pathologically enlarged lymph nodes. There is a peritoneal dialysis catheter. There is advanced right hip arthritis. There is lumbar dextroscoliosis and severe spondylosis. There are changes of vertebroplasty in T12. There is chronic anterior wedging of T11 and L1 vertebral bodi es. IMPRESSION: 1. Bilateral lower lobe pneumonia. 2. Large sliding hiatal hernia. 3. Distended rectosigmoid, likely adynamic ileus. Reviewed, dictated and finalized at location E. ER HELPER
--- NOTE | ~2023-08-13 | XR_ITS ---
Portable chest x-ray Comparison: 08/13/2023 Clinical History: Pneumonia Findings: Probable small left pleural effusion present. There is hazy bibasilar and perihilar airspa ce disease, certainly worsened from prior exam. Cardiomediastinal silhouette is stable. Bones and so ft tissues are unremarkable. Impression: Significant worsening of hazy bibasilar and perihilar airspace disease, suggestive of moderate pulmon kathleen edema. Correlate clinically for infection. Small left pleural effusion. Reviewed, dictated and finalized at [facility]. NG MACHINE OPERATOR Impression: Significant worsening of hazy bibasilar and perihilar airspace disease, suggest leila of moderate pulmonary edema. Correlate clinically for infection. Small left pleural effusion.
--- NOTE | 2023-08-13 21:24 | PC.NURSE ---
Unsuccessful IV attempt x 2. Asked another RN to attempt.
[2023-08-13 21:43] LABS: Basophils Percent Auto 0.4 % (0.2-1.2); Eosinophils Percent Auto 0.1 % (0-4.4); Hematocrit 38.7 % (37.0-47.0); Hemoglobin 12.3 g/dL (12.0-15.0); Immature Granulocyte Percent A 0.9 % (0-0.5); Lymphocytes Absolute Auto 0.74 K/mm3 (0.9-3.2); Lymphocytes Percent Auto 6.5 % (18.3-44.2); Mean Corpuscular HGB Conc 31.8 g/dl (32-36); Mean Corpuscular Hemoglobin 30.9 pg (26-34); Mean Corpuscular Volume 97.2 fl (80-100); Mean Platelet Volume 9.9 fl (7.4-10.4); Monocytes Absolute Auto 0.3 K/mm3 (0.1-0.6); Monocytes Percent Auto 2.5 % (2.6-8.5); Neutrophils Absolute Auto 10.2 K/mm3 (1.3-6.7); Neutrophils Percent Auto 89.6 % (45.5-73.1); Platelet Count Result 264 k/mm3 (150-375); Red Blood Count 3.98 M/mm3 (4.2-5.4); Red Cell Distribution Width 14.6 % (11.5-14.5); White Blood Count 11.3 K/mm3 (4.5-10.0)
[2023-08-13 21:52] LABS: Alanine Aminotransferase 20 U/L (6-35); Albumin Level 3.3 g/dL (3.5-5.1); Alkaline Phosphatase 81 U/L (38-126); Anion Gap 23 mmol/L (8-16); Aspartate Amino Transferase 42 U/L (14-36); Blood Urea Nitrogen 98 mg/dL (7-17); Calcium 8.9 mg/dL (8.4-10.2); Carbon Dioxide 14 mmol/L (22-30); Chloride 88 mmol/L (98-107); Estimated CRCL calculation 4 ml/min; Estimated Glomerular Filt Rate 5; Glucose 142 mg/dL (65-110); Lipase 310 U/L (23-300); Potassium 3.3 mmol/L (3.4-5.0); Sodium 125 mmol/L (137-145)
[2023-08-13] MEDS: SODIUM CHLORIDE 0.9% IV 1,000 ML 999 ML IV CONT ×2 (22:08→22:09)
[2023-08-13] MEDS: PANTOPRAZOLE SODIUM IV 40 MG VIAL IV PUSH (22:09)
[2023-08-13 22:42] LABS: Magnesium 2.4 mg/dL (1.6-2.3)
--- NOTE | 2023-08-13 22:52 | ED.NAVMDI ---
HPI - Nausea/Vomiting/Diarrhea General Chief complaint: Nausea/Vomiting/Diarrhea Stated complaint: diarrhea Time Seen by Provider: 08/13/23 21:11 Source: patient and family Mode of arrival: EMS Limitations: no limitations History of Present Illness HPI Narrative: Patient is a 78-year-old female, with past medical history of end-stage renal disease on peritoneal dialysis nightly, who presents to the ED via EMS with report of diarrhea. Patient reports having profuse diarrhea for the last 2 days. States it has been black in color. Denies any bright red rectal bleeding. Family has attempted to give patient Imodium without improvement. Patient reports having pain across her lower abdomen. Denies nausea or vomiting. Denies known fevers. She states she feels very weak and dehydrated. She has not been eating or drinking much. Related Data Home Medications Medication Instructions Recorded Confirmed aspirin 81 mg tablet,delayed 81 mg PO DAILY 07/10/19 07/29/23 release (Adult Aspirin Regimen) ropinirole 0.25 mg tablet 0.5 mg PO HS 08/23/19 07/29/23 furosemide 80 mg tablet (Lasix) 80 mg PO TID 06/02/22 07/29/23 darbepoetin krystle-albumin 100 100 mcg [id number] 07/29/23 07/29/23 mcg/0.5 mL in albumin injection syringe potassium chloride 20 mEq 10 meq PO DAILY 07/29/23 07/29/23 tablet,extended release vitamin B complex and vitamin C 1 cap PO HS 07/29/23 07/29/23 no.20-folic acid 1 mg capsule (Maxwell Caps) cyclobenzaprine 5 mg tablet 5 mg PO HS 07/30/23 07/29/23 gabapentin 100 mg capsule 100 mg PO QHS 07/30/23 07/29/23 Allergies Allergy/AdvReac Type Severity Reaction Status Date / Time No Known Allergies Allergy Verified 07/29/23 18:33 Review of Systems Review of Systems: CONSTITUTIONAL: Denies fever, chills, or sweats. CARDIOVASCULAR: Denies chest pain. RESPIRATORY: Denies dyspnea. GASTROINTESTINAL: See HPI GENITOURINARY: Denies dysuria or hematuria. NEUROLOGIC: See HPI All systems reviewed & are unremarkable except as noted in HPI and below PMFSH Past Medical History Medical History Acquired hypothyroidism Acute on chronic anemia Anemia in chronic kidney disease Anxiety Chronic kidney disease, stage V On the transplant list Dialysis patient peritoneal ESRD (end stage renal disease) Fecal occult blood test positive Headache Hemorrhage following tonsillectomy and adenoidectomy HLD (hyperlipidemia) Large hiatal hernia Mycobacterium avium complex PAD (peripheral artery disease) Primary osteoarthritis, unspecified site Reversible posterior leukoencephalopathy Secondary hyperparathyroidism (of renal origin) Surgical History Surgical History History of appendectomy History of tubal ligation Presence of peritoneal dialysis catheter Family History Family History Mother Diabetes mellitus Cerebrovascular accident Father Family history of cardiovascular disease Social History Social History Social History: Smoking status: Never smoker Second hand tobacco smoke exposure: No Alcohol intake: never Substance use: never Substance use type: does not use Do You Feel Safe in your Home?: Yes Lack of Transportation: No Lack of Food: Never True Current Housing: I Have Housing Concerned About Future Housing: No Difficulty Paying Gas/Electric Bills: No Difficulty Paying for Meds: No Currently Unemployed: No Education: High School Diploma/GED Difficulty w/ Childcare or Family Care: No Living arrangements: with family Occupation/Education: retired Gender identity (if verbalized by the patient): Female Sexual Orientation (if Verbalized by the Patient): Straight or Heterosexual Spiritual care concerns: No Exam
[2023-08-13 23:18] LABS: Influenza A QL RT-PCR Negative (Negative); Influenza B QL RT-PCR Negative (Negative); RSV RNA, RT-PCR Positive (Negative); SARS-CoV-2 RNA PCR Negative (Negative)
[2023-08-14] VITALS (23 sets, daily range): BP systolic 108–156; BP diastolic 53–84; PULSE 76–94; RESP 14–28; TEMP 36.4–36.7; O2SAT 95–100; BMI 19.5
[2023-08-14 00:05] LABS: Lactic Acid Reflex 2.4 mmol/L (0.7-2.0)
--- NOTE | 2023-08-14 00:07 | PM.IMHP ---
H&P: HPI History of Present Illness Date/Time: 08/14/23 00:07 Chief Complaint: generalized weakness Narrative: This is a 78-year-old female with past medical history significant for end-stage renal disease on peritoneal dialysis, anemia of chronic disease, peripheral tear disease. patient was brought to the emergency room for evaluation due to generalized weakness.Most of the history has been obtained from family member who is at bedside patient states that she has been feeling very weak and fatigued. preliminary workup significant for chest x-ray with infiltrates EXAMINATION: CT abdomen pelvis wo con DATE: 08/13/2023 22:53 INDICATION: Low abdominal pain. Diarrhea. TECHNIQUE: Computed tomography (CT) of the abdomen and pelvis was performed without intravenous contrast. Automated exposure control and iterative reconstruction technique were employed. The dose-length product was 241.47 mGy-cm. COMPARISON: CT abdomen and pelvis 04/30/2022 FINDINGS: The visualized portions of the lung bases demonstrate centrilobular nodules and small airspace opacities in the lower lobes, consistent with pneumonia. There is mild bronchiectasis bilaterally. No pleural effusion. The heart size is normal. There are coronary artery calcifications. No pericardial effusion. There is a large sliding hiatal hernia. The liver is normal. The gallbladder is normal in size. The spleen, pancreas, and adrenal glands are normal. There is moderate atrophy of the kidneys. There are cysts in left kidney measuring up to 10 mm. The rectosigmoid is distended. There is liquid stool in the colon correlating with the symptom of diarrhea. The appendix is not visualized. There is a small volume of ascites. There is calcified atherosclerosis of the aorta and many of the other arteries. There are no pathologically enlarged lymph nodes. There is a peritoneal dialysis catheter. There is advanced right hip arthritis. There is lumbar dextroscoliosis and severe spondylosis. There are changes of vertebroplasty in T12. There is chronic anterior wedging of T11 and L1 vertebral bodies. IMPRESSION: 1. Bilateral lower lobe pneumonia. 2. Large sliding hiatal hernia. 3. Distended rectosigmoid, likely adynamic ileus. EXAMINATION: XR chest 1V portable DATE: 08/13/2023 23:25 INDICATION: Cough. TECHNIQUE: A single frontal view of the chest was obtained. COMPARISON: Chest 2 views 07/02/2023 FINDINGS: There is mild atelectasis in the lower lung zones. A calcified right lung nodule is consistent with old granulomatous disease. No pleural effusion or pneumothorax. The heart size is normal. There is a large hiatal hernia. There are changes of vertebroplasty in lower thoracic spine. IMPRESSION: 1. Mild atelectasis in the lower lung zones. 2. Large hiatal hernia. Review of Systems Review of Systems: generalized weakness Constitutional: Constitutional: Reports poor appetite and Reports weakness Eyes: Eyes: Denies change in vision ENT: Denies dysphagia and Denies odynophagia Cardiovascular: Cardiovascular: Denies leg edema Respiratory: Respiratory: Reports chest congestion, Reports cough and Reports dyspnea Gastrointestinal: Gastrointestinal: Denies abdominal pain, Reports diarrhea, Denies nausea and Denies vomiting Genitourinary: Genitourinary: Denies dysuria Musculoskeletal: Musculoskeletal: Reports muscle weakness Integumentary/Breasts: Skin/Breast: Denies rash Neurologic: Denies focal weakness and Denies Sensory deficit (Neuro) Psychiatric: Psychiatric: Reports no additional psychiatric complaints and Reports as per HPI Endocrine: Endocrine: Denies cold intolerance, Denies fatigue, Denies flushing, Denies heat intolerance, Denies polyphagia, Denies polydipsia and Denies palpitations Hematologic/Lymphatic: Hematologic/Lymphatic: Reports no additional hematologic/lymphatic complaints and Reports as per HPI Allergic/Immunologic: Allergic/Immunologic: Reports no addition
--- NOTE | 2023-08-14 00:50 | PC.NURSE ---
Family and pt reporting pt anxious and requesting me. ERP notified and orders received.
[2023-08-14] MEDS: LORazepam INJ (*CRX) 2 MG/ML VIAL 0.5 MG IV PUSH (01:06)
[2023-08-14] MEDS: AZITHROMYCIN 500 MG/NS 250 ML 500 MG/250 ML BAG 250 MG IVPB ×2 (01:07→23:15)
[2023-08-14] MEDS: SODIUM CHLORIDE 0.9% IV 1,000 ML 80 ML IV CONT ×2 (02:05→23:14)
[2023-08-14 02:43] LABS: Reflex Lactic Acid Yes or No Add Lactic
--- NOTE | 2023-08-14 02:46 | PC.NURSE ---
Pt is A&O x4, able to make needs known, answers all questions appropriately. Pt denies pain at this time. Pt was instructed to call RN if the pain reaches 5. Pt was educated on pain management, medications, hospital environment, use of call light, admission packet reviewed and all questions answered. Medication reconciliation completed bedside with the pt. All questions answered, will continue to monitor.
[2023-08-14 03:38] LABS: Hematocrit 32.5 % (37.0-47.0); Hemoglobin 10.3 g/dL (12.0-15.0)
[2023-08-14 03:47] LABS: Lactic Acid 1.4 mmol/L (0.7-2.0)
[2023-08-14 06:10] LABS: Basophils Absolute Auto 0.1 K/mm3 (0.0-0.1); Basophils Percent Auto 0.5 % (0.2-1.2); Eosinophils Percent Auto 0.1 % (0-4.4); Hematocrit 32.8 % (37.0-47.0); Hemoglobin 10.4 g/dL (12.0-15.0); Immature Granulocyte Absolute 0.08 K/mm3 (0.00-0.031); Immature Granulocyte Percent A 0.8 % (0-0.5); Lymphocytes Absolute Auto 0.74 K/mm3 (0.9-3.2); Lymphocytes Percent Auto 7.3 % (18.3-44.2); Mean Corpuscular HGB Conc 31.7 g/dl (32-36); Mean Corpuscular Hemoglobin 31.7 pg (26-34); Mean Platelet Volume 10.2 fl (7.4-10.4); Monocytes Absolute Auto 0.3 K/mm3 (0.1-0.6); Neutrophils Percent Auto 88.3 % (45.5-73.1); Platelet Count Result 230 k/mm3 (150-375); Red Blood Count 3.28 M/mm3 (4.2-5.4); Red Cell Distribution Width 14.5 % (11.5-14.5); White Blood Count 10.1 K/mm3 (4.5-10.0)
[2023-08-14 06:32] LABS: Alanine Aminotransferase 16 U/L (6-35); Albumin Level 2.6 g/dL (3.5-5.1); Alkaline Phosphatase 76 U/L (38-126); Anion Gap 19 mmol/L (8-16); Aspartate Amino Transferase 34 U/L (14-36); Bilirubin,Total 0.7 mg/dL (0.2-1.3); Blood Urea Nitrogen 90 mg/dL (7-17); Carbon Dioxide 12 mmol/L (22-30); Chloride 98 mmol/L (98-107); Estimated CRCL calculation 4 ml/min; Estimated Glomerular Filt Rate 5; Glucose 76 mg/dL (65-110); Magnesium 2.3 mg/dL (1.6-2.3); Potassium 2.5 mmol/L (3.4-5.0); Sodium 129 mmol/L (137-145)
[2023-08-14 06:34] LABS: Hematocrit 33.2 % (37.0-47.0); Hemoglobin 10.3 g/dL (12.0-15.0)
[2023-08-14] MEDS: POTASSIUM CHLORIDE INJ 40 MEQ in SODIUM CHLORIDE 0.9% IV 500 ML 130 MEQ IVPB ×2 (06:52→12:26)
[2023-08-14] MEDS: LORazepam (*CRX) 1 MG TABLET PO ×3 (06:58→21:27)
[2023-08-14] MEDS: LEVOTHYROXINE SODIUM 112 MCG TABLET PO (08:24)
[2023-08-14] MEDS: LEVOTHYROXINE SODIUM 25 MCG TABLET PO (08:24)
[2023-08-14] MEDS: POTASSIUM CHLORIDE 20 MEQ ER TABLET 40 MEQ PO (09:18)
[2023-08-14] MEDS: DULoxetine HCL 30 MG CAPSULE.DR PO (09:19)
[2023-08-14] MEDS: PROPRANOLOL HCL 20 MG TABLET PO ×2 (09:19→21:23)
[2023-08-14] MEDS: busPIRone HCL 2.5 MG TABLET PO ×2 (09:19→21:22)
[2023-08-14] MEDS: hydrALAZINE HCL 50 MG TABLET 100 MG PO ×2 (09:19→17:55)
[2023-08-14] MEDS: ASPIRIN 81 MG ENTERIC TABLET PO (09:19)
[2023-08-14] MEDS: busPIRone HCL 5 MG TABLET PO ×2 (09:20→21:22)
--- NOTE | 2023-08-14 09:35 | WPDGICN ---
Assessment and Plan Assessment and plan (1) Diarrhea: Qualifiers: Diarrhea type: unspecified type Qualified Code(s): R19.7 - Diarrhea, unspecified Code(s): R19.7 - Diarrhea, unspecified Status: Acute Assessment and Plan: she states that the diarrhea began yesterday morning. She took Imodium without relief. She has also had discomfort in the lower abdomen. She is fairly certain she was feeling great the day before. She denies nausea vomiting but has not felt like eating much. Her stools have been black with no red blood seen. A CT scan did show rectal distension also some in the distal sigmoid. She has hiatal hernia. She does take an aspirin tablet daily (2) Melena: Code(s): K92.1 - Melena Status: Acute Assessment and Plan: This all began yesterday with black liquid stool. She has had no hematemesis (3) Respiratory syncytial virus (RSV): Code(s): B33.8 - Other specified viral diseases Status: Acute Assessment and Plan: She is on ceftriaxone and azithromycin. (4) End-stage renal disease on peritoneal dialysis: Code(s): N18.6 - End stage renal disease; Z99.2 - Dependence on renal dialysis Status: Acute Assessment and Plan: She is on peritoneal dialysis. She states that she was told that she is too old to get a kidney transplant. BUN is 96 and creatinine 7.7, in range of her normal. (5) Abdominal pain: Code(s): R10.9 - Unspecified abdominal pain Status: Acute Assessment and Plan: Her pain is primarily across the lower abdomen but on examination she is somewhat tender diffusely. (6) Large hiatal hernia: Code(s): K44.9 - Diaphragmatic hernia without obstruction or gangrene Status: Acute Assessment and Plan: she is known to have a large hiatal hernia. With a large hiatal hernia she could be bleeding from Jose Luis erosions. she denies having heartburn dysphagia or epigastric or chest discomfort with this illness. She does not take PPI or other acid reducing medications regularly. Plan I will advance her diet least clear liquids and perhaps full if she tolerates that. Her counts are stable, therefore there is no urgent need for endoscopy. I told her that eventually however we may need to consider colonoscopy or even EGD to determine what was the cause of this acute illness. Stool studies will be ordered. GI Consult Note Consult date/time: 08/14/23 09:35 HPI: Jacquie Cano is a 78 year old female who suffers from end-stage renal disease was brought to emergency room because of weakness. Reportedly she has had loose stools for several days which were black in color. Hemoglobin is 10.3 which is actually better than it was a few weeks ago when it was 9.3. she has had pain across her lower abdomen. She has had no vomiting. The patient's family has given her Imodium without any improvement in the diarrhea. Stool was Hemoccult positive. CT scan of the abdomen reveals bilateral lower lobe pneumonia and a sliding hiatal hernia. Also shows distended rectal sigmoid. She has a chronic dialysis patient, peritoneal dialysis. She has end-stage liver disease and is on a transplant list. Review of Systems Review of Systems: All systems reviewed & are unremarkable except as noted in HPI and below PMFSH Past Medical History Medical History (Updated 08/14/23 @ 11:14 by Osmin Scott MD) Acquired hypothyroidism Acute on chronic anemia Anemia in chronic kidney disease Anxiety Chronic kidney disease, stage V On the transplant list Dialysis patient peritoneal ESRD (end stage renal disease) Fecal occult blood test positive Headache Hemorrhage following tonsillectomy and adenoidectomy HLD (hyperlipidemia) Large hiatal hernia Mycobacterium avium complex PAD (peripheral artery disease) Primary osteoarthritis, unspecified site Reversible posterior leukoencephalopathy [place]
--- NOTE | 2023-08-14 11:15 | P.CONNP_ITS ---
Assessment and Plan Assessment and plan (1) ESRD (end stage renal disease): Code(s): N18.6 - End stage renal disease Status: Chronic Assessment and Plan: * resume CCPD tonight * follow electrolytes, volume status, and clearance (2) Hypokalemia: Code(s): E87.6 - Hypokalemia Status: Acute Assessment and Plan: * partly due to dialysis and diuretics but acute worsened by GI loss and poor oral intake * s/p IV supplementation * if able, resume/restart oral supplementation * follow trend of repeat K+ levels * check magnesium (3) Pneumonia: Qualifiers: Laterality: bilateral Lung location: lower lobe of lung Pneumonia type : due to unspecified organism Qualified Code(s): J18.9 - Pneumonia, unspecified organism Code(s): J18.9 - Pneumonia, unspecified organism Status: Acute Assessment and Plan: * as noted by admission imaging * follow culture data * on antibiotics (4) Diarrhea: Qualifiers: Diarrhea type: unspecified type Qualified Code(s): R19.7 - Diarrhea, unspecified Code(s): R19.7 - Diarrhea, unspecified Status: Acute Assessment and Plan: * etiology not clear * GI recommendations noted * advancing diet as tolerated * stools studies ordered (5) Respiratory syncytial virus (RSV): Code(s): B33.8 - Other specified viral diseases Status: Acute Assessment and Plan: * positivity noted by testing in ER * respiratory isolation * nebulizer treatments * follow respiratory status (6) Anemia: Code(s): D64.9 - Anemia, unspecified Status: Chronic Assessment and Plan: * due in part to ESRD * however, has fluctuated to extremes from outpatient records * had seen Hematology for evaluation of this but work-up has been negative * on Mircera as an outpatient * unable to tolerate Epogen (as use resulted in hypertensive urgency) * follow trend of H/H (7) Hypertension: Code(s): I10 - Essential (primary) hypertension Status: Chronic Assessment and Plan: * reasonable control at this time * follow trend of hemodynamics I will continue to follow patient with you while she remains hospitalized and make further recommendations during her hospital course. Thank you for allowing me to participate in care of this patient. History of Present Illness Reason for Consult Consult date: 08/14/23 Reason for consult: end stage renal disease Chief Complaint Chief complaint: diarrhea, gib, ileus, pna, rsv, sepsis, lactic aci History of Present Illness Narrative: The patient is a 78-year-old female with a past medical history as outlined below who presented to [facility] Emergency Room for further evaluation of diarrhea. The patient states that for the last 2-3 days she has been having significant/profuse diarrhea. She reports that has been black in color but with no associated hematochezia or melena. She attempted to use Imodium an effort help with this problem but it did not seem to have much effect. She denies any nausea or vomiting but does report having diffuse abdominal pain across her lower abdomen. No reported fevers or chills but states that she just feels quite weak and dehydrated as along with the diarrhea, she has not been eating or drinking very much. Given the persistence of the symptoms and her ongoing weakness and fatigue, she presented to the ER for further assessment. Workup and evaluation emergency room demonstrated the patient to be mildly
--- NOTE | 2023-08-14 11:15 | PM.CNNEP ---
Assessment and Plan Assessment and plan (1) ESRD (end stage renal disease): Code(s): N18.6 - End stage renal disease Status: Chronic Assessment and Plan: resume CCPD tonight follow electrolytes, volume status, and clearance (2) Hypokalemia: Code(s): E87.6 - Hypokalemia Status: Acute Assessment and Plan: partly due to dialysis and diuretics but acute worsened by GI loss and poor oral intake s/p IV supplementation if able, resume/restart oral supplementation follow trend of repeat K+ levels check magnesium (3) Pneumonia: Qualifiers: Laterality: bilateral Lung location: lower lobe of lung Pneumonia type: due to unspecified organism Qualified Code(s): J18.9 - Pneumonia, unspecified organism Code(s): J18.9 - Pneumonia, unspecified organism Status: Acute Assessment and Plan: as noted by admission imaging follow culture data on antibiotics (4) Diarrhea: Qualifiers: Diarrhea type: unspecified type Qualified Code(s): R19.7 - Diarrhea, unspecified Code(s): R19.7 - Diarrhea, unspecified Status: Acute Assessment and Plan: etiology not clear GI recommendations noted advancing diet as tolerated stools studies ordered (5) Respiratory syncytial virus (RSV): Code(s): B33.8 - Other specified viral diseases Status: Acute Assessment and Plan: positivity noted by testing in ER respiratory isolation nebulizer treatments follow respiratory status (6) Anemia: Code(s): D64.9 - Anemia, unspecified Status: Chronic Assessment and Plan: due in part to ESRD however, has fluctuated to extremes from outpatient records had seen Hematology for evaluation of this but work-up has been negative on [facility] as an outpatient unable to tolerate Epogen (as use resulted in hypertensive urgency) follow trend of H/H (7) Hypertension: Code(s): I10 - Essential (primary) hypertension Status: Chronic Assessment and Plan: reasonable control at this time follow trend of hemodynamics I will continue to follow patient with you while she remains hospitalized and make further recommendations during her hospital course. Thank you for allowing me to participate in care of this patient. History of Present Illness Reason for Consult Consult date: 08/14/23 Reason for consult: end stage renal disease Chief Complaint Chief complaint: diarrhea, gib, ileus, pna, rsv, sepsis, lactic aci History of Present Illness Narrative: The patient is a 78-year-old female with a past medical history as outlined below who presented to [facility] Emergency Room for further evaluation of diarrhea. The patient states that for the last 2-3 days she has been having significant/profuse diarrhea. She reports that has been black in color but with no associated hematochezia or melena. She attempted to use Imodium an effort help with this problem but it did not seem to have much effect. She denies any nausea or vomiting but does report having diffuse abdominal pain across her lower abdomen. No reported fevers or chills but states that she just feels quite weak and dehydrated as along with the diarrhea, she has not been eating or drinking very much. Given the persistence of the symptoms and her ongoing weakness and fatigue, she presented to the ER for further assessment. Workup and evaluation emergency room demonstrated the patient to be mildly hypotensive on presentation but in no acute distress. Routine blood work demonstrated a mild leukocytosis of 11.3 with stable anemia along with a chemistry that was consistent with her known history of end-stage renal disease although she was noted to be mildly hyponatremic with a sodium 125 with associated hypokalemia with a potassium of 3.3. Lipase was minimally elevated and her lactic acid was slightly elevated 2.4. Jesusita levy
--- NOTE | 2023-08-14 11:30 | PM.IMPN ---
Progress Note: A&P Assessment and Plan (1) Pneumonia: Qualifiers: Laterality: bilateral Lung location: lower lobe of lung Pneumonia type: due to unspecified organism Qualified Code(s): J18.9 - Pneumonia, unspecified organism Code(s): J18.9 - Pneumonia, unspecified organism Status: Acute Assessment and Plan: Not meeting sepsis criteria Continue IV Abx of Rocephin and Azithromycin. Duonebs Q6 hrs scheduled Albuterol nebs Q4 hrs prn Monitor oxygen sats Trend labs and VS. (2) Diarrhea: Qualifiers: Diarrhea type: unspecified type Qualified Code(s): R19.7 - Diarrhea, unspecified Code(s): R19.7 - Diarrhea, unspecified Status: Acute Assessment and Plan: Etiology unknown Obtain stool studies for culture and C-diff. Replace electrolytes that have decreased as a result. Monitor labs and VS. (3) End-stage renal disease on peritoneal dialysis: Code(s): N18.6 - End stage renal disease; Z99.2 - Dependence on renal dialysis Status: Chronic Assessment and Plan: Cr 7.7 w/BUN of 90. Pt does PD at home. Nephrology is consulted, we are awaiting their recommendations. Avoid nephrotoxic agents as much as possible. (4) RSV (acute bronchiolitis due to respiratory syncytial virus): Code(s): J21.0 - Acute bronchiolitis due to respiratory syncytial virus Status: Acute Assessment and Plan: Monitor respiratory status Continue Respiratory precautions/isolation Duonebs Q6 hrs and prn Albuterol Q4 hrs Monitor labs and VS. (5) Fecal occult blood test positive: Code(s): R19.5 - Other fecal abnormalities Status: Acute Assessment and Plan: GI consulted. They do not believe pt needs emergent inpt EGD or scope. Will consider as outpatient though. Avoid blood thinning agents. (6) Hypokalemia: Code(s): E87.6 - Hypokalemia Status: Acute Assessment and Plan: K+ today is 2.5. 40 mEq po is given as well as 40 mEq IVPB. Recheck labs in AM to monitor trend. Time Spent With Patient Time with patient: 25 - 35 minutes Subjective Date/time seen: 08/14/23 0900 Interval history: This 78 year old female pt was examined at the bedside today in interval assessment after she was admitted to the hospital overnight with RSV, Diarrhea w/abdominal pain and positive occult blood in the stool, as well as BLL infiltrates and generalized weakness. Pt reports that she overall is still not feeling any better, still having loose stools that are black in color and no hematochezia or hematemesis. She is not requiring supplemental oxygen at this time. She was evaluated by GI today and they agree with the ordering of stool studies, and we are currently just awaiting the collection of those. At this time there is no need for Endoscopy emergently according to GI, but will consider outpt EGD and colonoscopy in the future. Diet was changed by GI to clears. Pt continues to receive abx of Rocephin and Azithromycin for treatment of her PNA. Today her Potassium was noted to be low at 2.5, most likely secondary to her persistent Diarrhea. Pt is also awaiting a Nephrology consult as she does PD at home for her ESRD. She has no other acute complaints such as CP, vomiting. Review of Systems Review of Systems: All systems reviewed & are unremarkable except as noted in HPI and below Exam Narrative: CONSTITUTIONAL: Pleasant, frail, elderly and ill appearing female pt laying supine in bed at this time. She appears uncomfortable, but not in acute respiratory distress. HEENT: Atraumatic and normocephalic. Mucous membranes are dry appearing and pasty. Posterior Oropharynx is patent and without edema. EYES: PERRLA, EOM's intact NECK: Supple, AROM in all directions. RESPIRATORY: Crackles present RLL and RML, with slight wheezing present in all posterior nassar. CARDIO: RRR, S1 and S2, no S3, S4, m,r,g,h or displacement of PMI. GI: Soft, gen
[2023-08-14 12:24] LABS: Hematocrit 32.8 % (37.0-47.0); Hemoglobin 10.3 g/dL (12.0-15.0)
[2023-08-14] MEDS: traMADol HCL (*CRX) 50 MG TABLET PO ×2 (13:25→21:27)
[2023-08-14] MEDS: IPRATROPIUM 0.5 MG/ALBUTEROL SULFATE 2.5 MG AMPUL.NEB 3 ML INHALATION (14:20)
[2023-08-14 17:56] LABS: Hematocrit 31.5 % (37.0-47.0); Hemoglobin 9.9 g/dL (12.0-15.0)
[2023-08-14 18:06] LABS: Magnesium 2.2 mg/dL (1.6-2.3); Potassium 4.8 mmol/L (3.4-5.0)
[2023-08-14 18:17] LABS: Toxigenic C. Diff NEGATIVE (NEGATIVE)
[2023-08-14] MEDS: CYCLOBENZAPRINE HCL 5 MG TABLET PO (21:22)
[2023-08-14] MEDS: GABAPENTIN 100 MG CAPSULE PO (21:22)
[2023-08-14] MEDS: VITAMIN B CMPLX/VIT C/FOLIC AC 1 CAPSULE 1 CAP PO (21:23)
[2023-08-14] MEDS: rOPINIRole HCL 0.5 MG TABLET PO (21:23)
[2023-08-15] VITALS (20 sets, daily range): BP systolic 124–150; BP diastolic 62–77; PULSE 69–86; RESP 16–20; TEMP 36.4–36.9; O2SAT 96–99
[2023-08-15] MEDS: IPRATROPIUM 0.5 MG/ALBUTEROL SULFATE 2.5 MG AMPUL.NEB 3 ML INHALATION ×4 (01:48→20:44)
[2023-08-15 05:53] LABS: Basophils Percent Auto 0.1 % (0.2-1.2); Eosinophils Absolute Auto 0.1 K/mm3 (0-0.3); Eosinophils Percent Auto 0.9 % (0-4.4); Hematocrit 30.1 % (37.0-47.0); Hemoglobin 9.2 g/dL (12.0-15.0); Immature Granulocyte Absolute 0.08 K/mm3 (0.00-0.031); Immature Granulocyte Percent A 0.9 % (0-0.5); Immature Platelet Fraction Pct 3.5 % (0.9-11.2); Lymphocytes Absolute Auto 0.65 K/mm3 (0.9-3.2); Lymphocytes Percent Auto 7.6 % (18.3-44.2); Mean Corpuscular HGB Conc 30.6 g/dl (32-36); Mean Corpuscular Hemoglobin 31.1 pg (26-34); Mean Corpuscular Volume 101.7 fl (80-100); Monocytes Absolute Auto 0.4 K/mm3 (0.1-0.6); Monocytes Percent Auto 4.1 % (2.6-8.5); Neutrophils Absolute Auto 7.4 K/mm3 (1.3-6.7); Neutrophils Percent Auto 86.4 % (45.5-73.1); Platelet Count Result 196 k/mm3 (150-375); Red Blood Count 2.96 M/mm3 (4.2-5.4); Red Cell Distribution Width 14.6 % (11.5-14.5); White Blood Count 8.6 K/mm3 (4.5-10.0)
[2023-08-15] MEDS: LEVOTHYROXINE SODIUM 25 MCG TABLET PO (06:31)
[2023-08-15] MEDS: LEVOTHYROXINE SODIUM 112 MCG TABLET PO (06:31)
[2023-08-15 06:33] LABS: Alanine Aminotransferase 14 U/L (6-35); Albumin Level 2.5 g/dL (3.5-5.1); Alkaline Phosphatase 67 U/L (38-126); Anion Gap 13 mmol/L (8-16); Aspartate Amino Transferase 33 U/L (14-36); Bilirubin,Total 0.6 mg/dL (0.2-1.3); Blood Urea Nitrogen 71 mg/dL (7-17); Calcium 8.6 mg/dL (8.4-10.2); Carbon Dioxide 14 mmol/L (22-30); Chloride 106 mmol/L (98-107); Estimated CRCL calculation 5 ml/min; Estimated Glomerular Filt Rate 6; Glucose 61 mg/dL (65-110); Potassium 3.7 mmol/L (3.4-5.0); Sodium 133 mmol/L (137-145)
[2023-08-15] MEDS: traMADol HCL (*CRX) 50 MG TABLET PO (06:34)
[2023-08-15] MEDS: DULoxetine HCL 30 MG CAPSULE.DR PO (08:30)
[2023-08-15] MEDS: hydrALAZINE HCL 50 MG TABLET 100 MG PO ×3 (08:30→17:55)
[2023-08-15] MEDS: busPIRone HCL 2.5 MG TABLET PO ×2 (08:30→20:47)
[2023-08-15] MEDS: ASPIRIN 81 MG ENTERIC TABLET PO (08:30)
[2023-08-15] MEDS: PROPRANOLOL HCL 20 MG TABLET PO ×2 (08:31→20:47)
[2023-08-15] MEDS: busPIRone HCL 5 MG TABLET PO ×2 (08:31→20:47)
--- NOTE | 2023-08-15 10:05 | P.PNIM_ITS ---
Progress Note: A&P Assessment and Plan (1) Pneumonia: Qualifiers: Laterality: bilateral Lung location: lower lobe of lung Pneumonia type: due to unspecified organism Qualified Code(s): J18.9 - Pneumonia, unspecified organism Code(s): J18.9 - Pneumonia, unspecified organism Status: Acute Assessment and Plan: * Not meeting sepsis criteria * Continue IV Abx of Rocephin and Azithromycin. * Duonebs Q6 hrs scheduled * Albuterol nebs Q4 hrs prn * Monitor oxygen sats * Trend labs and VS. * 08/15/2023: Patient with interval improvement in overall breath sounds. She is not meeting sepsis criteria. She remains on IV antibiotics of Rocephin and azithromycin. Today is day 3 of antibiotic therapy. With initiation yesterday of DuoNebs and albuterol patient has had interval improvement in her amount aeration and is very happy progress. Oxygen saturations have remained stable on room air at 97%. We are continuing to trend her labs and vital signs at this time although I am hopeful that she will be ready for discharge fairly soon once cleared per GI. Chest x-ray ordered for a.m. re-evaluation of pneumonia progression or resolution. (2) Diarrhea: Qualifiers: Diarrhea type: unspecified type Qualified Code(s): R19.7 - Diarrhea, unspecified Code(s): R19.7 - Diarrhea, unspecified Status: Acute Assessment and Plan: * Etiology unknown * Obtain stool studies for culture and C-diff. * Replace electrolytes that have decreased as a result. * Monitor labs and VS. * 08/15/2023: CT head negative. Stool cultures are still pending. Diarrhea has now stopped according to patient. Tolerating clear liquid diet at this time. GI continues to follow. (3) End-stage renal disease on peritoneal dialysis: Code(s): N18.6 - End stage renal disease; Z99.2 - Dependence on renal dialysis Status: Chronic Assessment and Plan: * Cr 7.7 w/BUN of 90. * Pt does PD at home. * Nephrology is consulted, we are awaiting their recommendations. * Avoid nephrotoxic agents as much as possible. * 08/15/2023: Nephrology evaluated patient is reading ordered peritoneal dialysis to continue. Patient was able to do this at the bedside last evening. Labs this morning reflecting interval in improvement in creatinine from 7.7-6.6) BUN from 90-71. This is at patient's baseline renal function. She will continue with peritoneal dialysis while here and we thank Dr. Francois for his continued co-management of this patient. (4) RSV (acute bronchiolitis due to respiratory syncytial virus): Code(s): J21.0 - Acute bronchiolitis due to respiratory syncytial virus Status: Acute Assessment and Plan: * Monitor respiratory status * Continue Respiratory precautions/isolation * Duonebs Q6 hrs and prn Albuterol Q4 hrs * Monitor labs and VS. * 08/15/2023: Patient's respiratory status is improved and stable. She is not requiring supplemental oxygenation. We are continuing to monitor. Chest x- ray ordered for a.m. to assess for interval resolution verses worsening of overall respiratory status. (5) Fecal occult blood test positive: Code(s): R19.5 - Other fecal abnormalities Status: Acute Assessment and Plan: * GI consulted. They do not believe pt needs emergent inpt EGD or scope. Will consider as outpatient though. * Avoid blood thinning agents. * 08/15/2023: Patient with no further GI complaints today. Diarrhea has resolved. She has not had any signs melena. Awaiting further GI recommendations. (6) Hypokalemia: Code(s): E87.6 - H
--- NOTE | 2023-08-15 10:05 | PM.IMPN ---
Progress Note: A&P Assessment and Plan (1) Pneumonia: Qualifiers: Laterality: bilateral Lung location: lower lobe of lung Pneumonia type: due to unspecified organism Qualified Code(s): J18.9 - Pneumonia, unspecified organism Code(s): J18.9 - Pneumonia, unspecified organism Status: Acute Assessment and Plan: Not meeting sepsis criteria Continue IV Abx of Rocephin and Azithromycin. Duonebs Q6 hrs scheduled Albuterol nebs Q4 hrs prn Monitor oxygen sats Trend labs and VS. 08/15/2023: Patient with interval improvement in overall breath sounds. She is not meeting sepsis criteria. She remains on IV antibiotics of Rocephin and azithromycin. Today is day 3 of antibiotic therapy. With initiation yesterday of DuoNebs and albuterol patient has had interval improvement in her amount aeration and is very happy progress. Oxygen saturations have remained stable on room air at 97%. We are continuing to trend her labs and vital signs at this time although I am hopeful that she will be ready for discharge fairly soon once cleared per GI. Chest x-ray ordered for a.m. re-evaluation of pneumonia progression or resolution. (2) Diarrhea: Qualifiers: Diarrhea type: unspecified type Qualified Code(s): R19.7 - Diarrhea, unspecified Code(s): R19.7 - Diarrhea, unspecified Status: Acute Assessment and Plan: Etiology unknown Obtain stool studies for culture and C-diff. Replace electrolytes that have decreased as a result. Monitor labs and VS. 08/15/2023: CT head negative. Stool cultures are still pending. Diarrhea has now stopped according to patient. Tolerating clear liquid diet at this time. GI continues to follow. (3) End-stage renal disease on peritoneal dialysis: Code(s): N18.6 - End stage renal disease; Z99.2 - Dependence on renal dialysis Status: Chronic Assessment and Plan: Cr 7.7 w/BUN of 90. Pt does PD at home. Nephrology is consulted, we are awaiting their recommendations. Avoid nephrotoxic agents as much as possible. 08/15/2023: Nephrology evaluated patient is reading ordered peritoneal dialysis to continue. Patient was able to do this at the bedside last evening. Labs this morning reflecting interval in improvement in creatinine from 7.7-6.6) BUN from 90-71. This is at patient's baseline renal function. She will continue with peritoneal dialysis while here and we thank Dr. Francois for his continued co-management of this patient. (4) RSV (acute bronchiolitis due to respiratory syncytial virus): Code(s): J21.0 - Acute bronchiolitis due to respiratory syncytial virus Status: Acute Assessment and Plan: Monitor respiratory status Continue Respiratory precautions/isolation Duonebs Q6 hrs and prn Albuterol Q4 hrs Monitor labs and VS. 08/15/2023: Patient's respiratory status is improved and stable. She is not requiring supplemental oxygenation. We are continuing to monitor. Chest x-ray ordered for a.m. to assess for interval resolution verses worsening of overall respiratory status. (5) Fecal occult blood test positive: Code(s): R19.5 - Other fecal abnormalities Status: Acute Assessment and Plan: GI consulted. They do not believe pt needs emergent inpt EGD or scope. Will consider as outpatient though. Avoid blood thinning agents. 08/15/2023: Patient with no further GI complaints today. Diarrhea has resolved. She has not had any signs melena. Awaiting further GI recommendations. (6) Hypokalemia: Code(s): E87.6 - Hypokalemia Status: Resolved Assessment and Plan: K+ today is 2.5. 40 mEq po is given as well as 40 mEq IVPB. Recheck labs in AM to monitor trend. 08/15/2023: Patient's potassium is much improved today receiving 40 mEq by mouth and 40 mEq IV piggyback. Her potassium has increased from 2.5-3.7. This is also aided by the fact that her diarrhea has ceased. Patient r
[2023-08-15 10:29] LABS: Appearance Peritoneal Fluid Clear (Clear); Color Peritoneal Fluid Colorless (Colorless); Nucleated Cells Peritoneal Flu 21 /uL (0-500); RBC Peritoneal Fluid < 2000 /uL (0-100000); Source Peritoneal Fluid Peritoneal Fluid
[2023-08-15 10:38] LABS: Lymphocytes Peritoneal Fluid 21 %; Neutrophils Peritoneal Fluid 8 % (0-25)
[2023-08-15 10:39] LABS: Macrophages Peritoneal Fluid 63 %; Other Cells Peritoneal Fluid 8 %
--- NOTE | 2023-08-15 11:06 | WPDGIPROGNO ---
Progress Note: A&P Assessment and Plan (1) Diarrhea: Qualifiers: Diarrhea type: unspecified type Qualified Code(s): R19.7 - Diarrhea, unspecified Code(s): R19.7 - Diarrhea, unspecified Status: Acute Assessment and Plan: she states that the diarrhea began yesterday morning. She took Imodium without relief. She has also had discomfort in the lower abdomen. She is fairly certain she was feeling great the day before. She denies nausea vomiting but has not felt like eating much. Her stools have been black with no red blood seen. A CT scan did show rectal distension also some in the distal sigmoid. She has hiatal hernia. She does take an aspirin tablet daily (2) Melena: Code(s): K92.1 - Melena Status: Acute Assessment and Plan: This all began yesterday with black liquid stool. She has had no hematemesis (3) Respiratory syncytial virus (RSV): Code(s): B33.8 - Other specified viral diseases Status: Acute Assessment and Plan: She is on ceftriaxone and azithromycin. (4) End-stage renal disease on peritoneal dialysis: Code(s): N18.6 - End stage renal disease; Z99.2 - Dependence on renal dialysis Status: Chronic Assessment and Plan: She is on peritoneal dialysis. She states that she was told that she is too old to get a kidney transplant. BUN is 96 and creatinine 7.7, in range of her normal. (5) Abdominal pain: Code(s): R10.9 - Unspecified abdominal pain Status: Acute Assessment and Plan: Her pain is primarily across the lower abdomen but on examination she is somewhat tender diffusely. (6) Large hiatal hernia: Code(s): K44.9 - Diaphragmatic hernia without obstruction or gangrene Status: Acute Assessment and Plan: she is known to have a large hiatal hernia. With a large hiatal hernia she could be bleeding from Jose Luis erosions. she denies having heartburn dysphagia or epigastric or chest discomfort with this illness. She does not take PPI or other acid reducing medications regularly. Plan I will advance her diet least clear liquids and perhaps full if she tolerates that. We will schedule her for colonoscopy an EGD to determine what was the cause of this acute illness, investigate the abnormal CT scan findings. Stool studies Are negative for C diff. Other pathogen cultures are pending Subjective Date/time seen: 08/15/23 11:06 no new complaints. No evidence of active bleeding she denies being short of breath today. Exam Const: General: cooperative and healthy appearing Orientation/consciousness: patient oriented x3 HENMT: Head: normal to inspection Ears: hearing grossly normal bilaterally Mouth: Yes Normal oral and palatal mucosa present Eyes: General: appearance normal, both eyes and all related structures Neck: Neck: normal visual inspection Chest: Chest palpation & inspection: normal inspection of the chest Resp: Effort & Inspection: normal respiratory effort Auscultation: clear to auscultation bilaterally Cardio: Rate: regular rate Rhythm: regular rhythm GI: Inspection: normal to inspection GI Palp: Yes abdominal tenderness ( diffuse but more in the lower abdomen), Yes Soft to palpation, Yes No hepatosplenomegaly present and No Palpable mass present Auscultation: normal bowel sounds Skin: General skin exam: normal color and no jaundice Neuro: General: patient oriented x3 Speech: normal speech Objective Data Vital Signs Vital Signs: Vital Signs - 24 hr 08/14/23 12:17 08/14/23 12:00 08/14/23 14:18 Temperature Pulse Rate 76 80 Respiratory Rate 18 Blood Pressure 108/57 L Pulse Oximetry Oxygen Delivery 08/14/23 14:21 08/14/23 14:25 08/14/23 14:45 Temperature 36.4 C Pulse Rate 81 78 Respiratory Rate 18 14 Blood Pressure 126/53 L Pulse Oximetry 95 98 Oxygen Delivery Room Air 08/14/23 16:00 08/14/23 17:54 02
--- NOTE | 2023-08-15 12:01 | PM.PNNEP ---
Progress Note: A&P Assessment and Plan (1) ESRD (end stage renal disease): Code(s): N18.6 - End stage renal disease Status: Chronic Assessment and Plan: continue nightly CCPD follow electrolytes, volume status, and clearance (2) Hypokalemia: Code(s): E87.6 - Hypokalemia Status: Resolved Assessment and Plan: resolved partly due to dialysis and diuretics but acutely worsened by GI loss and poor oral intake s/p IV supplementation resume/restart oral supplementation follow trend of repeat K+ levels (3) Pneumonia: Qualifiers: Laterality: bilateral Lung location: lower lobe of lung Pneumonia type: due to unspecified organism Qualified Code(s): J18.9 - Pneumonia, unspecified organism Code(s): J18.9 - Pneumonia, unspecified organism Status: Acute Assessment and Plan: as noted by admission imaging follow culture data on antibiotics (4) Diarrhea: Qualifiers: Diarrhea type: unspecified type Qualified Code(s): R19.7 - Diarrhea, unspecified Code(s): R19.7 - Diarrhea, unspecified Status: Acute Assessment and Plan: etiology not clear GI recommendations noted advancing diet as tolerated stools studies results noted EGD and colonoscopy planned for tomorrow (5) Respiratory syncytial virus (RSV): Code(s): B33.8 - Other specified viral diseases Status: Acute Assessment and Plan: positivity noted by testing in ER respiratory isolation nebulizer treatments follow respiratory status (6) Anemia: Code(s): D64.9 - Anemia, unspecified Status: Chronic Assessment and Plan: due in part to ESRD however, has fluctuated to extremes from outpatient records had seen Hematology for evaluation of this but work-up has been negative on [facility] as an outpatient unable to tolerate Epogen (as use resulted in hypertensive urgency) follow trend of H/H (7) Hypertension: Code(s): I10 - Essential (primary) hypertension Status: Chronic Assessment and Plan: reasonable control at this time follow trend of hemodynamics Will continue to follow. Subjective Date/time seen: 08/15/23 12:01 Interval history: Follow-up for end stage renal disease on peritoneal dialysis. Tolerated CCPD treatment overnight without any issues or problems; respiratory status seems to be doing better with current interventions/therapy; at the time of visit, she has no acute complaints; slept well overnight; noted plans for EGD and colonoscopy tomorrow by GI. Exam Narrative: General: elderly but WD/WN female in NAD Heart: normal S1 and S2; no rub Lungs: clear anteriorly; decreased at bases Abdomen: soft, nontender, nondistended, positive bowel sounds Extremities: no cyanosis or clubbing; no edema Skin: warm and dry Objective Data Vital Signs Vital Signs: Vital Signs Temp Pulse Resp BP Pulse Ox O2 Del Method 08/15/23 12:00 73 08/15/23 08:50 Room Air 08/15/23 08:00 74 08/15/23 09:55 97.7 F 75 18 138/64 08/15/23 09:55 97.7 F 75 18 138/64 97 Room Air 08/15/23 09:24 75 18 08/15/23 09:12 72 16 08/15/23 08:31 76 08/15/23 08:29 78 20 138/64 97 08/15/23 06:00 97.7 F 77 16 129/66 99 08/15/23 04:00 73 08/15/23 00:00 69 08/14/23 20:00 Room Air 08/14/23 20:00 76 08/14/23 21:23 82 08/14/23 21:16 98.0 F 82 14 143/76 H 95 08/14/23 18:30 97.6 F 78 14 126/53 L 98 Room Air 08/14/23 17:54 140/64 Intake/Output Intake/Output: Intake & Output 08/12/23 08/13/23 08/14/23 08/15/23 23:59 23:59 23:59 23:59 Intake Total 1000 2110 1670 Output Total 921 Balance 1000 2110 749 Meds/Results Medications: Active Medications Generic Name Dose Route Start Last Admin Trade Name Freq PRN Reason Stop Dose Admin Albuterol 2.5
--- NOTE | 2023-08-15 12:01 | P.PNNP_ITS ---
Progress Note: A&P Assessment and Plan (1) ESRD (end stage renal disease): Code(s): N18.6 - End stage renal disease Status: Chronic Assessment and Plan: * continue nightly CCPD * follow electrolytes, volume status, and clearance (2) Hypokalemia: Code(s): E87.6 - Hypokalemia Status: Resolved Assessment and Plan: * resolved * partly due to dialysis and diuretics but acutely worsened by GI loss and poor oral intake * s/p IV supplementation * resume/restart oral supplementation * follow trend of repeat K+ levels (3) Pneumonia: Qualifiers: Laterality: bilateral Lung location: lower lobe of lung Pneumonia type: due to unspecified organism Qualified Code(s): J18.9 - Pneumonia, uns pecified organism Code(s): J18.9 - Pneumonia, unspecified organism Status: Acute Assessment and Plan: * as noted by admission imaging * follow culture data * on antibiotics (4) Diarrhea: Qualifiers: Diarrhea type: unspecified type Qualified Code(s): R19.7 - Diarrhea, unspecified Code(s): R19.7 - Diarrhea, unspecified Status: Acute Assessment and Plan: * etiology not clear * GI recommendations noted * advancing diet as tolerated * stools studies results noted * EGD and colonoscopy planned for tomorrow (5) Respiratory syncytial virus (RSV): Code(s): B33.8 - Other specified viral diseases Status: Acute Assessment and Plan: * positivity noted by testing in ER * respiratory isolation * nebulizer treatments * follow respiratory status (6) Anemia: Code(s): D64.9 - Anemia, unspecified Status: Chronic Assessment and Plan: * due in part to ESRD * however, has fluctuated to extremes from outpatient records * had seen Hematology for evaluation of this but work-up has been negative * on Mircera as an outpatient * unable to tolerate Epogen (as use resulted in hypertensive urgency) * follow trend of H/H (7) Hypertension: Code(s): I10 - Essential (primary) hypertension Status: Chronic Assessment and Plan: * reasonable control at this time * follow trend of hemodynamics Will continue to follow. Subjective Date/time seen: 08/15/23 12:01 Interval history: Follow-up for end stage renal disease on peritoneal dialysis. Tolerated CCPD treatment overnight without any issues or problems; respiratory status seems to be doing better with current interventions/therapy; at the time of visit, she has no acute complaints; slept well overnight; noted plans for EGD and colonoscopy tomorrow by GI. Exam Narrative: General: elderly but WD/WN female in NAD Heart: normal S1 and S2; no rub Lungs: clear anteriorly; decreased at bases Abdomen: soft, nontender, nondistended, positive bowel sounds Extremities: no cyanosis or clubbing; no edema Skin: warm and dry Objective Data Vital Signs Vital Signs: Vital Signs Temp Pulse Resp BP Pulse Ox O2 Del Method 08/15/23 12:00 73 08/15/23 08:50 Room Air 08/15/23 08:00 74 08/15/23 09:55 97.7 F 75 18 138/64 08/15/23 09:55 97.7 F 75 18 138/64 97 Room Air 08/15/23 09:24 75 18 08/15/23 09:12 72 16 08/15/23 08:31 76 08/15/23 08:29 78 20 138/
[2023-08-15] MEDS: SODIUM CHLORIDE 0.9% IV 1,000 ML 80 ML IV CONT ×2 (12:40→23:10)
[2023-08-15] MEDS: BISACODYL 5 MG TABLET EC 10 MG PO ×2 (14:40→20:49)
[2023-08-15] MEDS: polyethylene glycoL 3350 238 GM BOTTLE PO (14:40)
[2023-08-15] MEDS: LORazepam (*CRX) 1 MG TABLET PO (14:50)
[2023-08-15] MEDS: CYCLOBENZAPRINE HCL 5 MG TABLET PO (20:47)
[2023-08-15] MEDS: GABAPENTIN 100 MG CAPSULE PO (20:47)
[2023-08-15] MEDS: rOPINIRole HCL 0.5 MG TABLET PO (20:47)
[2023-08-15] MEDS: VITAMIN B CMPLX/VIT C/FOLIC AC 1 CAPSULE 1 CAP PO (20:47)
[2023-08-15] MEDS: AZITHROMYCIN 500 MG/NS 250 ML 500 MG/250 ML BAG 250 MG IVPB (23:46)
[2023-08-16] VITALS (25 sets, daily range): BP systolic 103–187; BP diastolic 59–92; PULSE 68–99; RESP 15–22; TEMP 36.3–36.8; O2SAT 98–100
[2023-08-16] MEDS: LORazepam (*CRX) 1 MG TABLET PO ×3 (01:04→22:24)
[2023-08-16] MEDS: IPRATROPIUM 0.5 MG/ALBUTEROL SULFATE 2.5 MG AMPUL.NEB 3 ML INHALATION ×3 (01:10→21:07)
[2023-08-16 05:41] LABS: Basophils Percent Auto 0.2 % (0.2-1.2); Eosinophils Absolute Auto 0.1 K/mm3 (0-0.3); Eosinophils Percent Auto 1.3 % (0-4.4); Hematocrit 29.2 % (37.0-47.0); Hemoglobin 8.7 g/dL (12.0-15.0); Immature Granulocyte Absolute 0.12 K/mm3 (0.00-0.031); Immature Granulocyte Percent A 1.4 % (0-0.5); Lymphocytes Absolute Auto 0.66 K/mm3 (0.9-3.2); Lymphocytes Percent Auto 7.7 % (18.3-44.2); Mean Corpuscular HGB Conc 29.8 g/dl (32-36); Mean Corpuscular Hemoglobin 31.3 pg (26-34); Mean Platelet Volume 9.8 fl (7.4-10.4); Monocytes Absolute Auto 0.4 K/mm3 (0.1-0.6); Monocytes Percent Auto 4.8 % (2.6-8.5); Neutrophils Absolute Auto 7.2 K/mm3 (1.3-6.7); Neutrophils Percent Auto 84.6 % (45.5-73.1); Platelet Count Result 178 k/mm3 (150-375); Red Blood Count 2.78 M/mm3 (4.2-5.4); Red Cell Distribution Width 14.6 % (11.5-14.5); White Blood Count 8.5 K/mm3 (4.5-10.0)
[2023-08-16] MEDS: LEVOTHYROXINE SODIUM 112 MCG TABLET PO (05:52)
[2023-08-16] MEDS: LEVOTHYROXINE SODIUM 25 MCG TABLET PO (05:53)
[2023-08-16 05:54] LABS: Alanine Aminotransferase 16 U/L (6-35); Albumin Level 2.4 g/dL (3.5-5.1); Alkaline Phosphatase 69 U/L (38-126); Anion Gap 11 mmol/L (8-16); Aspartate Amino Transferase 33 U/L (14-36); Bilirubin,Total 0.5 mg/dL (0.2-1.3); Blood Urea Nitrogen 56 mg/dL (7-17); Calcium 8.5 mg/dL (8.4-10.2); Carbon Dioxide 16 mmol/L (22-30); Chloride 107 mmol/L (98-107); Estimated CRCL calculation 5 ml/min; Estimated Glomerular Filt Rate 7; Glucose 81 mg/dL (65-110); Potassium 3.2 mmol/L (3.4-5.0); Sodium 134 mmol/L (137-145)
[2023-08-16] MEDS: traMADol HCL (*CRX) 50 MG TABLET PO ×4 (07:06→23:01)
--- NOTE | 2023-08-16 08:05 | PM.IMPN ---
Progress Note: A&P Assessment and Plan (1) Pneumonia: Qualifiers: Laterality: bilateral Lung location: lower lobe of lung Pneumonia type: due to unspecified organism Qualified Code(s): J18.9 - Pneumonia, unspecified organism Code(s): J18.9 - Pneumonia, unspecified organism Status: Acute Assessment and Plan: 08/16/23: Abdomen/pelvis CT shown bilateral lower lobe pneumonia Chest x-ray shown significant worsening of hazy bibasilar and perihilar airspace disease suggestive of moderate pulmonary edema, small left pleural effusion Continue Rocephin and Azithromycin Continue neb treatments Blood cultures showing no growth on preliminary read. (2) RSV (acute bronchiolitis due to respiratory syncytial virus): Code(s): J21.0 - Acute bronchiolitis due to respiratory syncytial virus Status: Acute Assessment and Plan: 08/16/23: RSV positive this admission see above (3) Diarrhea: Qualifiers: Diarrhea type: unspecified type Qualified Code(s): R19.7 - Diarrhea, unspecified Code(s): R19.7 - Diarrhea, unspecified Status: Acute Assessment and Plan: 08/15/23: she states that the diarrhea began yesterday morning. She took Imodium without relief. She has also had discomfort in the lower abdomen. She is fairly certain she was feeling great the day before. She denies nausea vomiting but has not felt like eating much. Her stools have been black with no red blood seen. A CT scan did show rectal distension also some in the distal sigmoid. She has hiatal hernia. She does take an aspirin tablet daily 08/16/23: CT of the abdomen/pelvis showing distended rectosigmoid, likely adynamic ileus GI following Continue IV fluids Continue NPO status until after colonoscopy and EGD today Plan for Colonoscopy and EGD today Bicarb level 16 Stool culture is still pending (4) End-stage renal disease on peritoneal dialysis: Code(s): N18.6 - End stage renal disease; Z99.2 - Dependence on renal dialysis Status: Chronic Assessment and Plan: 08/15/23: She is on peritoneal dialysis. She states that she was told that she is too old to get a kidney transplant. BUN is 96 and creatinine 7.7, in range of her normal. 08/16/23: Continue PD nightly Nephrology following BUN 56, Creatinine 6.20 Peritoneal fluid culture still pending (5) Hypokalemia: Code(s): E87.6 - Hypokalemia Status: Resolved Assessment and Plan: 08/16/23: K+ 3.2 today Will replace with 20 meq of KCL Plan Time Spent With Patient Time with patient: 25 - 35 minutes Subjective Date/time seen: 08/16/23 08:05 Interval history: 08/15/23: (Copied from chart) Patient was examined at the bedside this morning in interval assessment.? She endorses overall feeling improved today as compared to yesterday.? She acknowledges that yesterday she just felt so weak as if she had no energy and could not function.? She was able to do bedside peritoneal dialysis last night and has been consulted on by Dr. Francois.? I do appreciate his continued comanagement while this patient is hospitalized.? Patients diarrhea has ceased.? We were able to obtain stool studies and they are currently pending.? Patient's potassium has been replaced and has increased from 2.5-3.7 today.? She has been able to tolerate a clear liquid diet that was ordered yesterday by GI.? They are still following patient and call managing as well.? I do appreciate their continue comanagement well this patient is hospitalized.? From an overall standpoint I do believe this patient is improving slowly.? She is not requiring any supplemental oxygen, reports since starting nebulizer treatments yesterday she is able to expect rate more and states her breathing is improved.? She appears to be in good spirits today, and I am hopeful that she will be able to discharge home within the next couple of days.? PT and OT are ord
--- NOTE | 2023-08-16 08:29 | PCPTNOTE ---
Attempted to see a patient for PT, however patient was hooked up to dialysis in room and unable to be seen at this time.
[2023-08-16] MEDS: PROPRANOLOL HCL 20 MG TABLET PO ×2 (08:45→21:16)
[2023-08-16] MEDS: busPIRone HCL 5 MG TABLET PO ×2 (08:45→21:15)
[2023-08-16] MEDS: DULoxetine HCL 30 MG CAPSULE.DR PO (08:45)
[2023-08-16] MEDS: busPIRone HCL 2.5 MG TABLET PO ×2 (08:45→21:15)
[2023-08-16] MEDS: hydrALAZINE HCL 50 MG TABLET 100 MG PO ×3 (08:45→16:26)
[2023-08-16] MEDS: ASPIRIN 81 MG ENTERIC TABLET PO (08:46)
[2023-08-16] MEDS: KCL 20 MEQ/SW 100 ML 100 ML 50 MEQ IVPB (08:46)
--- NOTE | 2023-08-16 11:00 | P.PNNP_ITS ---
Progress Note: A&P Assessment and Plan (1) ESRD (end stage renal disease): Code(s): N18.6 - End stage renal disease Status: Chronic Assessment and Plan: * continue nightly CCPD * follow electrolytes, volume status, and clearance (2) Hypokalemia: Code(s): E87.6 - Hypokalemia Status: Resolved Assessment and Plan: * fluctuating * partly due to dialysis and diuretics but acutely worsened by GI loss and poor oral intake * s/p IV supplementation * resume/restart oral supplementation * follow trend of repeat K+ levels (3) Pneumonia: Qualifiers: Laterality: bilateral Lung location: lower lobe of lung Pneumonia type: due to unspecified organism Qualified Code(s): J18.9 - Pneumonia, unspecified organism Code(s): J18.9 - Pneumonia, unspecified organism Status: Acute Assessment and Plan: * as noted by admission imaging * follow culture data * on antibiotics (4) Diarrhea: Qualifiers: Diarrhea type: unspecified type Qualified Code(s): R19.7 - Diarrhea, unspecified Code(s): R19.7 - Diarrhea, unspecified Status: Acute Assessment and Plan: * etiology not clear * GI recommendations noted * advancing diet as tolerated * stools studies results noted * EGD and colonoscopy planned for tomorrow (5) Respiratory syncytial virus (RSV): Code(s): B33.8 - Other specified viral diseases Status: Acute Assessment and Plan: * positivity noted by testing in ER * respiratory isolation * nebulizer treatments * follow respiratory status (6) Anemia: Code(s): D64.9 - Anemia, unspecified Status: Chronic Assessment and Plan: * due in part to ESRD * however, has fluctuated to extremes from outpatient records * had seen Hematology for evaluation of this but work-up has been negative * on Mircera as an outpatient * unable to tolerate Epogen (as use resulted in hypertensive urgency) * follow trend of H/H (7) Hypertension: Code(s): I10 - Essential (primary) hypertension Status: Chronic Assessment and Plan: * reasonable control at this time * follow trend of hemodynamics Will continue to follow. Subjective Date/time seen: 08/16/23 11:00 Interval history: Follow-up for end stage renal disease on peritoneal dialysis. Tolerated CCPD treatment overnight without any issues or problems; respiratory status continus to improve if not stabilize with current treatment; still reports some on/off diarrhea at the time of y visit; plans are for EGD and colonoscopy later today. Exam Narrative: General: elderly but WD/WN female in NAD Heart: normal S1 and S2; no rub Lungs: clear anteriorly; decreased at bases Abdomen: soft, nontender, nondistended, positive bowel sounds Extremities: no cyanosis or clubbing; no edema Skin: warm and intact Objective Data Vital Signs Vital Signs: Vital Signs Temp Pulse Resp BP Pulse Ox O2 Del Method 08/16/23 09:25 98.2 F 88 18 177/86 H 08/16/23 09:25 98.2 F 88 18 177/86 H 98 Room Air 08/16/23 09:07 177/86 H 98 08/16/23 09:16 88 18 08/16/23 09:05 90 20 08/16/23 09:05 98 Room Air 08/16/23 08:45 89 08/16/23 05:25 98.2 F 82 18 187/82 H 98 0
--- NOTE | 2023-08-16 11:00 | PM.PNNEP ---
Progress Note: A&P Assessment and Plan (1) ESRD (end stage renal disease): Code(s): N18.6 - End stage renal disease Status: Chronic Assessment and Plan: continue nightly CCPD follow electrolytes, volume status, and clearance (2) Hypokalemia: Code(s): E87.6 - Hypokalemia Status: Resolved Assessment and Plan: fluctuating partly due to dialysis and diuretics but acutely worsened by GI loss and poor oral intake s/p IV supplementation resume/restart oral supplementation follow trend of repeat K+ levels (3) Pneumonia: Qualifiers: Laterality: bilateral Lung location: lower lobe of lung Pneumonia type: due to unspecified organism Qualified Code(s): J18.9 - Pneumonia, unspecified organism Code(s): J18.9 - Pneumonia, unspecified organism Status: Acute Assessment and Plan: as noted by admission imaging follow culture data on antibiotics (4) Diarrhea: Qualifiers: Diarrhea type: unspecified type Qualified Code(s): R19.7 - Diarrhea, unspecified Code(s): R19.7 - Diarrhea, unspecified Status: Acute Assessment and Plan: etiology not clear GI recommendations noted advancing diet as tolerated stools studies results noted EGD and colonoscopy planned for tomorrow (5) Respiratory syncytial virus (RSV): Code(s): B33.8 - Other specified viral diseases Status: Acute Assessment and Plan: positivity noted by testing in ER respiratory isolation nebulizer treatments follow respiratory status (6) Anemia: Code(s): D64.9 - Anemia, unspecified Status: Chronic Assessment and Plan: due in part to ESRD however, has fluctuated to extremes from outpatient records had seen Hematology for evaluation of this but work-up has been negative on Mircera as an outpatient unable to tolerate Epogen (as use resulted in hypertensive urgency) follow trend of H/H (7) Hypertension: Code(s): I10 - Essential (primary) hypertension Status: Chronic Assessment and Plan: reasonable control at this time follow trend of hemodynamics Will continue to follow. Subjective Date/time seen: 08/16/23 11:00 Interval history: Follow-up for end stage renal disease on peritoneal dialysis. Tolerated CCPD treatment overnight without any issues or problems; respiratory status continus to improve if not stabilize with current treatment; still reports some on/off diarrhea at the time of y visit; plans are for EGD and colonoscopy later today. Exam Narrative: General: elderly but WD/WN female in NAD Heart: normal S1 and S2; no rub Lungs: clear anteriorly; decreased at bases Abdomen: soft, nontender, nondistended, positive bowel sounds Extremities: no cyanosis or clubbing; no edema Skin: warm and intact Objective Data Vital Signs Vital Signs: Vital Signs Temp Pulse Resp BP Pulse Ox O2 Del Method 08/16/23 09:25 98.2 F 88 18 177/86 H 08/16/23 09:25 98.2 F 88 18 177/86 H 98 Room Air 08/16/23 09:07 177/86 H 98 08/16/23 09:16 88 18 08/16/23 09:05 90 20 08/16/23 09:05 98 Room Air 08/16/23 08:45 89 08/16/23 05:25 98.2 F 82 18 187/82 H 98 08/16/23 04:00 74 08/16/23 01:20 74 18 08/16/23 01:10 72 18 08/16/23 00:00 99 08/15/23 20:00 Room Air 08/15/23 20:00 79 08/15/23 21:20 97.6 F 86 18 150/77 H 96 08/15/23 20:47 83 08/15/23 19:25 98.5 F 79 18 149/67 H 99 Room Air 08/15/23 17:54 149/67 H 08/15/23 16:00 79 08/15/23 15:51 74 18 08/15/23 15:47 75 16 08/15/23 15:27 Room Air 08/15/23 14:50 Room Air 08/15/23 14:00 98.5 F 79 18 140/69 99 Intake/Output Intake/Output: Intake & Output 08/13/23 08/14/23 08/15/23 08/16/23 23:59 23:59 23:59 23:59 Intake Total 1000 2110 2720 250 Outp
[2023-08-16] MEDS: SODIUM CHLORIDE 0.9% IV 500 ML 10 ML IV CONT (13:23)
--- NOTE | 2023-08-16 13:26 | PCOTNOTE ---
The patient treatment was not able to be completed. Patient was out of the room. Will plan to continue treatment per plan of care.
--- NOTE | 2023-08-16 14:24 | WPDANESEPPF ---
Anes - Initial Pre Proc Eval Procedure: Operation Date: 08/16/23 14:30 Proposed Procedures p Esophagogastroduodenoscopy & Colonoscopy - Osmin Scott MD Date/Time: 08/16/23 14:24 Surgeon: JASON Grady Pre Op Diagnosis: diarrhea, gib, ileus, pna, rsv, sepsis, lactic aci Patient Data Age: 78 Gender: F Height: 1.52 m Weight: 45.8 kg Last Vital Signs Temp 97.8 F 08/16/23 13:00 Pulse 80 08/16/23 13:00 Resp 22 H 08/16/23 13:00 BP 184/76 H 08/16/23 13:00 Pulse Ox 100 08/16/23 13:00 O2 Del Method Room Air 08/16/23 13:00 Allergies Allergy/AdvReac Type Severity Reaction Status Date / Time No Known Allergies Allergy Verified 08/14/23 02:15 Home Medications Medication Instructions Recorded Confirmed Type aspirin 81 mg tablet,delayed 81 mg PO DAILY 07/10/19 08/14/23 History release (Adult Aspirin Regimen) ropinirole 0.25 mg tablet 0.5 mg PO HS 08/23/19 08/14/23 History propranolol 10 mg tablet 20 mg PO Q12H #90 tabs 02/01/21 08/14/23 Rx furosemide 80 mg tablet (Lasix) 80 mg PO TID 06/02/22 08/14/23 History buspirone 7.5 mg tablet 7.5 mg PO BID #180 tabs 12/14/22 08/14/23 Rx lorazepam 1 mg tablet 1 mg PO TID PRN anxiety #60 tabs 07/06/23 08/14/23 Rx duloxetine 30 mg capsule,delayed 30 mg PO DAILY #30 caps 07/27/23 08/14/23 Rx release potassium chloride 20 mEq 10 meq PO DAILY 07/29/23 08/14/23 History tablet,extended release vitamin B complex and vitamin C 1 cap PO HS 07/29/23 08/14/23 History no.20-folic acid 1 mg capsule ([place] Caps) cyclobenzaprine 5 mg tablet 5 mg PO HS 07/30/23 08/14/23 History gabapentin 100 mg capsule 100 mg PO QHS 07/30/23 08/14/23 History hydralazine 50 mg tablet 100 mg PO TID #90 tabs 08/02/23 08/14/23 Rx tramadol 50 mg tablet 50 mg PO Q4H PRN Pain Rated 4-6 08/02/23 08/14/23 Rx #20 tabs ondansetron 4 mg disintegrating 4 mg PO Q8H PRN nausea and 08/03/23 08/14/23 Rx tablet vomiting #20 tabs levothyroxine 137 mcg tablet 137 mcg PO DAILY 08/14/23 08/14/23 History Laboratory Tests 08/16/23 05:27 WBC 8.5 K/mm3 (4.5-10.0) RBC 2.78 L M/mm3 (4.2-5.4) Hgb 8.7 L g/dL (12.0-15.0) Hct 29.2 L % (37.0-47.0) MCV 105.0 H fl (80-100) MCH 31.3 pg (26-34) MCHC 29.8 L g/dl (32-36) RDW 14.6 H % (11.5-14.5) Plt Count 178 k/mm3 (150-375) MPV 9.8 fl (7.4-10.4) Immature Gran % (Auto) 1.4 H % (0-0.5) Neut % (Auto) 84.6 H % (45.5-73.1) Lymph % (Auto) 7.7 L % (18.3-44.2) [place] % (Auto) 4.8 % (2.6-8.5) Eos % (Auto) 1.3 % (0-4.4) Baso % (Auto) 0.2 % (0.2-1.2) Lymph # (Auto) 0.66 L K/mm3 (0.9-3.2) [place] # (Auto) 0.4 K/mm3 (0.1-0.6) Eos # (Auto) 0.1 K/mm3 (0-0.3) Baso # (Auto) 0.0 K/mm3 (0.0-0.1) Abs Immat Gran (auto) 0.12 H K/mm3 (0.00-0.031) Absolute Neuts (auto) 7.2 H K/mm3 (1.3-6.7) Absolute Nucleated RBC 0.0 K/mm3 (0.0-0.012) Nucleated RBC % 0.0 % (0.0-0.2) Sodium 134 L mmol/L (137-145) Potassium 3.2 L mmol/L (3.4-5.0) Chloride 107 mmol/L (98-107) Carbon Dioxide 16 L mmol/L (22-30) Anion Gap 11 mmol/L (8-16) BUN 56 H D mg/dL (7-17) Creatinine 6.20 H mg/dL (0.7-1.0) Estim Creat Clear Calc 5 ml/min Estimated GFR 7 L (59 - ) Glucose 81 mg/dL (65-110) Calcium 8.5 mg/dL (8.4-10.2) Magnesium 2.0 mg/dL (1.6-2.3) Total Bilirubin 0.5 mg/dL (0.2-1.3) AST 33 U/L (14-36) ALT 16 U/L (6-35) Alkaline Phosphatase 69 U/L (38-126) Total Protein 5.0 L g/dL (6.3-8.2) Albumin 2.4 L g/dL (3.5-5.1) Patient hx anesthesia problems: none Family hx anesthesia problems: none Results Review: All pre-operative results and documents have been reviewed as part of the pre-operative evaluation. [facility] Past Medical History Medical History (Updated 08/15/23 @ 10:18 by Geovanna South APN-Jimmy) Acquired hypothyroidism
--- NOTE | 2023-08-16 15:10 | SUR.OPER ---
egd ended at 1442 and colon begun at 1147
--- NOTE | 2023-08-16 15:48 | PCRCNOTE ---
Window of time for administration has passed. See next scheduled administration.
[2023-08-16] MEDS: SODIUM CHLORIDE 0.9% IV 1,000 ML 80 ML IV CONT (19:40)
[2023-08-16] MEDS: CYCLOBENZAPRINE HCL 5 MG TABLET PO (21:14)
[2023-08-16] MEDS: VITAMIN B CMPLX/VIT C/FOLIC AC 1 CAPSULE 1 CAP PO (21:14)
[2023-08-16] MEDS: GABAPENTIN 100 MG CAPSULE PO (21:15)
[2023-08-16] MEDS: rOPINIRole HCL 0.5 MG TABLET PO (21:15)
[2023-08-16] MEDS: AZITHROMYCIN 500 MG/NS 250 ML 500 MG/250 ML BAG 250 MG IVPB (22:56)
[2023-08-17] VITALS (16 sets, daily range): BP systolic 140–185; BP diastolic 70–87; PULSE 65–90; RESP 16–18; TEMP 36.4–36.6; O2SAT 96–99
[2023-08-17] MEDS: LEVOTHYROXINE SODIUM 112 MCG TABLET PO (05:16)
[2023-08-17] MEDS: LEVOTHYROXINE SODIUM 25 MCG TABLET PO (05:16)
[2023-08-17 06:21] LABS: Basophils Percent Auto 0.1 % (0.2-1.2); Eosinophils Absolute Auto 0.2 K/mm3 (0-0.3); Hematocrit 29.6 % (37.0-47.0); Immature Granulocyte Absolute 0.14 K/mm3 (0.00-0.031); Immature Granulocyte Percent A 1.8 % (0-0.5); Lymphocytes Absolute Auto 0.71 K/mm3 (0.9-3.2); Lymphocytes Percent Auto 9.1 % (18.3-44.2); Mean Corpuscular HGB Conc 30.4 g/dl (32-36); Mean Corpuscular Hemoglobin 31.3 pg (26-34); Mean Corpuscular Volume 102.8 fl (80-100); Mean Platelet Volume 9.8 fl (7.4-10.4); Monocytes Absolute Auto 0.4 K/mm3 (0.1-0.6); Monocytes Percent Auto 5.4 % (2.6-8.5); Neutrophils Absolute Auto 6.4 K/mm3 (1.3-6.7); Neutrophils Percent Auto 81.6 % (45.5-73.1); Platelet Count Result 166 k/mm3 (150-375); Red Blood Count 2.88 M/mm3 (4.2-5.4); Red Cell Distribution Width 14.8 % (11.5-14.5); White Blood Count 7.8 K/mm3 (4.5-10.0)
[2023-08-17 06:37] LABS: Alanine Aminotransferase 16 U/L (6-35); Albumin Level 2.5 g/dL (3.5-5.1); Alkaline Phosphatase 74 U/L (38-126); Anion Gap 10 mmol/L (8-16); Aspartate Amino Transferase 33 U/L (14-36); Bilirubin,Total 0.5 mg/dL (0.2-1.3); Blood Urea Nitrogen 48 mg/dL (7-17); Calcium 8.4 mg/dL (8.4-10.2); Carbon Dioxide 18 mmol/L (22-30); Chloride 109 mmol/L (98-107); Estimated CRCL calculation 6 ml/min; Estimated Glomerular Filt Rate 7; Glucose 67 mg/dL (65-110); Magnesium 1.9 mg/dL (1.6-2.3); Potassium 2.9 mmol/L (3.4-5.0); Sodium 137 mmol/L (137-145)
--- NOTE | 2023-08-17 07:14 | WPDGIPROGNO ---
Progress Note: A&P Assessment and Plan (1) Diarrhea: Qualifiers: Diarrhea type: unspecified type Qualified Code(s): R19.7 - Diarrhea, unspecified Code(s): R19.7 - Diarrhea, unspecified Status: Acute Assessment and Plan: she states that the diarrhea began yesterday morning. She took Imodium without relief. She has also had discomfort in the lower abdomen. She is fairly certain she was feeling great the day before. She denies nausea vomiting but has not felt like eating much. Her stools have been black with no red blood seen. A CT scan did show rectal distension also some in the distal sigmoid. She has hiatal hernia. She does take an aspirin tablet daily I discussed with her the results of the colonoscopy. I explained we could not pass the mid sigmoid colon but that there was nothing seen that correlated with what they thought he saw on CT scan. The mucosa was normal. She does have diverticular disease resulting in stenosis of the sigmoid colon. (2) Melena: Code(s): K92.1 - Melena Status: Acute Assessment and Plan: This all began yesterday with black liquid stool. She has had no hematemesis Stools are no longer black. EGD revealed what appeared to be hemorrhagic gastritis with many petechia and streaks of old blood. This is probably combination of her chronic kidney disease and the fact that she takes aspirin. I advised her to always eat something before taking aspirin or any NSAIDs in the future. (3) Respiratory syncytial virus (RSV): Code(s): B33.8 - Other specified viral diseases Status: Acute Assessment and Plan: She is on ceftriaxone and azithromycin. (4) End-stage renal disease on peritoneal dialysis: Code(s): N18.6 - End stage renal disease; Z99.2 - Dependence on renal dialysis Status: Chronic Assessment and Plan: She is on peritoneal dialysis. She states that she was told that she is too old to get a kidney transplant. BUN is 96 and creatinine 7.7, in range of her normal. (5) Abdominal pain: Code(s): R10.9 - Unspecified abdominal pain Status: Acute Assessment and Plan: Her pain is primarily across the lower abdomen but on examination she is somewhat tender diffusely. (6) Large hiatal hernia: Code(s): K44.9 - Diaphragmatic hernia without obstruction or gangrene Status: Acute Assessment and Plan: she is known to have a large hiatal hernia. With a large hiatal hernia she could be bleeding from Jose Luis erosions. she denies having heartburn dysphagia or epigastric or chest discomfort with this illness. She does not take PPI or other acid reducing medications regularly. Plan I will advance her diet least clear liquids and perhaps full if she tolerates that. We will schedule her for colonoscopy an EGD to determine what was the cause of this acute illness, investigate the abnormal CT scan findings. Stool studies Are negative for C diff. Other pathogen cultures are pending Subjective Date/time seen: 08/17/23 07:14 she is tolerating her diet. She had 1 small stool last evening which was dark but not black. She has no complaints except she is concerned about her potassium level it is somewhat lower today. From my perspective however she can be discharged. Her hemoglobin is stable at 9.0. Her BUN and creatinine have improved also. Exam Const: General: cooperative and healthy appearing Orientation/consciousness: patient oriented x3 HENMT: Head: normal to inspection Ears: hearing grossly normal bilaterally Mouth: Yes Normal oral and palatal mucosa present Eyes: General: appearance normal, both eyes and all related structures Neck: Neck: normal visual inspection Chest: Chest palpation & inspection: normal inspection of the chest Resp: Effort & Inspection: normal respiratory effort Auscultation: clear to auscultation bilaterally Cardio: Rate: regular r
[2023-08-17] MEDS: IPRATROPIUM 0.5 MG/ALBUTEROL SULFATE 2.5 MG AMPUL.NEB 3 ML INHALATION ×2 (08:13→13:30)
[2023-08-17] MEDS: SODIUM CHLORIDE 0.9% IV 1,000 ML 80 ML IV CONT (09:14)
[2023-08-17] MEDS: POTASSIUM CHLORIDE 20 MEQ ER TABLET 40 MEQ PO ×2 (09:14→13:02)
[2023-08-17] MEDS: DULoxetine HCL 30 MG CAPSULE.DR PO (09:15)
[2023-08-17] MEDS: hydrALAZINE HCL 50 MG TABLET 100 MG PO ×2 (09:15→13:02)
[2023-08-17] MEDS: busPIRone HCL 5 MG TABLET PO (09:15)
[2023-08-17] MEDS: LORazepam (*CRX) 1 MG TABLET PO (09:15)
[2023-08-17] MEDS: traMADol HCL (*CRX) 50 MG TABLET PO (09:15)
[2023-08-17] MEDS: PROPRANOLOL HCL 20 MG TABLET PO (09:16)
[2023-08-17] MEDS: ASPIRIN 81 MG ENTERIC TABLET PO (09:16)
[2023-08-17] MEDS: busPIRone HCL 2.5 MG TABLET PO (09:17)
--- NOTE | 2023-08-17 09:26 | PM.DS ---
DS: Admitting Diagnosis Discharge Date 08/17/23 Admitting Diagnosis Pneumonia RSV Diarrhea ESRD on peritoneal HD DS: Discharge Diagnosis Discharge Diagnosis (1) Pneumonia: Qualifiers: Laterality: bilateral Lung location: lower lobe of lung Pneumonia type: due to unspecified organism Qualified Code(s): J18.9 - Pneumonia, unspecified organism Code(s): J18.9 - Pneumonia, unspecified organism Status: Acute (2) RSV (acute bronchiolitis due to respiratory syncytial virus): Code(s): J21.0 - Acute bronchiolitis due to respiratory syncytial virus Status: Acute (3) Diarrhea: Qualifiers: Diarrhea type: unspecified type Qualified Code(s): R19.7 - Diarrhea, unspecified Code(s): R19.7 - Diarrhea, unspecified Status: Acute (4) End-stage renal disease on peritoneal dialysis: Code(s): N18.6 - End stage renal disease; Z99.2 - Dependence on renal dialysis Status: Chronic (5) Hypokalemia: Code(s): E87.6 - Hypokalemia Status: Resolved DS: Summary Hospital Course Reason for hospitalization: Pneumonia Diarrhea ESRD on peritoneal dialysis Hospital Course: Interval history: 08/15/23: (Copied from chart) Patient was examined at the bedside this morning in interval assessment.? She endorses overall feeling improved today as compared to yesterday.? She acknowledges that yesterday she just felt so weak as if she had no energy and could not function.? She was able to do bedside peritoneal dialysis last night and has been consulted on by Dr. Francois.? I do appreciate his continued comanagement while this patient is hospitalized.? Patients diarrhea has ceased.? We were able to obtain stool studies and they are currently pending.? Patient's potassium has been replaced and has increased from 2.5-3.7 today.? She has been able to tolerate a clear liquid diet that was ordered yesterday by GI.? They are still following patient and call managing as well.? I do appreciate their continue comanagement well this patient is hospitalized.? From an overall standpoint I do believe this patient is improving slowly.? She is not requiring any supplemental oxygen, reports since starting nebulizer treatments yesterday she is able to expect rate more and states her breathing is improved.? She appears to be in good spirits today, and I am hopeful that she will be able to discharge home within the next couple of days.? PT and OT are ordered for evaluation for appropriateness for discharge home. Today patient denies any new chest pain, dyspnea, nausea, vomiting, diarrhea an episode reports cessation of her diarrhea.? E coli, Salmonella, Shigella, Campylobacter are still pending.? Peritoneal fluid was sent for Gram stain culture also pending.? C diff negative. 08/16/23: On examination today patient is alert oriented x3, lying in the bed.? She denies any fever, chills, nausea, vomiting, abdominal pain, chest pain, shortness a breath.? She still endorses diarrhea.? VSS, she is afebrile, currently on room air. Labs today reveal Hgb 8.7, Hct 29.2, Na+ 134, K+ 3.2, Bicarb 16, BUN 56, Creatinine 6.20, Liver enzymes are normal.? Plan today for a colonoscopy and EGD.? Stool and peritoneal fluid cultures are still pending.? Continue with azithromycin Rocephin. 08/17/23: On examination today patient is alert and oriented x3, sitting in the chair. She denies any new complaints at this time. She states her diarrhea has almost completely resolved. VSS, she is afebrile, currently on room air. Labs are essentially at baseline. She had a colonoscopy yesterday that shown a polyp which was removed and sent for pathology, there was diverticulosis without diverticulitis or perforation seen. EGD shown esophagitis and gastritis. Stool cultures were negative. Peritoneal cultures were negative. Patient is stable for discharge. She finished her Azithromycin here and will go home on Augmentin oral for her pneumonia. Final diagnosis: Pne
--- NOTE | 2023-08-17 10:01 | PM.PNNEP ---
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 Subjective Date/time seen: 08/17/23 10:01 Interval history: ESRD follow up Admitted with RSV, diarrhea, low K Feels OK Breathing better Feels overall better Exam Narrative: WD WN, sitting upright, more comfortable, JVD is not seen, RRR, lungs equal BS, no rales, no wheeze,, soft abdomen, non tender, no edema, alert x orientted x 3, no tremors Objective Data Vital Signs Vital Signs: Vital Signs - 24 hr 08/16/23 12:00 08/16/23 13:00 08/16/23 15:11 Temperature 36.6 C Pulse Rate 80 80 79 Respiratory Rate 22 H 22 H Blood Pressure 184/76 H 118/63 Pulse Oximetry 100 100 Oxygen Delivery Room Air Room Air 08/16/23 15:21 08/16/23 15:32 08/16/23 16:50 Temperature 36.3 C L Pulse Rate 75 72 71 Respiratory Rate 15 15 16 Blood Pressure 103/59 L 153/80 H 175/92 H Pulse Oximetry 100 100 99 Oxygen Delivery Room Air Room Air 08/16/23 16:00 08/16/23 19:45 08/16/23 21:09 Temperature 36.3 C L Pulse Rate 68 71 78 Respiratory Rate 16 18 Blood Pressure 175/92 H Pulse Oximetry 99 Oxygen Delivery Room Air 08/16/23 21:16 08/16/23 21:31 08/16/23 22:18 Temperature 36.3 C L Pulse Rate 71 81 Respiratory Rate 20 Blood Pressure 159/84 H 157/79 H Pulse Oximetry 98 Oxygen Delivery 08/16/23 21:05 08/16/23 21:22 08/16/23 20:00 Temperature Pulse Rate 81 80 Respiratory Rate 18 Blood Pressure Pulse Oximetry Oxygen Delivery Room Air 08/17/23 00:00 08/17/23 01:35 08/17/23 04:00 Temperature Pulse Rate 74 72 78 Respiratory Rate 18 Blood Pressure Pulse Oximetry Oxygen Delivery 08/17/23 01:40 08/17/23 05:52 08/17/23 07:20 Temperature 36.6 C 36.6 C Pulse Rate 75 78 78 Respiratory Rate 18 18 18 Blood Pressure 185/87 H 185/87 H Pulse Oximetry 98 Oxygen Delivery 08/17/23 07:30 08/17/23 08:14 08/17/23 08:15 Temperature 36.6 C Pulse Rate 82 83 Respiratory Rate 16 18 Blood Pressure 152/84 H Pulse Oximetry 99 96 Oxygen Delivery Room Air 08/17/23 09:16 Temperature Pulse Rate 90 Respiratory Rate Blood Pressure Pulse Oximetry Oxygen Delivery Intake/Output Intake/Output: Intake & Output 08/14/23 08/15/23 08/16/23 08/17/23 23:59 23:59 23:59 23:59 Intake Total 2110 2720 1790 1290 Output Total 886 580 3032 Balance 2110 1799 999 -7 Meds/Results Medications: Active Medications Generic Name Dose Route Start Last Admin Trade Name Freq PRN Reason Stop Dose Admin Albuterol 2.5 mg 08/14/23 11:41 Albuterol Sulfate Neb 2.5 Mg/3 Ml Inh INHALATION Q4HRT PRN Shortness Of Breath Albuterol/Ipratropium 3 ml 08/14/23 14:00 08/17/23 08:13 Ipratropium 0.5 Mg/Albuterol Sulfate 2.5 Mg Ampul.Neb 3 Ml INHALATION 3 ml Q6HRT LETI Administration Aspirin 81 mg 08/14/23 09:00 08/17/23 09:16 Aspirin 81 Mg Enteric Tablet PO 81 mg DAILY LETI Administration Buspirone HCl 5 mg 08/14/23 09:00 08/17/23 09:15 Buspirone Hcl 5 Mg Tablet PO 5 mg Q12HR LETI Administration Buspirone HCl 2.5 mg 08/14/23 09:00 08/17/23 09:17 Buspirone Hcl 2.5 Mg Tablet PO 2.5 mg Q12HR LETI Administration Cyclobenzaprine HCl 5 mg 08/14/23 21:00 08/16/23 21:14 Cyclobenzaprine Hcl 5 Mg Tablet PO 5 mg HS LETI Administration Duloxetine HCl 30 mg 08/14/23 09:00 08/17/23 09:15 Duloxetine Hcl 30 Mg Capsule.Dr PO 30 mg DAILY LETI Administration Gabapentin 100 mg 08/14/23 21:00 08/16/23 21:15
--- NOTE | 2023-08-17 12:03 | P.PNAN_ITS ---
Anes - Prog Note Post-Op Date/Time: 08/17/23 12:03 Cardiovascular status: normal Respiratory status: normal Airway patency: baseline Mental status: baseline Post-Op hydration status: normal Vital Signs: Last Vital Signs Temp 36.5 C 08/17/23 11:43 Pulse 65 08/17/23 11:43 Resp 17 08/17/23 11:43 BP 147/70 H 08/17/23 11:43 Pulse Ox 98 08/17/23 11:43 O2 Del Method Room Air 08/17/23 08:15 Pain Score (VAS): Patient asleep at time of rounding. No nonverbal signs of pain present at that time. I/O: Intake & Output 08/16/23 08/17/23 08/17/23 23:59 07:59 15:59 Intake Total 308 93 2383 Output Total 1297 Balance 540 -1247 1240 Laboratory Tests 08/17/23 05:53 08/17/23 05:53 08/17/23 05:53 WBC 7.8 RBC 2.88 L Hgb 9.0 L Hct 29.6 L MCV 102.8 H MCH 31.3 MCHC 30.4 L RDW 14.8 H Plt Count 166 MPV 9.8 Immature Gran % (Auto) 1.8 H Neut % (Auto) 81.6 H Lymph % (Auto) 9.1 L [place] % (Auto) 5.4 Eos % (Auto) 2.0 Baso % (Auto) 0.1 L Lymph # (Auto) 0.71 L [place] # (Auto) 0.4 Eos # (Auto) 0.2 Baso # (Auto) 0.0 Abs Immat Gran (auto) 0.14 H Absolute Neuts (auto) 6.4 Absolute Nucleated RBC 0.0 Nucleated RBC % 0.0 Sodium 137 Potassium 2.9 L Chloride 109 H Carbon Dioxide 18 L Anion Gap 10 BUN 48 H Creatinine 5.70 H Estim Creat Clear Calc 6 Estimated GFR 7 L Glucose 67 Calcium 8.4 Magnesium 1.9 Total Bilirubin 0.5 AST 33 ALT 16 Alkaline Phosphatase 74 Total Protein 5.0 L Albumin 2.5 L Microbiology 08/14/23 16:05 Stool Escherichia coli Shiga Toxins - Final 08/14/23 16:05 Stool Salmonella/Shigella Culture - Final 08/14/23 16:05 Stool Campylobacter Antigen Assay - Final 08/15/23 09:44 Peritoneal Fluid Anaerobic Culture - Preliminary 08/15/23 09:44 Peritoneal Fluid Aerobic Culture - Preliminary Post-procedural complaints: none Patient Feedback: Patient satisfied with anesthetic care.
[2023-08-17] MEDS: AZITHROMYCIN 250 MG TABLET 500 MG PO (13:02)
== END 2023-08-17 15:40 | disposition home or self-care (01) | DRG 391 ==
LOC: ANHED 08-14 00:20 → ANH2MED 08-14 00:58
PROVIDERS: Internal Medicine Gastroenterology; Internal Medicine Nephrology; Nurse Practitioner Acute Care; Admitting Provider Internal Medicine; Emergency Provider Physician Assistant; PCP Family Medicine; Visit Provider Nurse Practitioner Adult Health
PROC: 0DJ08ZZ Inspection of Upper Intestinal Tract, Via Natural or Artificial Opening Endoscopic (ICD-10-PCS; CPT 43235; principal; 2023-08-16 14:30)
DX: K29.70 Gastritis, unspecified, without bleeding (principal); J18.9 Pneumonia, unspecified organism; N18.6 End stage renal disease; K92.1 Melena; I12.0 Hypertensive chronic kidney disease with stage 5 chronic kidney disease or end stage renal disease; J21.0 Acute bronchiolitis due to respiratory syncytial virus; N25.81 Secondary hyperparathyroidism of renal origin; K63.5 Polyp of colon; K57.30 Diverticulosis of large intestine without perforation or abscess without bleeding; R19.7 Diarrhea, unspecified; K44.9 Diaphragmatic hernia without obstruction or gangrene; K21.00 Gastro-esophageal reflux disease with esophagitis, without bleeding; D63.1 Anemia in chronic kidney disease; E87.6 Hypokalemia; E78.5 Hyperlipidemia, unspecified; E03.9 Hypothyroidism, unspecified; I73.9 Peripheral vascular disease, unspecified; M19.90 Unspecified osteoarthritis, unspecified site; Z79.82 Long term (current) use of aspirin; Z90.49 Acquired absence of other specified parts of digestive tract; Z99.2 Dependence on renal dialysis; Z20.822 Contact with and (suspected) exposure to COVID-19
CPT/HCPCS: 36415; 71045; 74176; 80053; 83605; 83690; 83735; 84132; 85014; 85018; 85025; 85055; 86850; 86900; 86901; 87040; 87045; 87070; 87075; 87081; 87205; 87427; 87449; 87493; 87637; 88305; 89051; 90945; 94640; 96361; 96365; 96375; 97110; 97161; 97165; 97530; 97535; 99285; A9270; C9113; G0378; J0456; J0696; J2001; J2060; J2704; J3480; J7030; J7040

== ENCOUNTER 2023-11-05 09:33 | Outpatient (CLI) | payer MEDICARE, SELFPAY ==
--- NOTE | ~2023-11-05 | XR_ITS ---
Right Knee Technique: AP, lateral, and sunrise views were obtained. Clinical History: Pain Findings: No fracture or dislocation is seen. Osseous alignment is anatomic. Joint spaces are preserv ed without degenerative or erosive change. Nonspecific soft tissue calcifications noted in the calf. No joint effusion is seen. Impression: No osseous or articular abnormality. Nonspecific soft tissue calcifications in the calf. Reviewed, dictated and finalized at location . Impression: No osseous or articular abnormality. Nonspecific soft tissue calcifications in the calf.
--- NOTE | ~2023-11-05 | XR_ITS ---
EXAMINATION: XR lumbar spine 2-3V DATE: 11/05/2023 10:14 INDICATION: Repeated falls. Multiple joint pain. TECHNIQUE: 3 views of lumbar spine were obtained. COMPARISON: Lumbar spine radiographs 09/30/2022, CT abdomen and pelvis 08/09/2023 FINDINGS: There is kyphosis of the lumbar spine. There is 26 degrees dextroscoliosis of lumbar spine. There is 3 mm retrolisthesis of L3 on L4 and L4 on L5. There is 4 mm anterolisthesis of T11 on T12. There are chronic compression fractures of T11 and T12 with changes of vertebroplasty at T12. There i s interbody fusion at L2-L3. There is severely decreased disc height from T10-T11 through L5-S1. Ther e is multilevel severe facet joint osteoarthritis. IMPRESSION: 1. Severe lumbar spondylosis. 2. Lumbar dextroscoliosis and kyphosis. Reviewed, dictated and finalized at location E.
--- NOTE | ~2023-11-05 | XR_ITS ---
Clinical Indication: Weakness, multiple falls PA and lateral views of the chest: Comparison: 08/16/2023 Findings: Questionable 9 mm the right midlung pulmonary nodule. Left lung clear. Cardiomediastinal si lhouette is within normal limits. Stable levoscoliosis of the thoracolumbar spine with vertebroplasty cement at probably L1. Large hiatal hernia present. High riding humeral head suggests underlying rot ator cuff tears. Impression: Questionable 9 mm right midlung pulmonary nodule. Consider CT to further evaluate. Large hiatal hernia. Chronic osseous findings, as above. Reviewed, dictated and finalized at location . Impression: Questionable 9 mm right midlung pulmonary nodule. Consider CT to further evalua te. Large hiatal hernia. Chronic osseous findings, as above.
--- NOTE | ~2023-11-05 | XR_ITS ---
EXAMINATION: XR hip RT 2V w AP pelvis DATE: 11/05/2023 10:14 INDICATION: Repeated falls with multiple joint pain and limited range of motion at the right hip TECHNIQUE: Anteroposterior view of the pelvis and anteroposterior and frog-leg lateral views of the r ight hip were obtained. COMPARISON: CT dated 08/23/2023 and radiographs dated 04/28/2023 FINDINGS: Advanced right hip osteoarthritis with significant osteolysis at the cephalad aspect of the joint spa ce with loss of bone stock at the cephalad aspect of the femoral head and with expansion of the right acetabulum resulting in approximately 2 cm cephalad migration of the right femur relative to the lef t. There is a large amount of calcific debris about the right hip joint space. There is mild osteoart hritis the left hip with chondrocalcinosis along the left acetabular labrum. No fractures identified. There is lumbar dextroscoliosis with severe spondylosis, partially obscured by dense material within the colon. There is a likely dialysis catheter coiled in the pelvis. IMPRESSION: 1. Advanced right hip osteoarthritis no acute osseous abnormality. 2. Severe lumbar spondylosis. Reviewed, dictated and finalized at location A.
--- NOTE | ~2023-11-05 | XR_ITS ---
Right Shoulder Technique: AP and scapular Y views were obtained. Clinical History: Pain Findings: No fracture or dislocation is seen. Mildly high riding humeral head. The glenohumeral and a cromioclavicular joint spaces are preserved. Soft tissues are unremarkable. Impression: Probable mildly high riding humeral head. Consider underlying rotator cuff tear. Reviewed, dictated and finalized at location . Impression: Probable mildly high riding humeral head. Consider underlying rotator cuff tear .
[2023-11-05 10:56] LABS: Hematocrit 38.8 % (37.0-47.0); Hemoglobin 12.1 g/dL (12.0-15.0); Mean Corpuscular HGB Conc 31.2 g/dl (32-36); Mean Corpuscular Hemoglobin 31.3 pg (26-34); Mean Corpuscular Volume 100.5 fl (80-100); Mean Platelet Volume 9.4 fl (7.4-10.4); Platelet Count Result 322 k/mm3 (150-375); Red Blood Count 3.86 M/mm3 (4.2-5.4); White Blood Count 6.4 K/mm3 (4.5-10.0)
[2023-11-05 11:08] LABS: Alanine Aminotransferase 14 U/L (6-35); Albumin Level 3.4 g/dL (3.5-5.1); Alkaline Phosphatase 93 U/L (38-126); Anion Gap 14 mmol/L (4-12); Aspartate Amino Transferase 25 U/L (14-36); Bilirubin,Total 0.8 mg/dL (0.2-1.3); Blood Urea Nitrogen 69 mg/dL (7-17); Calcium 9.2 mg/dL (8.4-10.2); Carbon Dioxide 25 mmol/L (22-30); Chloride 95 mmol/L (98-107); Estimated Glomerular Filt Rate 6; Glucose 88 mg/dL (65-110); Potassium 3.3 mmol/L (3.4-5.0); Sodium 134 mmol/L (137-145)
[2023-11-05 12:12] LABS: Folic Acid 4.8 ng/mL (2.76->20)
== END 2023-11-05 09:34 | disposition home or self-care (01) ==
LOC: ANHIMG 09:40
PROVIDERS: PCP Family Medicine; Visit Provider Physician Assistant Medical
DX: R29.6 Repeated falls (principal); D64.9 Anemia, unspecified; E53.8 Deficiency of other specified B group vitamins; I10 Essential (primary) hypertension; J18.9 Pneumonia, unspecified organism; N18.6 End stage renal disease; R05.9 Cough, unspecified; Z99.2 Dependence on renal dialysis; N25.81 Secondary hyperparathyroidism of renal origin; E03.9 Hypothyroidism, unspecified; M25.511 Pain in right shoulder; M25.561 Pain in right knee; Z91.81 History of falling; M47.896 Other spondylosis, lumbar region; K44.9 Diaphragmatic hernia without obstruction or gangrene; M16.11 Unilateral primary osteoarthritis, right hip; R91.1 Solitary pulmonary nodule
CPT/HCPCS: 36415; 71046; 72100; 73030; 73502; 73562; 80053; 82607; 82746; 84443; 85027